=== PATIENT | male | born 1935 | race Caucasian/White ===

== ENCOUNTER 2016-08-06 11:42 | Emergency (ER) | payer MEDICARE ==
[2016-08-06] MEDS ORDERED: IPRATROPIUM-ALBUTEROL 3 ML NEB INHALATION STA (12:04)
[2016-08-06] MEDS ORDERED: diphenhydrAMINE 50 MG/ML 1 ML VIAL IVP STA (12:04)
[2016-08-06] MEDS ORDERED: methylPREDNISolone SOD SUCCI 125 MG/2 ML VIAL IV STA (12:04)
[2016-08-06] MEDS ORDERED: FAMOTIDINE 20 MG/2 ML VIAL IV STA (12:04)
--- NOTE | 2016-08-06 12:19 | ED ---
Allergic Reaction HPI - General Chief complaint: Allergic Reaction Stated complaint: LARISSA,dizzy, med reaction Time Seen by Provider: 08/06/16 12:00 Source: patient, family, RN notes reviewed Mode of arrival: wheelchair Limitations: no limitations - History of Present Illness Initial Comments: This is a 81-year-old male who states he had a stress test this morning at about 7 AM about one hour ago started developing itching and a rash to his extremities and torso. He has a difficulty with swallowing he does have slight shortness of breath no chest pain or other symptoms. The patient does states it feels better when he scratches the MD Complaint: allergic reaction - Related Data Home Medications Medication Instructions Recorded Confirmed Diclofenac Potassium [Cataflam] 50 mg PO HS 11/09/15 08/06/16 Levothyroxine Sodium [Synthroid] 50 mcg PO HS 11/09/15 08/06/16 Metoprolol Succinate [Toprol XL] 50 mg PO HS 11/09/15 08/06/16 Simvastatin [Simvastatin] 80 mg PO HS 11/09/15 08/06/16 Aspirin 81 mg PO HS 08/06/16 08/06/16 Clopidogrel [Plavix] 75 mg PO DAILY 08/06/16 08/06/16 Previous Rx's Medication Instructions Recorded predniSONE 20 mg PO BID #10 tab 08/06/16 Allergies Allergy/AdvReac Type Severity Reaction Status Date / Time Iodinated Contrast Media - Allergy Rash/Hives Verified 08/06/16 12:13 Oral and Penicillins Allergy Rash/Hives Verified 08/06/16 12:13 Review of Systems ROS Statement: Those systems with pertinent positive or pertinent negative responses have been documented in the HPI. ROS Other: All systems not noted in ROS Statement are negative. Past Medical History Past Medical History: Cancer, Hyperlipidemia, Hypertension, Myocardial Infarction ([place]), Osteoarthritis ([place]), Sleep Apnea/CPAP/BIPAP, Thyroid Disorder Additional Past Medical History / Comment(s): HX OF SLEEP APNEA, UNABLE TO USE MACHINE, HX OF SKIN CA Last Myocardial Infarction Date:: 2008 History of Any Multi-Drug Resistant Organisms: None Reported Past Surgical History: Heart Catheterization With Stent, Joint Replacement Additional Past Surgical History / Comment(s): KAREN KNEES, KAREN HIPS, RT SHOULDER , ONE STENT Past Anesthesia/Blood Transfusion Reactions: No Reported Reaction Date of Last Stent Placement:: 2008 Past Psychological History: No Psychological Hx Reported Smoking Status: Heavy tobacco smoker Past Alcohol Use History: None Reported, Occasional Past Drug Use History: None Reported General Exam - General Exam Comments Initial Comments: This is a 81-year-old male well-nourished awake alert oriented times. Limitations: no limitations General appearance: alert, anxious Head exam: Present: atraumatic, normocephalic, normal inspection Eye exam: Present: normal appearance, PERRL, EOMI. Absent: scleral icterus, conjunctival injection, periorbital swelling ENT exam: Present: normal exam, mucous membranes moist Neck exam: Present: normal inspection. Absent: tenderness, meningismus, lymphadenopathy Respiratory exam: Present: decreased breath sounds. Absent: respiratory distress, wheezes, rales, rhonchi, stridor Cardiovascular Exam: Present: regular rate, normal rhythm, normal heart sounds. Absent: systolic murmur, diastolic murmur, rubs, gallop, clicks GI/Abdominal exam: Present: soft, normal bowel sounds. Absent: distended, tenderness, guarding, rebound, rigid Extremities exam: Present: normal inspection, full ROM, normal capillary refill. Absent: tenderness, pedal edema, joint swelling, calf tenderness Back exam: Present: normal inspection Neurological exam: Present: alert, oriented X3, CN II-XII intact Psychiatric exam: Present: normal affect, normal mood Skin exam: Present: warm, dry, intact, erythema, urticaria. Absent: rash Course Vital Signs 08/06/16 08/06/16 08/06/16 11:52 12:18 12:28 Temperature 98.0 F Pulse Rate 63 50 L 54 L Respiratory 20 Rate Blood Pressure 103/56 O2 Sat by Pulse 96 Oximetry 08/06/16 08/06/16 12:48 13:18 Temperature 97.0 F L Pulse Rate 63 56 L Respiratory 18 16 Rate Blood Pressure 150/67 162/70 O2 Sat by Pulse 98 98 Oximetry Medical Decision Making - Medical Decision Making I did reevaluate the patient she'll occasionally showing much improved. Patient will be discharged to did discuss the findings with the patient's family members. Disposition Clinical Impression: Allergic reaction, Adverse reaction to drug Disposition: HOME SELF-CARE Condition: Good Instructions: Allergies (ED), Urticaria (ED) Additional Instructions: Ilef-yxg-ntvrvqa Benadryl 25 mg every 6 hours when necessary also over-the- counter histamine 2 enzo such as Zantac or Pepcid 20 mg of Pepcid every 12 hours for up to 5 days. Prescriptions: predniSONE 20 mg PO BID #10 tab Referrals: Mike Garsia MD [Primary Care Provider] - 1-2 days
[2016-08-06 13:18] VITALS: PULSE 56; RESP 16
[2016-08-06 13:48] VITALS: BP 145/61; TEMP 97.4
== END 2016-08-06 13:57 | disposition home or self-care (01) ==
LOC: EC 11:42
DX: R06.02 Shortness of breath (principal); R42 Dizziness and giddiness; L50.9 Urticaria, unspecified; T50.905A Adverse effect of unspecified drugs, medicaments and biological substances, initial encounter; I25.2 Old myocardial infarction; I10 Essential (primary) hypertension; E78.5 Hyperlipidemia, unspecified; M19.90 Unspecified osteoarthritis, unspecified site; E07.9 Disorder of thyroid, unspecified; Z79.02 Long term (current) use of antithrombotics/antiplatelets; Z79.82 Long term (current) use of aspirin; Z79.899 Other long term (current) drug therapy; Z88.0 Allergy status to penicillin; Z91.041 Radiographic dye allergy status; Z85.828 Personal history of other malignant neoplasm of skin; Z95.5 Presence of coronary angioplasty implant and graft
CPT/HCPCS: 99283; 96374; 96375 ×2; 94640; J1200; J2930

== ENCOUNTER → 2016-08-21 | Outpatient (CLI) | payer MEDICARE ==
[2016-08-21 11:06] LABS: Anion Gap 9 mmol/L; Blood Urea Nitrogen 23 mg/dL (9-20); Carbon Dioxide 23 mmol/L (22-30); Chloride 110 mmol/L (98-107); Non-African American GFR(MDRD) 54 (>60 ml/min/1.73 sqM); Potassium 4.5 mmol/L (3.5-5.1); Sodium 142 mmol/L (137-145)
[2016-08-21 11:16] LABS: CH 31.6; CHCM 33.8; HCT 38.6 % (39.0-53.0); HDW 2.39; HGB 13.2 gm/dL (13.0-17.5); MCHC 34.2 g/dL (31.0-37.0); MCV 93.8 fL (80.0-100.0); RBC 4.12 m/uL (4.30-5.90); RDW 13.9 % (11.5-15.5); WBC 6.1 k/uL (3.8-10.6)
== END | disposition home or self-care (01) ==
LOC: LABPAT 09:59
PROVIDERS: ATTEND Internal Medicine Interventional Cardiology
DX: Z01.812 Encounter for preprocedural laboratory examination (principal); R07.9 Chest pain, unspecified
CPT/HCPCS: 80051; 82565; 84520; 85027

== ENCOUNTER 2016-08-27 06:15 | Day surgery (SDC) | payer MEDICARE ==
[2016-08-22 08:44] VITALS: BMI 34.4
[2016-08-27] MEDS ORDERED: ALPRAZolam 0.5 MG TAB PO PRN (06:30)
[2016-08-27] MEDS ORDERED: ATORVASTATIN 80 MG TAB PO STA (06:30)
[2016-08-27] MEDS ORDERED: ASPIRIN 325 MG TAB PO STA (06:30)
[2016-08-27] MEDS ORDERED: NITROGLYCERIN SL TABS 0.4 MG TAB SUBLINGUAL PRN (06:30)
[2016-08-27] MEDS ORDERED: ALPRAZolam 0.25 MG TAB PO PRN (06:30)
[2016-08-27] MEDS ORDERED: SODIUM CHLORIDE 0.9% 1,000 ML in EMPTY BAG 1 BAG IV ONE (06:30)
[2016-08-27 06:58] VITALS: RESP 16
[2016-08-27 07:03] VITALS: TEMP 97.6
[2016-08-27] MEDS ORDERED: VERAPAMIL 2.5 MG/ML 2 ML AMP ONE (07:16)
[2016-08-27] MEDS ORDERED: LIDOCAINE 2% INJ 20 MG/ML (20 ML MDV) ONE (07:16)
[2016-08-27] MEDS ORDERED: HEPARIN SODIUM 1,000 UN/ML (10ML VL) ONE (07:41)
[2016-08-27] MEDS ORDERED: MIDAZOLAM 2 MG/2 ML VIAL ONE (07:41)
[2016-08-27] MEDS ORDERED: MIDAZOLAM 2 MG/2 ML VIAL IV ONE (07:50)
[2016-08-27] MEDS ORDERED: LIDOCAINE 2% INJ 20 MG/ML SQ ONE (07:55)
[2016-08-27] MEDS: VERAPAMIL SYRINGE (5 MG/10 ML) INTRAARTER ONE ×2 (07:57→08:11)
[2016-08-27] MEDS ORDERED: IODIXANOL 320 MG/ML 100 ML INTRAARTER ONE (08:13)
[2016-08-27] MEDS ORDERED: RX INFO: IV CONTRAST WAS GIVEN 1 EACH MISC MISCELLANE PRN (08:17)
[2016-08-27] MEDS ORDERED: SODIUM CHLORIDE 0.9% 1,000 ML IV SCH (08:30)
[2016-08-27 10:25] VITALS: PULSE 52
[2016-08-27 12:11] VITALS: BP 138/72
--- NOTE | 2016-08-27 18:31 | CC ---
DATE OF PROCEDURE: 08/27/2016 PERFORMING PHYSICIAN: Neto Barboza M.D., ice maker. PROCEDURE PERFORMED: Selective right and left coronary angiogram. INDICATION: This is a pleasant 81-year-old gentleman who is known to have coronary artery disease who underwent stenting of the LAD in [place]. He was experiencing exertional dyspnea and he underwent myocardial perfusion imaging stress test that was abnormal, showing anterior and inferior ischemia. He was brought today to undergo a heart catheterization. APPROACH: Right radial artery. COMPLICATIONS: None. LEVEL OF SEDATION: Moderate, with a sedation length of 20 minutes. PROCEDURE DESCRIPTION: After obtaining informed consent, the patient was brought to the cardiac curb and gutter laborer. The right radial artery was cannulated using micropuncture technique. The micropuncture wire passed easily. Then I placed a 6 Wolof sheath in the right radial artery. Subsequently I did selective right and left coronary angiogram using JR4 and JL3.5 catheters. The procedure was completed without any complications. SELECTIVE CORONARY ANGIOGRAM: 1. The right coronary artery is a large-caliber vessel. It is a dominant vessel. It is heavily calcified. The right coronary artery is totally occluded in the distal portion and fills by collateral from the left coronary system. 2. The left main is angiographically normal. It bifurcates into the left circumflex and left anterior descending artery. 3. The left circumflex is a large-caliber vessel. It is a non-dominant vessel. The proximal left circumflex appears to have mild disease only and give rise to a large first obtuse marginal branch which has diffuse disease up to about 50%. The left circumflex continues after that as a medium-caliber vessel in the AV groove. 4. The left anterior descending artery. The proximal LAD appears to have a plaque that seems to be in the range of 50%. The LAD in the proximal portion gives rise to the first and second diagonal branches. Both appear to have mild disease only. The mid LAD appears to have mild disease only. The LAD distally appears to have mild disease only as well. The LAD has a stent in the mid portion that seems to be patent. CONCLUSION: 1. Heavily calcified right and left coronary systems. 2. 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 3. Mild disease involving the left circumflex coronary artery. 4. Patent stent in the mid left anterior descending artery. POST-PROCEDURE MANAGEMENT: I recommended maximizing medical treatment at this point of time. If the patient continues to be symptomatic in spite of maximized medical treatment, we will consider proceeding with PCI of the RCA. FLAVIO
--- NOTE | 2016-08-27 18:49 | MISC ---
LETTER August 27, 2016 TO: Dr. Mike Garsia RE: Rodolfo Mccarty Dear Mike, Mr. Rodolfo Mccarty underwent a heart catheterization that showed patent stent in the mid LAD with chronic total occlusion of the right coronary artery which fills by collateral from the left coronary system. I recommended maximizing medical treatment at this point of time. I want to thank you for allowing me to participate in this patient's care. Please do not hesitate to call with any questions or concerns. Sincerely, Neto Barboza M.D. FLAVIO
== END 2016-08-27 13:04 | disposition home or self-care (01) ==
LOC: CATHCVL 06:15
PROVIDERS: ATTEND Internal Medicine Interventional Cardiology
DX: I25.110 Atherosclerotic heart disease of native coronary artery with unstable angina pectoris (principal); I25.84 Coronary atherosclerosis due to calcified coronary lesion; I25.82 Chronic total occlusion of coronary artery; I10 Essential (primary) hypertension; Z87.891 Personal history of nicotine dependence; R00.1 Bradycardia, unspecified; E78.5 Hyperlipidemia, unspecified; Z82.49 Family history of ischemic heart disease and other diseases of the circulatory system; Z79.02 Long term (current) use of antithrombotics/antiplatelets; Z79.82 Long term (current) use of aspirin; Z79.899 Other long term (current) drug therapy; Z88.0 Allergy status to penicillin
CPT/HCPCS: 99152; 93458; C1894; J2001; J2250; Q9967; J1644

== ENCOUNTER → 2016-11-12 | Outpatient (CLI) | payer MEDICARE ==
[2016-11-12 10:45] LABS: ALT 48 U/L (21-72); AST 30 U/L (17-59); Alkaline Phosphatase 57 U/L (38-126); Anion Gap 11 mmol/L; Blood Urea Nitrogen 29 mg/dL (9-20); Calcium 9.4 mg/dL (8.4-10.2); Carbon Dioxide 24 mmol/L (22-30); Chloride 110 mmol/L (98-107); Glucose 96 mg/dL (74-99); Non-African American GFR(MDRD) 58 (>60 ml/min/1.73 sqM); Sodium 145 mmol/L (137-145); Total Bilirubin 0.4 mg/dL (0.2-1.3); Total Protein 7.2 g/dL (6.3-8.2)
[2016-11-12 11:12] LABS: Aty Lym Flag Slight; CH 30.3; CHCM 31.8; HCT 40.8 % (39.0-53.0); HDW 2.57; HGB 13.1 gm/dL (13.0-17.5); MCH 30.8 pg (25.0-35.0); MCHC 32.1 g/dL (31.0-37.0); MCV 95.9 fL (80.0-100.0); Mean Platelet Volume 7.3; RBC 4.26 m/uL (4.30-5.90); RDW 13.7 % (11.5-15.5); WBC 5.1 k/uL (3.8-10.6); WBC (Perox) 5.17
[2016-11-12 11:32] LABS: Vitamin B12 360 pg/mL
[2016-11-12 14:36] LABS: Add Differential Manual Differential
[2016-11-12 14:38] LABS: Nucleated Red Blood Cells 0 /100 WBC (0-0); Total Cells Counted 100
== END | disposition home or self-care (01) ==
LOC: LABWHC1 09:55
PROVIDERS: ATTEND Nurse Practitioner Acute Care
DX: E55.9 Vitamin D deficiency, unspecified (principal); R41.3 Other amnesia
CPT/HCPCS: 36415; 80053; 82306; 82607; 84207; 84439; 84443; 84481; 85025

== ENCOUNTER → 2017-07-10 | Outpatient (CLI) | payer MEDICARE ==
[2017-07-10 08:40] LABS: Basophils % (A) 1 %; Eosinophils # (A) 0.1 k/uL (0-0.7); Eosinophils % (A) 2 %; HCT 42.3 % (39.0-53.0); HGB 13.9 gm/dL (13.0-17.5); Lymphocytes # (A) 1.8 k/uL (1.0-4.8); Lymphocytes % (A) 29 %; MCH 30.2 pg (25.0-35.0); MCHC 32.9 g/dL (31.0-37.0); MCV 91.6 fL (80.0-100.0); Monocytes # (A) 0.4 k/uL (0-1.0); Monocytes % (A) 7 %; Neutrophils # (A) 3.5 k/uL (1.3-7.7); Neutrophils % (A) 58 %; Platelet Count 218 k/uL (150-450); RBC 4.62 m/uL (4.30-5.90); RDW 13.8 % (11.5-15.5); WBC 6.1 k/uL (3.8-10.6)
[2017-07-10 10:39] LABS: Albumin 3.9 g/dL (3.5-5.0); Calcium 9.6 mg/dL (8.4-10.2); Potassium 5.1 mmol/L (3.5-5.1); Total Bilirubin 0.6 mg/dL (0.2-1.3); Total Protein 6.8 g/dL (6.3-8.2)
[2017-07-10 10:54] LABS: T4, Free (Free Thyroxine) 1.41 ng/dL (0.78-2.19)
[2017-07-10 11:08] LABS: PSA Annual Screen 0.44 ng/mL (0.00-4.00)
[2017-07-10 19:04] LABS: Hemoglobin A1C 5.8 % (4.0-6.0)
== END | disposition home or self-care (01) ==
LOC: LABWHC1 07:41
PROVIDERS: ATTEND Internal Medicine
DX: Z00.00 Encounter for general adult medical examination without abnormal findings (principal); N40.0 Benign prostatic hyperplasia without lower urinary tract symptoms; E03.9 Hypothyroidism, unspecified; I25.10 Atherosclerotic heart disease of native coronary artery without angina pectoris; J44.9 Chronic obstructive pulmonary disease, unspecified; R06.09 Other forms of dyspnea
CPT/HCPCS: 84439; 80061; 80053; 84443; 85025; 82306; 83036; 36415; G0103

== ENCOUNTER → 2017-09-05 | Outpatient (CLI) | payer MEDICARE ==
--- NOTE | 2017-09-05 12:47 | NM ---
EXAMINATION TYPE: NM bone 3 phase DATE OF EXAM: 09/05/2017 COMPARISON: NONE HISTORY: Pain right knee Triple phase bone scintigraphy was performed following the injection of 24.7 mCi Tc 99m MDP. Immedia te images and 3.5 hours post injection images acquired. FINDINGS: There is increased perfusion to the right knee. There is increased soft tissue uptake on blood pool images Bilateral photopenic defects are seen compatible with bilateral knee replacement surgery. Delayed imaging demonstrates increased uptake along the lateral margin of the distal femur and proxim al tibia. IMPRESSION: Increased flow and soft tissue uptake with delayed imaging demonstrates increased bone uptake. Recomm end a tagged WBC study to exclude infection versus loosening.
== END | disposition home or self-care (01) ==
LOC: RADNMMAIN 07:11
PROVIDERS: ATTEND Orthopaedic Surgery
DX: R94.8 Abnormal results of function studies of other organs and systems (principal); T84.84XD Pain due to internal orthopedic prosthetic devices, implants and grafts, subsequent encounter; Z96.651 Presence of right artificial knee joint; Z88.0 Allergy status to penicillin
CPT/HCPCS: 78315; A9503

== ENCOUNTER → 2017-09-23 | Outpatient (CLI) | payer MEDICARE | END | disposition home or self-care (01) | LOC: LABPAT 07:50 | PROVIDERS: ATTEND Orthopaedic Surgery | DX: Z01.812 Encounter for preprocedural laboratory examination (principal); T84.84XD Pain due to internal orthopedic prosthetic devices, implants and grafts, subsequent encounter; Z96.651 Presence of right artificial knee joint | CPT/HCPCS: 87070 ==

== ENCOUNTER → 2017-09-23 | Outpatient (CLI) | payer MEDICARE ==
[2017-09-23 08:48] LABS: Basophils % (A) 1 %; Eosinophils # (A) 0.1 k/uL (0-0.7); Eosinophils % (A) 2 %; HCT 43.7 % (39.0-53.0); HGB 14.5 gm/dL (13.0-17.5); Lymphocytes # (A) 1.9 k/uL (1.0-4.8); Lymphocytes % (A) 34 %; MCHC 33.1 g/dL (31.0-37.0); MCV 90.8 fL (80.0-100.0); Mean Platelet Volume 7.3; Monocytes # (A) 0.4 k/uL (0-1.0); Monocytes % (A) 7 %; Neutrophils # (A) 3.1 k/uL (1.3-7.7); Neutrophils % (A) 55 %; Platelet Count 209 k/uL (150-450); RBC 4.82 m/uL (4.30-5.90); RDW 14.6 % (11.5-15.5); WBC 5.6 k/uL (3.8-10.6)
[2017-09-23 10:36] LABS: Erythrocyte Sedimentation Rate 11 mm/hr (0-15)
== END | disposition home or self-care (01) ==
LOC: LABWHC1 08:18
PROVIDERS: ATTEND Orthopaedic Surgery
DX: T84.84XD Pain due to internal orthopedic prosthetic devices, implants and grafts, subsequent encounter (principal); Z96.651 Presence of right artificial knee joint
CPT/HCPCS: 36415; 85025; 85652; 86140

== ENCOUNTER 2017-10-01 05:38 | Day surgery (SDC) | payer MEDICARE ==
[2017-09-25 11:11] VITALS: BMI 34.4
[~2017-10-01 05:38] MED LIST: LACTATED RINGERS 1,000 ML IV SCH; LIDOCAINE 1% 20 ML VIAL (10MG/ML) FOR IV START INTRADERMA PRN; fentaNYL (PF) 50 MCG/ML 2 ML AMP IV PRN
[2017-10-01] MEDS ORDERED: SODIUM CHLORIDE 0.9% 1,000 ML IV SCH (06:00)
[2017-10-01 06:32] VITALS: TEMP 97.6
[2017-10-01] MEDS: BENZOCAINE SPRAY 1 CAN MUCOUS MEM ONE ×2 (07:00→07:02)
[2017-10-01] MEDS ORDERED: LIDOCAINE 1% INJ 10MG/ML (20 ML MDV) ONE (07:01)
[2017-10-01] MEDS ORDERED: PROPOFOL 10 MG/ML 20 ML VIAL IV ONE (07:01)
[2017-10-01 07:23] LABS: Potassium 4.1 mmol/L (3.5-5.1)
[2017-10-01 07:38] VITALS: RESP 16
--- NOTE | 2017-10-01 08:00 | CE ---
CARDIAC ELECTROPHYSIOLOGY REPORT CARDIOVERSION: DATE OF SERVICE: October 01, 2017. PERFORMING PHYSICIAN: Neto Barboza MD. PROCEDURE PERFORMED: Cardioversion. INDICATION: Atrial flutter, which was symptomatic with shortness of breath. SEDATION: The procedure was performed under general anesthesia with SHOP TAILOR in the room. PROCEDURE DESCRIPTION: After transesophageal echocardiogram was performed, and left atrial appendage as well as intracardiac thrombus was ruled out, we did cardioversion. The patient converted from atrial flutter to normal sinus mechanism using 50 joules on first attempt. CONCLUSION: Successful cardioversion of atrial flutter to normal sinus mechanism using 50 joules on first attempt. POSTPROCEDURE MANAGEMENT: 1. Continue anticoagulation. 2. Continue Toprol-XL as well. 3. Follow up with the patient. MMODL / IJN: [id number] /
--- NOTE | 2017-10-01 08:06 | ECHOT ---
TRANSESOPHAGEAL ECHOCARDIOGRAM DATE OF SERVICE: October 01, 2017 PERFORMING PHYSICIAN: Neto Barboza MD, music therapy teacher. PROCEDURE PERFORMED: Transesophageal echocardiogram. INDICATION: This is a pleasant 82-year-old gentleman who was diagnosed recently with atrial flutter. He was short of breath with it. He started on anticoagulation. He was brought today to undergo a cardioversion. COMPLICATION: None. LEVEL OF SEDATION: Deep sedation was performed using propofol with FABRIC WORKER FOREMAN in the room. PROCEDURE DESCRIPTION: After obtaining an informed consent, the patient was brought to the transesophageal echocardiogram suite. A pulse oximetry and heart rate monitors were attached to the patient. Subsequently the patient was sedated using propofol. I did advance the transesophageal echocardiogram probe to the mid esophagus where a 2D echocardiogram images as well as color Doppler images of various cardiac structures were obtained. Particular attention was made to the left atrial appendage. After that, we did a cardioversion after we ruled out left atrial appendage and intracardiac thrombus. The procedure was completed without any complication. FINDINGS: The left ventricular dimension appeared to be within normal limits. The left ventricular systolic function seems to be mildly impaired with EF around 45%. The right ventricle appeared to be within normal limits for dimension. The aortic valve appeared to be trileaflet valve and appeared to be thickened and calcified with restriction to opening and evidence of moderate aortic stenosis by area only. The aortic valve area was 1.3 centimeters square. The mitral valve seems to be also thickened and calcified with moderate MR. There was normal tricuspid valve and pulmonic valve. The left atrial appendage appeared to be free from any thrombus. The interatrial septum appeared to be intact. We did a bubble study as well. CONCLUSION: 1. Normal left atrial appendage without any evidence of thrombus. 2. Intact interatrial septum without any evidence of shunt. 3. Mildly impaired left ventricular function with an ejection fraction of 45%. 4. Normal right ventricular dimension and systolic function. 5. Aortic sclerosis with evidence of moderate stenosis by area only. 6. Thickened mitral valve leaflets with moderate mitral regurgitation. 7. Normal tricuspid valve and pulmonic valve. 8. No evidence of pericardial effusion. POSTPROCEDURE MANAGEMENT: 1. Cardioversion. 2. Transthoracic echocardiogram as an outpatient to assess the severity of aortic stenosis. MMODL / IJN: [id number] /
[2017-10-01 08:46] VITALS: BP 122/72; PULSE 68
== END 2017-10-01 08:55 | disposition home or self-care (01) ==
LOC: CATHCVL 05:38
PROVIDERS: ATTEND Internal Medicine Interventional Cardiology
DX: I48.3 Typical atrial flutter (principal); I08.0 Rheumatic disorders of both mitral and aortic valves; I44.0 Atrioventricular block, first degree; I45.10 Unspecified right bundle-branch block; I48.91 Unspecified atrial fibrillation; I25.10 Atherosclerotic heart disease of native coronary artery without angina pectoris; I10 Essential (primary) hypertension; E78.5 Hyperlipidemia, unspecified; G47.33 Obstructive sleep apnea (adult) (pediatric); E07.9 Disorder of thyroid, unspecified; M19.90 Unspecified osteoarthritis, unspecified site; F17.290 Nicotine dependence, other tobacco product, uncomplicated; Z95.5 Presence of coronary angioplasty implant and graft; Z82.49 Family history of ischemic heart disease and other diseases of the circulatory system; Z79.01 Long term (current) use of anticoagulants; Z79.82 Long term (current) use of aspirin; Z79.890 Hormone replacement therapy; Z79.899 Other long term (current) drug therapy; Z88.0 Allergy status to penicillin; Z91.09 Other allergy status, other than to drugs and biological substances
CPT/HCPCS: 93312; 93320; 93325; 92960; 80048; J2001; J2704

== ENCOUNTER → 2017-10-24 | Outpatient (CLI) | payer MEDICARE ==
[2017-10-24 08:53] LABS: Basophils % (A) 1 %; Eosinophils # (A) 0.1 k/uL (0-0.7); Eosinophils % (A) 2 %; HGB 13.9 gm/dL (13.0-17.5); Lymphocytes # (A) 1.9 k/uL (1.0-4.8); Lymphocytes % (A) 33 %; MCH 29.8 pg (25.0-35.0); MCHC 32.3 g/dL (31.0-37.0); MCV 92.2 fL (80.0-100.0); Mean Platelet Volume 6.8; Monocytes # (A) 0.4 k/uL (0-1.0); Monocytes % (A) 7 %; Neutrophils # (A) 3.1 k/uL (1.3-7.7); Neutrophils % (A) 54 %; Platelet Count 194 k/uL (150-450); RBC 4.66 m/uL (4.30-5.90); RDW 14.5 % (11.5-15.5); WBC 5.7 k/uL (3.8-10.6)
[2017-10-24 09:13] LABS: Calcium 8.8 mg/dL (8.4-10.2); Potassium 4.2 mmol/L (3.5-5.1)
== END | disposition home or self-care (01) ==
LOC: LABPAT 08:05
PROVIDERS: ATTEND Internal Medicine
DX: Z01.812 Encounter for preprocedural laboratory examination (principal); E03.9 Hypothyroidism, unspecified; I10 Essential (primary) hypertension; M81.0 Age-related osteoporosis without current pathological fracture
CPT/HCPCS: 36415; 80048; 85025

== ENCOUNTER → 2017-11-03 | Outpatient (CLI) | payer MEDICARE ==
[2017-11-03 13:16] LABS: Partial Thromboplastin Time 23.8 sec (22.0-30.0); Prothrombin Time 10.2 sec (9.0-12.0)
== END | disposition home or self-care (01) ==
LOC: LABPAT 11:27
PROVIDERS: ATTEND Orthopaedic Surgery
DX: Z01.812 Encounter for preprocedural laboratory examination (principal); Z51.81 Encounter for therapeutic drug level monitoring; Z79.01 Long term (current) use of anticoagulants
CPT/HCPCS: 36415; 85610; 85730

== ENCOUNTER 2017-11-04 08:00 | Inpatient (IN) | payer MEDICARE ==
[2017-10-31 18:24] VITALS: BMI 34.4
--- NOTE | 2017-11-03 08:55 | HP ---
HISTORY AND PHYSICAL CHIEF COMPLAINT: Right knee pain. HISTORY OF PRESENT ILLNESS: The patient is an 82-year-old retired gentleman who presents with progressive right knee pain for the past several months. He notes lateral pain and instability. He has been wearing a brace. He does use a cane. He notes the pain limits his normal function and activities. He had a previous right total knee arthroplasty in 1995. PAST MEDICAL HISTORY: Significant for heart disease, hypothyroidism, hypertension, hypercholesterolemia. PAST SURGICAL HISTORY: Significant for abdominoplasty, bilateral total knee arthroplasty, previous shoulder surgery, previous bilateral hip surgery in addition to coronary artery bypass grafting. CURRENT MEDICATIONS: Aspirin, metoprolol, simvastatin, levothyroxine along with Plavix. ALLERGIES: He notes allergies to PENICILLIN. FAMILY HISTORY: Family history is noncontributory. SOCIAL HISTORY: Significant for pipe smoking in addition to social alcohol use. REVIEW OF SYSTEMS: Sixteen-point review of systems otherwise reviewed and is noncontributory. PHYSICAL EXAMINATION: On examination, the patient is approximately 5 feet, 10 inches; 241 pounds of endomorphic habitus. HEENT exam is nonfocal. Neck is supple. He has painless passive motion of his right hip. Straight leg raise is negative. Active motion right knee -12 to 105 degrees of flexion. He has a moderate effusion. There is no warmth or erythema. He is tender about the medial and lateral joint line. Collaterals are stable. Homans is negative. His distal neurovascular exam appears intact in the right lower extremity. Previous x-rays of the right knee obtained in the office show asymmetry of the polyethylene component. Bone scan report 09/05/2017 of the right knee shows increased uptake involving the femoral and tibial components. IMPRESSION: 1. 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 2. History of heart disease on anticoagulation. RECOMMENDATIONS: I talked to the patient at length regarding his condition and treatment options. At this point, he is quite symptomatic and opts to proceed with surgery. We will plan to proceed with revision right total knee arthroplasty. Risks and benefits were discussed at length in layman's terms. We will reinstitute anticoagulation postoperatively. The patient underwent preoperative medical evaluation by Dr. Garsia and cardiac evaluation by Dr. Barboza. MMARTUROL / AKILAHN: [id number] /
[~2017-11-04 08:00] MED LIST changes: +ACETAMINOPHEN TAB 500 MG TAB PO ONE; +DEXAMETHASONE SOD PHOSPHATE 10 MG/ML 1 ML VIAL IV ONE; -LACTATED RINGERS 1,000 ML IV SCH; -LIDOCAINE 1% 20 ML VIAL (10MG/ML) FOR IV START INTRADERMA PRN; +MELOXICAM 7.5 MG TAB PO ONE; +MIDAZOLAM 2 MG/2 ML VIAL IV PRN; +ONDANSETRON 4 MG/2 ML VIAL IVP ONE; +TRANEXAMIC ACID 1,000 MG in SODIUM CHLORIDE 0.9% 50 ML IVPB ONE; +ceFAZolin IN SWFI 2 GM/20 ML SYRINGE IVP ONE
[2017-11-04] MEDS ORDERED: ROPIVACAINE 246.25 MG, EPINEPHrine 0.5 MG, KETOROLAC 30 MG, cloNIDine HCL/PF 80 MCG, WA... MISCELLANE ONE ×5 (09:38)
[2017-11-04] MEDS ORDERED: LIDOCAINE 1% 20 ML VIAL (10MG/ML) FOR IV START INTRADERMA ONE (09:38)
[2017-11-04] MEDS: LACTATED RINGERS 1,000 ML IV SCH (09:39)
[2017-11-04] MEDS ORDERED: CLINDAMYCIN 600 MG in DEXTROSE 5% IN WATER 50 ML IVPB STA ×2 (10:30)
[2017-11-04] MEDS ORDERED: METOPROLOL SUCCINATE (ER) 50 MG TAB.ER.24H PO STA (10:39)
[2017-11-04] MEDS ORDERED: METOPROLOL SUCCINATE (ER) 50 MG TAB.ER.24H PO ONE (10:45)
[2017-11-04] MEDS ORDERED: TRANEXAMIC ACID 1,000 MG/10 ML VIAL ONE (10:55)
[2017-11-04] MEDS ORDERED: MIDAZOLAM 2 MG/2 ML VIAL ONE (10:55)
[2017-11-04] MEDS ORDERED: SODIUM CHLORIDE 0.9% 100 ML BAG ONE (10:55)
[2017-11-04] MEDS ORDERED: CLINDAMYCIN 1,800 MG in SODIUM CHLORIDE 0.9% IRRIGATIO 3,000 ML IRRIGATION ONE (11:44)
[2017-11-04] MEDS ORDERED: LACTATED RINGERS 1,000 ML IV ONE (12:21)
[2017-11-04] MEDS ORDERED: HYDROmorphone 1 MG/ML 1 ML SYRINGE IVP PRN ×2 (13:15)
[2017-11-04] MEDS ORDERED: ONDANSETRON 4 MG/2 ML VIAL IVP PRN (13:15)
[2017-11-04] MEDS ORDERED: HYDROcodone/APAP 5-325MG 1 EACH TAB PO PRN ×2 (13:15)
[2017-11-04] MEDS ORDERED: NALOXONE 0.4 MG/ML 1 ML VIAL IV PRN (13:15)
[2017-11-04] MEDS ORDERED: MAGNESIUM HYDROXIDE 2,400 MG/10 ML CUP PO PRN (13:15)
--- NOTE | 2017-11-04 13:54 | P.OP ---
Date of Procedure: 11/04/17 Preoperative Diagnosis: Painful right total hemiarthroplastyaseptic loosening Postoperative Diagnosis: Same Procedure(s) Performed: Revision right total knee arthroplastycemented Implants: Depuy TC3 size 5 cemented femoral component, size 4 cemented tibial component, 45 mm tibial metaphyseal sleeve, 18 x 75 mm tibial stem, 34 mm femoral metaphyseal sleeve, 20 x 75 mm femoral stem, 4 mm posterior medial and lateral augments for the distal femur, 10 mm articular surface Anesthesia: regional, local, spinal Surgeon: Rick Madden Pricer Bagger #1: Nicholas Hartmann Estimated Blood Loss (ml): 300 Pathology: other (Synovium) Condition: stable Disposition: PACU Indications for Procedure: The patient's an 82-year-old male who presents with progressive right knee pain clinically he had evidence of aseptic loosening of a right total knee arthroplasty. A discussion of the risks and benefits of operative intervention versus continued conservative measures was made with patient. He opted to proceed with surgery. Operative risks to include infection, neurovascular injury, development of blood clots, possible component loosening, possible component failure and need for subsequent procedures was discussed. Informed consent was obtained. Operative Findings: As below Description of Procedure: The patient was brought to the operating room, and after induction of spinal anesthesia the right lower extremity was prepped and draped in normal fashion. The tourniquet was inflated to 270 mmHg. The previous longitudinal incision was then made extending 3 finger breaths above the superior pole of patella to the medial aspect the tibial tubercle. The skin and subcutaneous tissues were divided sharply. Electrocautery was used for hemostasis. A medial parapatellar arthrotomy is performed. The patella was everted. The medial soft tissues to include the superficial and deep portions of the medial collateral ligament and the medial hamstring tendons were elevated subperiosteally. The knee was flexed. The polyethylene was then removed. There was significant posterior medial wear. Attention was then paid towards removing the femoral component. A sagittal saw was used to break the bone- cement interface. The femoral component was then extracted. There was significant anterior bone loss. Distal and posterior appeared to be relatively intact. Attention was then paid towards removing the tibial component. The 4 screws were first removed. A sagittal saw was utilized to break the bone- cement interface. The tibial component was then extracted. There was some posterior medial bone loss. A canal drill was used to find the tibial canal. The tibial canal was then reamed up to 18 mm to a depth of 75 mm. I had good distal chatter. The metaphysis was then reamed with the conical reamer. Sequential broaching was performed up to a size 45 metaphyseal broach. There was good rotational stability. A cleanup cut was made over the top of this. The tibia sized most appropriately at size 4. Attention was then paid towards preparing the femur. The canal was reamed up to 20 mm. There was good chatter. Conical reamer was used to the appropriate depth. The metaphysis was then broached up to a 34 mm broach. There was good rotational stability. The distal cutting block was placed. There is no real distal bone loss. The size 5 cutting block was placed. Anterior, posterior, and chamfer cuts were made. Posterior medial and lateral and needed 4 mm augments. The box guide was used with intercondylar cut utilizing a reciprocating saw. This was removed and the trial tibial and femoral components were placed along with a 10 mm articular surface. I was able to obtain full flexion and extension with good stability with varus and valgus stress. The patella was inspected and felt to be adequate and well fixed. The trial components were then removed. The bony surfaces were prepared with pulsatile lavage and dried. The posterior soft tissues were injected with ropivacaine. The tibial component was assembled and the appropriate rotation on the back table. It was then cemented in place and was fully seated. Excess cement was removed. The femoral component was cemented place the appropriate rotation on the back table and then cemented in place and was fully seated. Again excess cement was removed. The final 10 mm articular surface was placed and the knee was put in full extension. After the cement had sufficiently hardened, the knee was again taken through a range of motion. Again I was able to obtain full flexion and extension with good stability with varus and valgus stress. The wound was irrigated with pulsatile lavage. The tourniquet was deflated with approximately 95 minutes total tourniquet time. The medial parapatellar arthrotomy was closed with #2 Ethibond suture. A deep drain was placed exiting laterally. The second dose of IV TXA was given. The subcutaneous tissues were reapproximated with interrupted 2-0 Vicryl sutures. The skin was reapproximated 3-0 subarticular strata fix suture. Skin tape and adhesive was applied. A sterile dressing was applied. The patient was awoken from sedation and transferred to recovery room in good condition. Blood loss was estimated at 300 mL. No complications were incurred. Sponge and needle counts were correct at the end of the case.
--- NOTE | 2017-11-04 14:20 | XR ---
EXAMINATION TYPE: XR knee limited RT DATE OF EXAM: 11/04/2017 CLINICAL HISTORY: Right knee pain and arthritis status post total knee replacement revision. TECHNIQUE: Portable AP and crosstable lateral views of the right knee are obtained immediately posto peratively. COMPARISON: Outside right knee x-ray August 29, 2017 FINDINGS: Metallic hardware from longstem total right knee arthroplasty revision is seen and appears satisfactory in alignment and position. There is evidence of recent surgery with diffuse subcutaneo us gas and percutaneous surgical drain noted. Posterior vascular calcification is redemonstrated. IMPRESSION: METALLIC HARDWARE FROM TOTAL RIGHT KNEE ARTHROPLASTY IS SATISFACTORY IN ALIGNMENT.
[2017-11-04] MEDS ORDERED: ROPIVACAINE 1,100 MG, SODIUM CHLORIDE 0.9% 330 ML MISCELLANE PRN ×6 (15:49→15:56)
[2017-11-04] MEDS ORDERED: ceFAZolin IN SWFI 2 GM/20 ML SYRINGE IVP SCH (16:00)
[2017-11-04] MEDS: traMADol 50 MG TAB PO SCH ×2 (17:47→21:26)
[2017-11-04] MEDS: CLINDAMYCIN 600 MG in DEXTROSE 5% IN WATER 50 ML IVPB SCH ×4 (18:01→23:13)
[2017-11-04] MEDS: SENNOSIDES-DOCUSATE SODIUM 1 EACH TAB PO SCH (21:25)
[2017-11-05 08:49] LABS: Basophils % (A) 0 %; Eosinophils % (A) 0 %; HCT 34.4 % (39.0-53.0); HGB 11.3 gm/dL (13.0-17.5); Lymphocytes # (A) 1.8 k/uL (1.0-4.8); Lymphocytes % (A) 17 %; MCHC 32.7 g/dL (31.0-37.0); MCV 91.7 fL (80.0-100.0); Mean Platelet Volume 7.8; Monocytes # (A) 0.8 k/uL (0-1.0); Monocytes % (A) 7 %; Neutrophils # (A) 7.9 k/uL (1.3-7.7); Neutrophils % (A) 74 %; Platelet Count 172 k/uL (150-450); RBC 3.75 m/uL (4.30-5.90); RDW 14.5 % (11.5-15.5); WBC 10.6 k/uL (3.8-10.6)
[2017-11-05] MEDS: traMADol 50 MG TAB PO SCH ×4 (09:54→22:26)
[2017-11-05] MEDS: CLOPIDOGREL 75 MG TAB PO SCH (09:55)
[2017-11-05] MEDS: ASPIRIN 81 MG PO SCH (09:55)
--- NOTE | 2017-11-05 10:49 | P.PN ---
Progress Note - Text Progress Note Date: 11/05/17 Anesthesia Adductor Catheter Progress Note: 11/05/2017 @ 0642 Pt. Seen and evaluated at the Bedside this AM Denies any complaints of Headaches or pain Reports VAS 2/10, mainly in the back of the leg Vitals stable, Ambulating, mak in place PLan: POD 1 s/p Right total Knee Arthroplasty 1. Pain well controlled with Q-pump, continue current plan 2. Will discuss with primary team any further changes
--- NOTE | 2017-11-05 10:49 | P.PN ---
Subjective Progress Note Date: 11/05/17 Principal diagnosis: Status post revision right total knee arthroplasty Patient seen today resting in his hospital bed, his is present at bedside. He states doing well at this time. No chest pain or shortness of breath. Did discuss with physical therapy about patient, they stated another night would be of benefit. They also noted some bloody drainage at the distal end of the incision up ambulating. Objective - Vital Signs Vital signs: Vital Signs Temp 98.3 F 11/05/17 07:00 Pulse 65 11/05/17 07:00 Resp 16 11/05/17 07:00 BP 103/66 11/05/17 07:00 Pulse Ox 96 11/05/17 07:00 Intake & Output 11/04/17 11/05/17 11/05/17 18:59 06:59 18:59 Intake Total 1155 400 Output Total 1105 680 Balance 50 -280 Weight 108.862 kg Intake: IV 955 Intake, IV Titration 400 Amount Lactated Ringers 1,000 ml 400 @ 0 mls/hr IV .[facility] Rx#:[id number] Oral 200 Output: Drainage 160 280 Right Knee 160 280 Urine 575 400 Estimated Blood Loss 370 - Exam Right lower extremity: Incision is clean, dry, and intact. The prineo tape is in good condition. There is minimal soft tissue swelling and ecchymosis surrounding the medial and lateral aspects of the incision. Calf is soft, no tenderness with palpation. Plantar flexion, dorsiflexion, EHL, FHL are intact. Sensory exam to light touch throughout the extremity is intact, dorsal pedis pulses 2+. - Labs CBC & Chem 7: 11/05/17 07:01 Labs: Abnormal Lab Results - Last 24 Hours (Table) 11/05/17 Range/Units 07:01 RBC 3.75 L (4.30-5.90) m/uL Hgb 11.3 L (13.0-17.5) gm/dL Hct 34.4 L (39.0-53.0) % Neutrophils # 7.9 H (1.3-7.7) k/uL Assessment and Plan Plan: Assessment: Postop day #1 status post revision right total knee arthroplasty Plan: Pain control, continue current medication GI and DVT prophylaxis, I did resume Plavix and aspirin Daily dressing changes, reinforced dressing and placed a compressive Imtiaz Ice and elevate often, use of CPM Medical recommendations Encourage incentive spirometer Discharge planning: Plan for discharge to home in the next few days Time with Patient: Less than 30
--- NOTE | 2017-11-05 11:20 | P.CNPUL ---
History of Present Illness Consult date: 11/05/17 Reason for consult: other Chief complaint: Status post right total knee arthroplasty History of present illness: Pulmonary consultation 11/05/2017 This is a 82-year-old male who has a history of a painful right total hemiarthroplasty with aseptic loosening. He had a revision right total knee arthroplasty. The procedure was performed by Dr. Angeles yesterday. He's postop day #1. He sees my partner as a primary and we are consulted for medical management. From the medical side, is doing well. He has no history of any lung disease. He does smoke cigarettes cigars and a pipe but apparently was told by his primary days lungs are stable. Currently doing well. His only complaint is pain at the surgical site. He apparently has a history of previous hypothyroidism hypertension and hyperlipidemia. His medications include Plavix level thyroxine simvastatin metoprolol and aspirin. His only ALLERGY is penicillin. He appears not to have any current active non- orthopedic issues at this time. Review of Systems A 14 point review of system is positive for pain at the surgical site. That includes the right knee. Other than that, he is doing well. Past Medical History Past Medical History: Cancer, Hyperlipidemia, Hypertension, Myocardial Infarction ([place]), Osteoarthritis (OA), Sleep Apnea/CPAP/BIPAP, Thyroid Disorder Additional Past Medical History / Comment(s): HX OF SLEEP APNEA, UNABLE TO USE MACHINE, HX OF SKIN CA Last Myocardial Infarction Date:: 2008 History of Any Multi-Drug Resistant Organisms: None Reported Past Surgical History: Heart Catheterization With Stent, Joint Replacement Additional Past Surgical History / Comment(s): KAREN KNEES, KAREN HIPS, RT SHOULDER , ONE STENT Past Anesthesia/Blood Transfusion Reactions: No Reported Reaction Date of Last Stent Placement:: 2008 Past Psychological History: No Psychological Hx Reported Smoking Status: Heavy tobacco smoker Past Alcohol Use History: None Reported, Occasional Additional Past Alcohol Use History / Comment(s): SMOKES SMALL CIGARS, 1PPD SINCE AGE 15 (1952) Past Drug Use History: None Reported - Past Family History Mother Family Medical History: No Reported History Brother(s) Family Medical History: Myocardial Infarction ([place]) Father Family Medical History: Myocardial Infarction ([place]) Medications and Allergies Home Medications Medication Instructions Recorded Confirmed Type Levothyroxine Sodium [Synthroid] 50 mcg PO HS 11/09/15 11/04/17 History Metoprolol Succinate [Toprol XL] 50 mg PO DAILY 11/09/15 11/04/17 History Simvastatin 80 mg PO HS 11/09/15 11/04/17 History Aspirin 81 mg PO HS 08/06/16 11/04/17 History Cholecalciferol (Vitamin D3) 2,000 unit PO DAILY 09/25/17 11/04/17 History [Vitamin D3] Clopidogrel [Plavix] 75 mg PO DAILY 10/31/17 11/04/17 History Allergies Allergy/AdvReac Type Severity Reaction Status Date / Time Penicillins Allergy Rash/Hives Verified 11/04/17 18:15 cardiolite Allergy Anaphylaxis Uncoded 10/31/17 17:28 Physical Exam Osteopathic Statement: *. No significant issues noted on an osteopathic structural exam other than those noted in the History and Physical/Consult. Vitals: Vital Signs Temp Pulse Pulse Resp BP Pulse Ox 11/05/17 07:00 98.3 F 65 16 103/66 96 11/05/17 01:07 98.3 F 58 L 16 126/54 96 11/04/17 20:01 98.5 F 65 18 118/54 95 11/04/17 17:33 64 16 141/79 94 L 11/04/17 16:30 54 L 16 146/73 94 L 11/04/17 16:00 58 L 16 141/70 95 11/04/17 15:30 49 L 16 129/63 96 11/04/17 15:00 54 L 18 116/58 97 11/04/17 14:45 59 L 18 117/57 95 11/04/17 14:30 58 L 18 117/56 97 11/04/17 14:15 60 18 118/56 95 11/04/17 14:00 57 L 18 114/55 94 L 11/04/17 13:44 97.8 F 63 18 119/59 96 Intake and Output 11/04/17 11/05/17 11/05/17 22:59 06:59 14:59 Intake Total 900 Output Total 430 680 Balance 470 -680 Intake: IV 300 Intake, IV Titration 400 Amount Lactated Ringers 1,000 ml 400 @ 0 mls/hr IV .[facility] Rx#:[id number] Oral 200 Output: Drainage 160 280 Right Knee 160 280 Urine 200 400 Estimated Blood Loss 70 Other: Weight 108.862 kg No acute distress, oriented 3. Not requiring any supplemental oxygen. HEENT examination is grossly unremarkable. Mucous membranes are moist. No oral lesions. Neck supple. Full range of motion. No adenopathy thyromegaly or neck vein distention. Cardiovascular examination reveals regular rhythm rate. S1-S2 normal. No S3 or S4. No discernible murmur noted. Lungs reveal clear breath sounds. Her sounds are equal bilaterally. No adventitious lung sounds including wheezes rhonchi or crackles. Abdomen soft bowel sounds are heard. No masses or tenderness. Extremities are intact. No cyanosis clubbing or edema. Skin is without rash or lesion. Neurologic examination is brief but nonfocal. Results - Laboratory Findings CBC and BMP: 11/05/17 07:01 Abnormal lab findings: Abnormal Labs 11/05/17 07:01 RBC 3.75 L Hgb 11.3 L Hct 34.4 L Neutrophils # 7.9 H - Diagnostic Findings Chest x-ray: report reviewed (Labs x-rays and medications are all reviewed.), image reviewed Assessment and Plan Assessment: Assessment Postop day #1, status post revision of a right knee arthroplasty. History of coronary artery disease History of hypertension History of hyperlipidemia History of hypothyroidism History of GERD History of chronic tobacco abuse in the form of cigarettes pipes and cigars. Plan: Plan dated 11/05/2017 The patient's doing well. We will continue to follow. His usual medications are reported. The patient's only having pain at the surgical site which is the right knee. He denies other complaints including chest pain chest discomfort shortness breath cough wheezing phlegm production or hemoptysis. No abdominal pain or urinary complaints. White count 10.6 hemoglobin is 11.3 hematocrit 34.4 and platelet count is normal. We will continue to follow. Time with Patient: Greater than 30
[2017-11-05] MEDS: LACTATED RINGERS 1,000 ML IV SCH (20:17)
[2017-11-05] MEDS: SENNOSIDES-DOCUSATE SODIUM 1 EACH TAB PO SCH (20:19)
[2017-11-06] MEDS: LACTATED RINGERS 1,000 ML IV SCH ×2 (05:38→22:55)
[2017-11-06] MEDS: traMADol 50 MG TAB PO SCH ×4 (08:14→21:36)
[2017-11-06] MEDS: ASPIRIN 81 MG PO SCH (08:14)
[2017-11-06] MEDS: CLOPIDOGREL 75 MG TAB PO SCH (08:15)
--- NOTE | 2017-11-06 10:35 | P.PN ---
Subjective Progress Note Date: 11/06/17 Principal diagnosis: Status post revision of a right knee arthroplasty, postop day 2 Pulmonary consultation 11/05/2017 This is a 82-year-old male who has a history of a painful right total hemiarthroplasty with aseptic loosening. He had a revision right total knee arthroplasty. The procedure was performed by Dr. Angeles yesterday. He's postop day #1. He sees my partner as a primary and we are consulted for medical management. From the medical side, is doing well. He has no history of any lung disease. He does smoke cigarettes cigars and a pipe but apparently was told by his primary days lungs are stable. Currently doing well. His only complaint is pain at the surgical site. He apparently has a history of previous hypothyroidism hypertension and hyperlipidemia. His medications include Plavix level thyroxine simvastatin metoprolol and aspirin. His only ALLERGY is penicillin. He appears not to have any current active non- orthopedic issues at this time. On 11/06/2017 patient is doing well. He is up ambulating with physical therapy , and a walker, his gait is very unsteady, patient is hunched over over a walker quite significantly. Doing well from pulmonary perspective, no shortness of breath, no chest pain. His labs from yesterday were reviewed, the VBC was 10.6, hemoglobin was 11.3. Lung sounds are clear to auscultation, his postoperative pain is reasonably controlled. Objective - Vital Signs Vital signs: Vital Signs Temp 98.2 F 11/06/17 07:12 Pulse 70 11/06/17 07:12 Resp 16 11/06/17 07:12 BP 122/64 11/06/17 07:12 Pulse Ox 94 L 11/06/17 07:12 Intake & Output 11/05/17 11/06/17 11/06/17 18:59 06:59 18:59 Intake Total 480 180 Output Total 600 1825 Balance -120 -1825 180 Intake: Oral 480 180 Output: Urine 600 1825 Uretheral (Gusman) 600 Other: Voiding Method Urinal # Voids 3 - Exam No acute distress, oriented 3. Not requiring any supplemental oxygen. HEENT examination is grossly unremarkable. Mucous membranes are moist. No oral lesions. Neck supple. Full range of motion. No adenopathy thyromegaly or neck vein distention. Cardiovascular examination reveals regular rhythm rate. S1-S2 normal. No S3 or S4. No discernible murmur noted. Lungs reveal clear breath sounds. Her sounds are equal bilaterally. No adventitious lung sounds including wheezes rhonchi or crackles. Abdomen soft bowel sounds are heard. No masses or tenderness. Extremities are intact. No cyanosis clubbing or edema. Skin is without rash or lesion. Neurologic examination is brief but nonfocal. - Labs CBC & Chem 7: 11/05/17 07:01 Assessment and Plan Plan: Assessment: Postop day #2, status post revision of a right knee arthroplasty. History of coronary artery disease History of hypertension History of hyperlipidemia History of hypothyroidism History of GERD History of chronic tobacco abuse in the form of cigarettes pipes and cigars. Plan: Pain is reasonably controlled, patient is ambulating. Vital signs are stable, no chest pain, no shortness of breath, no wheezing or coughing. On a perspective patient is stable, anticipate discharge home or subacute rehab soon I performed a history & physical examination of the patient and discussed their management with my nurse practitioner, Estee Olivo. I reviewed the nurse practitioner's note and agree with the documented findings and plan of care. Lung sounds are clear. The findings and the impression was discussed with the patient. I attest to the documentation by the nurse practitioner. Time with Patient: Less than 30
[2017-11-06] MEDS: SENNOSIDES-DOCUSATE SODIUM 1 EACH TAB PO SCH (21:07)
[2017-11-07 00:59] VITALS: RESP 18
[2017-11-07 07:39] VITALS: BP 117/69; PULSE 73; TEMP 98.4
[2017-11-07 08:06] LABS: Basophils % (A) 1 %; Eosinophils # (A) 0.1 k/uL (0-0.7); Eosinophils % (A) 1 %; HCT 34.5 % (39.0-53.0); HGB 11.5 gm/dL (13.0-17.5); Lymphocytes # (A) 1.9 k/uL (1.0-4.8); Lymphocytes % (A) 28 %; MCH 30.1 pg (25.0-35.0); MCHC 33.2 g/dL (31.0-37.0); MCV 90.6 fL (80.0-100.0); Mean Platelet Volume 7.6; Monocytes # (A) 0.7 k/uL (0-1.0); Monocytes % (A) 10 %; Neutrophils % (A) 59 %; Platelet Count 159 k/uL (150-450); RBC 3.81 m/uL (4.30-5.90); RDW 14.5 % (11.5-15.5); WBC 6.9 k/uL (3.8-10.6)
[2017-11-07] MEDS: ASPIRIN 81 MG PO SCH (10:27)
[2017-11-07] MEDS: traMADol 50 MG TAB PO SCH ×2 (10:28→13:00)
[2017-11-07] MEDS: CLOPIDOGREL 75 MG TAB PO SCH (10:28)
--- NOTE | 2017-11-07 11:44 | P.PN ---
Subjective Progress Note Date: 11/07/17 Principal diagnosis: Status post revision of a right knee arthroplasty, postop day 2 Pulmonary consultation 11/05/2017 This is a 82-year-old male who has a history of a painful right total hemiarthroplasty with aseptic loosening. He had a revision right total knee arthroplasty. The procedure was performed by Dr. Angeles yesterday. He's postop day #1. He sees my partner as a primary and we are consulted for medical management. From the medical side, is doing well. He has no history of any lung disease. He does smoke cigarettes cigars and a pipe but apparently was told by his primary days lungs are stable. Currently doing well. His only complaint is pain at the surgical site. He apparently has a history of previous hypothyroidism hypertension and hyperlipidemia. His medications include Plavix level thyroxine simvastatin metoprolol and aspirin. His only ALLERGY is penicillin. He appears not to have any current active non- orthopedic issues at this time. On 11/06/2017 patient is doing well. He is up ambulating with physical therapy , and a walker, his gait is very unsteady, patient is hunched over over a walker quite significantly. Doing well from pulmonary perspective, no shortness of breath, no chest pain. His labs from yesterday were reviewed, the VBC was 10.6, hemoglobin was 11.3. Lung sounds are clear to auscultation, his postoperative pain is reasonably controlled. On 10/30/2017 patient seen in follow-up on 3 surgical floor. He still remains very unstable, otherwise no other acute complaints. Her main pulse ox is 94%, vital signs are stable, lung sounds are clear, pain is controlled. Today's lab work has been reviewed, WBC 6.9, hemoglobin is 11.5. No acute issues overnight , from pulmonary perspective patient can go home today. Objective - Vital Signs Vital signs: Vital Signs Temp 98.4 F 11/07/17 07:37 Pulse 73 11/07/17 07:37 Resp 18 11/07/17 07:37 BP 117/69 11/07/17 07:37 Pulse Ox 94 L 11/07/17 07:37 Intake & Output 11/06/17 11/07/17 11/07/17 18:59 06:59 18:59 Intake Total 630 500 400 Output Total 800 Balance -170 500 400 Intake: Oral 630 500 400 Output: Urine 800 Other: Voiding Method Urinal # Voids 1 - Exam No acute distress, oriented 3. Not requiring any supplemental oxygen. HEENT examination is grossly unremarkable. Mucous membranes are moist. No oral lesions. Neck supple. Full range of motion. No adenopathy thyromegaly or neck vein distention. Cardiovascular examination reveals regular rhythm rate. S1-S2 normal. No S3 or S4. No discernible murmur noted. Lungs reveal clear breath sounds. Her sounds are equal bilaterally. No adventitious lung sounds including wheezes rhonchi or crackles. Abdomen soft bowel sounds are heard. No masses or tenderness. Extremities are intact. No cyanosis clubbing or edema. Skin is without rash or lesion. Neurologic examination is brief but nonfocal. - Labs CBC & Chem 7: 11/07/17 07:20 Labs: Abnormal Lab Results - Last 24 Hours (Table) 11/07/17 Range/Units 07:20 RBC 3.81 L (4.30-5.90) m/uL Hgb 11.5 L (13.0-17.5) gm/dL Hct 34.5 L (39.0-53.0) % Assessment and Plan Plan: Assessment: Postop day #3, status post revision of a right knee arthroplasty. History of coronary artery disease History of hypertension History of hyperlipidemia History of hypothyroidism History of GERD History of chronic tobacco abuse in the form of cigarettes pipes and cigars. Plan: Patient is doing well, no acute issues overnight, vital signs are stable, room air pulse ox 94%, gait remains unstable, patient is walking with a walker, insisting on going home instead of the rehab facility. From pulmonary perspective patient is stable for discharge home with home care or subacute rehab. Follow-up with Dr. Garsia any office in one week. I performed a history & physical examination of the patient and discussed their management with my nurse practitioner, Estee Olivo. I reviewed the nurse practitioner's note and agree with the documented findings and plan of care. Lung sounds are clear. The findings and the impression was discussed with the patient. I attest to the documentation by the nurse practitioner. Time with Patient: Less than 30
--- NOTE | 2017-11-07 12:48 | P.PN ---
Progress Note - Text Progress Note Date: 11/07/17 S: The patient has no complaints. They deny shortness of breath or chest pain. O: Afebrile, vital signs stable Homans negative right lower extremity Distal neurovascular status intact in the operative extremity Incision clean, dry , and intact A/P: Postoperative day 3 status post revision right total knee arthroplasty I discussed possible inpatient rehab, however the patient and his family refused. DVT prophylaxis with Plavix Discharge home today Home therapy/nursing Follow-up 2 weeks
== END 2017-11-07 13:29 | disposition home health service (06) | DRG 468 ==
LOC: 2ORMAIN 08:24 → 3SUR 17:08
PROVIDERS: ADMIT Orthopaedic Surgery; ATTEND Orthopaedic Surgery
PROC: 0SPC0JZ Removal of Synthetic Substitute from Right Knee Joint, Open Approach (ICD-10-PCS; principal; 2017-11-04 10:40)
PROC: 0SRC0J9 Replacement of Right Knee Joint with Synthetic Substitute, Cemented, Open Approach (ICD-10-PCS; principal; 2017-11-04 10:40)
DX: T84.032A Mechanical loosening of internal right knee prosthetic joint, initial encounter (principal); E03.9 Hypothyroidism, unspecified; E78.00 Pure hypercholesterolemia, unspecified; E78.5 Hyperlipidemia, unspecified; F17.210 Nicotine dependence, cigarettes, uncomplicated; G47.30 Sleep apnea, unspecified; I10 Essential (primary) hypertension; I25.10 Atherosclerotic heart disease of native coronary artery without angina pectoris; I25.2 Old myocardial infarction; K21.9 Gastro-esophageal reflux disease without esophagitis; T84.84XA Pain due to internal orthopedic prosthetic devices, implants and grafts, initial encounter; Y83.1 Surgical operation with implant of artificial internal device as the cause of abnormal reaction of the patient, or of later complication, without mention of misadventure at the time of the procedure; Z79.02 Long term (current) use of antithrombotics/antiplatelets; Z82.49 Family history of ischemic heart disease and other diseases of the circulatory system; Z88.0 Allergy status to penicillin; Z95.1 Presence of aortocoronary bypass graft; Z79.82 Long term (current) use of aspirin; Z79.890 Hormone replacement therapy; Z79.899 Other long term (current) drug therapy; F17.290 Nicotine dependence, other tobacco product, uncomplicated; Z95.5 Presence of coronary angioplasty implant and graft; Z96.653 Presence of artificial knee joint, bilateral; Z96.643 Presence of artificial hip joint, bilateral
CPT/HCPCS: 36415; 85025; 85610; 85730; 88305; 88331

== ENCOUNTER 2018-09-26 20:13 | Observation (INO) | payer MEDICARE ==
[2018-09-26] MEDS ORDERED: ASPIRIN 81 MG PO STA (20:34)
[2018-09-26] MEDS ORDERED: HEPARIN SODIUM,PORCINE 10,000 UNIT/ML 1 ML VIAL IV ONE (20:35)
[2018-09-26] MEDS ORDERED: HEPARIN SODIUM,PORCINE 5,000 UNIT/ML 1 ML VIAL IV PRN (20:35)
--- NOTE | 2018-09-26 20:37 | ED ---
General Adult HPI - General Chief complaint: Chest Pain Stated complaint: Chest pain Time Seen by Provider: 09/26/18 20:27 Source: patient, family Mode of arrival: wheelchair Limitations: no limitations - History of Present Illness Initial comments: Dictation was produced using Datezr dictation software. please excuse any grammatical, word or spelling errors. Chief Complaint: 83-year-old male with past medical history cancer, dyslipidemia hypertension myocardial infarctions presents with left-sided chest pain 1 day. History of Present Illness: Is a 83-year-old male who has past medical history of heart attack. Patient states that he was walking around his house when he suddenly developed sharp left-sided chest pain. Denies any worsening with deep inspiration. He states it sharp and dull. No associated diaphoresis. No radiation to the shoulders or the jaw. Patient denies any numbness and paresthesias to his arms or legs. Denies any history of blood clots. Denies any lower extremity symptoms. He continues to endorse pain at this time. She denies any blood thinners. The ROS documented in this emergency department record has been reviewed and confirmed by me. Those systems with pertinent positive or negative responses have been documented in the HPI. All other systems are other negative and/or noncontributory. PHYSICAL EXAM: General Impression: Alert and oriented x3, not in acute distress HEENT: Normocephalic atraumatic, extra-ocular movements intact, pupils equal and reactive to light bilaterally, mucous membranes moist. Cardiovascular: End-systolic murmur grade 2/6, irregular rhythm Chest: Lungs clear to auscultation bilaterally, no rhonchi, no wheeze, no rales Abdomen: Bowel sounds present, abdomen soft, non-tender, non-distended, no organomegaly Musculoskeletal: Pulses present and equal in all extremities, no peripheral edema Motor: no focal deficits noted Neurological: CN II-XII grossly intact, no focal motor or sensory deficits noted Skin: Intact with no visualized rashes Psych: Normal affect and mood ED course: 83-year-old male presents with atypical chest pain with typical features. Patient is considered high risk given he has history of myocardial infarction. Didn't really report taking some nitroglycerin with some alleviation of symptoms. Vital signs upon arrival shows findings within acceptable limits. EKG shows atrial flutter. No findings to suggest ischemia. Patient has any history of atrial fibrillation or atrial flutter.Laboratory evaluation obtained. CBC unremarkable. INR is 1.6. D-dimer 0.55. Patient does have mild non-gap acidosis. Rest metabolic panel is unremarkable. Patient's cardiac enzymes are 0.013. Chest x-ray was obtained showing findings of those concerning for pneumonia versus heart failure. Patient had elevated d-dimer. CT angios the chest obtained showing no acute processes. Coca presentation is concerning for atypical chest pain with typical features. Patient has multiple risk factors he is given aspirin. Patient be admitted to observation for surgery upon to cardiology consultation. EKG interpretation: Ventricular rate 77, atrial flutter with variable AV block, QS 136, QTC 436. No ME prolongation, no QTC prolongation, no ST or T-wave changes noted. Overall, this EKG is unremarkable - Related Data Home Medications Medication Instructions Recorded Confirmed Levothyroxine Sodium [Synthroid] 50 mcg PO HS 11/09/15 09/26/18 Metoprolol Succinate [Toprol XL] 50 mg PO HS 11/09/15 09/26/18 Atorvastatin [Lipitor] 40 mg PO HS 09/26/18 09/26/18 Folic Acid 1 mg PO HS 09/26/18 09/26/18 Nitroglycerin Sl Tabs [Nitrostat] 0.4 mg SUBLINGUAL Q5M PRN 09/26/18 09/26/18 Warfarin [Coumadin] 5 mg PO HS 09/26/18 09/26/18 Allergies Allergy/AdvReac Type Severity Reaction Status Date / Time Penicillins Allergy Anaphylaxis Verified 09/26/18 20:36 cardiolite Allergy Anaphylaxis Uncoded 09/26/18 20:36 Review of Systems ROS Statement: Those systems with pertinent positive or pertinent negative responses have been documented in the HPI. ROS Other: All systems not noted in ROS Statement are negative. Past Medical History Past Medical History: Cancer, Hyperlipidemia, Hypertension, Myocardial Infarction ([place]), Osteoarthritis ([place]), Sleep Apnea/CPAP/BIPAP, Thyroid Disorder Additional Past Medical History / Comment(s): HX OF SLEEP APNEA, UNABLE TO USE MACHINE, HX OF SKIN CA Last Myocardial Infarction Date:: 2008 History of Any Multi-Drug Resistant Organisms: None Reported Past Surgical History: Heart Catheterization With Stent, Joint Replacement Additional Past Surgical History / Comment(s): KAREN KNEES, KAREN HIPS, RT SHOULDER, ONE STENT Past Anesthesia/Blood Transfusion Reactions: No Reported Reaction Date of Last Stent Placement:: 2008 Past Psychological History: No Psychological Hx Reported Smoking Status: Heavy tobacco smoker Past Alcohol Use History: None Reported, Occasional Past Drug Use History: None Reported - Past Family History Mother Family Medical History: No Reported History Brother(s) Family Medical History: Myocardial Infarction ([place]) Father Family Medical History: Myocardial Infarction ([place]) General Exam Limitations: no limitations Course Vital Signs 09/26/18 09/26/18 09/26/18 20:14 20:30 21:00 Temperature 97.9 F Pulse Rate 80 72 73 Respiratory 20 Rate Blood Pressure 125/68 129/76 127/69 O2 Sat by Pulse 97 97 98 Oximetry 09/26/18 09/26/18 09/26/18 21:30 21:40 22:00 Temperature Pulse Rate 70 75 68 Respiratory 18 Rate Blood Pressure 118/68 118/68 116/79 O2 Sat by Pulse 96 97 96 Oximetry Medical Decision Making - Lab Data Result diagrams: 09/26/18 20:29 09/26/18 20:29 Lab Results 09/26/18 09/26/18 09/26/18 Range/Units 20:29 20:29 20:29 WBC 7.9 (3.8-10.6) k/uL RBC 4.70 (4.30-5.90) m/uL Hgb 13.5 (13.0-17.5) gm/dL Hct 41.4 (39.0-53.0) % MCV 88.0 (80.0-100.0) fL MCH 28.7 (25.0-35.0) pg MCHC 32.6 (31.0-37.0) g/dL RDW 16.4 H (11.5-15.5) % Plt Count 224 (150-450) k/uL Neutrophils % 68 % Lymphocytes % 23 % Monocytes % 6 % Eosinophils % 1 % Basophils % 1 % Neutrophils # 5.4 (1.3-7.7) k/uL Lymphocytes # 1.8 (1.0-4.8) k/uL Monocytes # 0.5 (0-1.0) k/uL Eosinophils # 0.1 (0-0.7) k/uL Basophils # 0.0 (0-0.2) k/uL Anisocytosis Slight PT 15.8 H (9.0-12.0) sec INR 1.6 H (<1.2) APTT 28.6 (22.0-30.0) sec D-Dimer (<0.60) mg/L FEU Sodium 139 (137-145) mmol/L Potassium 4.2 (3.5-5.1) mmol/L Chloride 108 H (98-107) mmol/L Carbon Dioxide 21 L (22-30) mmol/L Anion Gap 10 mmol/L BUN 23 H (9-20) mg/dL Creatinine 1.01 (0.66-1.25) mg/dL Est GFR (CKD-EPI)AfAm 79 (>60 ml/min/1.73 sqM) Est GFR (CKD-EPI)NonAf 68 (>60 ml/min/1.73 sqM) Glucose 158 H (74-99) mg/dL Calcium 9.0 (8.4-10.2) mg/dL Magnesium 2.1 (1.6-2.3) mg/dL Total Bilirubin 0.5 (0.2-1.3) mg/dL AST 21 (17-59) U/L ALT 20 L (21-72) U/L Alkaline Phosphatase 68 (38-126) U/L Troponin I (0.000-0.034) ng/mL Total Protein 7.1 (6.3-8.2) g/dL Albumin 3.8 (3.5-5.0) g/dL 09/26/18 09/26/18 Range/Units 20:29 20:29 WBC (3.8-10.6) k/uL RBC (4.30-5.90) m/uL Hgb (13.0-17.5) gm/dL Hct (39.0-53.0) % MCV (80.0-100.0) fL MCH (25.0-35.0) pg MCHC (31.0-37.0) g/dL RDW (11.5-15.5) % Plt Count (150-450) k/uL Neutrophils % % Lymphocytes % % Monocytes % % Eosinophils % % Basophils % % Neutrophils # (1.3-7.7) k/uL Lymphocytes # (1.0-4.8) k/uL Monocytes # (0-1.0) k/uL Eosinophils # (0-0.7) k/uL Basophils # (0-0.2) k/uL Anisocytosis PT (9.0-12.0) sec INR (<1.2) APTT (22.0-30.0) sec D-Dimer 0.55 (<0.60) mg/L FEU Sodium (137-145) mmol/L Potassium (3.5-5.1) mmol/L Chloride (98-107) mmol/L Carbon Dioxide (22-30) mmol/L Anion Gap mmol/L BUN (9-20) mg/dL Creatinine (0.66-1.25) mg/dL Est GFR (CKD-EPI)AfAm (>60 ml/min/1.73 sqM) Est GFR (CKD-EPI)NonAf (>60 ml/min/1.73 sqM) Glucose (74-99) mg/dL Calcium (8.4-10.2) mg/dL Magnesium (1.6-2.3) mg/dL Total Bilirubin (0.2-1.3) mg/dL AST (17-59) U/L ALT (21-72) U/L Alkaline Phosphatase (38-126) U/L Troponin I 0.013 (0.000-0.034) ng/mL Total Protein (6.3-8.2) g/dL Albumin (3.5-5.0) g/dL Disposition Clinical Impression: Chest pain Disposition: ADMITTED IP TO THIS [facility] Condition: Fair Referrals: Mike Garsia MD [Primary Care Provider] - 1-2 days Decision Time: 23:44
[2018-09-26 20:38] LABS: Anisocytosis Slight; Basophils % (A) 1 %; Eosinophils # (A) 0.1 k/uL (0-0.7); Eosinophils % (A) 1 %; HCT 41.4 % (39.0-53.0); HGB 13.5 gm/dL (13.0-17.5); Lymphocytes # (A) 1.8 k/uL (1.0-4.8); Lymphocytes % (A) 23 %; MCH 28.7 pg (25.0-35.0); MCHC 32.6 g/dL (31.0-37.0); Mean Platelet Volume 6.9; Monocytes # (A) 0.5 k/uL (0-1.0); Monocytes % (A) 6 %; Neutrophils # (A) 5.4 k/uL (1.3-7.7); Neutrophils % (A) 68 %; Platelet Count 224 k/uL (150-450); RDW 16.4 % (11.5-15.5); WBC 7.9 k/uL (3.8-10.6)
[2018-09-26 20:47] LABS: INR 1.6 (<1.2); Partial Thromboplastin Time 28.6 sec (22.0-30.0); Prothrombin Time 15.8 sec (9.0-12.0)
[2018-09-26 20:53] LABS: Albumin 3.8 g/dL (3.5-5.0); Magnesium 2.1 mg/dL (1.6-2.3); Potassium 4.2 mmol/L (3.5-5.1); Total Bilirubin 0.5 mg/dL (0.2-1.3); Total Protein 7.1 g/dL (6.3-8.2)
--- NOTE | 2018-09-26 21:03 | XR ---
EXAMINATION TYPE: XR chest 2V DATE OF EXAM: 09/26/2018 COMPARISON: 10/20/2017 HISTORY: Chest pain TECHNIQUE: Frontal and lateral views of the chest are obtained. FINDINGS: There is coarsening of interstitial markings. Heart size is normal. There are chest leads. There is no pleural effusion. IMPRESSION: Mild pulmonary interstitial infiltrates could relate to acute interstitial pneumonia or minimal heart failure. This is a change compared to last exam.
[2018-09-26] MEDS: HEPARIN SOD,PORK IN 0.45% NACL 25,000 UNIT in 0.45% NACL 1 250ML.BAG IV SCH (21:17)
--- NOTE | 2018-09-26 23:19 | CT ---
EXAM: CT Angiography Chest With Intravenous Contrast CLINICAL HISTORY: ITS.REASON CT Reason: Pain TECHNIQUE: Axial computed tomographic angiography images of the chest with intravenous contrast using pulmonary embolism protocol. CTDI is 33.68 mGy and DLP is 779.9 mGy-cm. This CT exam was performed using one or more of the following dose reduction techniques: automated exposure control, adjustment of the mA and/or kV according to patient size, and/or use of iterative reconstruction technique. MIP reconstructed images were created and reviewed. COMPARISON: Chest radiograph on 09/26/2018 FINDINGS: Lung parenchyma: Mild dependent and bibasilar atelectasis. No focal consolidation. No nodule. Pleural space: Normal. No pleural effusion or pneumothorax. Mediastinum/jamil: Nonspecific prominent mediastinal and hilar lymph nodes. Heart: Mild cardiomegaly. Coronary artery, aortic valve, and mitral annular calcifications. No significant pericardial effusion. Vasculature: No definite pulmonary embolus identified, but evaluation of the pulmonary arterial branches is limited by prominent motion artifact. Aorta: Atherosclerotic changes. No aneurysm or dissection. Airways: Patent. Bones: Right shoulder arthroplasty. Old left-sided rib fracture deformities. Osteopenia. Degenerative changes of the spine. Mild retrolisthesis of T12 on L1. No bony lesion or acute fracture. Muscles: No mass. Subcutaneous tissues: Mild right greater than left gynecomastia. Upper abdomen: Reflux of contrast into the hepatic veins suggests elevated right heart pressures. Left renal cyst. Nonspecific mild bilateral perinephric fat stranding. Other: Moderate hiatal hernia. IMPRESSION: 1. No definite pulmonary embolus identified, but evaluation of the pulmonary arterial branches is limited by prominent motion artifact. 2. No aortic aneurysm or dissection. 3. No acute pulmonary parenchymal abnormality identified. 4. Nonspecific prominent mediastinal and hilar lymph nodes.
[2018-09-26] MEDS ORDERED: NITROGLYCERIN SL TABS 0.4 MG TAB SUBLINGUAL PRN ×2 (23:41→23:44)
[2018-09-27 00:29] VITALS: BMI 34.4
[2018-09-27 02:53] LABS: Cholesterol 96 mg/dL (<200); HDL Cholesterol 40 mg/dL (40-60); LDL Cholesterol,Calculated 48 mg/dL (0-99); Triglycerides 39 mg/dL (<150)
--- NOTE | 2018-09-27 09:06 | P.CRDCN ---
History of Present Illness History of present illness: Patient interviewed and examined along with Deepti MASTERSON. Please see full dictation Normal blood pressure History here chest discomfort that is relieved with nitroglycerin but lasted for about 45 minutes Completely pain-free at this time 2 cardiac enzymes are normal LDL 48 No aortic dissection Underlying organized atrial fibrillation with a controlled ventricular response, no definite ST segment abnormalities Today's ECG shows clear atrial flutter with a controlled ventricular response Suggest Stop heparin if 3 chronic enzymes are normal If he has no further rest discomfort and proceed with a Lexiscan cardiac stress test tomorrow Continue statins Past Medical History Past Medical History: Cancer, Hyperlipidemia, Hypertension, Myocardial Infarction ([place]), Osteoarthritis (OA), Sleep Apnea/CPAP/BIPAP, Thyroid Disorder Additional Past Medical History / Comment(s): HX OF SLEEP APNEA, UNABLE TO USE MACHINE, HX OF SKIN CA Last Myocardial Infarction Date:: 2008 History of Any Multi-Drug Resistant Organisms: None Reported Past Surgical History: Heart Catheterization With Stent, Joint Replacement Additional Past Surgical History / Comment(s): KAREN KNEES, KAREN HIPS, RT SHOULDER, ONE STENT Past Anesthesia/Blood Transfusion Reactions: No Reported Reaction Date of Last Stent Placement:: 2008 Past Psychological History: No Psychological Hx Reported Smoking Status: Heavy tobacco smoker Past Alcohol Use History: Occasional Additional Past Alcohol Use History / Comment(s): SMOKES SMALL CIGARS, 1PPD SINCE AGE 15 (1951) Past Drug Use History: None Reported - Past Family History Mother Family Medical History: No Reported History Brother(s) Family Medical History: Myocardial Infarction ([place]) Father Family Medical History: Myocardial Infarction ([place]) Medications and Allergies Home Medications Medication Instructions Recorded Confirmed Type Levothyroxine Sodium [Synthroid] 50 mcg PO HS 11/09/15 09/26/18 History Metoprolol Succinate [Toprol XL] 50 mg PO HS 11/09/15 09/26/18 History Atorvastatin [Lipitor] 40 mg PO HS 09/26/18 09/26/18 History Folic Acid 1 mg PO HS 09/26/18 09/26/18 History Nitroglycerin Sl Tabs [Nitrostat] 0.4 mg SUBLINGUAL Q5M PRN 09/26/18 09/26/18 History Warfarin [Coumadin] 5 mg PO HS 09/26/18 09/26/18 History Allergies Allergy/AdvReac Type Severity Reaction Status Date / Time Penicillins Allergy Anaphylaxis Verified 09/26/18 20:36 cardiolite Allergy Anaphylaxis Uncoded 09/26/18 20:36 Physical Exam Vitals: Vital Signs Temp Pulse Pulse Resp BP BP Pulse Ox 09/27/18 04:00 98.0 F 78 15 122/74 97 09/27/18 00:00 97.4 F L 69 15 115/66 97 09/26/18 23:30 98.0 F 65 17 129/69 96 09/26/18 22:00 68 116/79 96 09/26/18 21:40 75 18 118/68 97 09/26/18 21:30 70 118/68 96 09/26/18 21:00 73 127/69 98 09/26/18 20:30 72 129/76 97 09/26/18 20:14 97.9 F 80 20 125/68 97 Intake and Output 09/26/18 09/27/18 09/27/18 22:59 06:59 14:59 Intake Total 115.937 Output Total 600 Balance -484.063 Intake: Intake, IV Titration 115.937 Amount Heparin Sod,Pork in 0.45% 115.937 NaCl 25,000 unit In 0.45 % NaCl 1 250ml.bag @ 18 UNITS/KG/HR 19.595 mls/hr IV .[id number] [facility] Rx#: [id number] Output: Urine 600 Other: Weight 108.862 kg Results 09/26/18 20:29 09/26/18 20:29 Cardiac Enzymes 09/26/18 09/26/18 09/27/18 Range/Units 20:29 20:29 02:35 AST 21 (17-59) U/L Troponin I 0.013 0.031 (0.000-0.034) ng/mL Coagulation 09/26/18 09/27/18 Range/Units 20:29 02:35 PT 15.8 H (9.0-12.0) sec APTT 28.6 >200.0 H* (22.0-30.0) sec Lipids 09/27/18 Range/Units 02:35 Triglycerides 39 (<150) mg/dL Cholesterol 96 (<200) mg/dL HDL Cholesterol 40 (40-60) mg/dL CBC 09/26/18 Range/Units 20:29 WBC 7.9 (3.8-10.6) k/uL RBC 4.70 (4.30-5.90) m/uL Hgb 13.5 (13.0-17.5) gm/dL Hct 41.4 (39.0-53.0) % Plt Count 224 (150-450) k/uL Comprehensive Metabolic Panel 09/26/18 Range/Units 20:29 Sodium 139 (137-145) mmol/L Potassium 4.2 (3.5-5.1) mmol/L Chloride 108 H (98-107) mmol/L Carbon Dioxide 21 L (22-30) mmol/L BUN 23 H (9-20) mg/dL Creatinine 1.01 (0.66-1.25) mg/dL Glucose 158 H (74-99) mg/dL Calcium 9.0 (8.4-10.2) mg/dL AST 21 (17-59) U/L ALT 20 L (21-72) U/L Alkaline Phosphatase 68 (38-126) U/L Total Protein 7.1 (6.3-8.2) g/dL Albumin 3.8 (3.5-5.0) g/dL Current Medications Generic Name Dose Route Start Last Admin Trade Name Freq PRN Reason Stop Dose Admin Aspirin 325 mg 09/27/18 09:00 Aspirin PO DAILY [facility] Atorvastatin Calcium 40 mg 09/27/18 21:00 Lipitor PO HS [facility] Heparin Sodium (Porcine) 0 unit 09/26/18 20:35 Heparin IV PER PROTOCOL PRN Low PTT Protocol Heparin Sodium/Sodium Chloride 250 mls @ 19.595 mls/hr 09/26/18 20:45 09/27/18 05:43 25,000 unit/ Sodium Chloride IV 15 units/kg/hr .[id number] [facility] 16.329 mls/hr Titration Protocol 18 UNITS/KG/HR Levothyroxine Sodium 50 mcg 09/27/18 21:00 Synthroid PO HS [facility] Metoprolol Succinate 50 mg 09/27/18 21:00 Toprol Xl PO HS [facility] Nitroglycerin 0.4 mg 09/26/18 23:41 Nitrostat SUBLINGUAL Q5M PRN Chest Pain Nitroglycerin 0.4 mg 09/26/18 23:44 Nitrostat SUBLINGUAL Q5M PRN Chest Pain Warfarin Sodium 5 mg 09/27/18 21:00 Coumadin PO HS [facility] Intake and Output 09/26/18 09/27/18 09/27/18 22:59 06:59 14:59 Intake Total 115.937 Output Total 600 Balance -484.063 Intake: Intake, IV Titration 115.937 Amount Heparin Sod,Pork in 0.45% 115.937 NaCl 25,000 unit In 0.45 % NaCl 1 250ml.bag @ 18 UNITS/KG/HR 19.595 mls/hr IV .[id number] [facility] Rx#: [id number] Output: Urine 600 Other: Weight 108.862 kg 09/26/18 20:29 09/26/18 20:29
[2018-09-27] MEDS ORDERED: HEPARIN SODIUM,PORCINE 5,000 UNIT/ML 1 ML VIAL IV PRN ×2 (09:52→13:46)
[2018-09-27] MEDS ORDERED: HEPARIN SOD,PORK IN 0.45% NACL 25,000 UNIT in 0.45% NACL 1 250ML.BAG IV SCH ×2 (10:15→14:00)
[2018-09-27] MEDS ORDERED: REGADENOSON 0.4 MG/5 ML SYRINGE IV ONE (10:37)
--- NOTE | 2018-09-27 11:20 | P.HPIM ---
History of Present Illness H&P Date: 09/27/18 Chief Complaint: Chest pain Mr. Mccarty is an 83-year-old male with a past medical history of atrial fibrillation, skin cancer, hypertension, hyperlipidemia, osteoarthritis, o bstructive sleep apnea, hypothyroidism coming into the hospital with a chief complaint of chest pain. Patient was walking around his house when he suddenly noticed a sharp substernal chest pain that was radiating to the left side of the chest for almost 45 mins to an hour yesterday morning. He also had mild diaphoresis with the chest pain. The chest pain was radiating to the left side of the chest but no radiation to the jaw or left shoulder. Patient denied having any nausea or vomiting with the chest pain. He felt mild difficulty in breathing at that point of time. Patient denies having any swelling of his lower extremities. Patient is on Coumadin for his atrial fibrillation. Patient denies having any recent travel. No orthopnea or PND. Patient denied having any fevers chills or rigors. No cough or sputum production. No hematuria or dysuria. No abdominal pain nausea vomiting or diarrhea. No headaches blurring of vision. No syncopal episodes. No loss of consciousness. Patient denied having any slurring of speech or weakness of his extremities. No blood in his stool. Patient states that he has history of skin cancer and had cauterization of his skin lesions in the past. On review of systems- patient has noticed a bump on the back , in the thoracic area ,towards the left side for the past 1 week to 10 days. He complained of pain and some discomfort in the back area. Review of Systems REVIEW OF SYSTEMS: PSYCH: No anxiety or depression NEURO:No c/o weakness of the extremties, No facial droop, No speech abnormalities. VASCULAR: No lower extremity swelling HEMATOLOGIC: No history of easy bleeding and bruising . No recent infections . RESPIRATORY: No cough, No SOB, No chest discomfort. IMMUNE: No infections INTEGUMENT: History of skin cancer OPHTHALMOLOGIC: No blurry vision and no eye discharge : No dysuria or hematuria CARDIAC: As per HPI MUSCULOSKELETAL : No Aches or pains in the joints or muscles. GI: No abdominal pain, Nausea or vomiting. No constipation or diarrhea. All 13 review of systems are negative except for ones mentioned above Past Medical History Past Medical History: Cancer, Hyperlipidemia, Hypertension, Myocardial Infarction ([place]), Osteoarthritis ([place]), Sleep Apnea/CPAP/BIPAP, Thyroid Disorder Additional Past Medical History / Comment(s): HX OF SLEEP APNEA, UNABLE TO USE MACHINE, HX OF SKIN CA Last Myocardial Infarction Date:: 2008 History of Any Multi-Drug Resistant Organisms: None Reported Past Surgical History: Heart Catheterization With Stent, Joint Replacement Additional Past Surgical History / Comment(s): KAREN KNEES, KAREN HIPS, RT SHOULDER, ONE STENT Past Anesthesia/Blood Transfusion Reactions: No Reported Reaction Date of Last Stent Placement:: 2008 Past Psychological History: No Psychological Hx Reported Smoking Status: Heavy tobacco smoker Past Alcohol Use History: Occasional Additional Past Alcohol Use History / Comment(s): SMOKES SMALL CIGARS, 1PPD SINCE AGE 15 (1951) Past Drug Use History: None Reported - Past Family History Mother Family Medical History: No Reported History Brother(s) Family Medical History: Myocardial Infarction ([place]) Father Family Medical History: Myocardial Infarction ([place]) Medications and Allergies Home Medications Medication Instructions Recorded Confirmed Type Levothyroxine Sodium [Synthroid] 50 mcg PO HS 11/09/15 09/26/18 History Metoprolol Succinate [Toprol XL] 50 mg PO HS 11/09/15 09/26/18 History Atorvastatin [Lipitor] 40 mg PO HS 09/26/18 09/26/18 History Folic Acid 1 mg PO HS 09/26/18 09/26/18 History Nitroglycerin Sl Tabs [Nitrostat] 0.4 mg SUBLINGUAL Q5M PRN 09/26/18 09/26/18 History Warfarin [Coumadin] 5 mg PO HS 09/26/18 09/26/18 History Allergies Allergy/AdvReac Type Severity Reaction Status Date / Time Penicillins Allergy Anaphylaxis Verified 09/26/18 20:36 cardiolite Allergy Anaphylaxis Uncoded 09/26/18 20:36 Physical Exam Vitals: Vital Signs Temp Pulse Pulse Resp BP BP Pulse Ox 09/27/18 08:15 97.9 F 69 16 97/48 97 09/27/18 04:00 98.0 F 78 15 122/74 97 09/27/18 00:00 97.4 F L 69 15 115/66 97 09/26/18 23:30 98.0 F 65 17 129/69 96 09/26/18 22:00 68 116/79 96 09/26/18 21:40 75 18 118/68 97 08/17/19 21:30 70 118/68 96 09/26/18 21:00 73 127/69 98 09/26/18 20:30 72 129/76 97 09/26/18 20:14 97.9 F 80 20 125/68 97 Intake and Output 09/26/18 09/27/18 09/27/18 22:59 06:59 14:59 Intake Total 115.937 Output Total 600 Balance -484.063 Intake: Intake, IV Titration 115.937 Amount Heparin Sod,Pork in 0.45% 115.937 NaCl 25,000 unit In 0.45 % NaCl 1 250ml.bag @ 18 UNITS/KG/HR 19.595 mls/hr IV .[id number] [facility] Rx#: [id number] Output: Urine 600 Other: Voiding Method Toilet Weight 108.862 kg GEN. APPEARANCE: alert, in no apparent distress HEAD EXAM: atraumatic, normocephalic, normal inspection EYE EXAM: Nipples round and reactive to light. No pallor. No icterus. Skin tags seen on the right upper eye lid ENT EXAM: normal exam, mucous membranes moist NECK EXAM: normal inspection. Absent: tenderness, meningismus, full ROM, lymphadenopathy RESPIRATORY EXAM: Bilateral breath sounds positive. No wheeze or crackles. CARDIOVASCULAR EXAM: Irregularly irregular rhythm. S1 and S2 heard. GI/ABDOMINAL EXAM: soft, normal bowel sounds. Absent: distended, tenderness, guarding, rebound, rigid EXTREMITIES EXAM: No pedal edema. BACK EXAM: Small oval indurated area 5/7 cm on the left side of the thoracic region noticed. Positive for erythema and tenderness. NEUROLOGICAL EXAM: alert, oriented X3, no focal deficits. PSYCHIATRIC EXAM: normal affect, normal mood SKIN EXAM: Skin is dry. Results CBC & Chem 7: 09/26/18 20:29 09/26/18 20:29 Labs: Abnormal Lab Results - Last 24 Hours (Table) 09/26/18 09/26/18 09/26/18 Range/Units 20:29 20:29 20:29 RDW 16.4 H (11.5-15.5) % PT 15.8 H (9.0-12.0) sec INR 1.6 H (<1.2) APTT (22.0-30.0) sec Chloride 108 H (98-107) mmol/L Carbon Dioxide 21 L (22-30) mmol/L BUN 23 H (9-20) mg/dL Glucose 158 H (74-99) mg/dL ALT 20 L (21-72) U/L 09/27/18 09/27/18 Range/Units 02:35 09:19 RDW (11.5-15.5) % PT (9.0-12.0) sec INR (<1.2) APTT >200.0 H* 116.9 H* (22.0-30.0) sec Chloride (98-107) mmol/L Carbon Dioxide (22-30) mmol/L BUN (9-20) mg/dL Glucose (74-99) mg/dL ALT (21-72) U/L Thrombosis Risk Factor Assmnt - Choose All That Apply Any of the Below Risk Factors Present?: Yes Each Factor Represents 1 point: Acute DC, Obesity (BMI >25), Swollen legs (current) Other Risk Factors: Yes Each Risk Factor Represents 3 Points: Age 75 years or older Other congenital or acquired thrombophilia - If yes, enter type in comment: No Thrombosis Risk Factor Assessment Total Risk Factor Score: 6 Thrombosis Risk Factor Assessment Level: High Risk Assessment and Plan Assessment: ASSESSMENT Chest pain History of coronary artery disease with stent placement Atrial flutter on Coumadin Cellulitis left upper back History of skin cancer Hypertension Hyperlipidemia Hypothyroidism Obstructive sleep apnea Nicotine dependence PLAN: Patient is admitted for acute coronary syndrome rule out. Patient had CTA of the chest that is within normal limits - no evidence of aortic dissection or PE. Patient has cellulitis of his left upper back, as the patient is ALLERGIC to penicillin will start him on Bactrim. Patient is currently on a heparin drip as per cardiology recommendations. Patient has been restarted on his home medications. Further recommendations to follow depending on the progress of the patient.
[2018-09-27] MEDS: ASPIRIN 325 MG TAB PO SCH (11:48)
[2018-09-27] MEDS: CLINDAMYCIN 150 MG CAP PO SCH ×3 (12:09→20:58)
--- NOTE | 2018-09-27 12:17 | P.CRDCN ---
History of Present Illness History of present illness: This is Deepti Monk PA-C dictating a consult on this patient The patient was interviewed and examined by me as well as by Dr. Mcginnis Case discussed with Dr. Mcginnis and he agrees with the plan of care IMPRESSION / ASSESSMENT: Chest discomfort, lasted 45 minutes and relieved with nitroglycerin, currently pain-free, troponins negative 2, no definite ST abnormalities on EKG Atrial flutter with controlled ventricular response History of atrial fibrillation anticoagulated with warfarin CAD status post stenting History of prior HI Hypertension Dyslipidemia PLAN: Check 3rd troponin If troponin is negative, may stop heparin and proceed with Lexiscan stress test tomorrow to evaluate for ischemia Continue medical management with aspirin, statins, beta blockers 2-D echo and Doppler study to evaluate cardiac structure and function HPI Patient is an 83-year-old male with a past medical history of CAD status post stenting, prior MIs, paroxysmal atrial fibrillation, hypertension, dyslipidemia who presented with complaints of chest discomfort. He was sitting outside drink ing coffee when he experienced a sudden onset of chest discomfort. He describes the chest discomfort as a sharp constant pain in his left side. She is pain was accompanied by shortness of breath, diaphoresis, nausea, and dizziness. He took 3 nitroglycerin which helped with his discomfort. States this discomfort is similar to the discomfort he experienced prior to his HI and stent placement. U freddy presentation to the emergency department his vital signs are stable. Initial EKG showed atrial fibrillation, no definite ST abnormalities. Chest x- ray showed possible mild pulmonary interstitial infiltrate. Chest CT showed no definite pulmonary embolism but was limited due to motion artifact. No aortic aneurysm or dissection. Troponins negative 2. Patient seen and evaluated resting comfortably in bed. States his chest pain has completely resolved. Denies any shortness of breath, dizziness, lightheadedness, palpitations. ROS: No fevers, chills or rigors, no cough, phlegm or expectoration, no nausea, vomiting or diarrhea, no hematuria, dysuria, no musculoskeletal complaints, no strokes or seizures, no skin lesions. EXAMINATION: Temperature 97.9F, pulse 69, respirations 16, blood pressure 97/48, oxygen saturation 97% on room air Patient seen and examined resting comfortably in bed, in no acute distress Lungs with diffuse mild wheezing bilaterally Heart is irregular, systolic murmur appreciated No lower extremity edema REVIEW OF LABS, ECG & MEDICAL DATA WBC 7.9, hemoglobin 13.5, platelets 224, potassium 4.7, BUN 23, creatinine 1.01, magnesium 21 PTT elevated D-dimer negative Troponin negative 2 Cholesterol 96, triglycerides 39, LDL 48, HDL 40 Initial EKG showed organized atrial fibrillation with controlled ventricular response, no definite ST changes, repeat EKG showed atrial flutter with controlled ventricular response Chest x-ray showed mild pulmonary interstitial infiltrates, possible pneumonia or minimal heart failure Chest CTA showed no definite pulmonary embolism, evaluation of the pulmonary arterial branches limited due to prominent motion artifact, no aortic aneurysm or dissection, no pulmonary parenchymal abnormality identified Past Medical History Past Medical History: Cancer, Hyperlipidemia, Hypertension, Myocardial Infarction ([place]), Osteoarthritis ([place]), Sleep Apnea/CPAP/BIPAP, Thyroid Disorder Additional Past Medical History / Comment(s): HX OF SLEEP APNEA, UNABLE TO USE MACHINE, HX OF SKIN CA Last Myocardial Infarction Date:: 2008 History of Any Multi-Drug Resistant Organisms: None Reported Past Surgical History: Heart Catheterization With Stent, Joint Replacement Additional Past Surgical History / Comment(s): KAREN KNEES, KAREN HIPS, RT SHOULDER, ONE STENT Past Anesthesia/Blood Transfusion Reactions: No Reported Reaction Date of Last Stent Placement:: 2008 Past Psychological History: No Psychological Hx Reported Smoking Status: Heavy tobacco smoker Past Alcohol Use History: Occasional Additional Past Alcohol Use History / Comment(s): SMOKES SMALL CIGARS, 1PPD SINCE AGE 15 (1952) Past Drug Use History: None Reported - Past Family History Mother Family Medical History: No Reported History Brother(s) Family Medical History: Myocardial Infarction ([place]) Father Family Medical History: Myocardial Infarction ([place]) Medications and Allergies Home Medications Medication Instructions Recorded Confirmed Type Levothyroxine Sodium [Synthroid] 50 mcg PO HS 11/09/15 09/26/18 History Metoprolol Succinate [Toprol XL] 50 mg PO HS 11/09/15 09/26/18 History Atorvastatin [Lipitor] 40 mg PO HS 09/26/18 09/26/18 History Folic Acid 1 mg PO HS 09/26/18 09/26/18 History Nitroglycerin Sl Tabs [Nitrostat] 0.4 mg SUBLINGUAL Q5M PRN 09/26/18 09/26/18 History Warfarin [Coumadin] 5 mg PO HS 08/17/19 08/17/19 History Allergies Allergy/AdvReac Type Severity Reaction Status Date / Time Penicillins Allergy Anaphylaxis Verified 09/26/18 20:36 cardiolite Allergy Anaphylaxis Uncoded 09/26/18 20:36 Physical Exam Vitals: Vital Signs Temp Pulse Pulse Resp BP BP Pulse Ox 09/27/18 08:15 97.9 F 69 16 97/48 97 09/27/18 04:00 98.0 F 78 15 122/74 97 09/27/18 00:00 97.4 F L 69 15 115/66 97 09/26/18 23:30 98.0 F 65 17 129/69 96 09/26/18 22:00 68 116/79 96 09/26/18 21:40 75 18 118/68 97 09/26/18 21:30 70 118/68 96 09/26/18 21:00 73 127/69 98 09/26/18 20:30 72 129/76 97 09/26/18 20:14 97.9 F 80 20 125/68 97 Intake and Output 09/26/18 09/27/18 09/27/18 22:59 06:59 14:59 Intake Total 115.937 Output Total 600 Balance -484.063 Intake: Intake, IV Titration 115.937 Amount Heparin Sod,Pork in 0.45% 115.937 NaCl 25,000 unit In 0.45 % NaCl 1 250ml.bag @ 18 UNITS/KG/HR 19.595 mls/hr IV .[id number] [facility] Rx#: [id number] Output: Urine 600 Other: Voiding Method Toilet Weight 108.862 kg Results 09/26/18 20:29 09/26/18 20:29 Cardiac Enzymes 09/26/18 09/26/18 09/27/18 Range/Units 20:29 20:29 02:35 AST 21 (17-59) U/L Troponin I 0.013 0.031 (0.000-0.034) ng/mL 09/27/18 Range/Units 09:19 AST (17-59) U/L Troponin I 0.030 (0.000-0.034) ng/mL Coagulation 09/26/18 09/27/18 09/27/18 Range/Units 20:29 02:35 09:19 PT 15.8 H (9.0-12.0) sec APTT 28.6 >200.0 H* 116.9 H* (22.0-30.0) sec Lipids 09/27/18 Range/Units 02:35 Triglycerides 39 (<150) mg/dL Cholesterol 96 (<200) mg/dL HDL Cholesterol 40 (40-60) mg/dL CBC 09/26/18 Range/Units 20:29 WBC 7.9 (3.8-10.6) k/uL RBC 4.70 (4.30-5.90) m/uL Hgb 13.5 (13.0-17.5) gm/dL Hct 41.4 (39.0-53.0) % Plt Count 224 (150-450) k/uL Comprehensive Metabolic Panel 09/26/18 Range/Units 20:29 Sodium 139 (137-145) mmol/L Potassium 4.2 (3.5-5.1) mmol/L Chloride 108 H (98-107) mmol/L Carbon Dioxide 21 L (22-30) mmol/L BUN 23 H (9-20) mg/dL Creatinine 1.01 (0.66-1.25) mg/dL Glucose 158 H (74-99) mg/dL Calcium 9.0 (8.4-10.2) mg/dL AST 21 (17-59) U/L ALT 20 L (21-72) U/L Alkaline Phosphatase 68 (38-126) U/L Total Protein 7.1 (6.3-8.2) g/dL Albumin 3.8 (3.5-5.0) g/dL Current Medications Generic Name Dose Route Start Last Admin Trade Name Freq PRN Reason Stop Dose Admin Aminophylline 100 mg 09/28/18 06:00 Aminophylline IV 09/29/18 06:01 ONCE PRN Patient Response Aspirin 325 mg 09/27/18 09:00 09/27/18 11:48 Aspirin PO Not Given DAILY [facility] Atorvastatin Calcium 40 mg 09/27/18 21:00 Lipitor PO HS [facility] Caffeine Citrate 60 mg 09/28/18 06:00 Cafcit Inj IV 09/29/18 06:01 ONCE PRN Patient Response Clindamycin HCl 300 mg 09/27/18 11:45 Cleocin PO TID [facility] Heparin Sodium (Porcine) 0 unit 09/26/18 20:35 Heparin IV PER PROTOCOL PRN Low PTT Protocol Heparin Sodium (Porcine) 0 unit 09/27/18 09:52 Heparin IV PER PROTOCOL PRN Low PTT Protocol Dipyridamole 62 mg/ Sodium 50 mls @ 750 mls/hr 09/28/18 06:00 Chloride IV 09/28/18 06:03 ONCE ONE Levothyroxine Sodium 50 mcg 09/27/18 21:00 Synthroid PO HS [facility] Metoprolol Succinate 50 mg 09/27/18 21:00 Toprol Xl PO HS [facility] Nitroglycerin 0.4 mg 09/26/18 23:41 Nitrostat SUBLINGUAL Q5M PRN Chest Pain Nitroglycerin 0.4 mg 09/26/18 23:44 Nitrostat SUBLINGUAL Q5M PRN Chest Pain Warfarin Sodium 5 mg 09/27/18 21:00 Coumadin PO HS [facility] Intake and Output 09/26/18 09/27/18 09/27/18 22:59 06:59 14:59 Intake Total 115.937 Output Total 600 Balance -484.063 Intake: Intake, IV Titration 115.937 Amount Heparin Sod,Pork in 0.45% 115.937 NaCl 25,000 unit In 0.45 % NaCl 1 250ml.bag @ 18 UNITS/KG/HR 19.595 mls/hr IV .[id number] [facility] Rx#: [id number] Output: Urine 600 Other: Voiding Method Toilet Weight 108.862 kg 09/26/18 20:29 09/26/18 20:29
[2018-09-27 14:41] LABS: Anisocytosis Slight; Basophils % (A) 1 %; Eosinophils # (A) 0.1 k/uL (0-0.7); Eosinophils % (A) 1 %; HCT 39.6 % (39.0-53.0); HGB 12.8 gm/dL (13.0-17.5); Lymphocytes # (A) 1.6 k/uL (1.0-4.8); Lymphocytes % (A) 24 %; MCHC 32.3 g/dL (31.0-37.0); MCV 89.9 fL (80.0-100.0); Mean Platelet Volume 7.8; Monocytes # (A) 0.5 k/uL (0-1.0); Monocytes % (A) 8 %; Neutrophils % (A) 63 %; Platelet Count 198 k/uL (150-450); RDW 17.8 % (11.5-15.5); WBC 6.4 k/uL (3.8-10.6)
[2018-09-27 14:48] LABS: INR 1.5 (<1.2); Prothrombin Time 15.5 sec (9.0-12.0)
[2018-09-27] MEDS ORDERED: WARFARIN 5 MG TAB PO SCH (21:00)
[2018-09-27] MEDS ORDERED: LEVOTHYROXINE 50 MCG TAB PO SCH (21:00)
[2018-09-27] MEDS ORDERED: METOPROLOL SUCCINATE (ER) 50 MG TAB.ER.24H PO SCH (21:00)
[2018-09-27] MEDS ORDERED: ATORVASTATIN 40 MG TAB PO SCH (21:00)
[2018-09-28 05:39] LABS: Anisocytosis Slight; Basophils # (A) 0.1 k/uL (0-0.2); Basophils % (A) 1 %; Eosinophils # (A) 0.1 k/uL (0-0.7); Eosinophils % (A) 2 %; HGB 12.6 gm/dL (13.0-17.5); Lymphocytes # (A) 1.8 k/uL (1.0-4.8); Lymphocytes % (A) 28 %; MCH 28.1 pg (25.0-35.0); MCHC 32.4 g/dL (31.0-37.0); Mean Platelet Volume 6.9; Monocytes # (A) 0.5 k/uL (0-1.0); Monocytes % (A) 8 %; Neutrophils # (A) 3.9 k/uL (1.3-7.7); Neutrophils % (A) 59 %; Platelet Count 191 k/uL (150-450); RBC 4.48 m/uL (4.30-5.90); RDW 16.3 % (11.5-15.5); WBC 6.6 k/uL (3.8-10.6)
[2018-09-28] MEDS ORDERED: AMINOPHYLLINE 500 MG/20 ML VIAL IV PRN (06:00)
[2018-09-28] MEDS ORDERED: DIPYRIDAMOLE 62 MG in SODIUM CHLORIDE 0.9% 37.6 ML IV ONE (06:00)
[2018-09-28] MEDS ORDERED: CAFFEINE CITRATE 60 MG/3 ML VIAL IV PRN (06:00)
[2018-09-28 07:15] VITALS: RESP 18
--- NOTE | 2018-09-28 10:34 | P.PN ---
Subjective This is a pleasant 83-year-old male past medical history significant for coronary artery disease status post successful stent placement and balloon angioplasty with unsuccessful revascularization of the RCA in the setting cardiac infarction, history of paroxysmal atrial fibrillation, history of atrial flutter, hypertension, dyslipidemia and hard of hearing. He is seen and examined laying flat in bed in no acute distress. He denies any further symptoms of chest pain, shortness of breath, dizziness, diaphoresis or palpitations. Blood pressure 121/67 heart rate 63 afebrile and maintaining oxygen saturation on room air. Cardiac enzymes negative x3, WBC 6.6, hgb 12.6, plt 191. Currently maintained on aspirin 325 mg daily, atorvastatin 40 mg daily and Toprol 50 mg at bedtime. He had an allergic reaction to Lexiscan in 2017 in the office. This will be added to his allergy list. GENERAL: Well-appearing, well-nourished and in no acute distress. NECK: Supple without JVD or thyromegaly. LUNGS: Breath sounds clear to auscultation bilaterally. Respiration equal and unlabored. No wheezes, rales or rhonchi. HEART: Regular rate and rhythm with systolic ejection murmur at the left sternal border, no rubs or gallops. S1 and S2 heard. EXTREMITIES: Normal range of motion, no edema. No clubbing or cyanosis. Peripheral pulses intact. ASSESSMENT Chest pain the patient, an acute coronary event has been ruled out Atrial flutter with controlled ventricular response Paroxysmal atrial fibrillation on long-term anticoagulation Hypertension Dyslipidemia Coronary artery disease with known occluded RCA distally History of myocardial infarction PLAN An acute event has been ruled out. Discontinue heparin infusion. Proceed with Persantine stress test as ordered to assess for reversible ischemia. Resume warfarin. If stress test is normal he can be discharged from a cardiac perspective to follow up with Dr. Barboza in the office. Nurse Practitioner note has been reviewed, I agree with a documented findings and plan of care. Patient was seen and examined. Objective - Vital Signs Vital signs: Vital Signs Temp 97.4 F L 09/28/18 07:00 Pulse 63 09/28/18 07:00 Resp 18 09/28/18 07:00 BP 121/67 09/28/18 07:00 Pulse Ox 99 09/28/18 07:00 Intake & Output 09/27/18 09/28/18 09/28/18 18:59 06:59 18:59 Intake Total 82.333 105.331 Output Total 22 650 500 Balance -22 -567.662 -[id number] Intake: Intake, IV Titration 82.333 105.331 Amount Heparin Sod,Pork in 0.45% 82.333 105.331 NaCl 25,000 unit In 0.45 % NaCl 1 250ml.bag @ 9. 186 UNITS/KG/HR 10 mls/hr IV .Q24H [facility] Rx#: [id number] Output: Urine 22 650 500 Other: Voiding Method Toilet Toilet Toilet # Voids 2 - Labs CBC & Chem 7: 09/28/18 05:23 09/26/18 20:29 Labs: Abnormal Lab Results - Last 24 Hours (Table) 09/27/18 09/27/18 09/27/18 Range/Units 09:19 14:19 14:19 Hgb 12.8 L (13.0-17.5) gm/dL RDW 17.8 H (11.5-15.5) % PT 15.5 H (9.0-12.0) sec INR 1.5 H (<1.2) APTT 116.9 H* (22.0-30.0) sec 09/27/18 09/28/18 09/28/18 Range/Units 21:04 05:23 05:23 Hgb 12.6 L (13.0-17.5) gm/dL RDW 16.3 H (11.5-15.5) % PT (9.0-12.0) sec INR (<1.2) APTT 41.5 H 50.1 H (22.0-30.0) sec
--- NOTE | 2018-09-28 12:00 | EST ---
EXERCISE STRESS DATE OF SERVICE: 09/28/2018 AGE: 83 SEX: Male HT: 70" WT: 240 pounds PROTOCOL: Persantine Cardiolite STAGE: DURATION OF EXERCISE: HEART RATE REST: 62 BLOOD PRESSURE REST: 101/79 MAXIMUM HEART RATE ACHIEVED: 72 MAXIMUM BLOOD PRESSURE: 126/46 85% MPHR: 116 100% MPHR: 136 METS: INDICATIONS: Chest pain. CLINICAL INFORMATION: Baseline EKG shows atrial flutter with nonspecific ST-T wave changes and right bundle branch block. The patient was given intravenous Persantine as per protocol. Did not have chest pain or diagnostic ST-segment depression. CONCLUSIONS: 1. Inconclusive EKG part of the stress test due to baseline EKG abnormalities. 2. Cardiolite portion of the stress test will be reported separately. MMODL / IJN: [id number] /
[2018-09-28 12:15] VITALS: BP 119/76; PULSE 57; TEMP 97.5
[2018-09-28] MEDS: CLINDAMYCIN 150 MG CAP PO SCH (12:15)
[2018-09-28] MEDS: ASPIRIN 325 MG TAB PO SCH (12:18)
[2018-09-28] MEDS: HEPARIN SOD,PORK IN 0.45% NACL 25,000 UNIT in 0.45% NACL 1 250ML.BAG IV SCH (12:19)
--- NOTE | 2018-09-28 12:25 | NM ---
EXAMINATION TYPE: NM stress persantine cardiolit DATE OF EXAM: 09/28/2018 COMPARISON: Previous exam 11/28/2008 HISTORY: Chest pain TECHNIQUE: After the intravenous administration of 10.69 mCi Tc 99m Sestamibi - Cardiolite resting S PECT images acquired 45 minutes post injection. The patient received 62 mg Persantine, 26.4 mCi Tc 99m Sestamibi - Stress images obtained 40 minutes post injection FINDINGS: Review of stress and rest SPECT images demonstrates some mild decreased radio pharmaceutical uptake a long the inferior wall of the left ventricle on stress as compared to rest images towards the base of the heart. Gated analysis shows normal wall motion with an estimated left ventricular ejection frac tion of %. IMPRESSION: Pharmacologically induced left ventricular myocardial ischemia.
[2018-09-28] MEDS ORDERED: ISOSORBIDE MONONITRATE ER 30 MG TAB.ER.24H PO SCH (14:00)
--- NOTE | 2018-09-28 14:56 | P.PN ---
Progress Note - Text Abnormal perfusion scan discussed with the patient and Dr. Barboza. Area of reversibility is in the region of his known chronic occlusion that was unable to be revascularized in 2017. Will add him on long acting oral nitrate and increase activity. If he remains chest pain free on imdur he may be discharged home to follow up in the office the end of this week.
--- NOTE | 2018-09-28 17:33 | ECHOF ---
Referral Reason:CP MEASUREMENTS -------- HEIGHT: 177.8 cm WEIGHT: 108.9 kg BP: 121/67 RVIDd: 4.2 cm (< 3.3) IVSd: 2.2 cm (0.6 - 1.1) LVIDd: 3.9 cm (3.9 - 5.3) LVPWd: 2.0 cm (0.6 - 1.1) IVSs: 2.9 cm LVIDs: 2.2 cm LVPWs: 2.7 cm LAESV Index (A-L): 42.03 ml/m Ao Diam: 3.6 cm (2.0 - 3.7) AV Cusp: 1.3 cm (1.5 - 2.6) LA Diam: 5.8 cm (2.7 - 3.8) MV EXCURSION: 13.883 mm (> 18.000) MV EF SLOPE: 61 mm/s (70 - 150) EPSS: 0.5 cm MV E Hector: 1.26 m/s MV DecT: 137 ms MV A Hector: 0.50 m/s MV E/A Ratio: 2.50 AV maxP.44 mmHg AV meanP.72 mmHg RAP: 20.00 mmHg RVSP: 52.38 mmHg FINDINGS -------- Sinus rhythm with extra systolic beats. This was a technically adequate study. The left ventricular size is normal. There is severe concentric left ventricular hypertrophy. Ove rall left ventricular systolic function is normal with, an EF between 55 - 60 %. Mitral Doppler inf low pattern suggests diastolic filling abnormality 15.28. The right ventricle is severely enlarged. LA is severely dilated >40 ml/m2 The right atrium is mildly enlarged. Interatrial and interventricular septum intact. There is no evidence of aortic regurgitation. There is moderate aortic stenosis present. Peak/oswaldo n gradient across the Aortic Valve is 32.44mmHg / 18.72mmHg. Mild mitral annular calcification present. Mpiw-iw-mpxupwec mitral regurgitation is present. Qxcm-zv-shjudisb tricuspid regurgitation present. There is moderate pulmonary hypertension. The r ight ventricular systolic pressure, as measured by Doppler, is 52.38mmHg. Trace/mild (physiologic) pulmonic regurgitation. The aortic root size is normal. The inferior vena cava is dilated with poor inspiratory collapse which is consistent with estimated r ight atrial pressure of 20 mmHg. There is no pericardial effusion. CONCLUSIONS -------- 1. Sinus rhythm with extra systolic beats. 2. This was a technically adequate study. 3. The left ventricular size is normal. 4. There is severe concentric left ventricular hypertrophy. 5. Overall left ventricular systolic function is normal with, an EF between 55 - 60 %. 6. Mitral Doppler inflow pattern suggest diastolic filling abnormality 15.28. 7. The right ventricle is severely enlarged. 8. LA is severely dilated >40 ml/m2 9. The right atrium is mildly enlarged. 10. Interatrial and interventricular septum intact. 11. There is no evidence of aortic regurgitation. 12. There is moderate aortic stenosis present. 13. Peak/mean gradient across the Aortic Valve is 32.44mmHg / 18.72mmHg. 14. Mild mitral annular calcification present. 15. Oglv-kq-atmmlshj mitral regurgitation is present. 16. Hndn-zu-fdrxzbwi tricuspid regurgitation present. 17. There is moderate pulmonary hypertension. 18. The right ventricular systolic pressure, as measured by Doppler, is 52.38mmHg. 19. Trace/mild (physiologic) pulmonic regurgitation. 20. The aortic root size is normal. 21. The inferior vena cava is dilated with poor inspiratory collapse which is consistent with estimat ed right atrial pressure of 20 mmHg. 22. There is no pericardial effusion. CONDUIT WORKER: Lula Bhakta RDCS
[2018-09-28] MEDS ORDERED: WARFARIN 5 MG TAB PO SCH (18:00)
--- NOTE | 2018-09-28 21:12 | P.DS ---
Providers Date of admission: 09/26/18 23:42 Expected date of discharge: 09/28/18 Attending physician: Marycarmen Gusman Consults: 09/26/18 23:41 Consult Physician Urgent Consulting Provider: Neto Barboza Consult Reason/Comments: chest pain Do you want consulting provider notified?: Yes Primary care physician: [facility] Course: Mr. Mccarty is an 83-year-old male with a past medical history of atrial fibrillation, skin cancer, hypertension, hyperlipidemia, osteoarthritis, obstructive sleep apnea, hypothyroidism coming into the hospital with a chief complaint of chest pain. Patient was walking around his house when he suddenly noticed a sharp substernal chest pain that was radiating to the left side of the chest for almost 45 mins to an hour yesterday morning. He also had mild diaphoresis with the chest pain. The chest pain was radiating to the left side of the chest but no radiation to the jaw or left shoulder. Patient denied having any nausea or vomiting with the chest pain. He felt mild difficulty in breathing at that point of time. Patient denies having any swelling of his lower extremities. Patient is on Coumadin for his atrial fibrillation. Patient denies having any recent travel. No orthopnea or PND. Patient denied having any fevers chills or rigors. No cough or sputum production. No hematuria or dysuria. No abdominal pain nausea vomiting or diarrhea. No headaches blurring of vision. No syncopal episodes. No loss of consciousness. Patient denied having any slurring of speech or weakness of his extremities. No blood in his stool. Patient states that he has history of skin cancer and had cauterization of his skin lesions in the past. Hospital course - WBC 7.9, hemoglobin 13.5, platelets 224, potassium 4.7, BUN 23, creatinine 1.01, magnesium 21 PTT elevated D-dimer negative Troponin negative 2 Cholesterol 96, triglycerides 39, LDL 48, HDL 40 Initial EKG showed organized atrial fibrillation with controlled ventricular response, no definite ST changes, repeat EKG showed atrial flutter with controlled ventricular response Chest x-ray showed mild pulmonary interstitial infiltrates, possible pneumonia or minimal heart failure Chest CTA showed no definite pulmonary embolism, evaluation of the pulmonary arterial branches limited due to prominent motion artifact, no aortic aneurysm or dissection, no pulmonary parenchymal abnormality identified. He had a Dobutamine stress echo - Abnormal perfusion scan- Area of reversibility is in the region of his known chronic occlusion that was unable to be revascularized in 2017. [address] Barboza recommended that he will add a long acting oral nitrate and increase activity. If he remains chest pain free on imdur he may be discharged home to follow up in the office the end of this week. Vital Signs Temp 97.5 F L 09/28/18 12:14 Pulse 57 L 09/28/18 12:14 Resp 18 09/28/18 12:14 BP 119/76 09/28/18 12:14 Pulse Ox 94 L 09/28/18 12:14 DISCHARGE DIAGNOSIS Chest pain History of coronary artery disease with stent placement Atrial flutter on Coumadin Cellulitis left upper back History of skin cancer Hypertension Hyperlipidemia Hypothyroidism Obstructive sleep apnea Nicotine dependence Pt was up and walking without any discomfort and so deemed to be stable for discharge. Patient Condition at Discharge: Fair Plan - Discharge Summary Discharge Rx Participant: No New Discharge Prescriptions: New Isosorbide Mononitrate ER [Imdur] 30 mg PO DAILY #90 tab.er.24h Clindamycin HCl [Cleocin] 300 mg PO Q8H 5 Days #15 cap Continue Metoprolol Succinate [Toprol XL] 50 mg PO HS Levothyroxine Sodium [Synthroid] 50 mcg PO HS Warfarin [Coumadin] 5 mg PO HS Nitroglycerin Sl Tabs [Nitrostat] 0.4 mg SUBLINGUAL Q5M PRN PRN Reason: Chest Pain Folic Acid 1 mg PO HS Atorvastatin [Lipitor] 40 mg PO HS Discharge Medication List Levothyroxine Sodium [Synthroid] 50 mcg PO HS 11/09/15 [History] Metoprolol Succinate [Toprol XL] 50 mg PO HS 11/09/15 [History] Atorvastatin [Lipitor] 40 mg PO HS 09/26/18 [History] Folic Acid 1 mg PO HS 09/26/18 [History] Nitroglycerin Sl Tabs [Nitrostat] 0.4 mg SUBLINGUAL Q5M PRN 09/26/18 [History] Warfarin [Coumadin] 5 mg PO HS 09/26/18 [History] Clindamycin HCl [Cleocin] 300 mg PO Q8H 5 Days #15 cap 09/28/18 [Rx] Isosorbide Mononitrate ER [Imdur] 30 mg PO DAILY #90 tab.er.24h 09/28/18 [Rx] Follow up Appointment(s)/Referral(s): Mike Garsia MD [Primary Care Provider] - 10/06/18 2:00 pm Neto Barboza MD [STAFF PHYSICIAN] - 10/02/18 1:45 pm Patient Instructions/Handouts: Chest Pain (DC) Discharge Disposition: HOME SELF-CARE
[2018-09-29] MEDS ORDERED: ASPIRIN 81 MG PO SCH (09:00)
== END 2018-09-28 15:56 | disposition home or self-care (01) ==
LOC: EC 20:13 → 1SOBS 23:42
PROVIDERS: ADMIT Hospitalist; ATTEND Hospitalist
DX: R07.89 Other chest pain (principal); R61 Generalized hyperhidrosis; R06.00 Dyspnea, unspecified; R94.39 Abnormal result of other cardiovascular function study; R06.02 Shortness of breath; R42 Dizziness and giddiness; R11.0 Nausea; R79.89 Other specified abnormal findings of blood chemistry; R79.1 Abnormal coagulation profile; E87.2 Acidosis; I10 Essential (primary) hypertension; E78.5 Hyperlipidemia, unspecified; M19.90 Unspecified osteoarthritis, unspecified site; G47.33 Obstructive sleep apnea (adult) (pediatric); E03.9 Hypothyroidism, unspecified; I48.0 Paroxysmal atrial fibrillation; I48.92 Unspecified atrial flutter; I44.30 Unspecified atrioventricular block; L03.312 Cellulitis of back [any part except buttock and flank]; I25.10 Atherosclerotic heart disease of native coronary artery without angina pectoris; I25.82 Chronic total occlusion of coronary artery; E66.9 Obesity, unspecified; Z68.34 Body mass index [BMI] 34.0-34.9, adult; M79.89 Other specified soft tissue disorders; R01.1 Cardiac murmur, unspecified; H91.90 Unspecified hearing loss, unspecified ear; I25.2 Old myocardial infarction; F17.290 Nicotine dependence, other tobacco product, uncomplicated; Z79.899 Other long term (current) drug therapy; Z85.828 Personal history of other malignant neoplasm of skin; Z95.5 Presence of coronary angioplasty implant and graft; Z79.890 Hormone replacement therapy; Z79.01 Long term (current) use of anticoagulants; Z79.82 Long term (current) use of aspirin; Z88.0 Allergy status to penicillin; Z88.8 Allergy status to other drugs, medicaments and biological substances; Z82.49 Family history of ischemic heart disease and other diseases of the circulatory system
CPT/HCPCS: 96366 ×3; 96376; 96365; 99285; 36415; 93005; 93017; 93306; 85379; 80061; 80053; 83735; 84484 ×2; 85025 ×3; 85610 ×2; 85730 ×3; 71046; 71275; 78452; G0378 ×3; A9500; J1644 ×3; J1245; Q9967

== ENCOUNTER 2018-11-22 20:37 | Inpatient (IN) | payer MEDICARE ==
[2018-11-22] MEDS ORDERED: SODIUM CHLORIDE 0.9% 1,000 ML IV STA ×2 (20:41→20:58)
--- NOTE | 2018-11-22 20:50 | ED ---
Weakness HPI - General Stated complaint: Weakness Time Seen by Provider: 11/22/18 20:40 Source: RN notes reviewed, old records reviewed Limitations: altered mental status, physical limitation - History of Present Illness Initial comments: This is a 3-year-old male the ER for evaluation. Patient resents today with significant weakness EMS called the patient's secondary to patient's inability to get of bed today. Patient did urinate and stooling himself. Patient feels very weak unable to give history history obtained from EMS and patient's prior charting MD Complaint: generalized weakness -: days(s) Location: generalized Severity: mild Severity scale (1-10): 2 Quality: aching Consistency: constant Improves with: none Worsens with: none Context: recent illness, history of similar Associated Symptoms: denies other symptoms, loss of appetite, nausea/vomiting - Related Data Home Medications Medication Instructions Recorded Confirmed Levothyroxine Sodium [Synthroid] 50 mcg PO HS 11/09/15 11/22/18 Metoprolol Succinate [Toprol XL] 50 mg PO HS 11/09/15 11/22/18 Atorvastatin [Lipitor] 40 mg PO HS 09/26/18 11/22/18 Folic Acid 1 mg PO HS 09/26/18 11/22/18 Nitroglycerin Sl Tabs [Nitrostat] 0.4 mg SUBLINGUAL Q5M PRN 09/26/18 11/22/18 Warfarin [Coumadin] 5 mg PO DAILY 09/26/18 11/22/18 Aspirin EC [Ecotrin Low Dose] 81 mg PO DAILY 11/22/18 11/22/18 Triamterene-Hctz 37.5-25Mg 1 cap PO DAILY 11/22/18 11/22/18 [Dyazide 37.5-25 Capsule] Warfarin [Coumadin] 2 mg PO SA 11/22/18 11/22/18 Previous Rx's Medication Instructions Recorded Isosorbide Mononitrate ER [Imdur] 30 mg PO DAILY #90 tab.er.24h 09/28/18 Allergies Allergy/AdvReac Type Severity Reaction Status Date / Time Penicillins Allergy Anaphylaxis Verified 11/22/18 21:42 regadenoson Allergy Anaphylaxis Verified 11/22/18 21:42 cardiolite Allergy Anaphylaxis Uncoded 09/26/18 20:36 Review of Systems ROS Statement: Those systems with pertinent positive or pertinent negative responses have been documented in the HPI. ROS Other: All systems not noted in ROS Statement are negative. Past Medical History Past Medical History: Cancer, Hyperlipidemia, Hypertension, Myocardial Infarction (CO), Osteoarthritis (OA), Sleep Apnea/CPAP/BIPAP, Thyroid Disorder Additional Past Medical History / Comment(s): HX OF SLEEP APNEA, UNABLE TO USE MACHINE, HX OF SKIN CA Last Myocardial Infarction Date:: 2008 History of Any Multi-Drug Resistant Organisms: None Reported Past Surgical History: Heart Catheterization With Stent, Joint Replacement Additional Past Surgical History / Comment(s): KAREN KNEES, KAREN HIPS, RT SHOULDER, ONE STENT Past Anesthesia/Blood Transfusion Reactions: No Reported Reaction Date of Last Stent Placement:: 2008 Past Psychological History: No Psychological Hx Reported Smoking Status: Heavy tobacco smoker Past Alcohol Use History: Occasional Additional Past Alcohol Use History / Comment(s): SMOKES SMALL CIGARS, 1PPD SINCE AGE 15 (1) Past Drug Use History: None Reported - Past Family History Mother Family Medical History: No Reported History Brother(s) Family Medical History: Myocardial Infarction (CO) Father Family Medical History: Myocardial Infarction (CO) General Exam General appearance: alert, in no apparent distress Head exam: Present: atraumatic, normocephalic, normal inspection Eye exam: Present: normal appearance, PERRL, EOMI. Absent: scleral icterus, conjunctival injection, periorbital swelling ENT exam: Present: normal exam, mucous membranes moist Neck exam: Present: normal inspection. Absent: tenderness, meningismus, l ymphadenopathy Respiratory exam: Present: normal lung sounds bilaterally. Absent: respiratory distress, wheezes, rales, rhonchi, stridor Cardiovascular Exam: Present: regular rate, normal rhythm, normal heart sounds. Absent: systolic murmur, diastolic murmur, rubs, gallop, clicks GI/Abdominal exam: Present: soft, normal bowel sounds. Absent: distended, tenderness, guarding, rebound, rigid Extremities exam: Present: normal inspection, full ROM, normal capillary refill. Absent: tenderness, pedal edema, joint swelling, calf tenderness Back exam: Present: normal inspection Neurological exam: Present: alert, oriented X3, CN II-XII intact Psychiatric exam: Present: normal affect, normal mood Skin exam: Present: warm, dry, intact, normal color. Absent: rash Course Vital Signs 10/13/19 10/13/19 20:56 21:11 Temperature 98.2 F Pulse Rate 92 92 Respiratory 16 18 Rate Blood Pressure 136/75 139/63 O2 Sat by Pulse 95 94 L Oximetry - Reevaluation(s) Reevaluation #1: 11/22/18 22:59 Medical records reviewed Reevaluation #2: 11/22/18 22:59 Patient without significant clinical improvement - Consultations Consultation #1: Will admit Dr. Miller for Dr. Ady Duke EKG Findings - EKG Comments: EKG Findings:: EKG shows sinus rhythm rate of 92, ND 206, QRS 1:30, QTc 499 Medical Decision Making - Medical Decision Making 83 male to be admitted for weakness pneumonia severe dehydration - Lab Data Result diagrams: 11/22/18 20:50 11/22/18 20:50 Lab Results 11/22/18 11/22/18 11/22/18 Range/Units 20:50 20:50 20:50 WBC 9.6 (3.8-10.6) k/uL RBC 4.61 (4.30-5.90) m/uL Hgb 13.7 (13.0-17.5) gm/dL Hct 41.3 (39.0-53.0) % MCV 89.6 (80.0-100.0) fL MCH 29.7 (25.0-35.0) pg MCHC 33.1 (31.0-37.0) g/dL RDW 15.9 H (11.5-15.5) % Plt Count 165 (150-450) k/uL Neutrophils % 80 % Lymphocytes % 9 % Monocytes % 7 % Eosinophils % 1 % Basophils % 1 % Neutrophils # 7.7 (1.3-7.7) k/uL Lymphocytes # 0.8 L (1.0-4.8) k/uL Monocytes # 0.6 (0-1.0) k/uL Eosinophils # 0.0 (0-0.7) k/uL Basophils # 0.1 (0-0.2) k/uL PT (9.0-12.0) sec INR (<1.2) APTT (22.0-30.0) sec Sodium 136 L (137-145) mmol/L Potassium 3.9 (3.5-5.1) mmol/L Chloride 104 (98-107) mmol/L Carbon Dioxide 21 L (22-30) mmol/L Anion Gap 11 mmol/L BUN 24 H (9-20) mg/dL Creatinine 1.25 (0.66-1.25) mg/dL Est GFR (CKD-EPI)AfAm 61 (>60 ml/min/1.73 sqM) Est GFR (CKD-EPI)NonAf 53 (>60 ml/min/1.73 sqM) Glucose 135 H (74-99) mg/dL Plasma Lactic Acid Robby 2.3 H* (0.7-2.0) mmol/L Calcium 7.9 L (8.4-10.2) mg/dL Phosphorus 2.6 (2.5-4.5) mg/dL Magnesium 1.8 (1.6-2.3) mg/dL Total Bilirubin 1.3 (0.2-1.3) mg/dL AST 30 (17-59) U/L ALT 24 (21-72) U/L Alkaline Phosphatase 54 (38-126) U/L Troponin I (0.000-0.034) ng/mL NT-Pro-B Natriuret Pep pg/mL Total Protein 6.6 (6.3-8.2) g/dL Albumin 3.4 L (3.5-5.0) g/dL TSH 2.370 (0.465-4.680) mIU/L 11/22/18 11/22/18 11/22/18 Range/Units 20:50 20:50 20:50 WBC (3.8-10.6) k/uL RBC (4.30-5.90) m/uL Hgb (13.0-17.5) gm/dL Hct (39.0-53.0) % MCV (80.0-100.0) fL MCH (25.0-35.0) pg MCHC (31.0-37.0) g/dL RDW (11.5-15.5) % Plt Count (150-450) k/uL Neutrophils % % Lymphocytes % % Monocytes % % Eosinophils % % Basophils % % Neutrophils # (1.3-7.7) k/uL Lymphocytes # (1.0-4.8) k/uL Monocytes # (0-1.0) k/uL Eosinophils # (0-0.7) k/uL Basophils # (0-0.2) k/uL PT 18.9 H (9.0-12.0) sec INR 1.9 H (<1.2) APTT 38.1 H (22.0-30.0) sec Sodium (137-145) mmol/L Potassium (3.5-5.1) mmol/L Chloride (98-107) mmol/L Carbon Dioxide (22-30) mmol/L Anion Gap mmol/L BUN (9-20) mg/dL Creatinine (0.66-1.25) mg/dL Est GFR (CKD-EPI)AfAm (>60 ml/min/1.73 sqM) Est GFR (CKD-EPI)NonAf (>60 ml/min/1.73 sqM) Glucose (74-99) mg/dL Plasma Lactic Acid Robby (0.7-2.0) mmol/L Calcium (8.4-10.2) mg/dL Phosphorus (2.5-4.5) mg/dL Magnesium (1.6-2.3) mg/dL Total Bilirubin (0.2-1.3) mg/dL AST (17-59) U/L ALT (21-72) U/L Alkaline Phosphatase (38-126) U/L Troponin I 0.077 H* (0.000-0.034) ng/mL NT-Pro-B Natriuret Pep 1610 pg/mL Total Protein (6.3-8.2) g/dL Albumin (3.5-5.0) g/dL TSH (0.465-4.680) mIU/L - Radiology Data Radiology results: report reviewed (CXR positive for pneumonia), image reviewed Disposition Clinical Impression: Nosocomial pneumonia, Weakness, Dehydration Disposition: ADMITTED IP TO THIS HOSP Condition: Fair Is patient prescribed a controlled substance at d/c from ED?: No Referrals: None,Stated [REFERRING] - 1-2 days
[2018-11-22 21:21] LABS: Basophils # (A) 0.1 k/uL (0-0.2); Basophils % (A) 1 %; Eosinophils % (A) 1 %; HCT 41.3 % (39.0-53.0); HGB 13.7 gm/dL (13.0-17.5); Lymphocytes # (A) 0.8 k/uL (1.0-4.8); Lymphocytes % (A) 9 %; MCH 29.7 pg (25.0-35.0); MCHC 33.1 g/dL (31.0-37.0); MCV 89.6 fL (80.0-100.0); Mean Platelet Volume 7.3; Monocytes # (A) 0.6 k/uL (0-1.0); Monocytes % (A) 7 %; Neutrophils # (A) 7.7 k/uL (1.3-7.7); Neutrophils % (A) 80 %; Platelet Count 165 k/uL (150-450); RBC 4.61 m/uL (4.30-5.90); RDW 15.9 % (11.5-15.5); WBC 9.6 k/uL (3.8-10.6)
[2018-11-22 21:30] LABS: Albumin 3.4 g/dL (3.5-5.0); Calcium 7.9 mg/dL (8.4-10.2); Magnesium 1.8 mg/dL (1.6-2.3); Phosphorus 2.6 mg/dL (2.5-4.5); Total Bilirubin 1.3 mg/dL (0.2-1.3); Total Protein 6.6 g/dL (6.3-8.2)
[2018-11-22 21:32] LABS: INR 1.9 (<1.2); Partial Thromboplastin Time 38.1 sec (22.0-30.0); Prothrombin Time 18.9 sec (9.0-12.0)
[2018-11-22 21:33] LABS: Potassium 3.9 mmol/L (3.5-5.1)
--- NOTE | 2018-11-22 21:36 | XR ---
EXAMINATION TYPE: XR chest 2V DATE OF EXAM: 11/22/2018 COMPARISON: Chest x-ray 09/26/2018 HISTORY: Weakness, fall TECHNIQUE: Frontal and lateral views of the chest are obtained. FINDINGS: Decreased respiratory effort. Cardiomediastinal silhouette grossly stable given technique differences . Apparent patchy right lower lung airspace opacity is new. Left lung is clear. Suspect small left pl eural effusion. Degenerative changes of the thoracic spine. Right shoulder hemiarthroplasty. IMPRESSION: Decreased respiratory effort. Right basilar opacity may represent atelectasis however infection is no t excluded.
[2018-11-22] MEDS ORDERED: PNEUMONIA PROTOCOL UTILIZED 1 EACH MISC PO PRN (22:58)
[2018-11-22] MEDS ORDERED: AZITHROMYCIN 500 MG in SODIUM CHLORIDE 0.9% 250 ML IVPB STA (22:58)
[2018-11-22] MEDS ORDERED: LEVOFLOXACIN 750MG-D5W PMX 750 MG in DEXTROSE/WATER 1 150ML.BAG IVPB STA (23:02)
[2018-11-23] MEDS ORDERED: NITROGLYCERIN SL TABS 0.4 MG TAB SUBLINGUAL PRN (00:02)
[2018-11-23] MEDS ORDERED: WARFARIN 5 MG TAB PO ONE (00:15)
[2018-11-23] MEDS: ATORVASTATIN 40 MG TAB PO SCH ×2 (02:22→20:18)
[2018-11-23] MEDS: ASPIRIN 81 MG PO SCH ×2 (02:22→09:09)
[2018-11-23 06:44] LABS: Appearance,Urine Clear (Clear); Bacteria,Urine Many /hpf; Bilirubin,Urine Negative (Negative); Blood,Urine Moderate (Negative); Color,Urine Yellow; Glucose,Urine (UA) Negative (Negative); Ketones,Urine Negative (Negative); Leukocyte Esterase,Urine Large (Negative); Mucus,Urine Few /hpf; Nitrite,Urine Negative (Negative); PH, Urine 5.5 (5.0-8.0); Protein,Urine 1+ (Negative); RBC,Urine 5 /hpf (0-5); Specific Gravity,Urine 1.021 (1.001-1.035); WBC,Urine 40 /hpf (0-5)
--- NOTE | 2018-11-23 08:30 | P.HPIM ---
History of Present Illness This is a pleasant 89 years old male with past medical history of coronary artery disease, hyperlipidemia, hypertension, atrial fibrillation, osteoarthritis, sleep apnea on CPAP/BiPAP, hypothyroidism, skin cancer. He was recently discharged from the hospital for chest pain. He had a stress test showing pharmacologically induced left ventricular myocardial ischemia. Presents because of dyspnea and weakness. However the patient is poor historian and could not provide full information. He denies chest pain or abdominal pain or headache. He feels generally weak. Patient is tachypneic and is coughing with phlegm, cannot tell what the color of phlegm. He cannot tell holidays his been having these symptoms. On the presentation Vitas looks stable however patient has low-grade temperature of 100.5. His breathing fast at 22 breaths per minute. Left showing no leukocytosis with WBC of 9.6K, INR 1.9, elevated lactic acid at 2.3 came down to normal at 1.2. Sodium 136, creatinine is 1.25, elevated troponin 0.07 and 0.11. It was has not detected. TSH within normal limits. EKG known normal sinus rhythm at [address]-T changes, however it has sawtooth appearance suspicious for atrial flutter with block. Patient has had multiple large point. Chest x-ray showing right basilar opacity suspicious for atelectasis versus pneumonia. On admission patient was started on aspirin as well as Zithromax and Levaquin. His INR is 1.9. Review of Systems CONSTITUTIONAL: No fever, no malaise, no fatigue. HEENT: No recent visual problems or hearing problems. Denied any sore throat. CARDIOVASCULAR: No orthopnea, PND, no palpitations, no syncope. PULMONARY: no hemoptysis. GASTROINTESTINAL: No diarrhea, no nausea, no vomiting, no abdominal pain. Normoactive bowel sounds. NEUROLOGICAL: No headaches, no weakness, no numbness. HEMATOLOGICAL: Denies any bleeding or petechiae. GENITOURINARY: Denies any burning micturition, frequency, or urgency. MUSCULOSKELETAL/RHEUMATOLOGICAL: Denies any joint pain, swelling, or any muscle pain. ENDOCRINE: Denies any polyuria or polydipsia. Past Medical History Past Medical History: Cancer, Hyperlipidemia, Hypertension, Myocardial Infarction (MD), Osteoarthritis (OA), Sleep Apnea/CPAP/BIPAP, Thyroid Disorder Additional Past Medical History / Comment(s): HX OF SLEEP APNEA, UNABLE TO USE MACHINE, HX OF SKIN CA Last Myocardial Infarction Date:: 2008 History of Any Multi-Drug Resistant Organisms: None Reported Past Surgical History: Heart Catheterization With Stent, Joint Replacement Additional Past Surgical History / Comment(s): KAREN KNEES, KAREN HIPS, RT SHOULDER, ONE STENT Past Anesthesia/Blood Transfusion Reactions: No Reported Reaction Date of Last Stent Placement:: 2008 Past Psychological History: No Psychological Hx Reported Smoking Status: Current every day smoker Past Alcohol Use History: Occasional Additional Past Alcohol Use History / Comment(s): SMOKES SMALL CIGARS, 1PPD SINCE AGE 15 (1951) Past Drug Use History: None Reported - Past Family History Mother Family Medical History: No Reported History Brother(s) Family Medical History: Myocardial Infarction (MD) Father Family Medical History: Myocardial Infarction (MD) Medications and Allergies Home Medications Medication Instructions Recorded Confirmed Type Levothyroxine Sodium [Synthroid] 50 mcg PO HS 11/09/15 11/22/18 History Metoprolol Succinate [Toprol XL] 50 mg PO HS 11/09/15 11/22/18 History Atorvastatin [Lipitor] 40 mg PO HS 09/26/18 11/22/18 History Folic Acid 1 mg PO HS 09/26/18 11/22/18 History Nitroglycerin Sl Tabs [Nitrostat] 0.4 mg SUBLINGUAL Q5M PRN 09/26/18 11/22/18 History Warfarin [Coumadin] 5 mg PO DAILY 09/26/18 11/22/18 History Isosorbide Mononitrate ER [Imdur] 30 mg PO DAILY #90 tab.er.24h 09/28/18 11/22/18 Rx Aspirin EC [Ecotrin Low Dose] 81 mg PO DAILY 11/22/18 11/22/18 History Triamterene-Hctz 37.5-25Mg 1 cap PO DAILY 11/22/18 11/22/18 History [Dyazide 37.5-25 Capsule] Warfarin [Coumadin] 2 mg PO SA 11/22/18 11/22/18 History Allergies Allergy/AdvReac Type Severity Reaction Status Date / Time Penicillins Allergy Anaphylaxis Verified 11/22/18 21:42 regadenoson Allergy Anaphylaxis Verified 11/22/18 21:42 cardiolite Allergy Anaphylaxis Uncoded 09/26/18 20:36 Physical Exam Vitals: Vital Signs Temp Pulse Pulse Resp BP BP Pulse Ox 11/23/18 04:00 100.5 F H 91 18 131/72 96 11/23/18 00:40 98.9 F 90 18 119/64 97 11/23/18 00:00 90 18 11/22/18 21:11 92 18 139/63 94 L 11/22/18 20:56 98.2 F 92 16 136/75 95 Intake and Output 11/22/18 11/23/18 11/23/18 22:59 06:59 14:59 Other: Voiding Method Urinal # Voids 0 Weight 73.482 kg 104.5 kg -GENERAL: The patient is alert and oriented x2-3, in moderate acute resp distress. -HEENT: Pupils are round and equally reacting to light. EOMI. No scleral icterus. No conjunctival pallor. Normocephalic, atraumatic. No pharyngeal erythema. No thyromegaly. Dry mucous membranes CARDIOVASCULAR: S1 and S2 present. No murmurs, rubs, or gallops. coarse breath sounds due to secretions -PULMONARY: Tachypnea, Chest is clear to auscultation, no wheezing or crackles. ABDOMEN: Soft, nontender, nondistended, normoactive bowel sounds. No palpable organomegaly. MUSCULOSKELETAL: No joint swelling or deformity. -EXTREMITIES: No cyanosis, clubbing, or pedal edema. Small superficial ulcer in his right leg with no purulent discharge or surrounding cellulitis NEUROLOGICAL: Gross neurological examination did not reveal any focal deficits. SKIN: No rashes. No petechiae Results CBC & Chem 7: 11/22/18 20:50 11/22/18 20:50 Labs: Abnormal Lab Results - Last 24 Hours (Table) 11/22/18 11/22/18 11/22/18 Range/Units 06:20 20:50 20:50 RDW 15.9 H (11.5-15.5) % Lymphocytes # 0.8 L (1.0-4.8) k/uL PT (9.0-12.0) sec INR (<1.2) APTT (22.0-30.0) sec Sodium 136 L (137-145) mmol/L Carbon Dioxide 21 L (22-30) mmol/L BUN 24 H (9-20) mg/dL Glucose 135 H (74-99) mg/dL Plasma Lactic Acid Robby (0.7-2.0) mmol/L Calcium 7.9 L (8.4-10.2) mg/dL Troponin I (0.000-0.034) ng/mL Albumin 3.4 L (3.5-5.0) g/dL Urine Protein 1+ H (Negative) Urine Blood Moderate H (Negative) Ur Leukocyte Esterase Large H (Negative) Urine WBC 40 H (0-5) /hpf Urine Bacteria Many H (None) /hpf Urine Mucus Few H (None) /hpf 11/22/18 11/22/18 11/22/18 Range/Units 20:50 20:50 20:50 RDW (11.5-15.5) % Lymphocytes # (1.0-4.8) k/uL PT 18.9 H (9.0-12.0) sec INR 1.9 H (<1.2) APTT 38.1 H (22.0-30.0) sec Sodium (137-145) mmol/L Carbon Dioxide (22-30) mmol/L BUN (9-20) mg/dL Glucose (74-99) mg/dL Plasma Lactic Acid Robby 2.3 H* (0.7-2.0) mmol/L Calcium (8.4-10.2) mg/dL Troponin I 0.077 H* (0.000-0.034) ng/mL Albumin (3.5-5.0) g/dL Urine Protein (Negative) Urine Blood (Negative) Ur Leukocyte Esterase (Negative) Urine WBC (0-5) /hpf Urine Bacteria (None) /hpf Urine Mucus (None) /hpf 11/23/18 Range/Units 02:38 RDW (11.5-15.5) % Lymphocytes # (1.0-4.8) k/uL PT (9.0-12.0) sec INR (<1.2) APTT (22.0-30.0) sec Sodium (137-145) mmol/L Carbon Dioxide (22-30) mmol/L BUN (9-20) mg/dL Glucose (74-99) mg/dL Plasma Lactic Acid Robby (0.7-2.0) mmol/L Calcium (8.4-10.2) mg/dL Troponin I 0.110 H* (0.000-0.034) ng/mL Albumin (3.5-5.0) g/dL Urine Protein (Negative) Urine Blood (Negative) Ur Leukocyte Esterase (Negative) Urine WBC (0-5) /hpf Urine Bacteria (None) /hpf Urine Mucus (None) /hpf Thrombosis Risk Factor Assmnt - Choose All That Apply Each Risk Factor Represents 3 Points: Age 75 years or older Thrombosis Risk Factor Assessment Total Risk Factor Score: 3 Thrombosis Risk Factor Assessment Level: Moderate Risk Assessment and Plan Assessment: Chest pain, with elevated troponin suspicious for non-STEMI Elevated lactic acid came back to normal Right bundle-branch block, and so appearance of the EKG suspicious for atrial flutter with block Systemic inflammatory response with fever and tachypnea Dehydration Right lower lobe infiltrate suspicious for healthcare associated pneumonia History of coronary artery disease Hypertension Hyperlipidemia Primary osteoarthritis History of sleep apnea on CPAP/BiPAP Hypothyroidism History of skin cancer Plan: This is a pleasant 83 years old male who presents with non-STEMI and pneumonia. Continue with antibiotics. We'll change his antibiotics to aztreonam since his been hospital recently to cover gram-negative microorganisms. Also I checked with the pharmacy in this hospital patient did not get to cephalosporins before. Besides Levaquin is risky choice as it might affect his coumadine function and INR level. We will call infectious disease consult Follow-up blood culture and sputum culture. Continue with antibiotics. All cartilage consult for elevated troponin. Continue with aspirin. Labs and medication were reviewed.. Continue same treatment. Continue with symptomatic treatment. Resume home medication. Monitor lytes and vitals. DVT and GI prophylaxis. Further recommendations of the clinical course of the patient DVT prophylOn warfarin GI prophylaxis: Pepcid Prognosis is guarded
[2018-11-23] MEDS: IPRATROPIUM-ALBUTEROL 3 ML NEB INHALATION PRN ×3 (08:46→20:29)
[2018-11-23] MEDS ORDERED: FAMOTIDINE 20 MG/2 ML VIAL IV SCH (09:00)
[2018-11-23] MEDS: DEXTROSE 5%-0.45% NACL 1,000 ML IV SCH ×2 (09:07→20:19)
[2018-11-23] MEDS: TRIAMTERENE-HCTZ 37.5-25MG 1 EACH CAP PO SCH (09:09)
[2018-11-23] MEDS: ISOSORBIDE MONONITRATE ER 30 MG TAB.ER.24H PO SCH (09:09)
[2018-11-23] MEDS: FAMOTIDINE 20 MG/2 ML VIAL IV SCH (09:09)
[2018-11-23 09:19] LABS: Anisocytosis Slight; Basophils # (A) 0.1 k/uL (0-0.2); Basophils % (A) 1 %; Eosinophils % (A) 0 %; HCT 41.2 % (39.0-53.0); HGB 13.3 gm/dL (13.0-17.5); Lymphocytes # (A) 0.8 k/uL (1.0-4.8); Lymphocytes % (A) 10 %; MCH 29.3 pg (25.0-35.0); MCHC 32.3 g/dL (31.0-37.0); MCV 90.7 fL (80.0-100.0); Mean Platelet Volume 7.4; Monocytes # (A) 0.5 k/uL (0-1.0); Monocytes % (A) 7 %; Neutrophils # (A) 6.2 k/uL (1.3-7.7); Neutrophils % (A) 80 %; Platelet Count 160 k/uL (150-450); RBC 4.55 m/uL (4.30-5.90); WBC 7.8 k/uL (3.8-10.6)
[2018-11-23 09:24] LABS: INR 1.6 (<1.2); Prothrombin Time 16.3 sec (9.0-12.0)
[2018-11-23 09:36] LABS: Calcium 8.3 mg/dL (8.4-10.2); Potassium 3.8 mmol/L (3.5-5.1)
[2018-11-23] MEDS: AZTREONAM 1 GM in SODIUM CHLORIDE 0.9% 50 ML IVPB SCH ×2 (09:46→20:18)
--- NOTE | 2018-11-23 11:03 | XR ---
EXAMINATION TYPE: XR knee complete bilateral DATE OF EXAM: 11/23/2018 COMPARISON: NONE HISTORY: Pain TECHNIQUE: Three views are submitted laterally. FINDINGS: Postsurgical changes are seen. Vascular calcifications noted. Small amount of fluid in the seen in th e suprapatellar bursa bilaterally. Osseous structures are intact. No acute fracture seen. IMPRESSION: 1. No acute fracture or dislocation.
--- NOTE | 2018-11-23 11:19 | P.CRDCN ---
History of Present Illness History of present illness: This is Deepti Monk PA-C dictating a consult on this patient The patient was interviewed and examined by me as well as by Dr. Mcginnis Case discussed with Dr. Mcginnis and he agrees with the plan of care IMPRESSION / ASSESSMENT: Elevated troponins, likely small non-Q-wave TN perisistent atrial flutter with controlled ventricular response, on warfarin CAD status post stenting Hypertension Dyslipidemia PLAN: Orthostatic vital signs continue medical management with beta blockers, aspirin, and statins Management of possible infection per medicine team HPI Patient is an 83-year-old male with past medical history significant for hypertension, dyslipidemia, CAD status post stenting, paroxysmal atrial fibrillation and flutter who presented with complaints of weakness. He is a patient of Dr. Madrigal. Patient's states he has had increasing weakness over the last few weeks, seems to have started after he was started on Ranexa. However, she stopped it and he continued to have symptoms. He has been dizzy, shaky and weak and has had several falls. Yesterday he had a fall and his was unable to get him up and back into the bed so she called EMS. Upon arrival to the hospital his EKG showed atrial flutter with 3-1 conduction, right bundle tess block morphology, ventricular rate 92 bpm. Blood pressure was 136/75. Chest x-ray showed right basilar opacity which may represent atelectasis, unable to exclude infection. He was started on antibiotics for possible pneumonia. Patient seen and examined resting in bed. States he is still too dizzy and weak to get up. Still feels shaky. Denies any chest pain, palpitations or shortness of breath. ROS: No fevers, positive for shakiness no cough, phlegm or expectoration, no nausea, vomiting or diarrhea, no hematuria, dysuria, Positive for knee pain no strokes or seizures, no skin lesions. EXAMINATION: Temperature 100.5F, pulse 94, blood pressure 131/72, oxygen saturation 96% on room air Patient seen and examined resting in bed, appears slightly tachypnic but does not appear in acute distress Heart heart sounds are regular, systolic murmur noted No elevated JVD or lower extremity edema Abdomen soft REVIEW OF LABS, ECG & MEDICAL DATA Previous echocardiogram in September 2018 showed severe concentric LVH, EF 55-60%, moderate , mild to moderate MR, [id number] TR WBC 7.8, hemoglobin 13.3, platelets 560, potassium 3.8, BUN 22, creatinine 1.23, magnesium 1.8 Troponins 0.28 from 0.077 TSH within normal limits at 1.89 Past Medical History Past Medical History: Cancer, Hyperlipidemia, Hypertension, Myocardial Infarction ([place]), Osteoarthritis (OA), Sleep Apnea/CPAP/BIPAP, Thyroid Disorder Additional Past Medical History / Comment(s): HX OF SLEEP APNEA, UNABLE TO USE MACHINE, HX OF SKIN CA Last Myocardial Infarction Date:: 2008 History of Any Multi-Drug Resistant Organisms: None Reported Past Surgical History: Heart Catheterization With Stent, Joint Replacement Additional Past Surgical History / Comment(s): KAREN KNEES, KAREN HIPS, RT SHOULDER, ONE STENT Past Anesthesia/Blood Transfusion Reactions: No Reported Reaction Date of Last Stent Placement:: 2008 Past Psychological History: No Psychological Hx Reported Smoking Status: Current every day smoker Past Alcohol Use History: Occasional Additional Past Alcohol Use History / Comment(s): SMOKES SMALL CIGARS, 1PPD SIN CE AGE 15 (1951) Past Drug Use History: None Reported - Past Family History Mother Family Medical History: No Reported History Brother(s) Family Medical History: Myocardial Infarction ([place]) Father Family Medical History: Myocardial Infarction ([place]) Medications and Allergies Home Medications Medication Instructions Recorded Confirmed Type Levothyroxine Sodium [Synthroid] 50 mcg PO HS 11/09/15 11/22/18 History Metoprolol Succinate [Toprol XL] 50 mg PO HS 11/09/15 11/22/18 History Atorvastatin [Lipitor] 40 mg PO HS 09/26/18 11/22/18 History Folic Acid 1 mg PO HS 09/26/18 11/22/18 History Nitroglycerin Sl Tabs [Nitrostat] 0.4 mg SUBLINGUAL Q5M PRN 09/26/18 11/22/18 History Warfarin [Coumadin] 5 mg PO DAILY 09/26/18 11/22/18 History Isosorbide Mononitrate ER [Imdur] 30 mg PO DAILY #90 tab.er.24h 09/28/18 11/22/18 Rx Aspirin EC [Ecotrin Low Dose] 81 mg PO DAILY 11/22/18 11/22/18 History Triamterene-Hctz 37.5-25Mg 1 cap PO DAILY 11/22/18 11/22/18 History [Dyazide 37.5-25 Capsule] Warfarin [Coumadin] 2 mg PO SA 11/22/18 11/22/18 History Allergies Allergy/AdvReac Type Severity Reaction Status Date / Time Penicillins Allergy Anaphylaxis Verified 11/22/18 21:42 regadenoson Allergy Anaphylaxis Verified 11/22/18 21:42 cardiolite Allergy Anaphylaxis Uncoded 09/26/18 20:36 Physical Exam Vitals: Vital Signs Temp Pulse Pulse Resp BP BP Pulse Ox 11/23/18 08:58 94 11/23/18 08:49 94 11/23/18 04:00 100.5 F H 91 18 131/72 96 11/23/18 00:40 98.9 F 90 18 119/64 97 11/23/18 00:00 90 18 11/22/18 21:11 92 18 139/63 94 L 11/22/18 20:56 98.2 F 92 16 136/75 95 Intake and Output 11/22/18 11/23/18 11/23/18 22:59 06:59 14:59 Intake Total 240 Output Total 400 Balance -160 Intake: Oral 240 Output: Urine 400 Other: Voiding Method Urinal # Voids 0 Weight 73.482 kg 104.5 kg Results 11/23/18 08:51 11/23/18 08:51 Cardiac Enzymes 11/22/18 11/22/18 11/23/18 Range/Units 20:50 20:50 02:38 AST 30 (17-59) U/L Troponin I 0.077 H* 0.110 H* (0.000-0.034) ng/mL 11/23/18 Range/Units 08:51 AST (17-59) U/L Troponin I 0.128 H* (0.000-0.034) ng/mL Coagulation 11/22/18 11/23/18 Range/Units 20:50 08:51 PT 18.9 H 16.3 H (9.0-12.0) sec APTT 38.1 H (22.0-30.0) sec CBC 11/22/18 11/23/18 Range/Units 20:50 08:51 WBC 9.6 7.8 (3.8-10.6) k/uL RBC 4.61 4.55 (4.30-5.90) m/uL Hgb 13.7 13.3 (13.0-17.5) gm/dL Hct 41.3 41.2 (39.0-53.0) % Plt Count 165 160 (150-450) k/uL Comprehensive Metabolic Panel 11/22/18 11/23/18 Range/Units 20:50 08:51 Sodium 136 L 136 L (137-145) mmol/L Potassium 3.9 3.8 (3.5-5.1) mmol/L Chloride 104 104 (98-107) mmol/L Carbon Dioxide 21 L 24 (22-30) mmol/L BUN 24 H 22 H (9-20) mg/dL Creatinine 1.25 1.23 (0.66-1.25) mg/dL Glucose 135 H 147 H (74-99) mg/dL Calcium 7.9 L 8.3 L (8.4-10.2) mg/dL AST 30 (17-59) U/L ALT 24 (21-72) U/L Alkaline Phosphatase 54 (38-126) U/L Total Protein 6.6 (6.3-8.2) g/dL Albumin 3.4 L (3.5-5.0) g/dL Current Medications Generic Name Dose Route Start Last Admin Trade Name Freq PRN Reason Stop Dose Admin Albuterol/Ipratropium 3 ml 11/22/18 22:58 11/23/18 08:46 Duoneb 0.5 Mg-3 Mg/3 Ml Soln INHALATION 3 ml RT-Q4H PRN Administration shortness of breath Aspirin 81 mg 11/23/18 00:05 11/23/18 09:09 Aspirin PO 81 mg DAILY FELIPE Administration Atorvastatin Calcium 40 mg 11/23/18 00:15 11/23/18 02:22 Lipitor PO 40 mg HS FELIPE Administration Azithromycin 500 mg 11/23/18 22:58 Zithromax PO Q24H FELIPE Famotidine 20 mg 11/23/18 09:00 11/23/18 09:09 Pepcid IV 20 mg Q24HR FELIPE Administration Folic Acid 1 mg 11/23/18 21:00 Folic Acid PO HS FELIPE Aztreonam 1 gm/ Sodium 50 mls @ 100 mls/hr 11/23/18 09:00 11/23/18 09:46 Chloride IVPB 100 mls/hr Q12HR FELIPE Administration Protocol Dextrose/Sodium Chloride 1,000 mls @ 50 mls/hr 11/23/18 08:45 11/23/18 09:07 Dextrose 5%-1/2ns Iv Soln IV 50 mls/hr .Q20H FELIPE Administration Isosorbide Mononitrate 30 mg 11/23/18 09:00 11/23/18 09:09 Imdur PO 30 mg DAILY FELIPE Administration Levothyroxine Sodium 50 mcg 11/23/18 21:00 Synthroid PO HS FELIPE Metoprolol Succinate 50 mg 11/23/18 21:00 Toprol Xl PO HS FELIPE Miscellaneous Information 1 each 11/22/18 22:58 Pneumonia Protocol Utilized PO ONCE PRN Per Protocol Miscellaneous Information 1 each 11/23/18 00:04 Coumadin Per Pharmacy MISCELLANE DIRECTED PRN Per Protocol Triamterene/HCTZ 1 each 11/23/18 09:00 11/23/18 09:09 Dyazide PO 1 each DAILY FELIPE Administration Intake and Output 11/22/18 11/23/18 11/23/18 22:59 06:59 14:59 Intake Total 240 Output Total 400 Balance -160 Intake: Oral 240 Output: Urine 400 Other: Voiding Method Urinal # Voids 0 Weight 73.482 kg 104.5 kg 11/23/18 08:51 11/23/18 08:51
--- NOTE | 2018-11-23 11:21 | XR ---
EXAMINATION TYPE: XR chest 2V DATE OF EXAM: 11/23/2018 COMPARISON: 11/22/2018 TECHNIQUE: PA and lateral views submitted. HISTORY: Weakness FINDINGS: Limited inspiration. Diffuse osteopenia, arthropathy left shoulder and right shoulder with postsurgic al change involving the right shoulder subsegmental areas of consolidation bilaterally. No pneumothor ax or sizable pleural effusion. IMPRESSION: 1. Subsegmental atelectasis at or infiltrate. Chronic underlying interstitial lung disease or venous congestion in the differential diagnosis
--- NOTE | 2018-11-23 13:47 | P.CONS ---
History of Present Illness - Reason for Consult Consult date: 11/23/18 Possible pneumonia with fever - History of Present Illness This is an 83-year-old male and history is obtained from the patient and his . She has history that he started a new medication, Ranolazine, last week ordered by Dr. stephenson. She states that the patient has had extreme weakness, dizziness headache, tremor since starting to take this. She spoke with the pharmacist and will thought this was related to the medication. Over the weekend he was very weak he ended up falling landing on his knees bilate rally. He does complain of knee pain but denies any loss of consciousness or head injury. Patient states that she called EMS to get him back into bed. She states he was shaking so bad by the next day that she had him brought into the [facility] for evaluation. Patient has not had any nausea vomiting or diarrhea. He states his appetite has been good. He thinks he may have decreased urine output. states that he has been drinking plenty of water and coffee. He denies any cough. Patient has chronic shortness of breath he states it is at his baseline. He denies any chest pain. He denies having any fever or chills. The patient presented to [facility] emergency center. WBC 9.6, INR 1.9, BUN 24 and creatinine 1.25, initial lactic acid 2.3 and repeat 1.2, blood sugar 132. Troponin 0.077, 0.110. Influenza testing negative. Urinalysis clear, blood moderate, leukoesterase large, WBC 40, bacteria many. Chest x-ray showed decreased respiratory effort. Right basilar opacities may represent atelectasis, however infection is not excluded. Temperature max is been 100.5. Patient has been started on azithromycin and Azactam. Consult in place for pulmonary medicine and cardiology. Review of Systems Constitutional: Reports fatigue, Reports weakness, Denies anorexia, Denies chills, Denies fever, Denies poor appetite Eyes: denies blurred vision, denies pain Ears, nose, mouth and throat: Reports vertigo, Denies dental pain, Denies dysphagia, Denies headache, Denies mouth pain, Denies sore throat Cardiovascular: Reports decreased exercise tolerance, Reports dyspnea on exertion, Reports lightheadedness, Denies chest pain, Denies edema, Denies leg edema, Denies shortness of breath, Denies syncope Respiratory: Reports dyspnea, Denies cough, Denies cough with sputum, Denies excessive sputum, Denies hemoptysis, Denies home oxygen, Denies respiratory infections, Denies wheezing Gastrointestinal: Denies abdominal pain, Denies diarrhea, Denies loss of appetite, Denies nausea, Denies vomiting Genitourinary: Denies dysuria, Denies urinary hesitancy, Denies urinary rete ntion Musculoskeletal: Reports frequent falls, Reports gait dysfunction, Reports muscle weakness, Denies myalgias Integumentary: Denies pruritus, Denies rash Neurological: Denies change in mentation, Denies change in speech, Denies confusion, Denies numbness, Denies seizures, Denies weakness Psychiatric: Denies anxiety, Denies depression Endocrine: Denies fatigue, Denies weight change Past Medical History Past Medical History: Coronary Artery Disease (CAD), Cancer, Hyperlipidemia, Hypertension, Myocardial Infarction ([place]), Osteoarthritis (OA), Sleep Apnea/CPAP/BIPAP, Thyroid Disorder Additional Past Medical History / Comment(s): HX OF SLEEP APNEA,HX OF SKIN CA Last Myocardial Infarction Date:: 2008 History of Any Multi-Drug Resistant Organisms: None Reported Past Surgical History: Heart Catheterization With Stent, Joint Replacement Additional Past Surgical History / Comment(s): KAREN KNEES, KAREN HIPS, RT SHOULDER, ONE STENT Past Anesthesia/Blood Transfusion Reactions: No Reported Reaction Date of Last Stent Placement:: 2008 Past Psychological History: No Psychological Hx Reported Smoking Status: Current every day smoker Past Alcohol Use History: Occasional Additional Past Alcohol Use History / Comment(s): SMOKES SMALL CIGARS, 1PPD SINCE AGE 15 (1952). He denies any illicit drug use. He drinks occasional beer. He lives at home with his and dog. 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 Past Drug Use History: None Reported - Past Family History Mother Family Medical History: No Reported History Brother(s) Family Medical History: Myocardial Infarction ([place]) Father Family Medical History: Myocardial Infarction ([place]) Medications and Allergies Home Medications Medication Instructions Recorded Confirmed Type Levothyroxine Sodium [Synthroid] 50 mcg PO HS 11/09/15 11/22/18 History Metoprolol Succinate [Toprol XL] 50 mg PO HS 11/09/15 11/22/18 History Atorvastatin [Lipitor] 40 mg PO HS 09/26/18 11/22/18 History Folic Acid 1 mg PO HS 09/26/18 11/22/18 History Nitroglycerin Sl Tabs [Nitrostat] 0.4 mg SUBLINGUAL Q5M PRN 09/26/18 11/22/18 History Warfarin [Coumadin] 5 mg PO DAILY 09/26/18 11/22/18 History Isosorbide Mononitrate ER [Imdur] 30 mg PO DAILY #90 tab.er.24h 09/28/18 11/22/18 Rx Aspirin EC [Ecotrin Low Dose] 81 mg PO DAILY 11/22/18 11/22/18 History Triamterene-Hctz 37.5-25Mg 1 cap PO DAILY 11/22/18 11/22/18 History [Dyazide 37.5-25 Capsule] Warfarin [Coumadin] 2 mg PO SA 11/22/18 11/22/18 History Allergies Allergy/AdvReac Type Severity Reaction Status Date / Time Penicillins Allergy Anaphylaxis Verified 11/22/18 21:42 [email or web address] Allergy Anaphylaxis Verified 11/22/18 21:42 cardiolite Allergy Anaphylaxis Uncoded 09/26/18 20:36 Physical Exam Vitals: Vital Signs Temp Pulse Pulse Resp BP BP Pulse Ox 11/23/18 08:58 94 11/23/18 08:49 94 11/23/18 04:00 100.5 F H 91 18 131/72 96 11/23/18 00:40 98.9 F 90 18 119/64 97 11/23/18 00:00 90 18 11/22/18 21:11 92 18 139/63 94 L 11/22/18 20:56 98.2 F 92 16 136/75 95 Intake and Output 11/22/18 11/23/18 11/23/18 22:59 06:59 14:59 Other: Voiding Method Urinal # Voids 0 Weight 73.482 kg 104.5 kg Gen: This is an 83-year-old male. Patient is resting in bed. It is noted to be tachypneic which he and his state that this has his baseline. HEENT: Head is atraumatic, normocephalic. Pupils equal, round. Sclerae is an icteric. Oral mucous membranes are dry. Dentures in place. No thrush noted. NECK: Supple. No JVD. No lymphadenopathy. No thyromegaly. LUNGS: Diminished. No intercostal retractions. Tachypneic. HEART: Irregular rate and rhythm. Systolic murmur. ABDOMEN: Soft. Bowel sounds are present. No masses. No tenderness. EXTREMITIES: No pedal edema. No calf tenderness. Bilateral knee pain. Right k nee is warm to touch. NEUROLOGICAL: Patient is awake, alert and oriented x3. Cranial nerves 2 through 12 are grossly intact. Tremor noted bilateral hands. Results Results: Laboratory Results WBC 7.8 k/uL (3.8-10.6) 11/23/18 08:51 RBC 4.55 m/uL (4.30-5.90) 11/23/18 08:51 Hgb 13.3 gm/dL (13.0-17.5) 11/23/18 08:51 Hct 41.2 % (39.0-53.0) 11/23/18 08:51 MCV 90.7 fL (80.0-100.0) 11/23/18 08:51 MCH 29.3 pg (25.0-35.0) 11/23/18 08:51 MCHC 32.3 g/dL (31.0-37.0) 11/23/18 08:51 RDW 16.0 % (11.5-15.5) H 11/23/18 08:51 Plt Count 160 k/uL (150-450) 11/23/18 08:51 Neutrophils % 80 % 11/23/18 08:51 Lymphocytes % 10 % 11/23/18 08:51 Monocytes % 7 % 11/23/18 08:51 Eosinophils % 0 % 11/23/18 08:51 Basophils % 1 % 11/23/18 08:51 Neutrophils # 6.2 k/uL (1.3-7.7) 11/23/18 08:51 Lymphocytes # 0.8 k/uL (1.0-4.8) L 11/23/18 08:51 Monocytes # 0.5 k/uL (0-1.0) 11/23/18 08:51 Eosinophils # 0.0 k/uL (0-0.7) 11/23/18 08:51 Basophils # 0.1 k/uL (0-0.2) 11/23/18 08:51 Anisocytosis Slight 11/23/18 08:51 PT 16.3 sec (9.0-12.0) H 11/23/18 08:51 INR 1.6 (<1.2) H 11/23/18 08:51 APTT 38.1 sec (22.0-30.0) H 11/22/18 20:50 Sodium 136 mmol/L (137-145) L 11/23/18 08:51 Potassium 3.8 mmol/L (3.5-5.1) 11/23/18 08:51 Chloride 104 mmol/L (98-107) 11/23/18 08:51 Carbon Dioxide 24 mmol/L (22-30) 11/23/18 08:51 Anion Gap 8 mmol/L 11/23/18 08:51 BUN 22 mg/dL (9-20) H 11/23/18 08:51 Creatinine 1.23 mg/dL (0.66-1.25) 11/23/18 08:51 Est GFR (CKD-EPI)AfAm 62 (>60 ml/min/1.73 sqM) 11/23/18 08:51 Est GFR (CKD-EPI)NonAf 54 (>60 ml/min/1.73 sqM) 11/23/18 08:51 Glucose 147 mg/dL (74-99) H 11/23/18 08:51 Lactic Ac Sepsis Rflx Y 11/22/18 21:35 Plasma Lactic Acid Robby 1.2 mmol/L (0.7-2.0) 11/23/18 01:06 Calcium 8.3 mg/dL (8.4-10.2) L 11/23/18 08:51 Phosphorus 2.6 mg/dL (2.5-4.5) 11/22/18 20:50 Magnesium 1.8 mg/dL (1.6-2.3) 11/22/18 20:50 Total Bilirubin 1.3 mg/dL (0.2-1.3) 11/22/18 20:50 AST 30 U/L (17-59) 11/22/18 20:50 ALT 24 U/L (21-72) 11/22/18 20:50 Alkaline Phosphatase 54 U/L (38-126) 11/22/18 20:50 Troponin I 0.128 ng/mL (0.000-0.034) H* 11/23/18 08:51 NT-Pro-B Natriuret Pep 1610 pg/mL 11/22/18 20:50 Total Protein 6.6 g/dL (6.3-8.2) 11/22/18 20:50 Albumin 3.4 g/dL (3.5-5.0) L 11/22/18 20:50 TSH 1.890 mIU/L (0.465-4.680) 11/23/18 08:51 Urine Color Yellow 11/22/18 06:20 Urine Appearance Clear (Clear) 11/22/18 06:20 Urine pH 5.5 (5.0-8.0) 11/22/18 06:20 Ur Specific [place] 1.021 (1.001-1.035) 11/22/18 06:20 Urine Protein 1+ (Negative) H 11/22/18 06:20 Urine Glucose (UA) Negative (Negative) 11/22/18 06:20 Urine Ketones Negative (Negative) 11/22/18 06:20 Urine Blood Moderate (Negative) H 11/22/18 06:20 Urine Nitrite Negative (Negative) 11/22/18 06:20 Urine Bilirubin Negative (Negative) 11/22/18 06:20 Urine Urobilinogen 2.0 mg/dL (<2.0) 11/22/18 06:20 Ur Leukocyte Esterase Large (Negative) H 11/22/18 06:20 Urine RBC 5 /hpf (0-5) 11/22/18 06:20 Urine WBC 40 /hpf (0-5) H 11/22/18 06:20 Urine Bacteria Many /hpf (None) H 11/22/18 06:20 Urine Mucus Few /hpf (None) H 11/22/18 06:20 Influenza Type A RNA Not Detected (Not Detectd) 11/22/18 21:00 Influenza Type B (PCR) Not Detected (Not Detectd) 11/22/18 21:00 CBC & Chem 7: 11/23/18 08:51 11/23/18 08:51 Labs: Abnormal Lab Results - Last 24 Hours (Table) 11/22/18 11/22/18 11/22/18 Range/Units 06:20 20:50 20:50 RDW 15.9 H (11.5-15.5) % Lymphocytes # 0.8 L (1.0-4.8) k/uL PT (9.0-12.0) sec INR (<1.2) APTT (22.0-30.0) sec Sodium 136 L (137-145) mmol/L Carbon Dioxide 21 L (22-30) mmol/L BUN 24 H (9-20) mg/dL Glucose 135 H (74-99) mg/dL Plasma Lactic Acid Robby (0.7-2.0) mmol/L Calcium 7.9 L (8.4-10.2) mg/dL Troponin I (0.000-0.034) ng/mL Albumin 3.4 L (3.5-5.0) g/dL Urine Protein 1+ H (Negative) Urine Blood Moderate H (Negative) Ur Leukocyte Esterase Large H (Negative) Urine WBC 40 H (0-5) /hpf Urine Bacteria Many H (None) /hpf Urine Mucus Few H (None) /hpf 11/22/18 11/22/18 11/22/18 Range/Units 20:50 20:50 20:50 RDW (11.5-15.5) % Lymphocytes # (1.0-4.8) k/uL PT 18.9 H (9.0-12.0) sec INR 1.9 H (<1.2) APTT 38.1 H (22.0-30.0) sec Sodium (137-145) mmol/L Carbon Dioxide (22-30) mmol/L BUN (9-20) mg/dL Glucose (74-99) mg/dL Plasma Lactic Acid Robby 2.3 H* (0.7-2.0) mmol/L Calcium (8.4-10.2) mg/dL Troponin I 0.077 H* (0.000-0.034) ng/mL Albumin (3.5-5.0) g/dL Urine Protein (Negative) Urine Blood (Negative) Ur Leukocyte Esterase (Negative) Urine WBC (0-5) /hpf Urine Bacteria (None) /hpf Urine Mucus (None) /hpf 11/23/18 11/23/18 11/23/18 Range/Units 02:38 08:51 08:51 RDW 16.0 H (11.5-15.5) % Lymphocytes # 0.8 L (1.0-4.8) k/uL PT 16.3 H (9.0-12.0) sec INR 1.6 H (<1.2) APTT (22.0-30.0) sec Sodium (137-145) mmol/L Carbon Dioxide (22-30) mmol/L BUN (9-20) mg/dL Glucose (74-99) mg/dL Plasma Lactic Acid Robby (0.7-2.0) mmol/L Calcium (8.4-10.2) mg/dL Troponin I 0.110 H* (0.000-0.034) ng/mL Albumin (3.5-5.0) g/dL Urine Protein (Negative) Urine Blood (Negative) Ur Leukocyte Esterase (Negative) Urine WBC (0-5) /hpf Urine Bacteria (None) /hpf Urine Mucus (None) /hpf 11/23/18 Range/Units 08:51 RDW (11.5-15.5) % Lymphocytes # (1.0-4.8) k/uL PT (9.0-12.0) sec INR (<1.2) APTT (22.0-30.0) sec Sodium 136 L (137-145) mmol/L Carbon Dioxide (22-30) mmol/L BUN 22 H (9-20) mg/dL Glucose 147 H (74-99) mg/dL Plasma Lactic Acid Robby (0.7-2.0) mmol/L Calcium 8.3 L (8.4-10.2) mg/dL Troponin I (0.000-0.034) ng/mL Albumin (3.5-5.0) g/dL Urine Protein (Negative) Urine Blood (Negative) Ur Leukocyte Esterase (Negative) Urine WBC (0-5) /hpf Urine Bacteria (None) /hpf Urine Mucus (None) /hpf Assessment and Plan Plan: This is an 83-year-old male who presented to the hospital with symptoms of dizziness, weakness, headache, tremors. Possible pneumonia found on x-ray and patient has been started on azithromycin and Azactam. voices concern that symptoms are related to Ranolazine which she stopped giving the patient over the weekend. Repeat chest x-ray is ordered for today as well as pulmonary consult. X-rays of bilateral knees will be added and incentive spirometry. Continue supportive care. Further recommendations as patient progresses. The above dictated assessment and findings were discussed with Dr. Cedillo. The impression and plan of care have been directed as dictated. Cary Vaca nurse practitioner acting as scribe for Dr. Cedillo.
--- NOTE | 2018-11-23 17:43 | P.CNPUL ---
History of Present Illness Consult date: 11/23/18 Chief complaint: Generalized weakness, altered mentation History of present illness: 83-year-old male patient came into the hospital because of generalized weakness of few days' duration. The patient became progressively more weak and somewhat confused. I saw him this afternoon and the patient was still weak and shaky and having some nausea and emesis. Denies having any significant shortness of breath or chest pain. He was hemodynamically stable and his pulse ox was above 90% at 2 L about 2 by nasal cannula. The patient's past medical history is positive for coronary artery disease and hypertension and hyperlipidemia and atrial flutter and he has been maintained on long-term articulation with warfarin. He also has history otherwise stay not utilizing a machine along with hypothyroidism. I was asked to evaluate this patient is a concern of a pneumonia. I noted that his urine was quite dirty suggestive of UTI. The patient's chest x-ray was also reviewed and there is no clear indication for pneumonia. There is subsegmental atelectasis and some mild four-vessel congestion. Cardiology was also involved in the case as the patient had abnormal troponins at levels of 0.12 with an EKG showing normal sinus rhythm with a RBB pattern. His INR was 1.9 at time of admission is guarded at 1.6. White cell count is at 7.8. He is currently covered with a combination of aztreonam and Zithromax. The influenza screen was negative. Review of Systems Constitutional: Reports fatigue, Reports weakness, Denies anorexia, Denies chills, Denies fever, Denies poor appetite Eyes: denies blurred vision, denies pain Ears, nose, mouth and throat: Reports vertigo, Denies dental pain, Denies dysphagia, Denies headache, Denies mouth pain, Denies sore throat Cardiovascular: Reports decreased exercise tolerance, Reports dyspnea on exertion, Reports lightheadedness, Denies chest pain, Denies edema, Denies leg edema, Denies shortness of breath, Denies syncope Respiratory: Reports dyspnea, Denies cough, Denies cough with sputum, Denies excessive sputum, Denies hemoptysis, Denies home oxygen, Denies respiratory infections, Denies wheezing Gastrointestinal: Denies abdominal pain, Denies diarrhea, Denies loss of appetite, Denies nausea, Denies vomiting Genitourinary: Denies dysuria, Denies urinary hesitancy, Denies urinary retention Musculoskeletal: Reports frequent falls, Reports gait dysfunction, Reports muscle weakness, Denies myalgias Integumentary: Denies pruritus, Denies rash Neurological: There is increased shakiness and tremors and , De abnormal mentation as reported by the nursing staff, change in speech, Denies confusion, Denies numbness, Denies seizures, there is increased weakness Psychiatric: Denies anxiety, Denies depression Endocrine: Increased fatigue, Denies weight change Past Medical History Past Medical History: Coronary Artery Disease (CAD), Cancer, Hyperlipidemia, Hypertension, Myocardial Infarction ([place]), Osteoarthritis (OA), Sleep Apnea/CPAP/BIPAP, Thyroid Disorder Additional Past Medical History / Comment(s): Coronary artery disease, hypertension, hypothyroidism, obstructive sleep apnea him on history of atrial flutter, hyperlipidemia, skin cancer Last Myocardial Infarction Date:: 2008 History of Any Multi-Drug Resistant Organisms: None Reported Past Surgical History: Heart Catheterization With Stent, Joint Replacement Additional Past Surgical History / Comment(s): KAREN KNEES, KAREN HIPS, RT SHOULDER, previous cardiac catheterizations and insertion of a coronary stent Past Anesthesia/Blood Transfusion Reactions: No Reported Reaction Date of Last Stent Placement:: 2008 Past Psychological History: No Psychological Hx Reported Smoking Status: Current every day smoker Past Alcohol Use History: Occasional Additional Past Alcohol Use History / Comment(s): SMOKES SMALL CIGARS, 1PPD SINCE AGE 15 (1952). He denies any illicit drug use. He drinks occasional beer. He lives at home with his and dog. 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 Past Drug Use History: None Reported - Past Family History Mother Family Medical History: No Reported History Brother(s) Family Medical History: Myocardial Infarction ([place]) Father Family Medical History: Myocardial Infarction ([place]) Medications and Allergies Home Medications Medication Instructions Recorded Confirmed Type Levothyroxine Sodium [Synthroid] 50 mcg PO HS 11/09/15 11/22/18 History Metoprolol Succinate [Toprol XL] 50 mg PO HS 11/09/15 11/22/18 History Atorvastatin [Lipitor] 40 mg PO HS 09/26/18 11/22/18 History Folic Acid 1 mg PO HS 09/26/18 11/22/18 History Nitroglycerin Sl Tabs [Nitrostat] 0.4 mg SUBLINGUAL Q5M PRN 09/26/18 11/22/18 History Warfarin [Coumadin] 5 mg PO DAILY 09/26/18 11/22/18 History Isosorbide Mononitrate ER [Imdur] 30 mg PO DAILY #90 tab.er.24h 09/28/18 11/22/18 Rx Aspirin EC [Ecotrin Low Dose] 81 mg PO DAILY 11/22/18 11/22/18 History Triamterene-Hctz 37.5-25Mg 1 cap PO DAILY 11/22/18 11/22/18 History [Dyazide 37.5-25 Capsule] Warfarin [Coumadin] 2 mg PO SA 11/22/18 11/22/18 History Allergies Allergy/AdvReac Type Severity Reaction Status Date / Time Penicillins Allergy Anaphylaxis Verified 11/22/18 21:42 [email or web address] Allergy Anaphylaxis Verified 11/22/18 21:42 cardiolite Allergy Anaphylaxis Uncoded 09/26/18 20:36 Physical Exam Vitals: Vital Signs Temp Pulse Pulse Pulse Pulse Resp BP 11/23/18 16:57 90 11/23/18 16:44 90 11/23/18 16:00 99.5 F 94 18 11/23/18 12:35 98.9 F 30 L 89 18 11/23/18 08:58 94 11/23/18 08:49 94 11/23/18 08:00 99.1 F 93 18 11/23/18 04:00 100.5 F H 91 18 11/23/18 00:40 98.9 F 90 18 11/23/18 00:00 90 18 11/22/18 21:11 92 18 139/63 11/22/18 20:56 98.2 F 92 16 136/75 BP BP BP Pulse Ox 11/23/18 16:57 11/23/18 16:44 11/23/18 16:00 127/68 94 L 11/23/18 12:35 141/64 137/59 90 L 11/23/18 08:58 11/23/18 08:49 11/23/18 08:00 134/64 92 L 11/23/18 04:00 131/72 96 11/23/18 00:40 119/64 97 11/23/18 00:00 11/22/18 21:11 94 L 11/22/18 20:56 95 Intake and Output 10/14/19 10/14/19 10/14/19 06:59 14:59 22:59 Intake Total 240 350 Output Total 400 Balance -160 350 Intake: Intake, IV Titration 350 Amount Aztreonam 1 gm In Sodium 50 Chloride 0.9% 50 ml @ 100 mls/hr IVPB Q12HR FELIPE Rx #:[id number] Dextrose 5%-0.45% NaCl 1, 300 000 ml @ 50 mls/hr IV . Q20H FELIPE Rx#:[id number] Oral 240 Output: Urine 400 Other: Voiding Method Urinal # Voids 0 Weight 104.5 kg Gen. appearance is calm and comfortable, on of his shaking in history embolus yet he responds any answers questions appropriately. There is some limited confusion. Denies having any shortness of breath. Head exam was generally normal. There was no scleral icterus or corneal arcus. M ucous membranes were moist. Neck was supple and without jugular venous distension, thyromegaly, or carotid bruits. Carotids were easily palpable bilaterally. There was no adenopathy. Lungs were clear to auscultation and percussion, and with normal diaphragmatic excursion. No wheezes or rales were noted. Cardiac exam revealed the PMI to be normally situated and sized. The rhythm was regular and no extrasystoles were noted during several minutes of auscultation. The first and second heart sounds were normal and physiologic splitting of the second heart sound was noted. There were no murmurs, rubs, clicks, or gallops. Abdominal exam revealed normal bowel sounds. The abdomen was soft, non-tender, and without masses, organomegaly, or appreciable enlargement of the abdominal aorta. Examination of the extremities revealed easily palpable radial, femoral and pedal pulses. There was no cyanosis, clubbing or edema. Examination of the skin revealed no evidence of significant rashes, suspicious a ppearing nevi or other concerning lesions. Neurologically the patient is weak shaky and has some limited confusion. Neurologic exam in general is nonfocal. Consider encephalopathy metabolic source. Results - Laboratory Findings CBC and BMP: 11/23/18 08:51 11/23/18 08:51 PT/INR, D-dimer PT 16.3 sec (9.0-12.0) H 11/23/18 08:51 INR 1.6 (<1.2) H 11/23/18 08:51 Abnormal lab findings: Abnormal Labs 11/22/18 11/22/18 11/22/18 06:20 20:50 20:50 RDW 15.9 H Lymphocytes # 0.8 L PT INR APTT Sodium 136 L Carbon Dioxide 21 L BUN 24 H Glucose 135 H Plasma Lactic Acid Robby Calcium 7.9 L Troponin I Albumin 3.4 L Urine Protein 1+ H Urine Blood Moderate H Ur Leukocyte Esterase Large H Urine WBC 40 H Urine Bacteria Many H Urine Mucus Few H 11/22/18 11/22/18 11/22/18 20:50 20:50 20:50 RDW Lymphocytes # PT 18.9 H INR 1.9 H APTT 38.1 H Sodium Carbon Dioxide BUN Glucose Plasma Lactic Acid Robby 2.3 H* Calcium Troponin I 0.077 H* Albumin Urine Protein Urine Blood Ur Leukocyte Esterase Urine WBC Urine Bacteria Urine Mucus 11/23/18 11/23/18 11/23/18 02:38 08:51 08:51 RDW 16.0 H Lymphocytes # 0.8 L PT INR APTT Sodium Carbon Dioxide BUN Glucose Plasma Lactic Acid Robby Calcium Troponin I 0.110 H* 0.128 H* Albumin Urine Protein Urine Blood Ur Leukocyte Esterase Urine WBC Urine Bacteria Urine Mucus 11/23/18 11/23/18 08:51 08:51 RDW Lymphocytes # PT 16.3 H INR 1.6 H APTT Sodium 136 L Carbon Dioxide BUN 22 H Glucose 147 H Plasma Lactic Acid Robby Calcium 8.3 L Troponin I Albumin Urine Protein Urine Blood Ur Leukocyte Esterase Urine WBC Urine Bacteria Urine Mucus - Diagnostic Findings Chest x-ray: image reviewed Assessment and Plan Plan: \ 1 generalized weakness/altered mentation, rule out metabolic encephalopathy, rule out underlying infection being in a UTI versus pneumonia. Pneumonia is felt to be less likely at this point in time 2 troponin leak versus acute non-STEMI 3 coronary artery disease, history of, with previous history of insertion of a coronary stent 4 obstructive sleep apnea 5 hypertension 6 hyperlipidemia 7 history of atrial flutter current rhythm is sinus with an LBBB pattern and the patient is subtherapeutic on Coumadin Plan Obtain urine culture. Obtain blood culture. ID is on consult. Currently on a, addition of Zithromax and aztreonam. Resume home medication. Monitor PT/INR. Monitor mental status. We'll continue to follow.
[2018-11-23] MEDS ORDERED: WARFARIN 2 MG TAB PO ONE (18:00)
[2018-11-23] MEDS: LEVOTHYROXINE 50 MCG TAB PO SCH (20:18)
[2018-11-23] MEDS: FOLIC ACID 1 MG TAB PO SCH (20:18)
[2018-11-23] MEDS: METOPROLOL SUCCINATE (ER) 50 MG TAB.ER.24H PO SCH (20:18)
--- NOTE | 2018-11-23 22:42 | P.CON ---
Consult Note - . Consult date: 11/23/18 Assessment/Plan:: This is an 83-year-old male and history is obtained from the patient and his . She has history that he started a new medication, Ranolazine, last week ordered by Dr. stephenson. She states that the patient has had extreme weak ness, dizziness headache, tremor since starting to take this. She spoke with the pharmacist and will thought this was related to the medication. Over the weekend he was very weak he ended up falling landing on his knees bilaterally. He does complain of knee pain but denies any loss of consciousness or head injury. Patient states that she called EMS to get him back into bed. She states he was shaking so bad by the next day that she had him brought into the [facility] for evaluation. Patient has not had any nausea vomiting or diarrhea. He states his appetite has been good. He thinks he may have decreased urine output. states that he has been drinking plenty of water and coffee. He denies any cough. Patient has chronic shortness of breath he states it is at his baseline. He denies any chest pain. He denies having any fever or chills. The patient presented to [facility] emergency center. WBC 9.6, INR 1.9, BUN 24 and creatinine 1.25, initial lactic acid 2.3 and repeat 1.2, blood sugar 132. Troponin 0.077, 0.110. Influenza testing negative. Urinalysis clear, blood moderate, leukoesterase large, WBC 40, bacteria many. Chest x-ray showed decreased respiratory effort. Right basilar opacities may represent atelectasis, however infection is not excluded. Temperature max is been 100.5. Patient has been started on azithromycin and Azactam. Consult in place for pulmonary medicine and cardiology. Please see the consult is dictated by nurse practitioner Mrs. Cary Vaca.. This elderly gentleman is not feeling well. As noted he is a poor historian. Sitter is present. Exam showed no evidence of crackles in the basis. There is evidence of the abnormal urinalysis cultures are pending. influenza testing is negativeCurrent antibiotic therapy is being monitored and will be descalated as cultures become available. I agree with evaluation, assessment and plan as dictated by nurse practitioner Mrs. Cary Vaca.
[2018-11-23] MEDS ORDERED: AZITHROMYCIN 500 MG TAB PO SCH (22:58)
--- NOTE | 2018-11-23 23:34 | CT ---
EXAMINATION TYPE: CT brain wo con DATE OF EXAM: 11/23/2018 COMPARISON: None HISTORY: Tremors CT DLP: 1170.40 mGycm Automated exposure control for dose reduction was used. FINDINGS: There is cerebral cortical atrophy. There is no mass effect nor midline shift. There is no sign of in tracranial hemorrhage. There is white matter patchy hypodensity. Calvarium is intact. IMPRESSION: CEREBRAL ATROPHY AND CHRONIC SMALL VESSEL ISCHEMIA. NO ACUTE INTRACRANIAL ABNORMALITY.
[2018-11-24 06:14] LABS: Anisocytosis Slight; Basophils # (A) 0.1 k/uL (0-0.2); Basophils % (A) 1 %; Eosinophils % (A) 1 %; HCT 38.2 % (39.0-53.0); HGB 12.5 gm/dL (13.0-17.5); Lymphocytes % (A) 18 %; MCH 29.1 pg (25.0-35.0); MCHC 32.8 g/dL (31.0-37.0); MCV 88.9 fL (80.0-100.0); Mean Platelet Volume 7.2; Monocytes # (A) 0.5 k/uL (0-1.0); Monocytes % (A) 9 %; Neutrophils # (A) 3.8 k/uL (1.3-7.7); Neutrophils % (A) 67 %; Platelet Count 149 k/uL (150-450); RDW 16.1 % (11.5-15.5); WBC 5.6 k/uL (3.8-10.6)
[2018-11-24 06:32] LABS: Calcium 7.9 mg/dL (8.4-10.2); INR 1.8 (<1.2); Potassium 3.6 mmol/L (3.5-5.1)
[2018-11-24] MEDS: IPRATROPIUM-ALBUTEROL 3 ML NEB INHALATION PRN ×2 (07:00→19:41)
[2018-11-24] MEDS: FAMOTIDINE 20 MG/2 ML VIAL IV SCH (09:45)
[2018-11-24] MEDS: TRIAMTERENE-HCTZ 37.5-25MG 1 EACH CAP PO SCH (09:45)
[2018-11-24] MEDS: ASPIRIN 81 MG PO SCH (09:45)
[2018-11-24] MEDS: ISOSORBIDE MONONITRATE ER 30 MG TAB.ER.24H PO SCH (09:45)
[2018-11-24] MEDS: AZTREONAM 1 GM in SODIUM CHLORIDE 0.9% 50 ML IVPB SCH ×2 (09:49→20:29)
--- NOTE | 2018-11-24 11:30 | P.PN ---
Subjective Progress Note Date: 11/24/18 Principal diagnosis: 83-year-old male patient came into the hospital because of generalized weakness of few days' duration. The patient became progressively more weak and somewhat confused. I saw him this afternoon and the patient was still weak and shaky and having some nausea and emesis. Denies having any significant shortness of breath or chest pain. He was hemodynamically stable and his pulse ox was above 90% at 2 L about 2 by nasal cannula. The patient's past medical history is positive for coronary artery disease and hypertension and hyperlipidemia and atrial flutter and he has been maintained on long-term articulation with warfarin. He also has history otherwise stay not utilizing a machine along with hypothyroidism. I was asked to evaluate this patient is a concern of a pneumonia. I noted that his urine was quite dirty suggestive of UTI. The patient's chest x-ray was also reviewed and there is no clear indication for pneumonia. There is subsegmental atelectasis and some mild four-vessel congestion. Cardiology was also involved in the case as the patient had abnormal troponins at levels of 0.12 with an EKG showing normal sinus rhythm with a RBB pattern. His INR was 1.9 at time of admission is guarded at 1.6. White cell count is at 7.8. He is currently covered with a combination of aztreonam and Zithromax. The influenza screen was negative. On today's evaluation of 11/24/2018, and the patient is looking much better. Is awake and alert and following instructions appropriately and he is following commands and he has no specific complaints. No tremors. No dizziness. His weakness improved. No tremors. CAT scan of the brain was done yesterday showed chronic cerebral atrophy without any acute abnormalities. He has not spiked any fever. He is hemodynamically stable. His cultures of been negative. The white cell count is at 5.6. The blood cultures negative. Urine cultures still pending for now. Patient was seen by infectious disease. The patient was kept on the same antibiotic coverage includes a combination of as active and aztreonam. No nausea. No emesis. Objective - Vital Signs Vital signs: Vital Signs Temp 98.6 F 11/24/18 04:00 Pulse 90 11/24/18 07:08 Resp 18 11/24/18 04:00 BP 115/63 11/24/18 04:00 Pulse Ox 94 L 10/15/19 04:00 Intake & Output 11/23/18 11/24/18 11/24/18 18:59 06:59 18:59 Intake Total 830 Output Total 400 Balance 430 Weight 106 kg Intake: Intake, IV Titration 350 Amount Aztreonam 1 gm In Sodium 50 Chloride 0.9% 50 ml @ 100 mls/hr IVPB Q12HR [facility] Rx #:[id number] Dextrose 5%-0.45% NaCl 1, 300 000 ml @ 50 mls/hr IV . Q20H [facility] Rx#:[id number] Oral 480 Output: Urine 400 Other: Voiding Method Urinal # Voids 2 - Exam Gen. appearance is calm and comfortable, no confusion. No altered mentation. Very much appropriate. Head exam was generally normal. There was no scleral icterus or corneal arcus. Mucous membranes were moist. Neck was supple and without jugular venous distension, thyromegaly, or carotid bruits. Carotids were easily palpable bilaterally. There was no adenopathy. Lungs were clear to auscultation and percussion, and with normal diaphragmatic excursion. No wheezes or rales were noted. Cardiac exam revealed the PMI to be normally situated and sized. The rhythm was regular and no extrasystoles were noted during several minutes of auscultation. The first and second heart sounds were normal and physiologic splitting of the second heart sound was noted. There were no murmurs, rubs, clicks, or gallops. Abdominal exam revealed normal bowel sounds. The abdomen was soft, non-tender, and without masses, organomegaly, or appreciable enlargement of the abdominal aorta. Examination of the extremities revealed easily palpable radial, femoral and pedal pulses. There was no cyanosis, clubbing or edema. Examination of the skin revealed no evidence of significant rashes, suspicious appearing nevi or other concerning lesions. Neurologically the patient is nonfocal and the patient is moving all 4 extremities. - Labs CBC & Chem 7: 11/24/18 05:58 11/24/18 05:58 Labs: Abnormal Lab Results - Last 24 Hours (Table) 11/24/18 11/24/18 11/24/18 Range/Units 05:58 05:58 05:58 Hgb 12.5 L (13.0-17.5) gm/dL Hct 38.2 L (39.0-53.0) % RDW 16.1 H (11.5-15.5) % Plt Count 149 L (150-450) k/uL PT 18.0 H (9.0-12.0) sec INR 1.8 H (<1.2) Sodium 131 L (137-145) mmol/L BUN 24 H (9-20) mg/dL Glucose 116 H (74-99) mg/dL Calcium 7.9 L (8.4-10.2) mg/dL Microbiology - Last 24 Hours (Table) 11/22/18 23:20 Blood Culture - Preliminary Blood No Growth after 24 hours Assessment and Plan Plan: \ 1 generalized weakness/altered mentation, rule out metabolic encephalopathy, rule out underlying infection being in a UTI versus pneumonia. Pneumonia is felt to be less likely at this point in time he had since yesterday, the patient is improved significantly. Mental status is improved. He has much better stam connie. No significant shakiness or tremors and is afebrile and white cell count is not elevated and the rest of the blood work is all within normal limits. Cultures of been also negative. The patient is on empiric antibiotic coverage with Zithromax and aztreonam. ID agreed on antibiotic coverage for now. 2 troponin leak versus acute non-STEMI 3 coronary artery disease, history of, with previous history of insertion of a coronary stent 4 obstructive sleep apnea 5 hypertension 6 hyperlipidemia 7 history of atrial flutter current rhythm is sinus with an LBBB pattern and the patient is subtherapeutic on Coumadin Plan Obtain urine culture. Obtain blood culture. Continue the combination of Zithromax and aztreonam. physical therapy. Cardiology regarding the troponin leak. Patient's PT/INR is subtherapeutic and this is to be adjusted. Advance diet. Advance activity. We'll follow.
--- NOTE | 2018-11-24 12:57 | P.PN ---
Subjective Progress Note Date: 11/24/18 Patient is an 83-year-old male with past medical history significant for hypertension, dyslipidemia, CAD status post stenting, paroxysmal atrial fibrillation and flutter who presented with complaints of weakness. He is a patient of Dr. Madrigal. Patient's states he has had increasing weakness over the last few weeks, seems to have started after he was started on Ranexa. However, she stopped it and he continued to have symptoms. He has been dizzy, shaky and weak and has had several falls. Yesterday he had a fall and his was unable to get him up and back into the bed so she called EMS. Upon arrival to the hospital his EKG showed atrial flutter with 3-1 conduction, right bundle tess block morphology, ventricular rate 92 bpm. Blood pressure was 136/75. Chest x-ray showed right basilar opacity which may represent atelectasis, unable to exclude infection. He was started on antibiotics for possible pneumonia. Patient seen and examined resting in bed. States he is still too dizzy and weak to get up. Still feels shaky. Denies any chest pain, palpitations or shortness of breath.it was verified by office records that the patient has known atrial flutter in the past. Blood pressure this morning 115/60 with a heart rate in the 70s, 94% on room air.White blood cell count 5.6, hemoglobin 12.5, platelet count 149. INR today is 1.8, sodium 131, potassium 3.6, BUN 24 and creatinine 1.1.TSH level was normal. Orthostatics were obtained which did not come back to be significant. Objective - Vital Signs Vital signs: Vital Signs Temp 98.6 F 11/24/18 04:00 Pulse 90 11/24/18 07:08 Resp 18 11/24/18 04:00 BP 115/63 11/24/18 04:00 Pulse Ox 94 L 11/24/18 04:00 Intake & Output 11/23/18 11/24/18 11/24/18 18:59 06:59 18:59 Intake Total 830 Output Total 400 Balance 430 Weight 106 kg Intake: Intake, IV Titration 350 Amount Aztreonam 1 gm In Sodium 50 Chloride 0.9% 50 ml @ 100 mls/hr IVPB Q12HR [facility] Rx #:[id number] Dextrose 5%-0.45% NaCl 1, 300 000 ml @ 50 mls/hr IV . Q20H [facility] Rx#:[id number] Oral 480 Output: Urine 400 Other: Voiding Method Urinal # Voids 2 - Exam PHYSICAL EXAMINATION: GENERAL:83-year-old gentleman in no acute distress at the time of my examination HEENT: Head is atraumatic, normocephalic. Pupils equal, round. Sclera anicteric. Conjunctiva are clear. Mucous membranes of the mouth are moist. N nirav is supple. There is no elevated jugular venous pressure.No carotid bruit is heard. HEART EXAMINATION: [Heart S1, S2 systolic murmur heard.] CHEST EXAMINATION:[ Lungs are clear to auscultation and precussion. No chest wall tenderness is noted on palpation or with deep breathing.] ABDOMEN: [ Soft, nontender. Bowel sounds are heard. No organomegaly noted]. EXTREMITIES:[ 2+ peripheral pulses with no evidence of peripheral edema and no calf tenderness noted]. NEUROLOGIC [patient is awake, alert and oriented X3.] . - Labs CBC & Chem 7: 11/24/18 05:58 11/24/18 05:58 Labs: Abnormal Lab Results - Last 24 Hours (Table) 11/24/18 11/24/18 11/24/18 Range/Units 05:58 05:58 05:58 Hgb 12.5 L (13.0-17.5) gm/dL Hct 38.2 L (39.0-53.0) % RDW 16.1 H (11.5-15.5) % Plt Count 149 L (150-450) k/uL PT 18.0 H (9.0-12.0) sec INR 1.8 H (<1.2) Sodium 131 L (137-145) mmol/L BUN 24 H (9-20) mg/dL Glucose 116 H (74-99) mg/dL Calcium 7.9 L (8.4-10.2) mg/dL Microbiology - Last 24 Hours (Table) 11/22/18 23:20 Blood Culture - Preliminary Blood No Growth after 24 hours Assessment and Plan Plan: assessment and plan #1 generalized weakness/altered mentation, rule out underlying infection #2 perisistent atrial flutter with controlled ventricular response, on warfarin #3 CAD status post stenting #4 Hypertension #5 Dyslipidemia #6 abnormal troponin with no significant rise and fall pattern, likely secondary to infection Plan From cardiology's perspective, we would recommend at this time to continue the patient on his current medication. We will follow along with you now on an as- needed basis only, please don't hesitate to call with any questions. DNP note has been reviewed, I agree with a documented findings and plan of care. Patient was seen and examined.
--- NOTE | 2018-11-24 13:18 | P.CNNES ---
History of Present Illness Consult date: 11/24/18 Requesting physician: Evangelina Miranda Reason for Consult: Tremors History of Present Illness: Patient is a 83-year-old male who states that he has been taking 7 prescription medications. 2 new perception medications were added, and he started feeling shaky, vomiting, after 3 days could not get up, couldn't get out of bed. He was constantly shaking. He did have cough and shortness of breath but denies any chest pain. He has some foul-smelling urine. He denies any fever or chills otherwise. Patient also has been having problems with ambulation, slowly getting worse. He has chronic low back pain. Patient had computed tomography scan of the head, which revealed cerebral atrophy and chronic small vessel ischemia. No acute process. EKG showed normal sinus rhythm with right bundle branch block. Chest x-ray showed subsegmental atelectasis or infiltrate. Chronic underlying interstitial lung disease or isabell ous congestion in the differential diagnosis. Patient's UA showed 1+ protein, moderate blood. Large amount of leukocyte Estrace. 40 WBCs and many bacteria. Patient does complain of chronic low back pain. Patient had an MRI of lumbar spine on 12/03/2016, which revealed degenerative disc disease, spinal stenosis most notably at L4 5, which is graded as moderate to severe degree. Facet arthropathy and scoliosis. There is moderate central canal stenosis at L3 4, mild to moderate at L2-3 and mild central stenosis at L1-2. MRI of the brain from 12/03/2016 showed chronic small vessel ischemia. No acute process Patient has history of smoking 2-3 pipes per day. He has not smoked cigarettes otherwise for 60 years. He drinks 1-3 beers per week. Not every day. Review of Systems Positive for shaking, cough, shortness of breath. Back pain. Difficulty with ambulation. Denies any numbness tingling, diplopia. Denies any headache. Denies any chest pain. Past Medical History Past Medical History: Coronary Artery Disease (CAD), Cancer, Hyperlipidemia, Hypertension, Myocardial Infarction (UT), Osteoarthritis (OA), Sleep Apnea/CPAP/BIPAP, Thyroid Disorder Additional Past Medical History / Comment(s): Coronary artery disease, hypertension, hypothyroidism, obstructive sleep apnea him on history of atrial flutter, hyperlipidemia, skin cancer Last Myocardial Infarction Date:: 2008 History of Any Multi-Drug Resistant Organisms: None Reported Past Surgical History: Heart Catheterization With Stent, Joint Replacement Additional Past Surgical History / Comment(s): KAREN KNEES, KAREN HIPS, RT SHOULDER, previous cardiac catheterizations and insertion of a coronary stent Past Anesthesia/Blood Transfusion Reactions: No Reported Reaction Date of Last Stent Placement:: 2008 Past Psychological History: No Psychological Hx Reported Smoking Status: Current every day smoker Past Alcohol Use History: Occasional Additional Past Alcohol Use History / Comment(s): SMOKES SMALL CIGARS, 1PPD SINCE AGE 15 (1). He denies any illicit drug use. He drinks occasional beer. He lives at home with his and dog. 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 Past Drug Use History: None Reported - Past Family History Mother Family Medical History: No Reported History Brother(s) Family Medical History: Myocardial Infarction ([place]) Father Family Medical History: Myocardial Infarction ([place]) Medications and Allergies Home Medications Medication Instructions Recorded Confirmed Type Levothyroxine Sodium [Synthroid] 50 mcg PO HS 11/09/15 11/22/18 History Metoprolol Succinate [Toprol XL] 50 mg PO HS 11/09/15 11/22/18 History Atorvastatin [Lipitor] 40 mg PO HS 09/26/18 11/22/18 History Folic Acid 1 mg PO HS 09/26/18 11/22/18 History Nitroglycerin Sl Tabs [Nitrostat] 0.4 mg SUBLINGUAL Q5M PRN 09/26/18 11/22/18 History Warfarin [Coumadin] 5 mg PO DAILY 09/26/18 11/22/18 History Isosorbide Mononitrate ER [Imdur] 30 mg PO DAILY #90 tab.er.24h 09/28/18 11/22/18 Rx Aspirin EC [Ecotrin Low Dose] 81 mg PO DAILY 11/22/18 11/22/18 History Triamterene-Hctz 37.5-25Mg 1 cap PO DAILY 11/22/18 11/22/18 History [Dyazide 37.5-25 Capsule] Warfarin [Coumadin] 2 mg PO SA 11/22/18 11/22/18 History Allergies Allergy/AdvReac Type Severity Reaction Status Date / Time Penicillins Allergy Anaphylaxis Verified 11/22/18 21:42 regadenoson Allergy Anaphylaxis Verified 11/22/18 21:42 cardiolite Allergy Anaphylaxis Uncoded 09/26/18 20:36 Physical Examination - Vital Signs Vital Signs: Vital Signs Temp Pulse Pulse Resp BP BP Pulse Ox 11/24/18 07:08 90 11/24/18 07:00 94 11/24/18 04:00 98.6 F 78 18 115/63 94 L 11/24/18 00:00 99.1 F 87 18 119/62 96 11/23/18 20:38 92 11/23/18 20:30 92 11/23/18 20:00 98.4 F 89 18 122/75 94 L 11/23/18 16:57 90 11/23/18 16:44 90 11/23/18 16:00 99.5 F 94 18 127/68 94 L Intake and Output 11/23/18 11/24/18 11/24/18 22:59 06:59 14:59 Intake Total 590 Balance 590 Intake: Intake, IV Titration 350 Amount Aztreonam 1 gm In Sodium 50 Chloride 0.9% 50 ml @ 100 mls/hr IVPB Q12HR [facility] Rx #:[id number] Dextrose 5%-0.45% NaCl 1, 300 000 ml @ 50 mls/hr IV . Q20H [facility] Rx#:[id number] Oral 240 Other: Voiding Method Urinal Urinal # Voids 2 Weight 106 kg On examination patient is an elderly male, in no distress. No definite carotid bruit heard. Patient is alert and awake fairly well oriented. Speech and language functions are normal. Attention and concentration fund of knowledge is adequate. On cranial nerve examination, pupils are round and reacting, visual tadeo are full. Face is symmetric and tongue protrudes to the midline. Palatal elevation and sensation normal. On muscle strength testing there is no drift and the strength is normal in arms and legs except hip flexion which is about 4 bilaterally. It hurts when he tries to flex his hips. Patient has mild to moderate tremors for [id number] testing bilaterally. Mild tremor for posture, but none at rest. Tone and bulk of muscles is normal. Reflexes are diminished. Plantars downgoing. No ataxia for [id number] testing. Gait deferred. Results Patient's troponins are elevated 0.110, and 0.128. Cardiology has seen the patient and diagnosed with small non-STEMI. TSH is normal. Patient is on Coumadin, with INR 1.8. B12 level was 360 on 12/09/2016. B6 is normal 11. Thyroid functions normal. Hemoglobin A1c 5.8 on 07/10/2017. - Laboratory Findings CBC and BMP: 11/24/18 05:58 11/24/18 05:58 Abnormal Lab Findings: Abnormal Labs 11/22/18 11/22/18 11/22/18 06:20 20:50 20:50 Hgb Hct RDW 15.9 H Plt Count Lymphocytes # 0.8 L PT INR APTT Sodium 136 L Carbon Dioxide 21 L BUN 24 H Glucose 135 H Plasma Lactic Acid Isabell Calcium 7.9 L Troponin I Albumin 3.4 L Urine Protein 1+ H Urine Blood Moderate H Ur Leukocyte Esterase Large H Urine WBC 40 H Urine Bacteria Many H Urine Mucus Few H 11/22/18 11/22/18 11/22/18 20:50 20:50 20:50 Hgb Hct RDW Plt Count Lymphocytes # PT 18.9 H INR 1.9 H APTT 38.1 H Sodium Carbon Dioxide BUN Glucose Plasma Lactic Acid Isabell 2.3 H* Calcium Troponin I 0.077 H* Albumin Urine Protein Urine Blood Ur Leukocyte Esterase Urine WBC Urine Bacteria Urine Mucus 11/23/18 11/23/18 11/23/18 02:38 08:51 08:51 Hgb Hct RDW 16.0 H Plt Count Lymphocytes # 0.8 L PT INR APTT Sodium Carbon Dioxide BUN Glucose Plasma Lactic Acid Isabell Calcium Troponin I 0.110 H* 0.128 H* Albumin Urine Protein Urine Blood Ur Leukocyte Esterase Urine WBC Urine Bacteria Urine Mucus 11/23/18 11/23/18 11/24/18 08:51 08:51 05:58 Hgb 12.5 L Hct 38.2 L RDW 16.1 H Plt Count 149 L Lymphocytes # PT 16.3 H INR 1.6 H APTT Sodium 136 L Carbon Dioxide BUN 22 H Glucose 147 H Plasma Lactic Acid Isabell Calcium 8.3 L Troponin I Albumin Urine Protein Urine Blood Ur Leukocyte Esterase Urine WBC Urine Bacteria Urine Mucus 11/24/18 11/24/18 05:58 05:58 Hgb Hct RDW Plt Count Lymphocytes # PT 18.0 H INR 1.8 H APTT Sodium 131 L Carbon Dioxide BUN 24 H Glucose 116 H Plasma Lactic Acid Isabell Calcium 7.9 L Troponin I Albumin Urine Protein Urine Blood Ur Leukocyte Esterase Urine WBC Urine Bacteria Urine Mucus - Diagnostic Findings EKG: report reviewed Chest x-ray: report reviewed Assessment and Plan Assessment: * Tremors, likely metabolic due to acute pneumonia/UTI. Patient is on antibiotics. No evidence of Parkinson's disease. * Acute non-STEMI. * History of atrial flutter, on anticoagulation. * Gait dysfunction, likely multifactorial. Patient's previous MRI of the lumbar spine from 12/03/2016 showed moderate to severe central canal stenosis at L4 5. Patient's acute febrile illness and possible non-STEMI may be contributing to acute worsening of gait and generalized weakness. Exam is relatively nonfocal. Plan: * Patient is on antibiotics for pneumonia/UTI. * Patient is on aspirin 81 mg daily and Lipitor 40 mg for CAD. * Patient is on Coumadin for atrial flutter. INR is subtherapeutic. Cardiology following. * Neurologically patient's tremors will improve once his above medical conditions comes under control. * Agree with PT OT evaluate gait. Patient does have moderate to severe lumbar spinal stenosis at L4-5 and varying degrees of stenosis at other levels as mentioned above, which is likely the cause of gait dysfunction. * We will follow with you.
--- NOTE | 2018-11-24 13:34 | P.PN ---
Subjective 83-year-old male was admitted as secondary to toxic encephalopathy from either pneumonia or urinary tract infection urine cultures since 1 cultures are still pending blood cultures are so far negative patient is on his aztreonam and azithromycin levofloxacin will be discontinued. Patient doesn't have any fever chills his mental status improved patient is alert oriented 2-3 at this time and his functional status improved as well. Patient had a lactic acid of 2.2 which has come down. A shunt is hyponatremic because of diuretic therapy which will be discontinued and patient will be started on IV fluids gentle hydration. Unfortunately he received his diuretic therapy today. Patient doesn't have any fevers today. Blood pressure is low normal. Patient has minimally elevated troponin which was believed secondary to sepsis. Cardiology evaluated the patient. Constitutional: Denied any fatigue denied any fever. Cardio vascular: denied any chest pain, palpitations Gastrointestinal denied any nausea vomiting Pulmonary: Denied any shortness of breath cough Neurologic denied any new focal deficits All inpatient medications were reviewed and appropriate changes in these medications as dictated in the interval history and assessment and plan. Objective - Vital Signs Vital signs: Vital Signs Temp 98.6 F 11/24/18 04:00 Pulse 90 11/24/18 07:08 Resp 18 11/24/18 04:00 BP 115/63 11/24/18 04:00 Pulse Ox 94 L 11/24/18 04:00 Intake & Output 11/23/18 11/24/18 11/24/18 18:59 06:59 18:59 Intake Total 830 240 Output Total 400 Balance 430 240 Weight 106 kg Intake: Intake, IV Titration 350 Amount Aztreonam 1 gm In Sodium 50 Chloride 0.9% 50 ml @ 100 mls/hr IVPB Q12HR [facility] Rx #:[id number] Dextrose 5%-0.45% NaCl 1, 300 000 ml @ 50 mls/hr IV . Q20H [facility] Rx#:[id number] Oral 480 240 Output: Urine 400 Other: Voiding Method Urinal # Voids 2 - Exam -GENERAL: The patient is alert and oriented x2-3, not in respiratory distress -HEENT: Pupils are round and equally reacting to light. EOMI. No scleral icterus. No conjunctival pallor. Normocephalic, atraumatic. No pharyngeal erythema. No thyromegaly. Dry mucous membranes CARDIOVASCULAR: S1 and S2 present. No murmurs, rubs, or gallops. coarse breath sounds due to secretions -PULMONARY: Tachypnea, Chest is clear to auscultation, no wheezing or crackles. ABDOMEN: Soft, nontender, nondistended, normoactive bowel sounds. No palpable organomegaly. MUSCULOSKELETAL: No joint swelling or deformity. -EXTREMITIES: No cyanosis, clubbing, or pedal edema. Small superficial ulcer in his right leg with no purulent discharge or surrounding cellulitis NEUROLOGICAL: Gross neurological examination did not reveal any focal deficits. SKIN: No rashes. No petechiae - Labs CBC & Chem 7: 11/24/18 05:58 11/24/18 05:58 Labs: Abnormal Lab Results - Last 24 Hours (Table) 11/24/18 11/24/18 11/24/18 Range/Units 05:58 05:58 05:58 Hgb 12.5 L (13.0-17.5) gm/dL Hct 38.2 L (39.0-53.0) % RDW 16.1 H (11.5-15.5) % Plt Count 149 L (150-450) k/uL PT 18.0 H (9.0-12.0) sec INR 1.8 H (<1.2) Sodium 131 L (137-145) mmol/L BUN 24 H (9-20) mg/dL Glucose 116 H (74-99) mg/dL Calcium 7.9 L (8.4-10.2) mg/dL Microbiology - Last 24 Hours (Table) 11/22/18 23:20 Blood Culture - Preliminary Blood No Growth after 24 hours Assessment and Plan Plan: -Sepsis possibility of pneumonia cannot be ruled out and possibility of UTI being the possible source of sepsis. Continue with his HTN M and azithromycin infectious disease following the patient. -Toxic encephalopathy from sepsis -Lactic acidosis secondary to infection which improved now -Chest pain with minimally elevated troponin probably elevation is secondary to pneumonia. Cardiology evaluated the patient -Dehydration intravascularly depletion with the acute renal failure and prerenal azotemia: Continue with IV fluids as mentioned about his continue diuretic therapy at this time -Coronary artery disease -Hyperlipidemia -Hypertension -6 obstructive sleep apnea -Hypothyroidism -Generalized deconditioning and weakness secondary to age. -Hypothyroidism. For rest of the other medical problems patient will be continued on appropriate home medications. Patient mental status and toxic encephalopathy improved
[2018-11-24] MEDS: SODIUM CHLORIDE 0.9% 1,000 ML IV SCH (17:49)
[2018-11-24] MEDS ORDERED: WARFARIN 2 MG TAB PO ONE (18:00)
[2018-11-24] MEDS: ATORVASTATIN 40 MG TAB PO SCH (20:27)
[2018-11-24] MEDS: METOPROLOL SUCCINATE (ER) 50 MG TAB.ER.24H PO SCH (20:28)
[2018-11-24] MEDS: LEVOTHYROXINE 50 MCG TAB PO SCH (20:28)
[2018-11-24] MEDS: FOLIC ACID 1 MG TAB PO SCH (20:28)
[2018-11-24] MEDS ORDERED: AZITHROMYCIN 500 MG TAB PO SCH (21:00)
--- NOTE | 2018-11-24 21:09 | P.PN ---
Subjective Progress Note Date: 11/24/18 This is an 83-year-old male and history is obtained from the patient and his . She has history that he started a new medication, Ranolazine, last week ordered by Dr. Watkins. She states that the patient has had extreme weakness, dizziness headache, tremor since starting to take this. She spoke with the pharmacist and will thought this was related to the medication. Over the weekend he was very weak he ended up falling landing on his knees bilaterally. He does complain of knee pain but denies any loss of consciousness or head injury. Patient states that she called EMS to get him back into bed. She states he was shaking so bad by the next day that she had him brought into the [facility] for evaluation. Patient has not had any nausea vomiting or diarrhea. He states his appetite has been good. He thinks he may have decreased urine output. states that he has been drinking plenty of water and coffee. He denies any cough. Patient has chronic shortness of breath he states it is at his baseline. He denies any chest pain. He denies having any fever or chills. The patient presented to [facility] emergency center. WBC 9.6, INR 1.9, BUN 24 and creatinine 1.25, initial lactic acid 2.3 and repeat 1.2, blood sugar 132. Troponin 0.077, 0.110. Influenza testing negative. Urinalysis clear, blood moderate, leukoesterase large, WBC 40, bacteria many. Chest x-ray showed decreased respiratory effort. Right basilar opacities may represent atelectasis, however infection is not excluded. Temperature max is been 100.5. Patient has been started on azithromycin and Azactam. Consult in place for pulmonary medicine and cardiology. 11/24/2018 patient improved today more awake and interactive. Denies many symptoms Objective - Vital Signs Vital signs: Vital Signs Temp 98.7 F 11/24/18 20:00 Pulse 87 11/24/18 20:00 Resp 18 11/24/18 20:00 BP 134/71 11/24/18 20:00 Pulse Ox 95 11/24/18 20:00 Intake & Output 11/24/18 11/24/18 11/25/18 06:59 18:59 06:59 Intake Total 555 Balance 555 Weight 106 kg Intake: Intake, IV Titration 75 Amount Sodium Chloride 0.9% 1, 75 000 ml @ 75 mls/hr IV . [id number] [facility] Rx#:[id number] Oral 480 Other: Voiding Method Urinal Urinal Incontinent # Voids 2 - Exam Gen: This is an 83-year-old male. Patient is resting in bed. It is noted to be tachypneic which he and his state that this has his baseline. HEENT: Head is atraumatic, normocephalic. Pupils equal, round. Sclerae is anicteric. Oral mucous membranes are dry. Dentures in place. No thrush noted. NECK: Supple. No JVD. No lymphadenopathy. No thyromegaly. LUNGS: Diminished. No intercostal retraction. Less tachypneic. HEART: Irregular rate and rhythm. Systolic murmur. ABDOMEN: Soft. Bowel sounds are present. No masses. No tenderness. EXTREMITIES: No pedal edema. No calf tenderness. Bilateral knee pain. Right knee is warm to touch. NEUROLOGICAL: Patient is awake, alert and oriented x3 - Labs CBC & Chem 7: 11/24/18 05:58 11/24/18 05:58 Labs: Abnormal Lab Results - Last 24 Hours (Table) 11/24/18 11/24/18 11/24/18 Range/Units 05:58 05:58 05:58 Hgb 12.5 L (13.0-17.5) gm/dL Hct 38.2 L (39.0-53.0) % RDW 16.1 H (11.5-15.5) % Plt Count 149 L (150-450) k/uL PT 18.0 H (9.0-12.0) sec INR 1.8 H (<1.2) Sodium 131 L (137-145) mmol/L BUN 24 H (9-20) mg/dL Glucose 116 H (74-99) mg/dL Calcium 7.9 L (8.4-10.2) mg/dL Microbiology - Last 24 Hours (Table) 11/22/18 23:20 Blood Culture - Preliminary Blood No Growth after 24 hours Laboratory Results WBC 5.6 k/uL (3.8-10.6) 11/24/18 05:58 RBC 4.30 m/uL (4.30-5.90) 11/24/18 05:58 Hgb 12.5 gm/dL (13.0-17.5) L 11/24/18 05:58 Hct 38.2 % (39.0-53.0) L 11/24/18 05:58 MCV 88.9 fL (80.0-100.0) 11/24/18 05:58 MCH 29.1 pg (25.0-35.0) 11/24/18 05:58 MCHC 32.8 g/dL (31.0-37.0) 11/24/18 05:58 RDW 16.1 % (11.5-15.5) H 11/24/18 05:58 Plt Count 149 k/uL (150-450) L 11/24/18 05:58 Neutrophils % 67 % 11/24/18 05:58 Lymphocytes % 18 % 11/24/18 05:58 Monocytes % 9 % 11/24/18 05:58 Eosinophils % 1 % 11/24/18 05:58 Basophils % 1 % 11/24/18 05:58 Neutrophils # 3.8 k/uL (1.3-7.7) 11/24/18 05:58 Lymphocytes # 1.0 k/uL (1.0-4.8) 11/24/18 05:58 Monocytes # 0.5 k/uL (0-1.0) 11/24/18 05:58 Eosinophils # 0.0 k/uL (0-0.7) 11/24/18 05:58 Basophils # 0.1 k/uL (0-0.2) 11/24/18 05:58 Anisocytosis Slight 11/24/18 05:58 PT 18.0 sec (9.0-12.0) H 11/24/18 05:58 INR 1.8 (<1.2) H 11/24/18 05:58 APTT 38.1 sec (22.0-30.0) H 11/22/18 20:50 Sodium 131 mmol/L (137-145) L 11/24/18 05:58 Potassium 3.6 mmol/L (3.5-5.1) 11/24/18 05:58 Chloride 101 mmol/L (98-107) 11/24/18 05:58 Carbon Dioxide 22 mmol/L (22-30) 11/24/18 05:58 Anion Gap 8 mmol/L 11/24/18 05:58 BUN 24 mg/dL (9-20) H 11/24/18 05:58 Creatinine 1.14 mg/dL (0.66-1.25) 11/24/18 05:58 Est GFR (CKD-EPI)AfAm 68 (>60 ml/min/1.73 sqM) 11/24/18 05:58 Est GFR (CKD-EPI)NonAf 59 (>60 ml/min/1.73 sqM) 11/24/18 05:58 Glucose 116 mg/dL (74-99) H 11/24/18 05:58 Lactic Ac Sepsis Rflx Y 11/22/18 21:35 Plasma Lactic Acid Robby 1.2 mmol/L (0.7-2.0) 11/23/18 01:06 Calcium 7.9 mg/dL (8.4-10.2) L 11/24/18 05:58 Phosphorus 2.6 mg/dL (2.5-4.5) 11/22/18 20:50 Magnesium 1.8 mg/dL (1.6-2.3) 11/22/18 20:50 Total Bilirubin 1.3 mg/dL (0.2-1.3) 11/22/18 20:50 AST 30 U/L (17-59) 11/22/18 20:50 ALT 24 U/L (21-72) 11/22/18 20:50 Alkaline Phosphatase 54 U/L (38-126) 11/22/18 20:50 Troponin I 0.128 ng/mL (0.000-0.034) H* 11/23/18 08:51 NT-Pro-B Natriuret Pep 1610 pg/mL 11/22/18 20:50 Total Protein 6.6 g/dL (6.3-8.2) 11/22/18 20:50 Albumin 3.4 g/dL (3.5-5.0) L 11/22/18 20:50 TSH 1.890 mIU/L (0.465-4.680) 11/23/18 08:51 Urine Color Yellow 11/22/18 06:20 Urine Appearance Clear (Clear) 11/22/18 06:20 Urine pH 5.5 (5.0-8.0) 11/22/18 06:20 Ur Specific [place] 1.021 (1.001-1.035) 11/22/18 06:20 Urine Protein 1+ (Negative) H 11/22/18 06:20 Urine Glucose (UA) Negative (Negative) 11/22/18 06:20 Urine Ketones Negative (Negative) 11/22/18 06:20 Urine Blood Moderate (Negative) H 11/22/18 06:20 Urine Nitrite Negative (Negative) 11/22/18 06:20 Urine Bilirubin Negative (Negative) 11/22/18 06:20 Urine Urobilinogen 2.0 mg/dL (<2.0) 11/22/18 06:20 Ur Leukocyte Esterase Large (Negative) H 11/22/18 06:20 Urine RBC 5 /hpf (0-5) 11/22/18 06:20 Urine WBC 40 /hpf (0-5) H 11/22/18 06:20 Urine Bacteria Many /hpf (None) H 11/22/18 06:20 Urine Mucus Few /hpf (None) H 11/22/18 06:20 Influenza Type A RNA Not Detected (Not Detectd) 11/22/18 21:00 Influenza Type B (PCR) Not Detected (Not Detectd) 11/22/18 21:00 Microbiology 11/22/18 23:20 Blood Blood Culture - Preliminary No Growth after 24 hours Assessment and Plan (1) Pain due to internal orthopedic prosthetic devices, implants and grafts, subsequent encounter Current Visit: No Status: Acute Code(s): T84.84XD - PAIN DUE TO INTERNAL ORTHOPEDIC PROSTH DEV/GRFT, SUBS SNOMED Code(s): 905374496 (2) Weakness Current Visit: Yes Status: Acute Code(s): R53.1 - WEAKNESS SNOMED Code(s): 45920525 (3) UTI (urinary tract infection) Narrative/Plan: ry medicine and cardiology. Please see the consult is dictated by nurse practitioner Mrs. Cary Vaca.. This elderly gentleman is not feeling well. As noted he is a poor historian. Sitter is present. Exam showed no evidence of crackles in the basis. There is evidence of the abnormal urinalysis cultures are pending. influenza testing is negativeCurrent antibiotic therapy is being monitored and will be descalated as cultures become available. Patient has been seen by pulmonary critical care and they doubt pneumonia. The patient does have a markedly abnormal urinalysis at admission however he flexure culture does not seem to have been performed. Blood cultures are n egative.Patient does not have a history of multidrug resistant pathogens. The patient is underlying cardiac history and is on Coumadin, consequently would avoid trimethoprim sulfamethoxazole however, can utilize second-generation cephalosporin and cefuroxime as ordered. The Azactam and azithromycin are discontinued and he shall be monitored. Current Visit: Yes Status: Acute Code(s): N39.0 - URINARY TRACT INFECTION, SITE NOT SPECIFIED SNOMED Code(s): 97973106
[2018-11-24] MEDS: CEFUROXIME 1,500 MG in SODIUM CHLORIDE 0.9% 100 ML IVPB SCH (21:38)
[2018-11-24] MEDS ORDERED: LEVOFLOXACIN 750MG-D5W PMX 750 MG in DEXTROSE/WATER 1 150ML.BAG IVPB SCH (23:15)
[2018-11-25] MEDS: SODIUM CHLORIDE 0.9% 1,000 ML IV SCH ×2 (07:45→08:34)
[2018-11-25 07:52] LABS: Basophils # (A) 0.1 k/uL (0-0.2); Basophils % (A) 1 %; Eosinophils % (A) 1 %; HCT 39.3 % (39.0-53.0); HGB 12.8 gm/dL (13.0-17.5); Lymphocytes % (A) 22 %; MCH 29.1 pg (25.0-35.0); MCHC 32.5 g/dL (31.0-37.0); MCV 89.7 fL (80.0-100.0); Mean Platelet Volume 7.6; Monocytes # (A) 0.5 k/uL (0-1.0); Monocytes % (A) 11 %; Neutrophils # (A) 2.9 k/uL (1.3-7.7); Neutrophils % (A) 63 %; Platelet Count 142 k/uL (150-450); RBC 4.38 m/uL (4.30-5.90); RDW 15.9 % (11.5-15.5); WBC 4.7 k/uL (3.8-10.6)
[2018-11-25 08:05] LABS: Potassium 3.8 mmol/L (3.5-5.1)
[2018-11-25] MEDS: ASPIRIN 81 MG PO SCH (08:29)
[2018-11-25] MEDS: ISOSORBIDE MONONITRATE ER 30 MG TAB.ER.24H PO SCH (08:29)
[2018-11-25] MEDS: CEFUROXIME 1,500 MG in SODIUM CHLORIDE 0.9% 100 ML IVPB SCH ×2 (08:33→19:51)
[2018-11-25] MEDS: FAMOTIDINE 20 MG TAB PO SCH (08:33)
[2018-11-25] MEDS: IPRATROPIUM-ALBUTEROL 3 ML NEB INHALATION PRN (09:18)
--- NOTE | 2018-11-25 10:48 | P.PN ---
Subjective Progress Note Date: 11/25/18 Patient was seen for a follow-up. Patient's and daughter were present. Patient is doing much better. The tremors have mostly resolved. 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 She has stopped giving him the medication. Patient's infection is also getting better. No new neurological symptoms. Patient's mentation is much improved. Objective - Vital Signs Vital signs: Vital Signs Temp 98.7 F 11/24/18 20:00 Pulse 78 11/25/18 09:29 Resp 18 11/25/18 04:00 BP 134/71 11/24/18 20:00 Pulse Ox 95 11/24/18 20:00 Intake & Output 11/24/18 11/25/18 11/25/18 18:59 06:59 18:59 Intake Total 555 210 240 Balance 555 210 240 Weight 107 kg Intake: Intake, IV Titration 75 200 Amount Aztreonam 1 gm In Sodium 100 Chloride 0.9% 50 ml @ 100 mls/hr IVPB Q12HR [facility] Rx #:[id number] Cefuroxime 1,500 mg In 100 Sodium Chloride 0.9% 100 ml @ 200 mls/hr IVPB Q12HR [facility] Rx#:[id number] Sodium Chloride 0.9% 1, 75 000 ml @ 75 mls/hr IV . [id number] [facility] Rx#:[id number] Oral 480 10 240 Other: Voiding Method Urinal Incontinent # Voids 1 # Bowel Movements 1 - Exam On examination patient's mental status, speech and linguistic functions are normal. Cranial nerves are normal. Muscle strength normal. No ataxia. Tone and bulk of muscles normal. No significant tremors of outstretched hands. No tremors at rest. - Labs CBC & Chem 7: 11/25/18 05:53 11/24/18 05:58 Labs: Abnormal Lab Results - Last 24 Hours (Table) 11/25/18 Range/Units 05:53 Hgb 12.8 L (13.0-17.5) gm/dL RDW 15.9 H (11.5-15.5) % Plt Count 142 L (150-450) k/uL Microbiology - Last 24 Hours (Table) 11/22/18 23:20 Blood Culture - Preliminary Blood No Growth after 48 hours Assessment and Plan Assessment: * Tremors, likely metabolic due to acute pneumonia/UTI. Patient is on antibiotics. No evidence of Parkinson's disease. * Acute non-STEMI. * History of atrial flutter, on anticoagulation. * Gait dysfunction, likely multifactorial. Patient's history of lumbar spinal stenosis, and superimposed current medical conditions including pneumonia/UTI, and non-STEMI are the likely causes. Exam is relatively nonfocal. Plan: * Patient is on antibiotics for pneumonia/UTI. * Patient is on aspirin 81 mg daily and Lipitor 40 mg for CAD. * Patient is on Coumadin for atrial flutter. INR is subtherapeutic. Cardiology following. * Neurologically patient's tremors have much improved as compared to yesterday. Patient has stopped Ranolazine, which family believes was the cause of tremors. * Agree with PT OT evaluate gait. Patient does have moderate to severe lumbar spinal stenosis at L4-5 and varying degrees of stenosis at other levels as mentioned above, which is likely the cause of gait dysfunction. * Patient is neurologically clear.
[2018-11-25 11:37] LABS: INR 2.9 (<1.2); Prothrombin Time 28.4 sec (9.0-12.0)
--- NOTE | 2018-11-25 12:02 | P.CON ---
Consult Note - . Consult date: 11/25/18 Assessment/Plan:: This is an 83-year-old pleasant male being seen by wound care for nonhealing ulceration to the right pretibial and right lower extremity medial aspect. Patient states that the ulcerations have been there for approximately 4 weeks. Patient states that the pretibial ulceration was a large growth that was removed by a doctor from his insurance company. The area was removed and sent for biopsy. He however does not know the results of the biopsy he was instructed to place a Band-Aid over the site. The ulceration to the right lower extremity medial aspect was caused by him scratching the area that was also a raised lesion. Both ulcerations have adherent Slough and minimal granulation. The size is approximately 1 cm x 1 cm x 0.2 cm in depth for both ulcerations. Review of systems: Integumentary: Reports nonhealing ulcerations, denies rashes, reports multiple lesions Physical exam: Integumentary: See HPI Assessment/plan: 1. Nonhealing ulceration of fatty layer exposure to right lower extremity pretibial and medial aspects. Biopsy was performed an outpatient setting, obtain biopsy results if possible to rule out malignancy. Apply honey alginate, saline moistened gauze, dry gauze, rolled gauze and 2 layer Tubigrip to secure change Friday and Friday. Instructed patient to have results of biopsy reviewed if benign to make appointment with wound care for further wound care interventions. Patient verbalized understanding. Questions were answered. Thank you for the consultation any questions please contact the wound care center. DNP note has been reviewed and discussed with Dr. Roche and the impression and plan of care has been directed as dictated.
--- NOTE | 2018-11-25 14:39 | P.PN ---
Subjective Progress Note Date: 11/25/18 Principal diagnosis: 83-year-old male was admitted as secondary to toxic encephalopathy from either pneumonia or urinary tract infection urine cultures since 1 cultures are still pending blood cultures are so far negative patient is on his aztreonam and azithromycin levofloxacin will be discontinued. Patient doesn't have any fever chills his mental status improved patient is alert oriented 2-3 at this time and his functional status improved as well. Patient had a lactic acid of 2.2 which has come down. A shunt is hyponatremic because of diuretic therapy which will be discontinued and patient will be started on IV fluids gentle hydration. Unfortunately he received his diuretic therapy today. Patient doesn't have any fevers today. Blood pressure is low normal. Patient has minimally elevated troponin which was believed secondary to sepsis. Cardiology evaluated the patient. Constitutional: Denied any fatigue denied any fever. Cardio vascular: denied any chest pain, palpitations Gastrointestinal denied any nausea vomiting Pulmonary: Denied any shortness of breath cough Neurologic denied any new focal deficits All inpatient medications were reviewed and appropriate changes in these medications as dictated in the interval history and assessment and plan. 11/25/2018 Patient is sitting up in the chair in no acute distress with family at the bedside enjoying some donuts and coffee at this time. No acute overnight issues. Patient's mentation has much improved and is responding to questions and commands appropriately. Currently patient denies any chest pain, shortness of breath, or palpitations at this time. Patient denies any nausea or vomiting and is tolerating diet. Per nursing staff patient did have slight nausea this morning with no vomiting and has since resolved. Multiple medical consultations are following. PT/OT following and working with the patient. Spoke to the daughter and at the bedside today and was told that he will be going to [facility] on [facility] for rehab. Case management and social work are following and have submitted a prior authorization today. Awaiting authorization. Will continue to monitor closely. Guarded prognosis. Objective - Vital Signs Vital signs: Vital Signs Temp 98.7 F 11/24/18 20:00 Pulse 90 11/25/18 12:00 Resp 18 11/25/18 12:00 BP 118/70 11/25/18 12:00 Pulse Ox 95 11/25/18 12:00 Intake & Output 10/15/19 10/16/19 10/16/19 18:59 06:59 18:59 Intake Total 555 210 480 Balance 555 210 480 Weight 107 kg Intake: Intake, IV Titration 75 200 Amount Aztreonam 1 gm In Sodium 100 Chloride 0.9% 50 ml @ 100 mls/hr IVPB Q12HR [facility] Rx #:[id number] Cefuroxime 1,500 mg In 100 Sodium Chloride 0.9% 100 ml @ 200 mls/hr IVPB Q12HR [facility] Rx#:[id number] Sodium Chloride 0.9% 1, 75 000 ml @ 75 mls/hr IV . [id number] [facility] Rx#:[id number] Oral 480 10 480 Other: Voiding Method Urinal Urinal Incontinent Incontinent # Voids 1 # Bowel Movements 1 - Exam -GENERAL: The patient is alert and oriented x2-3, not in respiratory distress. Vital signs are stable. -HEENT: Pupils are round and equally reacting to light. EOMI. No scleral icterus. No conjunctival pallor. Normocephalic, atraumatic. No pharyngeal erythema. No thyromegaly. Mucous membranes are moist. CARDIOVASCULAR: S1 and S2 present. No murmurs, rubs, or gallops. -PULMONARY: Normal respirations, nonlabored, diminished breath sounds at the bases otherwise chest is clear to auscultation, no wheezing or crackles. ABDOMEN: Soft, nontender, nondistended, normoactive bowel sounds. No palpable organomegaly. MUSCULOSKELETAL: No joint swelling or deformity. -EXTREMITIES: No cyanosis, clubbing, or pedal edema. Small superficial ulcer in his right leg with no purulent discharge or surrounding cellulitis NEUROLOGICAL: Gross neurological examination did not reveal any focal deficits. SKIN: No rashes. No petechiae - Labs CBC & Chem 7: 11/25/18 05:53 11/25/18 06:00 Labs: Abnormal Lab Results - Last 24 Hours (Table) 11/25/18 11/25/18 11/25/18 Range/Units 05:53 05:53 06:00 Hgb 12.8 L (13.0-17.5) gm/dL RDW 15.9 H (11.5-15.5) % Plt Count 142 L (150-450) k/uL PT 28.4 H (9.0-12.0) sec INR 2.9 H (<1.2) Sodium 134 L (137-145) mmol/L BUN 23 H (9-20) mg/dL Glucose 104 H (74-99) mg/dL Calcium 8.0 L (8.4-10.2) mg/dL Microbiology - Last 24 Hours (Table) 11/22/18 23:20 Blood Culture - Preliminary Blood No Growth after 48 hours Assessment and Plan Assessment: -Sepsis possibility of pneumonia cannot be ruled out and possibility of UTI being the possible source of sepsis. Continue with cefuroxime. Infectious disease is following. -Toxic encephalopathy from sepsis -Lactic acidosis secondary to infection which improved now -Chest pain with minimally elevated troponin probably elevation is secondary to pneumonia. Cardiology evaluated the patient -Dehydration intravascularly depletion with the acute renal failure and prerenal azotemia: Continue with IV fluids as mentioned about his continue diuretic therapy at this time. Current creatinine is 1.06 and sodium is 134. -Coronary artery disease -Hyperlipidemia -Hypertension - obstructive sleep apnea -Hypothyroidism -Generalized deconditioning and weakness secondary to age. -Hypothyroidism. For rest of the other medical problems patient will be continued on appropriate home medications. Patient mental status and toxic encephalopathy improved Recommendations and discussion: Recommend to continue current medications, management, and symptomatic treatment. Infectious disease is following and patient is currently on cefuroxime IV and will continue at this time. Blood cultures thus far are neg ative. Will continue to monitor closely. Will repeat a.m. labs. Guarded prognosis. Further recommendations to follow. Case management and social work are following as the patient will be going to [facility] on the [facility] facility. Possible discharge in 24-48 hours once authorization for [facility] is obtained.
--- NOTE | 2018-11-25 15:15 | P.PN ---
Subjective Progress Note Date: 11/25/18 On today's evaluation of 11/25/2018 the patient is looking better. No shaking. No weakness. Is able to communicate. No altered mentation. He was able to have his breakfast without any major difficulties. Overnight she had no significant issues. He remains on room air oxygen. No cough sputum production chest tightness or wheezing. The nausea and emesis is also subsided. The white cell count is not elevated. The patient remains on a combination of aztreonam and Zithromax. He has his CPAP machine at his bedside. The plan is to discharge this patient to [facility] at a later stage. The renal function is stable. Electrodes are all within normal limits. The patient is afebrile. All of the cultures came back negative. Objective - Vital Signs Vital signs: Vital Signs Temp 98.7 F 11/24/18 20:00 Pulse 90 11/25/18 12:00 Resp 18 11/25/18 12:00 BP 118/70 11/25/18 12:00 Pulse Ox 95 11/25/18 12:00 Intake & Output 11/24/18 11/25/18 11/25/18 18:59 06:59 18:59 Intake Total 555 210 480 Balance 555 210 480 Weight 107 kg Intake: Intake, IV Titration 75 200 Amount Aztreonam 1 gm In Sodium 100 Chloride 0.9% 50 ml @ 100 mls/hr IVPB Q12HR FELIPE Rx #:[id number] Cefuroxime 1,500 mg In 100 Sodium Chloride 0.9% 100 ml @ 200 mls/hr IVPB Q12HR FELIPE Rx#:[id number] Sodium Chloride 0.9% 1, 75 000 ml @ 75 mls/hr IV . [id number] FELIPE Rx#:[id number] Oral 480 10 480 Other: Voiding Method Urinal Urinal Incontinent Incontinent # Voids 1 # Bowel Movements 1 - Exam Gen. appearance is calm and comfortable, no confusion. No altered mentation. Very much appropriate. Head exam was generally normal. There was no scleral icterus or corneal arcus. Mucous membranes were moist. Neck was supple and without jugular venous distension, thyromegaly, or carotid bruits. Carotids were easily palpable bilaterally. There was no adenopathy. Lungs were clear to auscultation and percussion, and with normal diaphragmatic excursion. No wheezes or rales were noted. Cardiac exam revealed the PMI to be normally situated and sized. The rhythm was regular and no extrasystoles were noted during several minutes of auscultation. The first and second heart sounds were normal and physiologic splitting of the second heart sound was noted. There were no murmurs, rubs, clicks, or gallops. Abdominal exam revealed normal bowel sounds. The abdomen was soft, non-tender, and without masses, organomegaly, or appreciable enlargement of the abdominal aorta. Examination of the extremities revealed easily palpable radial, femoral and pedal pulses. There was no cyanosis, clubbing or edema. Examination of the skin revealed no evidence of significant rashes, suspicious appearing nevi or other concerning lesions. Neurologically the patient is nonfocal and the patient is moving all 4 extremities. - Labs CBC & Chem 7: 11/25/18 05:53 11/25/18 06:00 Labs: Abnormal Lab Results - Last 24 Hours (Table) 11/25/18 11/25/18 11/25/18 Range/Units 05:53 05:53 06:00 Hgb 12.8 L (13.0-17.5) gm/dL RDW 15.9 H (11.5-15.5) % Plt Count 142 L (150-450) k/uL PT 28.4 H (9.0-12.0) sec INR 2.9 H (<1.2) Sodium 134 L (137-145) mmol/L BUN 23 H (9-20) mg/dL Glucose 104 H (74-99) mg/dL Calcium 8.0 L (8.4-10.2) mg/dL Microbiology - Last 24 Hours (Table) 11/22/18 23:20 Blood Culture - Preliminary Blood No Growth after 48 hours Assessment and Plan Plan: \ 1 generalized weakness/altered mentation, rule out metabolic encephalopathy, rule out underlying infection being in a UTI versus pneumonia. Computed tomography scan back negative. The patient clinically improved. He is awake and alert. No respiratory difficulties. He is currently on room air oxygen. Hemodynamically stable. 2 troponin leak versus acute non-STEMI 3 coronary artery disease, history of, with previous history of insertion of a coronary stent 4 obstructive sleep apnea 5 hypertension 6 hyperlipidemia 7 history of atrial flutter current rhythm is sinus with an LBBB pattern and the patient is subtherapeutic on Coumadin Plan The patient's INR is therapeutic. The patient is currently on cefuroxime. No active pulmonary issues. The patient will be transferred to [facility] [place] once authorization is obtained. Pulmonary critical care services we'll sign off.
[2018-11-25] MEDS ORDERED: WARFARIN 3 MG TAB PO ONE (18:00)
[2018-11-25] MEDS: ATORVASTATIN 40 MG TAB PO SCH (19:46)
[2018-11-25] MEDS: LEVOTHYROXINE 50 MCG TAB PO SCH (19:47)
[2018-11-25] MEDS: METOPROLOL SUCCINATE (ER) 50 MG TAB.ER.24H PO SCH (19:47)
[2018-11-25] MEDS: FOLIC ACID 1 MG TAB PO SCH (19:47)
--- NOTE | 2018-11-25 21:25 | P.PN ---
Subjective Progress Note Date: 11/25/18 This is an 83-year-old male and history is obtained from the patient and his . She has history that he started a new medication, Ranolazine, last week ordered by Dr. Watkins. She states that the patient has had extreme weakness, dizziness headache, tremor since starting to take this. She spoke with the pharmacist and will thought this was related to the medication. Over the weekend he was very weak he ended up falling landing on his knees bilaterally. He does complain of knee pain but denies any loss of consciousness or head injury. Patient states that she called EMS to get him back into bed. She states he was shaking so bad by the next day that she had him brought into the [facility] for evaluation. Patient has not had any nausea vomiting or diarrhea. He states his appetite has been good. He thinks he may have decreased urine output. states that he has been drinking plenty of water and coffee. He denies any cough. Patient has chronic shortness of breath he states it is at his baseline. He denies any chest pain. He denies having any fever or chills. The patient presented to [facility] emergency [facility]. WBC 9.6, INR 1.9, BUN 24 and creatinine 1.25, initial lactic acid 2.3 and repeat 1.2, blood sugar 132. Troponin 0.077, 0.110. Influenza testing negative. Urinalysis clear, blood moderate, leukoesterase large, WBC 40, bacteria many. Chest x-ray showed decreased respiratory effort. Right basilar opacities may represent atelectasis, however infection is not excluded. Temperature max is been 100.5. Patient has been started on azithromycin and Azactam. Consult in place for pulmonary medicine and cardiology. 11/24/2018 patient improved today more awake and interactive. Denies many symptoms 11/25/2018 the patient's status is discussed with his . He certainly has improved. He is sitting upright communicating considerably better. He over still very weak and requires assistance to ambulate. He relates it is going home however is clear that his cannot care for him in the home setting and plans are being made for his rehab placement. Objective - Vital Signs Vital signs: Vital Signs Temp 98.2 F 11/25/18 19:45 Pulse 73 11/25/18 20:00 Resp 18 11/25/18 20:00 BP 102/49 11/25/18 19:45 Pulse Ox 96 11/25/18 19:45 Intake & Output 11/25/18 11/25/18 11/26/18 06:59 18:59 06:59 Intake Total 210 720 10 Balance 210 720 10 Weight 107 kg Intake: IV 10 Invasive Line 3 10 Intake, IV Titration 200 Amount Aztreonam 1 gm In Sodium 100 Chloride 0.9% 50 ml @ 100 mls/hr IVPB Q12HR FELIPE Rx #:[id number] Cefuroxime 1,500 mg In 100 Sodium Chloride 0.9% 100 ml @ 200 mls/hr IVPB Q12HR FELIPE Rx#:[id number] Oral 10 720 Other: Voiding Method Urinal Urinal Urinal Incontinent Incontinent Incontinent # Voids 2 # Bowel Movements 1 - Exam Gen: This is an 83-year-old male. Patient is resting in bed. It is noted to be less short of breath. HEENT: Head is atraumatic, normocephalic. Pupils equal, round. Sclerae is anicteric. Oral mucous membranes are dry. Dentures in place. No thrush noted. NECK: Supple. No JVD. No lymphadenopathy. No thyromegaly. LUNGS: Diminished. No intercostal retraction. Less tachypneic. HEART: Irregular rate and rhythm. Systolic murmur. ABDOMEN: Soft. Bowel sounds are present. No masses. No tenderness. EXTREMITIES: No pedal edema. No calf tenderness. Bilateral knee pain. Right knee is warm to touch. NEUROLOGICAL: Patient is awake, alert and oriented and is much more interactive today - Labs CBC & Chem 7: 11/25/18 05:53 11/25/18 06:00 Labs: Abnormal Lab Results - Last 24 Hours (Table) 11/25/18 11/25/18 11/25/18 Range/Units 05:53 05:53 06:00 Hgb 12.8 L (13.0-17.5) gm/dL RDW 15.9 H (11.5-15.5) % Plt Count 142 L (150-450) k/uL PT 28.4 H (9.0-12.0) sec INR 2.9 H (<1.2) Sodium 134 L (137-145) mmol/L BUN 23 H (9-20) mg/dL Glucose 104 H (74-99) mg/dL Calcium 8.0 L (8.4-10.2) mg/dL Microbiology - Last 24 Hours (Table) 11/22/18 23:20 Blood Culture - Preliminary Blood No Growth after 48 hours Laboratory Results WBC 4.7 k/uL (3.8-10.6) 11/25/18 05:53 RBC 4.38 m/uL (4.30-5.90) 11/25/18 05:53 Hgb 12.8 gm/dL (13.0-17.5) L 11/25/18 05:53 Hct 39.3 % (39.0-53.0) 11/25/18 05:53 MCV 89.7 fL (80.0-100.0) 11/25/18 05:53 MCH 29.1 pg (25.0-35.0) 11/25/18 05:53 MCHC 32.5 g/dL (31.0-37.0) 11/25/18 05:53 RDW 15.9 % (11.5-15.5) H 11/25/18 05:53 Plt Count 142 k/uL (150-450) L 11/25/18 05:53 Neutrophils % 63 % 11/25/18 05:53 Lymphocytes % 22 % 11/25/18 05:53 Monocytes % 11 % 11/25/18 05:53 Eosinophils % 1 % 11/25/18 05:53 Basophils % 1 % 11/25/18 05:53 Neutrophils # 2.9 k/uL (1.3-7.7) 11/25/18 05:53 Lymphocytes # 1.0 k/uL (1.0-4.8) 11/25/18 05:53 Monocytes # 0.5 k/uL (0-1.0) 11/25/18 05:53 Eosinophils # 0.0 k/uL (0-0.7) 11/25/18 05:53 Basophils # 0.1 k/uL (0-0.2) 11/25/18 05:53 Anisocytosis Slight 11/24/18 05:58 PT 28.4 sec (9.0-12.0) H 11/25/18 05:53 INR 2.9 (<1.2) H 11/25/18 05:53 APTT 38.1 sec (22.0-30.0) H 11/22/18 20:50 Sodium 134 mmol/L (137-145) L 11/25/18 06:00 Potassium 3.8 mmol/L (3.5-5.1) 11/25/18 06:00 Chloride 102 mmol/L (98-107) 11/25/18 06:00 Carbon Dioxide 25 mmol/L (22-30) 11/25/18 06:00 Anion Gap 7 mmol/L 11/25/18 06:00 BUN 23 mg/dL (9-20) H 11/25/18 06:00 Creatinine 1.06 mg/dL (0.66-1.25) 11/25/18 06:00 Est GFR (CKD-EPI)AfAm 75 (>60 ml/min/1.73 sqM) 11/25/18 06:00 Est GFR (CKD-EPI)NonAf 65 (>60 ml/min/1.73 sqM) 11/25/18 06:00 Glucose 104 mg/dL (74-99) H 11/25/18 06:00 Lactic Ac Sepsis Rflx Y 11/22/18 21:35 Plasma Lactic Acid Robby 1.2 mmol/L (0.7-2.0) 11/23/18 01:06 Calcium 8.0 mg/dL (8.4-10.2) L 11/25/18 06:00 Phosphorus 2.6 mg/dL (2.5-4.5) 11/22/18 20:50 Magnesium 1.8 mg/dL (1.6-2.3) 11/22/18 20:50 Total Bilirubin 1.3 mg/dL (0.2-1.3) 11/22/18 20:50 AST 30 U/L (17-59) 11/22/18 20:50 ALT 24 U/L (21-72) 11/22/18 20:50 Alkaline Phosphatase 54 U/L (38-126) 11/22/18 20:50 Troponin I 0.128 ng/mL (0.000-0.034) H* 11/23/18 08:51 NT-Pro-B Natriuret Pep 1610 pg/mL 11/22/18 20:50 Total Protein 6.6 g/dL (6.3-8.2) 11/22/18 20:50 Albumin 3.4 g/dL (3.5-5.0) L 11/22/18 20:50 TSH 1.890 mIU/L (0.465-4.680) 11/23/18 08:51 Urine Color Yellow 11/22/18 06:20 Urine Appearance Clear (Clear) 11/22/18 06:20 Urine pH 5.5 (5.0-8.0) 11/22/18 06:20 Ur Specific [place] 1.021 (1.001-1.035) 11/22/18 06:20 Urine Protein 1+ (Negative) H 11/22/18 06:20 Urine Glucose (UA) Negative (Negative) 11/22/18 06:20 Urine Ketones Negative (Negative) 11/22/18 06:20 Urine Blood Moderate (Negative) H 11/22/18 06:20 Urine Nitrite Negative (Negative) 11/22/18 06:20 Urine Bilirubin Negative (Negative) 11/22/18 06:20 Urine Urobilinogen 2.0 mg/dL (<2.0) 11/22/18 06:20 Ur Leukocyte Esterase Large (Negative) H 11/22/18 06:20 Urine RBC 5 /hpf (0-5) 11/22/18 06:20 Urine WBC 40 /hpf (0-5) H 11/22/18 06:20 Urine Bacteria Many /hpf (None) H 11/22/18 06:20 Urine Mucus Few /hpf (None) H 11/22/18 06:20 Influenza Type A RNA Not Detected (Not Detectd) 11/22/18 21:00 Influenza Type B (PCR) Not Detected (Not Detectd) 11/22/18 21:00 Microbiology 11/22/18 23:20 Blood Blood Culture - Preliminary No Growth after 48 hours Assessment and Plan (1) 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 As noted he is a poor historian. Sitter is present. Exam showed no evidence of crackles in the basis. There is evidence of the abnormal urinalysis cultures are pending. influenza testing is negativeCurrent antibiotic therapy is being monitored and will be descalated as cultures become available. Patient has been seen by pulmonary critical care and they doubt pneumonia. The patient does have a markedly abnormal urinalysis at admission however he flexure culture does not seem to have been performed. Blood cultures are negative.Patient does not have a history of multidrug resistant pathogens. The patient is underlying cardiac history and is on Coumadin, consequently would avoid trimethoprim sulfamethoxazole however, can utilize second-generation cephalosporin and cefuroxime as ordered. The Azactam and azithromycin are discontinued and he shall be monitored. 11/25/2018 patient is improved today. Sitting upright affect is improved but is still with severe weakness requires 2 person assist. Plans are being made for him to go to rehab to increase his strength. The patient believes is going home. As discussed with the that home is not a safe discharge plan and she is adamant that she cannot take care of him in the home setting. He will need to go to rehab. Withdrawal of his new cardiac medication seems to have a lot of improvement of the shakiness and disorientation. Is also concerned he had urinary sepsis at admission and is being treated now with cefuroxime with ongoing improvement. We'll complete a 7 day course of therapy for his Complicated urinary tract infection. Current Visit: Yes Status: Acute Code(s): N39.0 - URINARY TRACT INFECTION, SITE NOT SPECIFIED SNOMED Code(s): 15419295
[2018-11-26] MEDS: SODIUM CHLORIDE 0.9% 1,000 ML IV SCH (06:18)
[2018-11-26 06:39] LABS: INR 2.7 (<1.2); Prothrombin Time 25.9 sec (9.0-12.0)
[2018-11-26 07:52] LABS: Calcium 8.4 mg/dL (8.4-10.2); Potassium 3.9 mmol/L (3.5-5.1)
[2018-11-26] MEDS: ISOSORBIDE MONONITRATE ER 30 MG TAB.ER.24H PO SCH (08:26)
[2018-11-26] MEDS: FAMOTIDINE 20 MG TAB PO SCH (08:28)
[2018-11-26] MEDS: ASPIRIN 81 MG PO SCH (08:28)
[2018-11-26] MEDS: CEFUROXIME 1,500 MG in SODIUM CHLORIDE 0.9% 100 ML IVPB SCH (09:47)
--- NOTE | 2018-11-26 10:37 | P.DS ---
Providers Date of admission: 11/22/18 22:58 Expected date of discharge: 11/26/18 Attending physician: Marycarmen Gusman Consults: 11/22/18 22:58 Consult Physician Routine Consulting Provider: Mike Garsia Consult Reason/Comments: known Do you want consulting provider notified?: Yes 11/22/18 23:52 Consult Physician Routine Consulting Provider: Neto Barboza Consult Reason/Comments: elevated trop Do you want consulting provider notified?: Yes, Notify in am 11/23/18 08:22 Consult Physician Urgent Consulting Provider: Abundio Cedillo Consult Reason/Comments: possible pna with fever Do you want consulting provider notified?: Yes 11/23/18 22:50 Consult Physician Stat Consulting Provider: Tosha Gonzalez Consult Reason/Comments: tremors Do you want consulting provider notified?: Yes Primary care physician: Mike Garsia Hospital Course: Final diagnosis Sepsis possibility of pneumonia cannot be ruled out and possibility of UTI Toxic encephalopathy from sepsis Lactic acidosis secondary to infection Chest pain with minimally elevated troponin Dehydration, intravascularly to be depleted with acute renal failure and prerenal azotemia Coronary artery disease Hyperlipidemia Hypertension Obstructive sleep apnea Hypothyroidism Generalized deconditioning and weakness secondary to age Discharge disposition Patient is being discharged in a stable condition with guarded prognosis to [facility] for continued PT/OT therapy. Per infectious disease recommendations patient will also continue on a short course of oral antibiotics. Total time taken is 35 minutes. History of present illness This is an 83-year-old male who was recently admitted for altered mental status from possible toxic encephalopathy from either pneumonia or UTI and was being closely monitored. Infectious disease was following. Multiple medical consultations were following. Patient will complete a short course of oral antibiotics upon discharge. Patient's mentation is much improved and per family patient is back to his baseline. Currently patient denies any chest pain, shortness of breath, or palpitations at this time. It is afebrile. Patient denies any nausea or vomiting and is tolerating diet. Patient was working with PT/OT during hospitalization for continued strength and mobility. Patient will continue [facility] with this treatment plan. During hospitalization patient was seen by Dr. 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 Patient will follow-up in the outpatient setting for those results upon discharge. Patient is to continue with wound care applying honey alginate, saline moistened gauze, dry gauze, and then rolled gauze with changes to those dressings on Friday, Friday, and Friday until follow-up. Patient is on Coumadin and his recent INR is 2.7 so his Coumadin should be held tonight on 11/26/2018 and recheck INR level and then resume his current dose of 5 mg. Currently patient's condition is stable and much improved and is ready for discharge to the [facility] today. Guarded prognosis. On exam vital signs are stable. Temp is 96.2F, pulse is 88, respirations are 16, blood pressure is 144/66, oxygen saturation is 95% on room air. Cardio S1 and S2 are muffled. Respiratory system shows diminished breath sounds at the bases otherwise no wheezing or crackles noted. Abdomen is soft and nontender. Nervous system shows no focal deficits with mild diffuse weakness. Please refer to medication reconciliation sheet for a list of medications. Patient Condition at Discharge: Fair Plan - Discharge Summary New Discharge Prescriptions: New Cefuroxime Axetil [Ceftin] 500 mg PO BID #14 tab Famotidine [Pepcid] 20 mg PO Q24HR tab Continue Metoprolol Succinate [Toprol XL] 50 mg PO HS Levothyroxine Sodium [Synthroid] 50 mcg PO HS Warfarin [Coumadin] 5 mg PO DAILY Nitroglycerin Sl Tabs [Nitrostat] 0.4 mg SUBLINGUAL Q5M PRN PRN Reason: Chest Pain Folic Acid 1 mg PO HS Atorvastatin [Lipitor] 40 mg PO HS Isosorbide Mononitrate ER [Imdur] 30 mg PO DAILY #90 tab.er.24h Warfarin [Coumadin] 2 mg PO SA Aspirin EC [Ecotrin Low Dose] 81 mg PO DAILY Discontinued Triamterene-Hctz 37.5-25Mg [Dyazide 37.5-25 Capsule] 1 cap PO DAILY Discharge Medication List Levothyroxine Sodium [Synthroid] 50 mcg PO HS 11/09/15 [History] Metoprolol Succinate [Toprol XL] 50 mg PO HS 11/09/15 [History] Atorvastatin [Lipitor] 40 mg PO HS 09/26/18 [History] Folic Acid 1 mg PO HS 09/26/18 [History] Nitroglycerin Sl Tabs [Nitrostat] 0.4 mg SUBLINGUAL Q5M PRN 09/26/18 [History] Warfarin [Coumadin] 5 mg PO DAILY 09/26/18 [History] Isosorbide Mononitrate ER [Imdur] 30 mg PO DAILY #90 tab.er.24h 09/28/18 [Rx] Aspirin EC [Ecotrin Low Dose] 81 mg PO DAILY 11/22/18 [History] Warfarin [Coumadin] 2 mg PO SA 11/22/18 [History] Cefuroxime Axetil [Ceftin] 500 mg PO BID #14 tab 11/24/18 [Rx] Famotidine [Pepcid] 20 mg PO Q24HR tab 11/26/18 [Rx] Follow up Appointment(s)/Referral(s): Wound Healing,Center [NON-STAFF] - As Needed (if needed) Ambulatory/Diagnostic Orders: Basic Metabolic Panel [LAB.AMB] Time Frame: 2 Days, Location: None Selected Prothrombin Time INR [LAB.AMB] Time Frame: 2 Days, Location: None Selected Activity/Diet/Wound Care/Special Instructions: Patient will be going to [facility] on the [place]. Activity as tolerated Follow-up with primary care provider upon discharge Continue with antibiotics until complete Hold Coumadin for 11/26/2018 and recheck labs tomorrow and then may resume normal dosing of Coumadin as written Repeat labs in 1-2 days Discharge Disposition: TRANSFER TO SNF/ECF
[2018-11-26 12:11] VITALS: PULSE 86; RESP 18; TEMP 96.4
--- NOTE | 2018-11-26 13:02 | P.PN ---
Subjective Progress Note Date: 11/26/18 Patient was seen for a follow-up. Patient is doing much better. Patient is sitting in the chair. The tremors have mostly resolved. Offers no complaints. 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 She has stopped giving him the medication. Patient's infection is also getting better. Patient's mentation is much improved. Objective - Vital Signs Vital signs: Vital Signs Temp 96.4 F L 11/26/18 12:08 Pulse 86 11/26/18 12:22 Resp 18 11/26/18 12:22 BP 110/68 11/26/18 12:08 Pulse Ox 97 11/26/18 12:08 Intake & Output 11/25/18 11/26/18 11/26/18 18:59 06:59 18:59 Intake Total 720 10 Output Total 200 Balance 720 -190 Weight 107 kg 103.3 kg Intake: IV 10 Invasive Line 3 10 Oral 720 Output: Urine 200 Other: Voiding Method Urinal Urinal Incontinent Incontinent # Voids 2 1 0 # Bowel Movements 1 - Exam On examination patient's mental status, speech and language functions are normal. Cranial nerves are normal. Muscle strength normal. No ataxia. Tone and bulk of muscles normal. No tremors of outstretched hands, or for gvyixb-yx-[id number] testing. No tremors at rest. - Labs CBC & Chem 7: 11/25/18 05:53 11/26/18 06:27 Labs: Abnormal Lab Results - Last 24 Hours (Table) 11/26/18 11/26/18 Range/Units 06:27 06:27 PT 25.9 H (9.0-12.0) sec INR 2.7 H (<1.2) BUN 21 H (9-20) mg/dL Glucose 125 H (74-99) mg/dL Microbiology - Last 24 Hours (Table) 11/22/18 23:20 Blood Culture - Preliminary Blood No Growth after 72 hours Assessment and Plan Assessment: * Tremors, likely metabolic due to acute pneumonia/UTI. Patient is on antibiotics. No evidence of Parkinson's disease. * Acute non-STEMI. * History of atrial flutter, on anticoagulation. * Gait dysfunction, likely multifactorial. Patient's history of lumbar spinal stenosis, and superimposed current medical conditions including pneumonia/UTI, and non-STEMI are the likely causes. Exam is relatively nonfocal. Plan: * Patient is on antibiotics for pneumonia/UTI. * Patient is on aspirin 81 mg daily and Lipitor 40 mg for CAD. * Patient is on Coumadin for atrial flutter. INR is therapeutic today 2.7. * Neurologically patient's tremors have much improved as compared to yesterday. Patient has stopped Ranolazine, which family believes was the cause of tremors. * Agree with PT OT evaluate gait. Patient does have moderate to severe lumbar spinal stenosis at L4-5 and varying degrees of stenosis at other levels as mentioned above, which is likely the cause of gait dysfunction. * Patient is neurologically clear.
[2018-11-26 15:19] VITALS: BP 103/64
[2018-11-26] MEDS ORDERED: WARFARIN 5 MG TAB PO ONE (18:00)
[2018-11-26] MEDS ORDERED: FAMOTIDINE 20 MG TAB PO SCH (21:00)
== END 2018-11-26 15:24 | DRG 871 ==
LOC: EC 20:37 → 3SCARD 22:58
PROVIDERS: ADMIT Hospitalist; ATTEND Hospitalist
DX: A41.9 Sepsis, unspecified organism (principal); J18.9 Pneumonia, unspecified organism; G92 Toxic encephalopathy; I21.4 Non-ST elevation (NSTEMI) myocardial infarction; N39.0 Urinary tract infection, site not specified; I48.92 Unspecified atrial flutter; E87.2 Acidosis; N17.9 Acute kidney failure, unspecified; L97.212 Non-pressure chronic ulcer of right calf with fat layer exposed; Y95 Nosocomial condition; E86.0 Dehydration; I25.10 Atherosclerotic heart disease of native coronary artery without angina pectoris; Z95.5 Presence of coronary angioplasty implant and graft; I10 Essential (primary) hypertension; E78.5 Hyperlipidemia, unspecified; E03.9 Hypothyroidism, unspecified; G47.33 Obstructive sleep apnea (adult) (pediatric); M48.061 Spinal stenosis, lumbar region without neurogenic claudication; M51.36 Other intervertebral disc degeneration, lumbar region; I25.2 Old myocardial infarction; Z79.01 Long term (current) use of anticoagulants; Z79.82 Long term (current) use of aspirin; Z79.890 Hormone replacement therapy; Z79.899 Other long term (current) drug therapy; Z82.49 Family history of ischemic heart disease and other diseases of the circulatory system; Z85.828 Personal history of other malignant neoplasm of skin; R65.20 Severe sepsis without septic shock; R29.6 Repeated falls; M46.96 Unspecified inflammatory spondylopathy, lumbar region; G89.29 Other chronic pain; I48.0 Paroxysmal atrial fibrillation; M19.91 Primary osteoarthritis, unspecified site; M41.9 Scoliosis, unspecified; Z96.643 Presence of artificial hip joint, bilateral; Z96.653 Presence of artificial knee joint, bilateral; Z96.611 Presence of right artificial shoulder joint; F17.290 Nicotine dependence, other tobacco product, uncomplicated; Z88.0 Allergy status to penicillin; Z88.8 Allergy status to other drugs, medicaments and biological substances
CPT/HCPCS: 36415; 70450; 71046; 80048; 80053; 81001; 83605; 83735; 83880; 84100; 84443; 84484; 85025; 85610; 85730; 87040; 87502; 93005; 94640; 96360; 96361; 99285

== ENCOUNTER 2019-01-04 10:43 | Day surgery (SDC) | payer MEDICARE ==
[2018-12-31 13:47] VITALS: BMI 31.3
[~2019-01-04 10:43] MED LIST changes: -ACETAMINOPHEN TAB 500 MG TAB PO ONE; +ALPRAZolam 0.25 MG TAB PO PRN; +ALPRAZolam 0.5 MG TAB PO PRN; +ASPIRIN 325 MG TAB PO STA; +ATORVASTATIN 80 MG TAB PO STA; -DEXAMETHASONE SOD PHOSPHATE 10 MG/ML 1 ML VIAL IV ONE; -MELOXICAM 7.5 MG TAB PO ONE; -MIDAZOLAM 2 MG/2 ML VIAL IV PRN; +NITROGLYCERIN SL TABS 0.4 MG TAB SUBLINGUAL PRN; -ONDANSETRON 4 MG/2 ML VIAL IVP ONE; +SODIUM CHLORIDE 0.9% 1,000 ML in EMPTY BAG 1 BAG IV ONE; -TRANEXAMIC ACID 1,000 MG in SODIUM CHLORIDE 0.9% 50 ML IVPB ONE; -ceFAZolin IN SWFI 2 GM/20 ML SYRINGE IVP ONE; -fentaNYL (PF) 50 MCG/ML 2 ML AMP IV PRN
[2019-01-04] MEDS ORDERED: HYDROmorphone 1 MG/ML 1 ML SYRINGE IVP STA (11:00)
[2019-01-04] MEDS ORDERED: ONDANSETRON 4 MG/2 ML VIAL IVP STA (11:00)
[2019-01-04] MEDS ORDERED: ONDANSETRON 4 MG/2 ML VIAL IVP ONE (11:08)
[2019-01-04] MEDS ORDERED: NITROGLYCERIN SL TABS 0.4 MG TAB SUBLINGUAL ONE ×2 (11:12→11:19)
[2019-01-04] MEDS ORDERED: SODIUM CHLORIDE 0.9% 1,000 ML IV ONE (11:21)
[2019-01-04 11:22] LABS: Basophils # (A) 0.1 k/uL (0-0.2); Basophils % (A) 1 %; Eosinophils # (A) 0.1 k/uL (0-0.7); Eosinophils % (A) 2 %; HCT 45.5 % (39.0-53.0); Lymphocytes % (A) 29 %; Mean Platelet Volume 7.4; Monocytes # (A) 0.4 k/uL (0-1.0); Monocytes % (A) 6 %; Neutrophils # (A) 4.3 k/uL (1.3-7.7); Neutrophils % (A) 60 %; Platelet Count 258 k/uL (150-450); RDW 15.1 % (11.5-15.5); WBC 7.2 k/uL (3.8-10.6)
[2019-01-04 11:32] LABS: Calcium 9.5 mg/dL (8.4-10.2); Potassium 4.4 mmol/L (3.5-5.1)
[2019-01-04] MEDS ORDERED: HYDROmorphone 1 MG/ML 1 ML SYRINGE ONE (11:40)
[2019-01-04] MEDS ORDERED: HYDROmorphone 1 MG/ML 1 ML SYRINGE IVP ONE (11:40)
[2019-01-04] MEDS ORDERED: LIDOCAINE 1% INJ 10MG/ML (20 ML MDV) SQ ONE (12:30)
[2019-01-04] MEDS ORDERED: BIVALIRUDIN BOLUS 250 MG/50 ML IV ONE (12:49)
[2019-01-04] MEDS ORDERED: BIVALIRUDIN 250 MG in SODIUM CHLORIDE 0.9% 50 ML IV ONE (12:50)
[2019-01-04] MEDS ORDERED: IOPAMIDOL-370 125ML BTL INJ ONE (13:29)
[2019-01-04] MEDS ORDERED: CLOPIDOGREL 75 MG TAB PO ONE (13:30)
[2019-01-04] MEDS ORDERED: IOPAMIDOL-370 100ML BTL INJ ONE (13:30)
[2019-01-04] MEDS ORDERED: NITROGLYCERIN SL TABS 0.4 MG TAB SUBLINGUAL PRN ×2 (13:35→13:36)
[2019-01-04] MEDS ORDERED: RX INFO: IV CONTRAST WAS GIVEN 1 EACH MISC MISCELLANE PRN (13:36)
[2019-01-04] MEDS ORDERED: ATROPINE SULFATE 0.1 MG/ML 10ML SYRINGE IV PRN (13:36)
[2019-01-04] MEDS ORDERED: MAG HYDROX/AL HYDROX/SIMETH 30 ML CUP PO PRN (13:36)
[2019-01-04] MEDS ORDERED: ZOLPIDEM 5 MG TAB PO PRN (13:36)
[2019-01-04] MEDS ORDERED: SODIUM CHLORIDE 0.9% 1,000 ML IV SCH (13:45)
[2019-01-04] MEDS: RANOLAZINE 500 MG TAB.ER.12H PO SCH (20:57)
[2019-01-04] MEDS ORDERED: LEVOTHYROXINE 50 MCG TAB PO SCH (21:00)
[2019-01-04] MEDS ORDERED: ATORVASTATIN 40 MG TAB PO SCH (21:00)
[2019-01-04] MEDS ORDERED: FOLIC ACID 1 MG TAB PO SCH (21:00)
[2019-01-04] MEDS ORDERED: METOPROLOL SUCCINATE (ER) 50 MG TAB.ER.24H PO SCH (21:00)
[2019-01-04 22:32] VITALS: RESP 18
[2019-01-05 07:12] LABS: Basophils % (A) 1 %; Eosinophils # (A) 0.1 k/uL (0-0.7); Eosinophils % (A) 2 %; HCT 39.5 % (39.0-53.0); HGB 12.7 gm/dL (13.0-17.5); Lymphocytes # (A) 1.7 k/uL (1.0-4.8); Lymphocytes % (A) 29 %; MCH 29.5 pg (25.0-35.0); MCHC 32.2 g/dL (31.0-37.0); MCV 91.8 fL (80.0-100.0); Mean Platelet Volume 7.1; Monocytes # (A) 0.4 k/uL (0-1.0); Monocytes % (A) 8 %; Neutrophils # (A) 3.5 k/uL (1.3-7.7); Neutrophils % (A) 59 %; Platelet Count 200 k/uL (150-450); RBC 4.31 m/uL (4.30-5.90); RDW 15.2 % (11.5-15.5); WBC 5.9 k/uL (3.8-10.6)
[2019-01-05 07:17] LABS: Potassium 4.3 mmol/L (3.5-5.1)
[2019-01-05 07:18] LABS: Calcium 8.7 mg/dL (8.4-10.2)
[2019-01-05] MEDS: FAMOTIDINE 20 MG TAB PO SCH ×2 (08:35→09:50)
[2019-01-05] MEDS: ISOSORBIDE MONONITRATE ER 30 MG TAB.ER.24H PO SCH ×2 (08:35→09:50)
[2019-01-05] MEDS ORDERED: TRIAMTERENE-HCTZ 37.5-25MG 1 EACH CAP PO SCH (09:00)
[2019-01-05] MEDS ORDERED: ASPIRIN 81 MG PO SCH (09:00)
[2019-01-05 09:33] VITALS: BP 112/66; PULSE 72; TEMP 97.1
[2019-01-05] MEDS: RANOLAZINE 500 MG TAB.ER.12H PO SCH (09:50)
[2019-01-05] MEDS ORDERED: CLOPIDOGREL 75 MG TAB PO SCH (12:00)
--- NOTE | 2019-01-06 05:40 | CC ---
CARDIAC CATHETERIZATION REPORT CARDIAC CATHETERIZATION AND PERCUTANEOUS CORONARY INTERVENTION: DATE OF SERVICE: January 04, 2019 PERFORMING PHYSICIAN: Neto Barboza MD. PROCEDURE PERFORMED: 1. Selective right and left coronary angiogram. 2. Successful stenting of the mid left anterior descending artery using 3.25 x mm Xience PREMA with an excellent angiographic result and reduction of stenosis from 99% to 0%. INDICATION: This is a pleasant 83-year-old gentleman who has known history of coronary artery disease as well as hypertension and dyslipidemia who was experiencing recently symptoms of chest discomfort with exertion concerning for severe underlying coronary artery disease. Because of that, a heart catheterization was advised. APPROACH: Right common femoral artery. COMPLICATION: None. LEVEL OF SEDATION: Moderate with sedation length of about an hour. PROCEDURE DESCRIPTION: After obtaining an informed consent, the patient was brought to the cardiac director labor standards. The right common femoral artery was cannulated using micropuncture technique and a micropuncture wire passed easily then I placed a 6-Bangladeshi sheath in the right common femoral artery. Subsequently, I did selective right and left coronary angiogram using JR4 and JL4 catheters. After that I did intervene on the LAD, please see a separate paragraph for that. SELECTIVE CORONARY ANGIOGRAM: 1. The right coronary artery is a large caliber vessel, a dominant vessel, and extremely calcified. The RCA is chronically occluded in the mid to distal portion. 2. The left main is a large caliber vessel. It is angiographically normal. It bifurcates into LCX as well as LAD. 3. The LCX is a large caliber vessel. It is a nondominant vessel. The proximal left circumflex appeared to have mild disease only and gives rise into a large OM, which appeared to have mild disease only. The mid and distal LCX appeared to have mild disease only. 4. The LAD: The proximal LAD appeared to have mild disease only and seems to be extremely calcified. The mid LAD by the bifurcation of a large diagonal branch appeared to have a lesion and appears to be in the range of 99.9%. The LAD distally appeared to have mild disease only. PCI OF THE LAD: Anticoagulation was initiated using Angiomax. Subsequently I did engage the left main using JL4 guide. I attempted wiring the LAD using a Whisper wire, but the wire will not cross the lesion in the LAD but does go to the diagonal. At that point, I decided to change the wire into a ChoICE PT wire with the backup support of SuperCross catheter. With that I was able to cross the lesion in the LAD and the wire was advanced to the distal LAD. After that I did balloon angioplasty using 2.5 x 12 mm balloon before I deployed 3.25 x 18 mm Xience PREMA where the stent was positioned under fluoroscopy guidance and deployed under 18 atmospheres for 20 seconds. The following angiogram showed great angiographic results and the procedure was completed without any complication. CONCLUSION: 1. Chronic total occlusion of the RCA which fills by collaterals from the left coronary system. 2. Critical disease involving the mid LAD with extremely calcified/eccentric lesion. 3. Successful stenting of the mid LAD using drug-eluting stent with an excellent angiographic results. POSTPROCEDURE MANAGEMENT: 1. Dual antiplatelet therapy. 2. Risk factor modifications. 3. Follow up with the patient. MMSTEPHEN / AKILAHN: [id number] /
--- NOTE | 2019-01-06 06:13 | DS ---
DISCHARGE SUMMARY ADMISSION DATE: January 04, 2019 DISCHARGE DATE: January 05, 2019 BRIEF HISTORY: This is a very pleasant 83-year-old gentleman with history of coronary artery disease who underwent yesterday heart catheterization and was found to have critical disease involving the left anterior descending artery. He underwent successful stenting of the LAD with an excellent angiographic results and without any complication. The procedure was performed from the right groin. The patient was seen and evaluated this morning. He is asymptomatic from a cardiovascular standpoint of view. The patient is going to be discharged home on dual antiplatelet therapy and I will follow up with the patient next week in the office. MMODL / IJN: [id number] /
== END 2019-01-05 10:06 | disposition home or self-care (01) ==
LOC: CATHCVL 10:43 → 3SCARD 14:36 → CATHCVL 01-05 10:06
PROVIDERS: ATTEND Internal Medicine Interventional Cardiology
DX: I25.110 Atherosclerotic heart disease of native coronary artery with unstable angina pectoris (principal); I25.84 Coronary atherosclerosis due to calcified coronary lesion; I25.82 Chronic total occlusion of coronary artery; I10 Essential (primary) hypertension; F17.290 Nicotine dependence, other tobacco product, uncomplicated; R07.9 Chest pain, unspecified; I38 Endocarditis, valve unspecified; I48.4 Atypical atrial flutter; E78.00 Pure hypercholesterolemia, unspecified; E78.5 Hyperlipidemia, unspecified; I48.0 Paroxysmal atrial fibrillation; Z95.5 Presence of coronary angioplasty implant and graft; Z82.1 Family history of blindness and visual loss; Z82.49 Family history of ischemic heart disease and other diseases of the circulatory system; Z79.01 Long term (current) use of anticoagulants; Z79.82 Long term (current) use of aspirin; Z79.890 Hormone replacement therapy; Z79.899 Other long term (current) drug therapy; Z88.0 Allergy status to penicillin; Z91.041 Radiographic dye allergy status
CPT/HCPCS: 93005; 93458; 80048 ×2; 85025 ×2; 85610; C9600; C1769 ×8; C1887 ×2; C1725 ×2; C1894 ×3; C1874; J2405; J2001; J1170; J0583; Q9967 ×2

== ENCOUNTER → 2019-04-27 | Outpatient (CLI) | payer MEDICARE ==
[2019-04-27 09:50] LABS: Basophils % (A) 1 %; Eosinophils # (A) 0.1 k/uL (0-0.7); Eosinophils % (A) 1 %; HCT 43.2 % (39.0-53.0); HGB 14.4 gm/dL (13.0-17.5); Lymphocytes # (A) 1.3 k/uL (1.0-4.8); Lymphocytes % (A) 16 %; MCH 30.4 pg (25.0-35.0); MCHC 33.2 g/dL (31.0-37.0); MCV 91.3 fL (80.0-100.0); Monocytes # (A) 0.6 k/uL (0-1.0); Monocytes % (A) 8 %; Neutrophils # (A) 5.9 k/uL (1.3-7.7); Neutrophils % (A) 71 %; Platelet Count 218 k/uL (150-450); RBC 4.73 m/uL (4.30-5.90); RDW 14.5 % (11.5-15.5); WBC 8.2 k/uL (3.8-10.6)
[2019-04-27 16:24] LABS: African American GFR (CKD) 53.1 (60.0-200.0); Albumin 4.3 g/dL (3.80-4.90); Albumin/Globulin Ratio 1.65 (1.60-3.17); Anion Gap 9.9 mmol/L (4.00-12.00); BUN/Creat Ratio 17.86 Ratio (12.00-20.00); Carbon Dioxide 29.1 mmol/L (21.6-31.8); Chol/HDL Ratio 2.31; Globulin 2.6 g/dL (1.6-3.3); LDL Cholesterol,Calculated 49.2 mg/dL (0.0-131.0); Non-African American GFR(CKD) 45.8 (60.0-200.0); Total Bilirubin 1.1 mg/dL (0.3-1.2); Total Protein 6.9 g/dL (6.2-8.2); VLDL Calculation 17.8 mg/dL (5.00-40.00)
[2019-04-27 16:33] LABS: T4, Free (Free Thyroxine) 1.4 ng/dL (0.80-1.80)
== END | disposition home or self-care (01) ==
LOC: LABWHC1 08:32
PROVIDERS: ATTEND Internal Medicine
DX: E78.5 Hyperlipidemia, unspecified (principal); I10 Essential (primary) hypertension
CPT/HCPCS: 36415; 80053; 80061; 84439; 84443; 85025

== ENCOUNTER 2019-04-30 08:09 | Inpatient (IN) | payer MEDICARE ==
[2019-04-30] MEDS ORDERED: ACETAMINOPHEN TAB 325 MG TAB PO STA (08:35)
--- NOTE | 2019-04-30 08:38 | ED ---
General Adult HPI - General Chief complaint: Weakness Stated complaint: UTI Time Seen by Provider: 04/30/19 08:11 Source: patient, RN notes reviewed Mode of arrival: EMS Limitations: no limitations - History of Present Illness Initial comments: 83-year-old male with a past medical history atrial flutter, CAD, hyperlipidemia, hypertension, shortness of breath and fatigue presents to the emergency department for a chief complaint of weakness. Patient states he has felt weak for the past few days. States he feels shaky as well. Patient denies any fevers or abdominal pain. Patient does have foul-smelling urine per RN. According to EMS patient has developed a dry cough over the past few days however patient is denying this at this time. Patient is a poor historian.Patient has no other complaints at this time including shortness of breath, chest pain, abdominal pain, nausea or vomiting, headache, or visual changes. - Related Data Home Medications Medication Instructions Recorded Confirmed Levothyroxine Sodium [Synthroid] 50 mcg PO HS 11/09/15 01/04/19 Metoprolol Succinate [Toprol XL] 50 mg PO HS 11/09/15 01/04/19 Atorvastatin [Lipitor] 40 mg PO HS 09/26/18 01/04/19 Folic Acid 1 mg PO HS 09/26/18 01/04/19 Nitroglycerin Sl Tabs [Nitrostat] 0.4 mg SUBLINGUAL Q5M PRN 09/26/18 01/04/19 Warfarin [Coumadin] 5 mg PO DAILY 09/26/18 01/04/19 Aspirin EC [Ecotrin Low Dose] 81 mg PO DAILY 11/22/18 01/04/19 Warfarin [Coumadin] 2 mg PO SA 11/22/18 01/04/19 Ranolazine [Ranexa] 500 mg PO BID 01/04/19 01/04/19 Triamterene/Hydrochlorothiazid 1 cap PO DAILY 01/04/19 01/04/19 [Dyazide 37.5-25 Capsule] Previous Rx's Medication Instructions Recorded Isosorbide Mononitrate ER [Imdur] 30 mg PO DAILY #90 tab.er.24h 09/28/18 Famotidine [Pepcid] 20 mg PO Q24HR tab 11/26/18 Clopidogrel Bisulfate [Plavix] 75 mg PO DAILY #90 tab 01/05/19 Clopidogrel [Plavix] 75 mg PO DAILY #90 tab 01/05/19 Allergies Allergy/AdvReac Type Severity Reaction Status Date / Time Penicillins Allergy Anaphylaxis Verified 04/30/19 08:21 [email or web address] Allergy Anaphylaxis Verified 04/30/19 08:21 cardiolite Allergy Anaphylaxis Uncoded 04/30/19 08:21 Review of Systems ROS Statement: Those systems with pertinent positive or pertinent negative responses have been documented in the HPI. ROS Other: All systems not noted in ROS Statement are negative. Past Medical History Past Medical History: Atrial Flutter, Coronary Artery Disease (CAD), Cancer, Hyperlipidemia, Hypertension, Myocardial Infarction ([place]), Osteoarthritis (OA), Sleep Apnea/CPAP/BIPAP, Thyroid Disorder Additional Past Medical History / Comment(s): SOB, fatigue, healing wound on rt lower leg, hx skin cancer Last Myocardial Infarction Date:: 2008 History of Any Multi-Drug Resistant Organisms: None Reported Past Surgical History: Heart Catheterization With Stent, Joint Replacement Additional Past Surgical History / Comment(s): Replacements of KAREN KNEES, KAREN HIPS and RT SHOULDER, has 2 or 3 coranary stents, recent karen eyelid sx, and removal of skin tag on rt eye lid Past Anesthesia/Blood Transfusion Reactions: No Reported Reaction Date of Last Stent Placement:: 2018 Past Psychological History: No Psychological Hx Reported Smoking Status: Current every day smoker Past Alcohol Use History: Rare Past Drug Use History: None Reported - Past Family History Mother Family Medical History: No Reported History Brother(s) Family Medical History: Myocardial Infarction ([place]) Father Family Medical History: Myocardial Infarction ([place]) General Exam Limitations: no limitations General appearance: alert, in no apparent distress Head exam: Present: atraumatic, normocephalic, normal inspection Eye exam: Present: normal appearance, PERRL, EOMI. Absent: scleral icterus, conjunctival injection, periorbital swelling ENT exam: Present: normal exam, mucous membranes moist Neck exam: Present: normal inspection, full ROM. Absent: tenderness, meningismus, lymphadenopathy Respiratory exam: Present: normal lung sounds bilaterally. Absent: respiratory distress, wheezes, rales, rhonchi, stridor Cardiovascular Exam: Present: regular rate, normal rhythm, normal heart sounds. Absent: systolic murmur, diastolic murmur, rubs, gallop, clicks GI/Abdominal exam: Present: soft, normal bowel sounds. Absent: distended, tenderness, guarding, rebound, rigid Neurological exam: Present: alert Psychiatric exam: Present: normal affect, normal mood Course Vital Signs 04/30/19 04/30/19 04/30/19 08:10 09:00 09:42 Temperature 100.4 F H 99.9 F H Pulse Rate 93 88 Respiratory 24 26 H Rate Blood Pressure 143/73 103/93 O2 Sat by Pulse 94 L 99 Oximetry EKG Findings - EKG Comments: EKG Findings:: a flutter, vent rate 93, VA int 218, QTc 537, compared to pr evious EKG and appears similar, also reviewed by Dr Dash Medical Decision Making - Medical Decision Making Patient presents febrile and hypoxic. Mildly tender. Patient is a poor historian. EMS reports he has had a dry cough for the past few days. Patient feels very weak. CBC is unremarkable. CMP does show evidence of dehydration, patient gently rehydrated. Patient does take Coumadin however appears to be subtherapeutic with an INR of 1.6. Urinalysis is unremarkable. Influenza is negative. Blood culture pending. Chest x-ray shows chronic changes and mild cardiomegaly without acute pulmonary process. Clinically, patient's symptoms and presentation are consistent with pneumonia. He was started on Levaquin given his penicillin ALLERGY. He will be admitted for further management. - Lab Data Result diagrams: 04/30/19 08:25 04/30/19 08:25 Lab Results 04/30/19 04/30/19 04/30/19 Range/Units 08:25 08:25 08:25 WBC 6.9 (3.8-10.6) k/uL RBC 4.67 (4.30-5.90) m/uL Hgb 14.2 (13.0-17.5) gm/dL Hct 42.2 (39.0-53.0) % MCV 90.4 (80.0-100.0) fL MCH 30.5 (25.0-35.0) pg MCHC 33.7 (31.0-37.0) g/dL RDW 14.3 (11.5-15.5) % Plt Count 178 (150-450) k/uL Neutrophils % 64 % Lymphocytes % 18 % Monocytes % 13 % Eosinophils % 0 % Basophils % 0 % Neutrophils # 4.4 (1.3-7.7) k/uL Lymphocytes # 1.3 (1.0-4.8) k/uL Monocytes # 0.9 (0-1.0) k/uL Eosinophils # 0.0 (0-0.7) k/uL Basophils # 0.0 (0-0.2) k/uL PT 15.4 H (9.0-12.0) sec INR 1.6 H (<1.2) APTT 30.6 H (22.0-30.0) sec Sodium 137 (137-145) mmol/L Potassium 3.6 (3.5-5.1) mmol/L Chloride 104 (98-107) mmol/L Carbon Dioxide 24 (22-30) mmol/L Anion Gap 9 mmol/L BUN 26 H (9-20) mg/dL Creatinine 1.23 (0.66-1.25) mg/dL Est GFR (CKD-EPI)AfAm 62 (>60 ml/min/1.73 sqM) Est GFR (CKD-EPI)NonAf 54 (>60 ml/min/1.73 sqM) Glucose 120 H (74-99) mg/dL Plasma Lactic Acid Robby (0.7-2.0) mmol/L Calcium 8.2 L (8.4-10.2) mg/dL Total Bilirubin 1.6 H (0.2-1.3) mg/dL AST 37 (17-59) U/L ALT 24 (4-49) U/L Alkaline Phosphatase 56 (38-126) U/L Total Protein 6.7 (6.3-8.2) g/dL Albumin 3.5 (3.5-5.0) g/dL Urine Color Urine Appearance (Clear) Urine pH (5.0-8.0) Ur Specific [place] (1.001-1.035) Urine Protein (Negative) Urine Glucose (UA) (Negative) Urine Ketones (Negative) Urine Blood (Negative) Urine Nitrite (Negative) Urine Bilirubin (Negative) Urine Urobilinogen (<2.0) mg/dL Ur Leukocyte Esterase (Negative) Urine RBC (0-5) /hpf Urine WBC (0-5) /hpf Ur Squamous Epith Cells (0-4) /hpf Urine Bacteria (None) /hpf Urine Mucus (None) /hpf Influenza Type A RNA (Not Detectd) Influenza Type B (PCR) (Not Detectd) 04/30/19 04/30/19 04/30/19 Range/Units 08:25 08:39 08:57 WBC (3.8-10.6) k/uL RBC (4.30-5.90) m/uL Hgb (13.0-17.5) gm/dL Hct (39.0-53.0) % MCV (80.0-100.0) fL MCH (25.0-35.0) pg MCHC (31.0-37.0) g/dL RDW (11.5-15.5) % Plt Count (150-450) k/uL Neutrophils % % Lymphocytes % % Monocytes % % Eosinophils % % Basophils % % Neutrophils # (1.3-7.7) k/uL Lymphocytes # (1.0-4.8) k/uL Monocytes # (0-1.0) k/uL Eosinophils # (0-0.7) k/uL Basophils # (0-0.2) k/uL PT (9.0-12.0) sec INR (<1.2) APTT (22.0-30.0) sec Sodium (137-145) mmol/L Potassium (3.5-5.1) mmol/L Chloride (98-107) mmol/L Carbon Dioxide (22-30) mmol/L Anion Gap mmol/L BUN (9-20) mg/dL Creatinine (0.66-1.25) mg/dL Est GFR (CKD-EPI)AfAm (>60 ml/min/1.73 sqM) Est GFR (CKD-EPI)NonAf (>60 ml/min/1.73 sqM) Glucose (74-99) mg/dL Plasma Lactic Acid Robby 1.8 (0.7-2.0) mmol/L Calcium (8.4-10.2) mg/dL Total Bilirubin (0.2-1.3) mg/dL AST (17-59) U/L ALT (4-49) U/L Alkaline Phosphatase (38-126) U/L Total Protein (6.3-8.2) g/dL Albumin (3.5-5.0) g/dL Urine Color Yellow Urine Appearance Cloudy (Clear) Urine pH 5.5 (5.0-8.0) Ur Specific [place] 1.024 (1.001-1.035) Urine Protein 1+ H (Negative) Urine Glucose (UA) Negative (Negative) Urine Ketones Negative (Negative) Urine Blood Small H (Negative) Urine Nitrite Negative (Negative) Urine Bilirubin Negative (Negative) Urine Urobilinogen 3.0 (<2.0) mg/dL Ur Leukocyte Esterase Negative (Negative) Urine RBC 2 (0-5) /hpf Urine WBC 1 (0-5) /hpf Ur Squamous Epith Cells 4 (0-4) /hpf Urine Bacteria Occasional H (None) /hpf Urine Mucus Rare H (None) /hpf Influenza Type A RNA Not Detected (Not Detectd) Influenza Type B (PCR) Not Detected (Not Detectd) Disposition Clinical Impression: Dehydration, Weakness, Pneumonia, Fever Disposition: ADMITTED IP TO THIS [facility] Condition: Good Is patient prescribed a controlled substance at d/c from ED?: No Referrals: Mike Garsia MD [Primary Care Provider] - 1-2 days Time of Disposition: 10:00
[2019-04-30] MEDS ORDERED: SODIUM CHLORIDE 0.9% 500 ML 500 ML IV SCH (08:45)
[2019-04-30 08:49] LABS: Basophils % (A) 0 %; Eosinophils % (A) 0 %; HCT 42.2 % (39.0-53.0); HGB 14.2 gm/dL (13.0-17.5); Lymphocytes # (A) 1.3 k/uL (1.0-4.8); Lymphocytes % (A) 18 %; MCH 30.5 pg (25.0-35.0); MCHC 33.7 g/dL (31.0-37.0); MCV 90.4 fL (80.0-100.0); Mean Platelet Volume 8.1; Monocytes # (A) 0.9 k/uL (0-1.0); Monocytes % (A) 13 %; Neutrophils # (A) 4.4 k/uL (1.3-7.7); Neutrophils % (A) 64 %; Platelet Count 178 k/uL (150-450); RBC 4.67 m/uL (4.30-5.90); RDW 14.3 % (11.5-15.5); WBC 6.9 k/uL (3.8-10.6)
[2019-04-30 08:58] LABS: Albumin 3.5 g/dL (3.5-5.0); Calcium 8.2 mg/dL (8.4-10.2); Potassium 3.6 mmol/L (3.5-5.1); Total Bilirubin 1.6 mg/dL (0.2-1.3); Total Protein 6.7 g/dL (6.3-8.2)
[2019-04-30 09:00] LABS: INR 1.6 (<1.2); Partial Thromboplastin Time 30.6 sec (22.0-30.0); Prothrombin Time 15.4 sec (9.0-12.0)
--- NOTE | 2019-04-30 09:17 | XR ---
EXAMINATION TYPE: XR chest 2V DATE OF EXAM: 04/30/2019 COMPARISON: CTA chest September 26, 2018. 2 view chest x-ray December 10, 2018 HISTORY: Fever. TECHNIQUE: Frontal and lateral views of the chest are obtained. FINDINGS: There is chronic parenchymal change bilaterally without suspicious focal air space opacity , pleural effusion, or pneumothorax seen. The cardiac silhouette size is mildly enlarged with athero sclerotic aorta. The osseous structures are demineralized. Degenerative change right shoulder is pr esent. IMPRESSION: Chronic changes and mild cardiomegaly without acute pulmonary process.
[2019-04-30 09:35] LABS: Appearance,Urine Cloudy (Clear); Bacteria,Urine Occasional /hpf; Bilirubin,Urine Negative (Negative); Blood,Urine Small (Negative); Color,Urine Yellow; Glucose,Urine (UA) Negative (Negative); Ketones,Urine Negative (Negative); Leukocyte Esterase,Urine Negative (Negative); Mucus,Urine Rare /hpf; Nitrite,Urine Negative (Negative); PH, Urine 5.5 (5.0-8.0); Protein,Urine 1+ (Negative); RBC,Urine 2 /hpf (0-5); Specific Gravity,Urine 1.024 (1.001-1.035); Squamous Epithelial Cell,Urine 4 /hpf (0-4); WBC,Urine 1 /hpf (0-5)
[2019-04-30] MEDS ORDERED: IPRATROPIUM-ALBUTEROL 3 ML NEB INHALATION STA (09:53)
[2019-04-30] MEDS ORDERED: LEVOFLOXACIN 750MG-D5W PMX 750 MG in DEXTROSE/WATER 1 150ML.BAG IVPB STA (09:58)
[2019-04-30] MEDS ORDERED: PNEUMONIA PROTOCOL UTILIZED 1 EACH MISC PO PRN (10:04)
[2019-04-30] MEDS ORDERED: NALOXONE 0.4 MG/ML 1 ML VIAL IV PRN (14:28)
[2019-04-30] MEDS ORDERED: NICOTINE POLACRILEX 2 MG GUM BUCCAL PRN (14:28)
[2019-04-30] MEDS ORDERED: MELATONIN 3 MG TABLET PO PRN (14:28)
[2019-04-30] MEDS ORDERED: ACETAMINOPHEN TAB 325 MG TAB PO PRN (14:28)
[2019-04-30] MEDS ORDERED: ONDANSETRON 4 MG/2 ML VIAL IVP PRN (14:28)
--- NOTE | 2019-04-30 14:53 | P.HPIM ---
History of Present Illness H&P Date: 04/30/19 (delayed charting seen at bedside. ) Chief Complaint: shortness of breath Patient is a 83-year-old male with a past medical history of atrial flutter, coronary artery disease, hypertension, and dyslipidemia who presented to the hospital with complaints of weakness, fatigue, and shortness of breath. In the ER he underwent an extensive evaluation. On arrival he had a temperature of 100.4 and O2 sat was 94% on room air. Initial laboratory evaluation in the ER showed an elevated INR at 1.6 and an elevated total bilirubin at 1.6. Fluids negative, RSV negative, urinalysis negative. Chest x-ray showed no acute process. EKG demonstrated normal sinus rhythm with a first-degree AV block no significant ST-T wave changes. There is worry about clinical bronchitis. Given a dose of Levaquin and IV fluids in the ER. He was admitted for further monitoring. Patient seen and examined at bedside. History taking is extremely limited due to patient being hard of hearing. He reports that he has been weak since he had his last stent placed in December. However over the last week his weakness has worsened greatly. He is now barely able to get out of bed and walk around without significant weakness. Every time he stands up he feels lightheaded and dizzy. He reports some increasing shortness of breath, but no increasing chest pain. He states he is less able to do his activities of daily living. He also reports a chronic dry cough that he states is unchanged. He states he has not been eating or drinking well. He denies any dysuria, nausea, vomiting, or diarrhea. He denies any weight loss or weight gain. He states he's been taking his medications regularly. He also follows with Dr. Barboza and has a significant heart history. No muscle aches. He does report chills over the last week. Review of Systems Pertinent positives and negatives as discussed in HPI, a complete review of systems was performed and all other systems are negative. Past Medical History Past Medical History: Atrial Flutter, Coronary Artery Disease (CAD), Cancer, Hyperlipidemia, Hypertension, Myocardial Infarction ([place]), Osteoarthritis (OA), Sleep Apnea/CPAP/BIPAP, Thyroid Disorder Additional Past Medical History / Comment(s): Healing wound on rt lower leg, hx skin cancer Last Myocardial Infarction Date:: 2008 History of Any Multi-Drug Resistant Organisms: None Reported Past Surgical History: Heart Catheterization With Stent, Joint Replacement Additional Past Surgical History / Comment(s): Replacements of KAREN KNEES, KAREN HIPS and RT SHOULDER, has 2 or 3 coranary stents, recent karen eyelid sx, and removal of skin tag on rt eye lid Past Anesthesia/Blood Transfusion Reactions: No Reported Reaction Date of Last Stent Placement:: 2018 Past Psychological History: No Psychological Hx Reported Smoking Status: Current every day smoker Past Alcohol Use History: Occasional Additional Past Alcohol Use History / Comment(s): Smoking a pipe currently several times a day, was smoking cigars and cigarettes 1PPD SINCE AGE 15 (1). Past Drug Use History: None Reported - Past Family History Mother Family Medical History: No Reported History Brother(s) Family Medical History: Myocardial Infarction ([place]) Father Family Medical History: Myocardial Infarction ([place]) Medications and Allergies Home Medications Medication Instructions Recorded Confirmed Type Levothyroxine Sodium [Synthroid] 50 mcg PO DAILY 11/09/15 04/30/19 History Metoprolol Succinate [Toprol XL] 50 mg PO DAILY 11/09/15 04/30/19 History Atorvastatin [Lipitor] 40 mg PO HS 09/26/18 04/30/19 History Folic Acid 1 mg PO HS 09/26/18 04/30/19 History Nitroglycerin Sl Tabs [Nitrostat] 0.4 mg SUBLINGUAL Q5M PRN 09/26/18 04/30/19 History Warfarin [Coumadin] 5 mg PO MOFR 09/26/18 04/30/19 History Aspirin EC [Ecotrin Low Dose] 81 mg PO DAILY 11/22/18 04/30/19 History Ranolazine [Ranexa] 500 mg PO BID 01/04/19 04/30/19 History Clopidogrel [Plavix] 75 mg PO DAILY #90 tab 01/05/19 04/30/19 Rx Famotidine [Pepcid] 20 mg PO DAILY 04/30/19 04/30/19 History Furosemide [Lasix] 20 mg PO DAILY 04/30/19 04/30/19 History Isosorbide Mononitrate ER [Imdur] 30 mg PO DAILY 04/30/19 04/30/19 History Warfarin [Coumadin] 2.5 mg PO SUTUWETHSA 04/30/19 04/30/19 History Allergies Allergy/AdvReac Type Severity Reaction Status Date / Time Penicillins Allergy Anaphylaxis Verified 04/30/19 11:17 [email or web address] Allergy Anaphylaxis Verified 04/30/19 11:17 cardiolite Allergy Anaphylaxis Uncoded 04/30/19 08:21 Physical Exam Osteopathic Statement: *. No significant issues noted on an osteopathic structural exam other than those noted in the History and Physical/Consult. Vitals: Vital Signs Temp Pulse Pulse Resp BP BP Pulse Ox 04/30/19 12:42 96 04/30/19 12:00 98.4 F 88 20 114/68 95 04/30/19 11:10 97.3 F L 90 18 107/58 97 04/30/19 10:21 93 04/30/19 10:11 89 04/30/19 10:00 90 18 124/61 98 04/30/19 09:42 99.9 F H 04/30/19 09:00 88 26 H 103/93 99 04/30/19 08:10 100.4 F H 93 24 143/73 94 L Intake and Output 04/29/19 04/30/19 04/30/19 22:59 06:59 14:59 Other: Voiding Method Diaper Incontinent # Voids 2 Weight 104.326 kg General: ill appearing, no distress, appears at stated age, normal weight Derm: no unusual rashes/lesions no unusual ecchymoses, warm, dry, + skin tenting Head: atraumatic, normocephalic, symmetric Eyes: EOMI, no lid lag, anicteric sclera ENT: Nose and ears atraumatic, no thrush Neck: No thyromegaly, no cervical lymphadenopathy, trachea midline, supple Mouth: no lip lesion, mucus membranes dry Cardiovascular: S1S2 reg, no murmur, positive posterior tibial pulse bilateral, 1 + edema, capillary refill less than 2 seconds Lungs: Decrease bs bilateral, no rhonchi, no rales , no accessory muscle use Abdominal: soft, nontender to palpation, no guarding, no appreciable organomegaly, normal bowel sounds Ext: no gross muscle atrophy, muscle strength 4-5 out of 5 in all 4 extremities grossly, no contractures, Neuro: CN II-XI grossly intact, light touch intact all 4 extremities, finger to nose within normal limits, Psych: Alert, oriented, appropriate affect Results CBC & Chem 7: 04/30/19 08:25 04/30/19 08:25 Labs: Abnormal Lab Results - Last 24 Hours (Table) 04/30/19 04/30/19 04/30/19 Range/Units 08:25 08:25 08:57 PT 15.4 H (9.0-12.0) sec INR 1.6 H (<1.2) APTT 30.6 H (22.0-30.0) sec BUN 26 H (9-20) mg/dL Glucose 120 H (74-99) mg/dL Calcium 8.2 L (8.4-10.2) mg/dL Total Bilirubin 1.6 H (0.2-1.3) mg/dL Urine Protein 1+ H (Negative) Urine Blood Small H (Negative) Urine Bacteria Occasional H (None) /hpf Urine Mucus Rare H (None) /hpf Chest x-ray: report reviewed Thrombosis Risk Factor Assmnt - DVT/VTE Prophylaxis DVT/VTE Prophylaxis: Pharmacologic Prophylaxis ordered - Choose All That Apply Any of the Below Risk Factors Present?: Yes Each Factor Represents 1 point: Obesity (BMI >25) Other Risk Factors: Yes Each Risk Factor Represents 3 Points: Age 75 years or older Other congenital or acquired thrombophilia - If yes, enter type in comment: Yes Thrombosis Risk Factor Assessment Total Risk Factor Score: 4 Thrombosis Risk Factor Assessment Level: Moderate Risk Assessment and Plan Assessment: Generalized weakness -Possible acute viral syndrome, continue to monitor fever profile -Check BNP and troponin with history of significant heart disease -PT/OT evaluation -Check TSH, B12, vitamin D - check orthostatic blood pressures Coronary artery disease -Continue with Plavix, aspirin Hypertension, controlled -Continue with metoprolol, Lasix on hold -Follow blood pressures Dyslipidemia -Statin Hypothyroidism -Check TSH -Levothyroxine Atrial flutter, paroxysmal with subtherapeutic Coumadin coagulopathy -Pharmacy to dose Coumadin -Follow heart rate - metoprolol PRerenal azotemia - IV fluids, lasix on hold. The patient is admitted with an anticipated greater than 2 midnight stay for evaluation of weakness with concern for URI, VS atypical angina. Surrogate decision-maker: CODE STATUS:DNR DVT prophylaxis: coumadin Discussed with: Patient, nursing Anticipated discharge date: 2-[address]: home with home health A total of 35 minutes was spent on the care of this complex patient more than 50% of the time was spent in counseling and care coordination.
--- NOTE | 2019-04-30 15:18 | P.CNPUL ---
History of Present Illness Consult date: 04/30/19 Requesting physician: Faith Welch Reason for consult: dyspnea Chief complaint: Dizziness, weakness History of present illness: This is an 83-year-old gentleman who follows with Dr. Garsia as his primary care provider. He has a history of hypertension, hyperlipidemia, hypothyroidism, atrial flutter, anticoagulated with warfarin, coronary artery disease with previous stent placement. He presented here to the emergency room yesterday with complaints of dizziness and weakness. He is somewhat of a poor historian. He is hard of hearing. He states his is unable to take care of him at home. Chest x-ray reveals chronic changes and mild cardiomegaly but no acute pulmonary process. White count 6.9. Hemoglobin 14.2. INR 1.6. Creatinine 1.23. Troponin 0.147. ProBNP 2300. Influenza screen negative. RSV by PCR negative. He did have a presenting temperature of 100.4. Currently afebrile. Hemodynamically stable. Maintaining O2 saturation in the mid 90s on 2 L/m per nasal cannula. Review of Systems REVIEW OF SYSTEMS: CONSTITUTIONAL: Positive for dizziness. No syncope. Denies any recent significant weight loss or weight gain. EYES: Denies change in vision. EARS, NOSE, MOUTH, THROAT: Denies headaches, denies sore throat. CARDIOVASCULAR: Denies chest pain, palpitations or syncopal episodes. RESPIRATORY: Denies shortness of breath, cough, congestion or hemoptysis. GASTROINTESTINAL: Denies change in appetite, denies abdominal pain GENITOURINARY: Denies hematuria, denies infections. MUSKULOSKELETAL: Denies pain, denies swelling. INTEGUMENTARY: Denies rash, denies eczema. NEUROLOGICAL: Denies recent memory loss, no recent seizure activity. PSYCHIATRIC: Denies anxiety, denies depression. HEMATOLOGIC/LYMPHATIC: Denies anemia, denies enlarged lymph nodes. Past Medical History Past Medical History: Atrial Flutter, Coronary Artery Disease (CAD), Cancer, Hyperlipidemia, Hypertension, Myocardial Infarction ([place]), Osteoarthritis (OA), Sleep Apnea/CPAP/BIPAP, Thyroid Disorder Additional Past Medical History / Comment(s): Healing wound on rt lower leg, hx skin cancer Last Myocardial Infarction Date:: 2008 History of Any Multi-Drug Resistant Organisms: None Reported Past Surgical History: Heart Catheterization With Stent, Joint Replacement Additional Past Surgical History / Comment(s): Replacements of KAREN KNEES, KAREN HIPS and RT SHOULDER, has 2 or 3 coranary stents, recent karen eyelid sx, and removal of skin tag on rt eye lid Past Anesthesia/Blood Transfusion Reactions: No Reported Reaction Date of Last Stent Placement:: 2018 Past Psychological History: No Psychological Hx Reported Smoking Status: Current every day smoker Past Alcohol Use History: Occasional Additional Past Alcohol Use History / Comment(s): Smoking a pipe currently several times a day, was smoking cigars and cigarettes 1PPD SINCE AGE 15 (1952). Past Drug Use History: None Reported - Past Family History Mother Family Medical History: No Reported History Brother(s) Family Medical History: Myocardial Infarction ([place]) Father Family Medical History: Myocardial Infarction ([place]) Medications and Allergies Home Medications Medication Instructions Recorded Confirmed Type Levothyroxine Sodium [Synthroid] 50 mcg PO DAILY 11/09/15 04/30/19 History Metoprolol Succinate [Toprol XL] 50 mg PO DAILY 11/09/15 04/30/19 History Atorvastatin [Lipitor] 40 mg PO HS 09/26/18 04/30/19 History Folic Acid 1 mg PO HS 09/26/18 04/30/19 History Nitroglycerin Sl Tabs [Nitrostat] 0.4 mg SUBLINGUAL Q5M PRN 09/26/18 04/30/19 History Warfarin [Coumadin] 5 mg PO MOFR 09/26/18 04/30/19 History Aspirin EC [Ecotrin Low Dose] 81 mg PO DAILY 11/22/18 04/30/19 History Ranolazine [Ranexa] 500 mg PO BID 01/04/19 04/30/19 History Clopidogrel [Plavix] 75 mg PO DAILY #90 tab 01/05/19 04/30/19 Rx Famotidine [Pepcid] 20 mg PO DAILY 04/30/19 04/30/19 History Furosemide [Lasix] 20 mg PO DAILY 04/30/19 04/30/19 History Isosorbide Mononitrate ER [Imdur] 30 mg PO DAILY 04/30/19 04/30/19 History Warfarin [Coumadin] 2.5 mg PO SUTUWETHSA 04/30/19 04/30/19 History Allergies Allergy/AdvReac Type Severity Reaction Status Date / Time Penicillins Allergy Anaphylaxis Verified 04/30/19 11:17 regadenoson Allergy Anaphylaxis Verified 04/30/19 11:17 cardiolite Allergy Anaphylaxis Uncoded 04/30/19 08:21 Physical Exam Vitals: Vital Signs Temp Pulse Pulse Resp BP BP Pulse Ox 04/30/19 12:42 96 04/30/19 12:00 98.4 F 88 20 114/68 95 04/30/19 11:10 97.3 F L 90 18 107/58 97 04/30/19 10:21 93 04/30/19 10:11 89 04/30/19 10:00 90 18 124/61 98 04/30/19 09:42 99.9 F H 04/30/19 09:00 88 26 H 103/93 99 04/30/19 08:10 100.4 F H 93 24 143/73 94 L Intake and Output 04/30/19 04/30/19 04/30/19 06:59 14:59 22:59 Other: Voiding Method Diaper Incontinent # Voids 2 Weight 104.326 kg GENERAL EXAM: Alert, pleasant 83-year-old gentleman, on 2 L nasal cannula, comfortable in no apparent distress. HEAD: Normocephalic. EYES: Normal reaction of pupils, equal size. NOSE: Clear with pink turbinates. THROAT: No erythema or exudates. NECK: No masses, no JVD. CHEST: No chest wall deformity. LUNGS: Equal air entry with no crackles, wheeze, rhonchi or dullness. CVS: S1 and S2 normal with no audible murmur, irregular rhythm. ABDOMEN: No hepatosplenomegaly, normal bowel sounds, no guarding or rigidity. SPINE: No scoliosis or deformity SKIN: No rashes CENTRAL NERVOUS SYSTEM: No focal deficits, tone is normal in all 4 extremities. EXTREMITIES: There is no peripheral edema. No clubbing, no cyanosis. Peripheral pulses are intact. Results - Laboratory Findings CBC and BMP: 04/30/19 08:25 04/30/19 08:25 PT/INR, D-dimer PT 15.4 sec (9.0-12.0) H 04/30/19 08:25 INR 1.6 (<1.2) H 04/30/19 08:25 Abnormal lab findings: Abnormal Labs 04/30/19 04/30/19 04/30/19 08:25 08:25 08:28 PT 15.4 H INR 1.6 H APTT 30.6 H BUN 26 H Glucose 120 H Calcium 8.2 L Total Bilirubin 1.6 H Troponin I 0.147 H* Urine Protein Urine Blood Urine Bacteria Urine Mucus 04/30/19 08:57 PT INR APTT BUN Glucose Calcium Total Bilirubin Troponin I Urine Protein 1+ H Urine Blood Small H Urine Bacteria Occasional H Urine Mucus Rare H - Diagnostic Findings Chest x-ray: image reviewed Assessment and Plan Assessment: 1 Generalized weakness with dizziness of unclear etiology, rule out acute viral syndrome 2 Febrile illness, influenza screen and RSV per PCR negative 3 Troponin leak, and a patient with a known history of coronary disease and previous stent placement 4 Hypertension 5 Hyperlipidemia. 6 Hypothyroidism 7 History of atrial flutter, anticoagulated with warfarin, subtherapeutic Plan: The patient was seen and evaluated by Dr. Garsia. Currently stable from the pulmonary standpoint. We'll await further test results. We will continue to follow and make further recommendations based on his clinical status. Discharge planning in place. I, the cosigning physician, performed a history & physical examination of the patient. Lungs sounds are clear. Maintaining good O2 saturations in the 90s on 2 L/m per nasal cannula. I discussed the assessment and plan of care with my nurse practitioner, Teressa Bruce. I attest to the above note as dictated by her. Time with Patient: Greater than 30
[2019-04-30] MEDS ORDERED: ASPIRIN 81 MG PO STA (15:43)
[2019-04-30] MEDS: SODIUM CHLORIDE 0.9% 1,000 ML IV SCH (15:59)
[2019-04-30] MEDS: IPRATROPIUM-ALBUTEROL 3 ML NEB INHALATION PRN ×2 (17:03→19:55)
[2019-04-30 17:15] LABS: Creatine Kinase MB 1.8 ng/mL (0.0-2.4)
[2019-04-30 17:26] LABS: Troponin I 0.109 ng/mL (0.000-0.034)
[2019-04-30] MEDS ORDERED: WARFARIN 5 MG TAB PO ONE (18:00)
[2019-04-30] MEDS: ATORVASTATIN 40 MG TAB PO SCH (21:17)
[2019-04-30] MEDS: RANOLAZINE 500 MG TAB.ER.12H PO SCH (21:17)
[2019-04-30] MEDS: FOLIC ACID 1 MG TAB PO SCH (21:17)
[2019-05-01] MEDS: SODIUM CHLORIDE 0.9% 1,000 ML IV SCH ×2 (03:24→18:05)
[2019-05-01] MEDS: LEVOTHYROXINE 50 MCG TAB PO SCH (05:21)
--- NOTE | 2019-05-01 06:32 | XR ---
EXAMINATION TYPE: XR chest 1V portable DATE OF EXAM: 05/01/2019 HISTORY: pneumonia. REFERENCE: Previous study dated 04/30/2019. FINDINGS: There is a right shoulder arthroplasty in place. Heart is mildly enlarged. The lungs appear clear. Pleural spaces are clear. IMPRESSION: CARDIOMEGALY.
[2019-05-01 08:01] LABS: HCT 37.4 % (39.0-53.0); HGB 12.7 gm/dL (13.0-17.5); MCH 30.7 pg (25.0-35.0); MCHC 33.9 g/dL (31.0-37.0); MCV 90.5 fL (80.0-100.0); Mean Platelet Volume 8.3; Platelet Count 195 k/uL (150-450); RBC 4.14 m/uL (4.30-5.90); RDW 14.3 % (11.5-15.5); WBC 5.2 k/uL (3.8-10.6)
[2019-05-01 08:03] LABS: INR 1.9 (<1.2); Prothrombin Time 18.3 sec (9.0-12.0)
[2019-05-01 08:44] LABS: Albumin 2.9 g/dL (3.5-5.0); Calcium 7.9 mg/dL (8.4-10.2); Magnesium 2.1 mg/dL (1.6-2.3); Potassium 3.6 mmol/L (3.5-5.1); Total Bilirubin 1.5 mg/dL (0.2-1.3)
--- NOTE | 2019-05-01 08:53 | CONS ---
CONSULTATION ATTENDING PHYSICIAN: Dr. Garsia. HISTORY OF PRESENT ILLNESS: Mr. Mccarty is an 83-year-old male with a known history of atrial fibrillation, history of coronary artery disease who has been followed by Dr. Barboza. He has history of chronic tobacco use. He presented with symptoms of progressive dyspnea. The patient has a dry chronic cough, but no recent fever. He denies any dizziness or palpitation. He denies any chest discomfort. He has no significant peripheral edema. No clear PND nor orthopnea. He has underwent cardioversion in the past, but he is back in atrial fibrillation. He has underwent stenting of his LAD in December of last year and has a known history of chronically occluded RCA. MEDICATIONS: He continues to be at home on Coumadin, Lasix, isosorbide mononitrate 30 mg daily, Ranexa 5 mg twice a day, metoprolol succinate 50 mg daily, Pepcid, Plavix 75 mg daily, Lipitor 40 mg daily and aspirin once a day. REVIEW OF SYSTEMS: RESPIRATORY system: He has history of chronic tobacco use and chronic dyspnea on exertion. He has the cough. GI system: He has no recent nausea, no vomiting. No recent GI bleeding. system: No dysuria or hematuria. Nervous system: No history of stroke or seizure. PHYSICAL EXAMINATION: He is an 83-year-old male, alert, oriented, in no apparent distress. Blood pressure 122/70 with a heart rate in the 80s. Afebrile. HEAD: Normocephalic. Eyes: Sclerae anicteric. Neck: Good upstroke. No bruit. No jugular venous distention. Lungs with decreased air exchange bilaterally with end- expiratory wheezes. Heart irregularly irregular S1, S2. No S3 with a systolic murmur heard at the base. No diastolic murmur. No rub. ABDOMEN: Soft, nontender. Positive bowel sounds. No organomegaly. Extremities trace edema. LAB DATA: Lab data revealed a hemoglobin of 12.7, white blood cell of 5.2. INR 1.9. His troponin is 0.147 and 0.109. NT proBNP is 2300. BUN and creatinine 26 and 1.23. His influenza screen is negative. His RSV PCR is negative. Chest x-ray shows cardiomegaly with no acute infiltrate. His EKG revealed atrial fibrillation with right bundle branch block, occasional PVCs. IMPRESSION: 1. Symptoms of progressive dyspnea and fatigue, could be related to a viral infection or exacerbation of chronic obstructive pulmonary disease. 2. Minimal troponin elevation. No evidence to suggest acute coronary syndrome. 3. History of coronary artery disease status post percutaneous revascularization in December of 2018 of his LAD with a chronic occluded right coronary artery. 4. Chronic persistent atrial fibrillation. 5. History of prior cardioversion. RECOMMENDATION: From the cardiac standpoint, I will stop his aspirin at this time and just continue on the Plavix and Coumadin since his stent was done in December and to avoid triple anticoagulation. The elevation of the troponin, I do not believe that is related to any acute coronary syndrome, most likely related to his respiratory presentation. I will obtain echocardiogram with Doppler. Continue the rest of his medical regimen. He has been seen by Dr. Garsia who is his primary physician. Depending on his progress, further recommendations will be made. Thank you for this consult. Will follow with you. KAYLEN / AKILAHN: [id number] /
[2019-05-01] MEDS ORDERED: LEVOFLOXACIN 750MG-D5W PMX 750 MG in DEXTROSE/WATER 1 150ML.BAG IVPB SCH (09:00)
[2019-05-01] MEDS ORDERED: FUROSEMIDE 20 MG TAB PO SCH (09:00)
[2019-05-01] MEDS ORDERED: ASPIRIN 81 MG PO SCH (09:00)
[2019-05-01] MEDS: CLOPIDOGREL 75 MG TAB PO SCH (09:01)
[2019-05-01] MEDS: ISOSORBIDE MONONITRATE ER 30 MG TAB.ER.24H PO SCH (09:01)
[2019-05-01] MEDS: FAMOTIDINE 20 MG TAB PO SCH (09:01)
[2019-05-01] MEDS: METOPROLOL SUCCINATE (ER) 50 MG TAB.ER.24H PO SCH (09:01)
[2019-05-01] MEDS: RANOLAZINE 500 MG TAB.ER.12H PO SCH ×2 (09:02→21:04)
--- NOTE | 2019-05-01 13:17 | P.PN ---
Subjective Progress Note Date: 05/01/19 Principal diagnosis: Generalized weakness with dizziness This is an 83-year-old gentleman who follows with Dr. Garsia as his primary care provider. He has a history of hypertension, hyperlipidemia, hypothyroidism, atrial flutter, anticoagulated with warfarin, coronary artery disease with previous stent placement. He presented here to the emergency room yesterday with complaints of dizziness and weakness. He is somewhat of a poor historian. He is hard of hearing. He states his is unable to take care of him at home. Chest x-ray reveals chronic changes and mild cardiomegaly but no acute pulmonary process. White count 6.9. Hemoglobin 14.2. INR 1.6. Creatinine 1.23. Troponin 0.147. ProBNP 2300. Influenza screen negative. RSV by PCR negative. He did have a presenting temperature of 100.4. Currently afebrile. Hemodynamically stable. Maintaining O2 saturation in the mid 90s on 2 L/m per nasal cannula. The patient is seen today 05/01/2019 in follow-up on the regular medical floor. He is awake and alert in no acute distress. Resting comfortably in bed. Appears a little stronger today compared to yesterday. He is maintaining good O2 saturations in the 90s on 2 L/m per nasal cannula. He's currently afebrile. Hemodynamically stable. Blood culture reveals no growth. White count 5.2. Hemoglobin 12.7. INR 1.9. Creatinine 1.09. Chest x-ray reveals evidence of cardiomegaly. Lungs are clear. Objective - Vital Signs Vital signs: Vital Signs Temp 98.5 F 05/01/19 05:59 Pulse 77 05/01/19 11:54 Resp 18 05/01/19 08:00 BP 132/70 05/01/19 11:54 Pulse Ox 97 05/01/19 05:59 Intake & Output 04/30/19 05/01/19 05/01/19 18:59 06:59 18:59 Intake Total 30 Output Total 400 Balance 30 -400 Weight 104.326 kg Intake: Oral 30 Output: Urine 400 Other: Voiding Method Diaper Diaper Diaper Incontinent Incontinent Incontinent # Voids 1 0 # Bowel Movements 0 - Exam GENERAL EXAM: Alert, pleasant 83-year-old gentleman, hard of hearing, on 2 L nasal cannula, comfortable in no apparent distress. HEAD: Normocephalic. EYES: Normal reaction of pupils, equal size. NOSE: Clear with pink turbinates. THROAT: No erythema or exudates. NECK: No masses, no JVD. CHEST: No chest wall deformity. LUNGS: Equal air entry with no crackles, wheeze, rhonchi or dullness. CVS: S1 and S2 normal with no audible murmur, irregular rhythm. ABDOMEN: No hepatosplenomegaly, normal bowel sounds, no guarding or rigidity. SPINE: No scoliosis or deformity SKIN: No rashes CENTRAL NERVOUS SYSTEM: No focal deficits, tone is normal in all 4 extremities. EXTREMITIES: There is no peripheral edema. No clubbing, no cyanosis. Peripheral pulses are intact. - Labs CBC & Chem 7: 05/01/19 07:28 05/01/19 07:28 Labs: Abnormal Lab Results - Last 24 Hours (Table) 04/30/19 04/30/19 04/30/19 Range/Units 08:25 08:28 16:11 RBC (4.30-5.90) m/uL Hgb (13.0-17.5) gm/dL Hct (39.0-53.0) % PT (9.0-12.0) sec INR (<1.2) BUN (9-20) mg/dL Calcium (8.4-10.2) mg/dL Total Bilirubin (0.2-1.3) mg/dL Troponin I 0.147 H* 0.109 H* (0.000-0.034) ng/mL Total Protein (6.3-8.2) g/dL Albumin (3.5-5.0) g/dL Procalcitonin 0.10 H (0.02-0.09) ng/mL 05/01/19 05/01/19 05/01/19 Range/Units 07:28 07:28 07:28 RBC 4.14 L (4.30-5.90) m/uL Hgb 12.7 L (13.0-17.5) gm/dL Hct 37.4 L (39.0-53.0) % PT 18.3 H (9.0-12.0) sec INR 1.9 H (<1.2) BUN 23 H (9-20) mg/dL Calcium 7.9 L (8.4-10.2) mg/dL Total Bilirubin 1.5 H (0.2-1.3) mg/dL Troponin I (0.000-0.034) ng/mL Total Protein 6.0 L (6.3-8.2) g/dL Albumin 2.9 L (3.5-5.0) g/dL Procalcitonin (0.02-0.09) ng/mL Microbiology - Last 24 Hours (Table) 04/30/19 08:25 Blood Culture - Preliminary Blood No Growth after 24 hours Assessment and Plan Assessment: 1 Generalized weakness with dizziness of unclear etiology, rule out acute viral syndrome 2 Febrile illness, influenza screen and RSV per PCR negative 3 Troponin leak, and a patient with a known history of coronary disease and previous stent placement 4 Hypertension 5 Hyperlipidemia. 6 Hypothyroidism 7 History of atrial flutter, anticoagulated with warfarin, subtherapeutic Plan: The patient was seen and evaluated by Dr. Garsia. Currently stable from the pulmonary standpoint. Titrate down the FiO2 as tolerated. We will continue to follow and make further recommendations based on his clinical status. I, the cosigning physician, performed a history & physical examination of the patient. Lungs sounds are clear. Maintaining good O2 saturations in the 90s on 2 L/m per nasal cannula. I discussed the assessment and plan of care with my nurse practitioner, Teressa Bruce. I attest to the above note as dictated by her.
[2019-05-01] MEDS ORDERED: SODIUM CHLORIDE 0.9% 1,000 ML IV ONE (13:25)
--- NOTE | 2019-05-01 15:54 | P.PN ---
Subjective Progress Note Date: 05/01/19 (delayed charting seen at 1400) Principal diagnosis: weakness Patient is an 83-year-old male with a past medical history of atrial flutter, coronary artery disease, hypertension, and dyslipidemia who presented to the hospital with complaints of weakness, fatigue, and shortness of breath. In the ER he underwent an extensive evaluation. On arrival he had a temperature of 100.4 and O2 sat was 94% on room air. Initial laboratory evaluation in the ER showed an elevated INR at 1.6 and an elevated total bilirubin at 1.6. Fluids negative, RSV negative, urinalysis negative. Chest x-ray showed no acute process. COVID-19 sent. EKG demonstrated normal sinus rhythm with a first- degree AV block no significant ST-T wave changes. There is worry about clinical bronchitis. He was given a dose of Levaquin and IV fluids in the ER. He was admitted for further monitoring. He was found to have a mildly positive troponin. He was seen by cardio and elevated troponin is due to respiratory symptoms. Patient seen and examined at bedside. He reports that he is feeling better today than yesterday. Still with dizziness on standing asking what is going to be done about his inner ear. We discussed his + orthostaics and IVF with repeat testing. Objective - Vital Signs Vital signs: Vital Signs Temp 98.5 F 05/01/19 05:59 Pulse 77 05/01/19 11:54 Resp 18 05/01/19 08:00 BP 132/70 05/01/19 11:54 Pulse Ox 97 05/01/19 05:59 Intake & Output 04/30/19 05/01/19 05/01/19 18:59 06:59 18:59 Intake Total 30 Output Total 400 Balance 30 -400 Weight 104.326 kg Intake: Oral 30 Output: Urine 400 Other: Voiding Method Diaper Diaper Diaper Incontinent Incontinent Incontinent # Voids 1 0 # Bowel Movements 0 - Exam General: ill appearing, no distress, appears at stated age Derm: warm, dry Head: atraumatic, normocephalic, symmetric Eyes: EOMI, no lid lag, anicteric sclera Mouth: no lip lesion, mucus membranes dry Cardiovascular: S1S2 reg, no murmur, positive posterior tibial pulse bilateral, Lungs: decreased bs bilateral, no rhonchi, no rales , no accessory muscle use Abdominal: soft, nontender to palpation, no guarding, no appreciable organomegaly Ext: no gross muscle atrophy, no edema, no contractures Neuro: CN II-XI grossly intact, Muscle strength 4/5 in b/l UE and LE (improved from 04/29) and finger to nose within normal. Psych: Alert, oriented, appropriate affect - Labs CBC & Chem 7: 05/01/19 07:28 05/01/19 07:28 Labs: Abnormal Lab Results - Last 24 Hours (Table) 04/30/19 04/30/19 04/30/19 Range/Units 08:25 08:28 16:11 RBC (4.30-5.90) m/uL Hgb (13.0-17.5) gm/dL Hct (39.0-53.0) % PT (9.0-12.0) sec INR (<1.2) BUN (9-20) mg/dL Calcium (8.4-10.2) mg/dL Total Bilirubin (0.2-1.3) mg/dL Troponin I 0.147 H* 0.109 H* (0.000-0.034) ng/mL Total Protein (6.3-8.2) g/dL Albumin (3.5-5.0) g/dL Procalcitonin 0.10 H (0.02-0.09) ng/mL 05/01/19 05/01/19 05/01/19 Range/Units 07:28 07:28 07:28 RBC 4.14 L (4.30-5.90) m/uL Hgb 12.7 L (13.0-17.5) gm/dL Hct 37.4 L (39.0-53.0) % PT 18.3 H (9.0-12.0) sec INR 1.9 H (<1.2) BUN 23 H (9-20) mg/dL Calcium 7.9 L (8.4-10.2) mg/dL Total Bilirubin 1.5 H (0.2-1.3) mg/dL Troponin I (0.000-0.034) ng/mL Total Protein 6.0 L (6.3-8.2) g/dL Albumin 2.9 L (3.5-5.0) g/dL Procalcitonin (0.02-0.09) ng/mL Microbiology - Last 24 Hours (Table) 04/30/19 08:25 Blood Culture - Preliminary Blood No Growth after 24 hours Assessment and Plan Assessment: Generalized weakness -Possible acute viral syndrome, continue to monitor fever profile -PT/OT evaluation -Await B12, vitamin D Orthostatic hypotension -1L bolus repeat in AM - if continued orthostatic consider hold imdur/ Renexa/ metoprolol Coronary artery disease -Continue with Plavix, coumadin - BB - Imdur and Renexa Hypertension, controlled -Continue with metoprolol, Lasix on hold -Follow blood pressures Dyslipidemia -Statin Hypothyroidism -TSH normal -Levothyroxine Atrial flutter, paroxysmal with subtherapeutic Coumadin coagulopathy -Pharmacy to dose Coumadin -Follow heart rate - metoprolol Prerenal azotemia - IV fluids, lasix on hold. D/W Dr. Garsia likely needs placement DVT prophylaxis: coumadin Discussed with: Patient, nursing Anticipated discharge date: 2-[address]: home with home health A total of 35 minutes was spent on the care of this complex patient more than 50% of the time was spent in counseling and care coordination.
[2019-05-01] MEDS ORDERED: WARFARIN 2.5 MG TAB PO ONE (18:00)
[2019-05-01] MEDS: FOLIC ACID 1 MG TAB PO SCH (21:04)
[2019-05-01] MEDS: ATORVASTATIN 40 MG TAB PO SCH (21:04)
[2019-05-02] MEDS ORDERED: ALPRAZolam 0.25 MG TAB PO PRN (03:51)
[2019-05-02] MEDS: SODIUM CHLORIDE 0.9% 1,000 ML IV SCH (05:20)
[2019-05-02] MEDS: LEVOTHYROXINE 50 MCG TAB PO SCH (05:21)
[2019-05-02 05:54] LABS: Appearance,Urine Clear (Clear); Bilirubin,Urine Negative (Negative); Blood,Urine Negative (Negative); Color,Urine Yellow; Glucose,Urine (UA) Negative (Negative); Ketones,Urine Negative (Negative); Leukocyte Esterase,Urine Negative (Negative); Nitrite,Urine Negative (Negative); PH, Urine 5.5 (5.0-8.0); Protein,Urine Trace (Negative); Specific Gravity,Urine 1.025 (1.001-1.035)
[2019-05-02 06:52] LABS: HCT 38.6 % (39.0-53.0); HGB 12.8 gm/dL (13.0-17.5); MCH 30.8 pg (25.0-35.0); MCHC 33.3 g/dL (31.0-37.0); MCV 92.5 fL (80.0-100.0); Mean Platelet Volume 8.2; Platelet Count 178 k/uL (150-450); RBC 4.17 m/uL (4.30-5.90); RDW 14.3 % (11.5-15.5); WBC 5.1 k/uL (3.8-10.6)
[2019-05-02] MEDS: CLOPIDOGREL 75 MG TAB PO SCH (07:07)
[2019-05-02] MEDS: ISOSORBIDE MONONITRATE ER 30 MG TAB.ER.24H PO SCH (07:07)
[2019-05-02] MEDS: METOPROLOL SUCCINATE (ER) 50 MG TAB.ER.24H PO SCH (07:07)
[2019-05-02] MEDS: FAMOTIDINE 20 MG TAB PO SCH (07:07)
[2019-05-02] MEDS: RANOLAZINE 500 MG TAB.ER.12H PO SCH ×2 (07:07→20:23)
[2019-05-02 07:27] LABS: INR 2.4 (<1.2); Prothrombin Time 22.9 sec (9.0-12.0)
[2019-05-02 08:09] LABS: Calcium 8.2 mg/dL (8.4-10.2)
--- NOTE | 2019-05-02 08:57 | P.PN ---
Subjective Progress Note Date: 05/02/19 This pleasant 83-year-old gentleman with known history of atrial fibrillation, CAD, status post stenting of his LAD in December 2018, COPD and chronic tobacco use. He did undergo cardioversion in the past but appears to be back in atrial fibrillation/atrial flutter. Presented to the hospital with symptoms of progressive dyspnea. He has a chronic cough. Patient was febrile on admission T-max over the last 24-48 hours has been 99.2. Upon examination this morning patient is resting comfortably in bed. He feels his breathing has improved. Patient is able to verbalize where he sat as well as the year but does seem somewhat confused and answering questions which could be related to him being hard of hearing. He had been complaining of some dizziness and orthostatic blood pressures were found to be positive. He was given fluid bolus yesterday. Orthostatic blood pressures have not been checked yet today. Echocardiogram was done yesterday and results are pending. Labs today showed hemoglobin of 12.8, INR 2.4, BUN 20, creatinine 0.95. Objective - Vital Signs Vital signs: Vital Signs Temp 97.7 F 05/02/19 05:20 Pulse 83 05/02/19 05:20 Resp 20 05/02/19 05:20 BP 135/77 05/02/19 05:20 Pulse Ox 95 05/02/19 05:20 Intake & Output 05/01/19 05/02/19 05/02/19 18:59 06:59 18:59 Intake Total 370 Output Total 400 1000 Balance -400 -630 Intake: Oral 370 Output: Urine 400 1000 Other: Voiding Method Diaper Urinal Urinal Incontinent Diaper Diaper # Bowel Movements 1 - Exam PHYSICAL EXAMINATION: HEENT: Head is atraumatic, normocephalic. Pupils equal, round. Neck is supple. There is no elevated jugular venous pressure. HEART EXAMINATION: Heart sounds irregularly irregular, S1 and S2 with a systolic murmur. CHEST EXAMINATION: Lungs reveal diminished air entry bilaterally with faint wheezing throughout. No chest wall tenderness is noted on palpation or with deep breathing. ABDOMEN: Soft, nontender. Bowel sounds are heard. No organomegaly noted. EXTREMITIES: 2+ peripheral pulses with no evidence of peripheral edema and no calf tenderness noted. NEUROLOGIC patient is awake, alert and oriented x3 with some confusion noted when answering questions. . - Labs CBC & Chem 7: 05/02/19 06:10 05/02/19 06:10 Labs: Abnormal Lab Results - Last 24 Hours (Table) 05/01/19 05/02/19 05/02/19 Range/Units 07:28 05:25 06:10 RBC (4.30-5.90) m/uL Hgb (13.0-17.5) gm/dL Hct (39.0-53.0) % PT (9.0-12.0) sec INR (<1.2) Sodium 136 L (137-145) mmol/L BUN 23 H (9-20) mg/dL Glucose 105 H (74-99) mg/dL Calcium 7.9 L 8.2 L (8.4-10.2) mg/dL Total Bilirubin 1.5 H (0.2-1.3) mg/dL Total Protein 6.0 L (6.3-8.2) g/dL Albumin 2.9 L (3.5-5.0) g/dL Urine Protein Trace H (Negative) 05/02/19 05/02/19 Range/Units 06:10 06:10 RBC 4.17 L (4.30-5.90) m/uL Hgb 12.8 L (13.0-17.5) gm/dL Hct 38.6 L (39.0-53.0) % PT 22.9 H (9.0-12.0) sec INR 2.4 H (<1.2) Sodium (137-145) mmol/L BUN (9-20) mg/dL Glucose (74-99) mg/dL Calcium (8.4-10.2) mg/dL Total Bilirubin (0.2-1.3) mg/dL Total Protein (6.3-8.2) g/dL Albumin (3.5-5.0) g/dL Urine Protein (Negative) Microbiology - Last 24 Hours (Table) 04/30/19 08:25 Blood Culture - Preliminary Blood No Growth after 24 hours Assessment and Plan Assessment: #1 symptoms of progressive dyspnea and fatigue with chronic cough and fever on admission, rule out acute viral syndrome #2 minimal troponin elevation, no evidence to suggest acute coronary syndrome #3 history of CAD status post percutaneous revascularization in December 2018 of his LAD with a chronic occluded right coronary artery #4 chronic persistent atrial fibrillation #5 COPD Plan: From the cardiac standpoint, we will hold Imdur for now due to orthostatic drop in blood pressure. Continue Ranexa, metoprolol, Plavix, atorvastatin, and Coumadin. We'll review the patient's echocardiogram and if there are no significant abnormalities we will follow the patient on an as-needed basis and the patient patient may follow-up as an outpatient with Dr. Barboza for recurrent atrial fibrillation. FLASH DESIGNER note has been reviewed, I agree with a documented findings and plan of care. Patient was seen and examined.
--- NOTE | 2019-05-02 09:15 | ECHOF ---
Referral Reason:cad MEASUREMENTS -------- HEIGHT: 177.8 cm WEIGHT: 104.3 kg BP: 122/72 IVSd: 2.0 cm (0.6 - 1.1) LVIDd: 2.5 cm (3.9 - 5.3) LVPWd: 1.8 cm (0.6 - 1.1) IVSs: 1.9 cm LVIDs: 1.7 cm LVPWs: 1.6 cm LAESV Index (A-L): 37.75 ml/m Ao Diam: 2.7 cm (2.0 - 3.7) AV Cusp: 1.4 cm (1.5 - 2.6) MV EXCURSION: 14.414 mm (> 18.000) MV EF SLOPE: 46 mm/s (70 - 150) EPSS: 0.4 cm MV E Hector: 1.06 m/s MV DecT: 160 ms MV A Hector: 0.37 m/s MV E/A Ratio: 2.88 AV maxP.38 mmHg AV meanP.61 mmHg RAP: 5.00 mmHg RVSP: 27.55 mmHg FINDINGS -------- Atrial fibrillation. This was a technically difficult study with suboptimal views. The left ventricular size is normal. There is severe concentric left ventricular hypertrophy. Ove rall left ventricular systolic function is low-normal with, an EF between 50 - 55 %. Increased Lap Grade II Diastolic Dysfunction. The RV was not well visualized. LA is moderately dilated 34-39 ml/m2 The right atrium was not well visualized. 5.0mg of Lumason was utilized for enhancement of images The aortic valve was not well visualized. There is mild aortic stenosis present. Peak/mean gradie nt across the Aortic Valve is 19.38mmHg / 8.61mmHg. Mild mitral annular calcification present. Mild mitral regurgitation is present. Mild tricuspid regurgitation present. There is no evidence of pulmonary hypertension. The right v entricular systolic pressure, as measured by Doppler, is 27.55mmHg. The pulmonic valve was not well visualized. AORTIC root not well visualized IVC Not well visulized. There is no pericardial effusion. CONCLUSIONS -------- 1. Atrial fibrillation. 2. This was a technically difficult study with suboptimal views. 3. The left ventricular size is normal. 4. There is severe concentric left ventricular hypertrophy. 5. Overall left ventricular systolic function is low-normal with, an EF between 50 - 55 %. 6. Increased Lap Grade II Diastolic Dysfunction. 7. The RV was not well visualized. 8. LA is moderately dilated 34-39 ml/m2 9. The right atrium was not well visualized. 10. 5.0mg of Lumason was utilized for enhancement of images 11. The aortic valve was not well visualized. 12. There is mild aortic stenosis present. 13. Peak/mean gradient across the Aortic Valve is 19.38mmHg / 8.61mmHg. 14. Mild mitral regurgitation is present. 15. Mild tricuspid regurgitation present. 16. There is no evidence of pulmonary hypertension. 17. The pulmonic valve was not well visualized. 18. IVC Not well visulized. 19. There is no pericardial effusion. SENIOR TECHNICAL RECRUITER: Lula Bhakta RDCS
--- NOTE | 2019-05-02 14:46 | P.PN ---
Subjective Progress Note Date: 05/02/19 Principal diagnosis: Weakness Patient was seen and examined. No acute events overnight. Patient states that he feels generally well today. States that his weakness has improved. He denies any dizziness. Denies any chest pain, shortness of breath or palpitations. No nausea or vomiting. No fever or chills. Objective - Vital Signs Vital signs: Vital Signs Temp 97.7 F 05/02/19 05:20 Pulse 83 05/02/19 05:20 Resp 20 05/02/19 05:20 BP 135/77 05/02/19 05:20 Pulse Ox 95 05/02/19 05:20 Intake & Output 05/01/19 05/02/19 05/02/19 18:59 06:59 18:59 Intake Total 370 Output Total 400 1000 Balance -400 -630 Intake: Oral 370 Output: Urine 400 1000 Other: Voiding Method Diaper Urinal Urinal Incontinent Diaper Diaper # Voids 1 # Bowel Movements 1 - Exam General: [non toxic], [no distress], [appears at stated age] Derm: [warm], [dry] Head: [atraumatic], [normocephalic], [symmetric] Eyes: [EOMI], [no lid lag], [anicteric sclera] Mouth: [no lip lesion], [mucus membranes moist] Cardiovascular: [S1S2 reg], [no murmur], [positive posterior tibial pulse bilateral], Lungs: [Decreased breath sounds bilateral], [no rhonchi, no rales] , [no accessory muscle use] Abdominal: [soft], [ nontender to palpation], [no guarding], [no appreciable organomegaly] Ext: [no gross muscle atrophy], [no edema], [no contractures] Neuro: [no focal neuro deficits] Psych: [Alert], [oriented], [appropriate affect] - Labs CBC & Chem 7: 05/02/19 06:10 05/02/19 06:10 Labs: Abnormal Lab Results - Last 24 Hours (Table) 05/02/19 05/02/19 05/02/19 Range/Units 05:25 06:10 06:10 RBC (4.30-5.90) m/uL Hgb (13.0-17.5) gm/dL Hct (39.0-53.0) % PT 22.9 H (9.0-12.0) sec INR 2.4 H (<1.2) Sodium 136 L (137-145) mmol/L Glucose 105 H (74-99) mg/dL Calcium 8.2 L (8.4-10.2) mg/dL Urine Protein Trace H (Negative) 05/02/19 Range/Units 06:10 RBC 4.17 L (4.30-5.90) m/uL Hgb 12.8 L (13.0-17.5) gm/dL Hct 38.6 L (39.0-53.0) % PT (9.0-12.0) sec INR (<1.2) Sodium (137-145) mmol/L Glucose (74-99) mg/dL Calcium (8.4-10.2) mg/dL Urine Protein (Negative) Microbiology - Last 24 Hours (Table) 04/30/19 08:25 Blood Culture - Preliminary Blood No Growth after 48 hours Assessment and Plan Assessment: Generalized weakness Orthostatic hypotension CAD Hypertension Dyslipidemia Hypothyroidism Atrial flutter Improved: Prerenal azotemia Possibly related to viral syndrome. TSH is within normal limits. Vitamin B12 low-normal at 239. RSV negative. Urinalysis negative. Plans: Follow PT and OT recommendations. Follow vitamin D. Patient was orthostatic yesterday. Given 1 L bolus. Plans: Imdur discontinued. Continue metoprolol and Ranexa. Continue normal saline at 75 mL per hour. Repeat orthostatic vitals tomorrow morning. Plans: Continue Plavix and Lipitor. Continue Ranexa. Continue beta enzo. BP 135/77. Continue metoprolol. Monitor vitals, adjust medications as necessary. Plans: Continue Lipitor. TSH within normal limits. Plans: Continue Synthroid. Plans: Continue metoprolol. Coumadin per pharmacy protocol. [PT and OT consultation pending. Social work on board. Likely DC in 2-3 days. Anticipate home with home health versus subacute rehab.]
[2019-05-02] MEDS: WARFARIN 2.5 MG TAB PO SCH (15:05)
[2019-05-02] MEDS: FOLIC ACID 1 MG TAB PO SCH (20:23)
[2019-05-02] MEDS: ATORVASTATIN 40 MG TAB PO SCH (20:23)
[2019-05-03] MEDS: SODIUM CHLORIDE 0.9% 1,000 ML IV SCH ×2 (01:01→10:03)
[2019-05-03] MEDS: LEVOTHYROXINE 50 MCG TAB PO SCH (05:28)
[2019-05-03] MEDS: IPRATROPIUM-ALBUTEROL 3 ML NEB INHALATION PRN ×3 (07:50→19:54)
[2019-05-03 08:12] LABS: INR 2.8 (<1.2); Prothrombin Time 27.6 sec (9.0-12.0)
[2019-05-03 08:38] LABS: African American GFR (CKD) >90 (>60 ml/min/1.73 sqM); Anion Gap 6 mmol/L; Blood Urea Nitrogen 14 mg/dL (9-20); Calcium 8.3 mg/dL (8.4-10.2); Carbon Dioxide 27 mmol/L (22-30); Chloride 107 mmol/L (98-107); Glucose 114 mg/dL (74-99); Non-African American GFR(CKD) 80 (>60 ml/min/1.73 sqM); Potassium 3.6 mmol/L (3.5-5.1); Sodium 140 mmol/L (137-145)
[2019-05-03] MEDS ORDERED: LEVOFLOXACIN 750 MG TAB PO SCH (09:00)
[2019-05-03] MEDS: METOPROLOL SUCCINATE (ER) 50 MG TAB.ER.24H PO SCH (10:02)
[2019-05-03] MEDS: RANOLAZINE 500 MG TAB.ER.12H PO SCH ×2 (10:03→20:39)
[2019-05-03] MEDS: FAMOTIDINE 20 MG TAB PO SCH (10:03)
[2019-05-03] MEDS: CLOPIDOGREL 75 MG TAB PO SCH (10:03)
--- NOTE | 2019-05-03 12:46 | CDI ---
Documentation Clarification Form Date: 05/03/2019 12:10:28 PM From: Mary Kimball RN CCDS Admit Date: 04/30/2019 09:57:00 AM Patient Name: Rodolfo Mccarty Visit Number: [id number] Discharge Date: ATTENTION: The Clinical Documentation Specialists (CDI) and [facility] Coding Staff appreciate your assistance in clarifying documentation. Please respond to the clarification below the line at the bottom and electronically sign. The CDI & [facility] Coding staff will review the response and follow-up if needed. Please note: Queries are made part of the Legal Health Record. If you have any questions, please contact the author of this message via ITS. Dr. Mono Hook MD Conflicting documentation has been found in the medical record: Atrial flutter, paroxysmal is documented in the H&P 04/29 and Internal Medicine progress note 04/30 and 05/01 Chronic persistent atrial fibrillation is documented in Cardiology consult 04/30 and in Progress note 05/01 History/Risk Factors: 83-year-old male presents to the ED with weakness. Medical history of Atrial Flutter, CAD, HLD, HTN and shortness of breath. Clinical Indicators: 04/29 EKG Sinus rhythm with 1st degree AV block with frequent premature ventricular complexes. Right bundle branch block Treatment:04/30 Coumadin In your opinion, what is the most clinically appropriate diagnosis for this patient? Atrial flutter Chronic persistent atrial fibrillation Other explanation of clinical findings Unable to determine (no explanation for clinical findings) (Last Revision: May 2017) Chronic persistent atrial fibrillation MTDD
--- NOTE | 2019-05-03 16:40 | P.PN ---
Subjective Progress Note Date: 05/03/19 Principal diagnosis: Weakness Patient was seen and examined. No acute events overnight. Patient has no complaints today. States that his weakness has improved. He denies any d izziness. Denies any chest pain, shortness of breath or palpitations. No nausea or vomiting. No fever or chills. Objective - Vital Signs Vital signs: Vital Signs Temp 97.2 F L 05/03/19 14:26 Pulse 82 05/03/19 16:26 Resp 20 05/03/19 16:10 BP 114/72 05/03/19 14:26 Pulse Ox 97 05/03/19 16:10 Intake & Output 05/02/19 05/03/19 05/03/19 18:59 06:59 18:59 Intake Total 400 Output Total 400 Balance -400 400 Intake: Oral 400 Output: Urine 400 Stool 0 Other: Voiding Method Urinal Bedside Commode Diaper Urinal Diaper # Voids 0 3 1 # Bowel Movements 0 1 - Exam General: [non toxic], [no distress], [appears at stated age] Derm: [warm], [dry] Head: [atraumatic], [normocephalic], [symmetric] Eyes: [EOMI], [no lid lag], [anicteric sclera] Mouth: [no lip lesion], [mucus membranes moist] Cardiovascular: [S1S2 reg], [no murmur], [positive posterior tibial pulse bilateral], Lungs: [Decreased breath sounds bilateral], [no rhonchi, no rales] , [no accessory muscle use] Abdominal: [soft], [ nontender to palpation], [no guarding], [no appreciable organomegaly] Ext: [no gross muscle atrophy], [no edema], [no contractures] Neuro: [no focal neuro deficits] Psych: [Alert], [oriented], [appropriate affect] - Labs CBC & Chem 7: 05/02/19 06:10 05/03/19 07:43 Labs: Abnormal Lab Results - Last 24 Hours (Table) 05/03/19 05/03/19 Range/Units 00:45 07:43 PT 27.6 H (9.0-12.0) sec INR 2.8 H (<1.2) Glucose 114 H (74-99) mg/dL Calcium 8.3 L (8.4-10.2) mg/dL Microbiology - Last 24 Hours (Table) 04/30/19 08:25 Blood Culture - Preliminary Blood No Growth after 72 hours Assessment and Plan Assessment: Generalized weakness Orthostatic hypotension CAD Hypertension Dyslipidemia Hypothyroidism Atrial flutter Improved: Prerenal azotemia Possibly related to viral syndrome. TSH is within normal limits. Vitamin B12 low-normal at 239. RSV negative. Urinalysis negative. Plans: Follow PT and OT recommendations. Follow vitamin D. Patient was orthostatic yesterday. Given 1 L bolus. Plans: Imdur discontinued. Continue metoprolol and Ranexa. Continue normal saline at 75 mL per hour. Repeat orthostatic vitals tomorrow morning. Plans: Continue Plavix and Lipitor. Continue Ranexa. Continue beta enzo. BP 114/72. Continue metoprolol. Monitor vitals, adjust medications as necessary. Plans: Continue Lipitor. TSH within normal limits. Plans: Continue Synthroid. Plans: Continue metoprolol. Coumadin per pharmacy protocol. [PT and OT consulted. Social work on board. Plans for [facility]. Likely DC tomorrow with insurance approval.]
[2019-05-03] MEDS ORDERED: WARFARIN 5 MG TAB PO SCH (18:00)
[2019-05-03] MEDS ORDERED: WARFARIN 2.5 MG TAB PO ONE (18:00)
[2019-05-03] MEDS: ATORVASTATIN 40 MG TAB PO SCH (20:39)
[2019-05-03] MEDS: FOLIC ACID 1 MG TAB PO SCH (20:39)
[2019-05-04] MEDS: SODIUM CHLORIDE 0.9% 1,000 ML IV SCH ×2 (00:21→11:35)
[2019-05-04] MEDS: METOPROLOL SUCCINATE (ER) 50 MG TAB.ER.24H PO SCH (05:35)
[2019-05-04] MEDS: LEVOTHYROXINE 50 MCG TAB PO SCH (05:35)
[2019-05-04 07:27] LABS: INR 2.7 (<1.2); Prothrombin Time 26.1 sec (9.0-12.0)
[2019-05-04] MEDS: FAMOTIDINE 20 MG TAB PO SCH (09:19)
[2019-05-04] MEDS: RANOLAZINE 500 MG TAB.ER.12H PO SCH ×2 (09:19→20:57)
[2019-05-04] MEDS: CLOPIDOGREL 75 MG TAB PO SCH (09:19)
--- NOTE | 2019-05-04 14:48 | P.PN ---
Subjective Progress Note Date: 05/04/19 (delayed charting seen at 10am) Principal diagnosis: weakness Patient is an 83-year-old male with a past medical history of atrial flutter, coronary artery disease, hypertension, and dyslipidemia who presented to the hospital with complaints of weakness, fatigue, and shortness of breath. In the ER he underwent an extensive evaluation. On arrival he had a temperature of 100.4 and O2 sat was 94% on room air. Initial laboratory evaluation in the ER showed an elevated INR at 1.6 and an elevated total bilirubin at 1.6. Fluids negative, RSV negative, urinalysis negative. Chest x-ray showed no acute process. COVID-19 sent. EKG demonstrated normal sinus rhythm with a first- degree AV block no significant ST-T wave changes. There is worry about clinical bronchitis. He was given a dose of Levaquin and IV fluids in the ER. He was admitted for further monitoring. He was found to have a mildly positive troponin. He was seen by cardio and elevated troponin is due to respiratory symptoms. He was found to have orthostatic hypotension and he received IV fluids and his Imdur was stopped. Orthostatic hypotension resolved. His Covid 19 came back negative. He continued to have some weakness and the plan is for [facility] facility on discharge as dizziness improved but still with unsteady gait. Currently awaiting auth. Patient seen and examined at bedside. He reports that he's had no dizziness on standing for the last 48 hours. No chest pain, shortness breath, nausea, vomiting, or chest discomfort. Hard of hearing. Objective - Vital Signs Vital signs: Vital Signs Temp 97.1 F L 05/04/19 05:00 Pulse 71 05/04/19 07:18 Resp 18 05/04/19 05:00 BP 142/67 05/04/19 07:18 Pulse Ox 100 05/04/19 05:00 Intake & Output 05/03/19 05/04/19 05/04/19 18:59 06:59 18:59 Intake Total 850 Balance 850 Intake: Oral 850 Other: Voiding Method Bedside Commode Urinal Diaper # Voids 1 3 - Exam General: non toxic, no distress, appears at stated age Derm: warm, dry Head: atraumatic, normocephalic, symmetric Eyes: EOMI, no lid lag, anicteric sclera Mouth: no lip lesion, mucus membranes moist Cardiovascular: S1S2 reg, no murmur, positive posterior tibial pulse bilateral, Lungs: decreased bs bilateral, no rhonchi, no rales , no accessory muscle use Abdominal: soft, nontender to palpation, no guarding, no appreciable organomegaly Ext: no gross muscle atrophy, no edema, no contractures Neuro: CN II-XI grossly intact, no focal deficits Psych: Alert, oriented, appropriate affect - Labs CBC & Chem 7: 05/02/19 06:10 05/03/19 07:43 Labs: Abnormal Lab Results - Last 24 Hours (Table) 05/04/19 Range/Units 06:42 PT 26.1 H (9.0-12.0) sec INR 2.7 H (<1.2) Microbiology - Last 24 Hours (Table) 04/30/19 08:25 Blood Culture - Preliminary Blood No Growth after 96 hours Assessment and Plan Assessment: Orthostatic hypotension causing generalized weakness -improved with imdur discontinued - Vit D and B 12 normal - SNF on discharge Coronary artery disease -Continue with Plavix, coumadin - BB - Renexa Hypertension, controlled -Continue with metoprolol, Lasix on hold -Follow blood pressures Dyslipidemia -Statin Hypothyroidism -TSH normal -Levothyroxine Chronic persistent A fib with subtherapeutic Coumadin coagulopathy -Pharmacy to dose Coumadin - Follow heart rate - metoprolol Prerenal azotemia, improved - stop IV fluids - off lasix - monitor for signs of fluid overload DVT prophylaxis: coumadin Discussed with: Patient, nursing Anticipated discharge date: once auth obtained Anticipated discharge place: Awaiting auth from [facility]. A total of 25 minutes was spent on the care of this complex patient more than 50% of the time was spent in counseling and care coordination.
[2019-05-04] MEDS: WARFARIN 2.5 MG TAB PO SCH (18:42)
[2019-05-04 20:56] VITALS: TEMP 97.7
[2019-05-04] MEDS: ATORVASTATIN 40 MG TAB PO SCH (20:57)
[2019-05-04] MEDS: FOLIC ACID 1 MG TAB PO SCH (20:57)
[2019-05-05] MEDS: LEVOTHYROXINE 50 MCG TAB PO SCH (06:07)
[2019-05-05 06:54] VITALS: RESP 16
[2019-05-05 08:09] LABS: INR 2.5 (<1.2); Prothrombin Time 23.9 sec (9.0-12.0)
[2019-05-05] MEDS: RANOLAZINE 500 MG TAB.ER.12H PO SCH (08:13)
[2019-05-05] MEDS: FAMOTIDINE 20 MG TAB PO SCH (08:13)
[2019-05-05] MEDS: CLOPIDOGREL 75 MG TAB PO SCH (08:13)
[2019-05-05] MEDS: METOPROLOL SUCCINATE (ER) 50 MG TAB.ER.24H PO SCH (08:13)
[2019-05-05] MEDS ORDERED: amLODIPine 2.5 MG TAB PO SCH (09:00)
[2019-05-05 10:27] VITALS: BP 129/72; PULSE 99
--- NOTE | 2019-05-05 10:42 | P.DS ---
Providers Date of admission: 04/30/19 09:57 Expected date of discharge: 05/05/19 Attending physician: Faith Welch DO Consults: 04/30/19 10:04 Consult Physician Routine Consulting Provider: Mike Garsia Consult Reason/Comments: sob, poss PNA Do you want consulting provider notified?: Yes 04/30/19 15:45 Consult Physician Routine Consulting Provider: Neto Barboza Consult Reason/Comments: elevated troponin Do you want consulting provider notified?: Yes Primary care physician: Mike Garsia Hospital Course: Discharge Diagnosis: Orthostatic hypotension Generalized weakness Dehydration, prerenal azotemia HTN, controlled Dyslipidemia Hypothyroidism Chronic persistent A fib with subtherapeutic Coumadin Coagulopathy Hospital Course: Patient is an 83-year-old male with a past medical history of atrial flutter, coronary artery disease, hypertension, and dyslipidemia who presented to the hospital with complaints of weakness, fatigue, and shortness of breath. In the ER he underwent an extensive evaluation. On arrival he had a temperature of 100.4 and O2 sat was 94% on room air. Initial laboratory evaluation in the ER showed an elevated INR at 1.6 and an elevated total bilirubin at 1.6. Fluids negative, RSV negative, urinalysis negative. Chest x-ray showed no acute process. COVID-19 sent. EKG demonstrated normal sinus rhythm with a first- degree AV block no significant ST-T wave changes. There is worry about clinical bronchitis. He was given a dose of Levaquin and IV fluids in the ER. He was admitted for further monitoring. He was found to have a mildly positive troponin. He was seen by cardio and elevated troponin is due to respiratory symptoms. He was found to have orthostatic hypotension and he received IV fluids and his Imdur was stopped. Orthostatic hypotension resolved. His Covid 19 came back negative. He continued to have some weakness, but improved significantly with therapy. He was determined stable to be discharged home with home health. His blood pressure was slightly elevated and he was started on Norvasc. His orthostatics remained negative. He will follow-up with Dr. Garsia in 3-5 days and Cardio in 2-3 weeks. He should wear compression stocking when up and ambulating. Patient seen and examined at bedside. Feeling much better, standing much better, diziznesss resolved, no nausea, no vomiting, no chest pain, no shortness of breath. Vital signs reviewed and stable. General: non toxic, no distress, appears at stated age Derm: warm, dry Head: atraumatic, normocephalic, symmetric, CHIT[place] Eyes: EOMI, no lid lag, anicteric sclera Mouth: no lip lesion, mucus membranes moist Cardiovascular: S1S2 reg, no murmur, positive posterior tibial pulse bilateral, Lungs: CTA bilateral, no rhonchi, no rales , no accessory muscle use Abdominal: soft, nontender to palpation, no guarding, no appreciable organomegaly Ext: no gross muscle atrophy, no edema, no contractures Neuro: CN II-XI grossly intact, no focal neuro deficits Psych: Alert, oriented, appropriate affect A total of 38 minutes of time were spent preparing this complex discharge summary . Patient Condition at Discharge: Good Plan - Discharge Summary Discharge Rx Participant: No New Discharge Prescriptions: New amLODIPine [Norvasc] 2.5 mg PO DAILY #30 tab Continue Metoprolol Succinate [Toprol XL] 50 mg PO DAILY Levothyroxine Sodium [Synthroid] 50 mcg PO DAILY Warfarin [Coumadin] 5 mg PO MOFR Folic Acid 1 mg PO HS Atorvastatin [Lipitor] 40 mg PO HS Ranolazine [Ranexa] 500 mg PO BID Clopidogrel [Plavix] 75 mg PO DAILY #90 tab Famotidine [Pepcid] 20 mg PO DAILY Warfarin [Coumadin] 2.5 mg PO SUTUWETHSA Discontinued Nitroglycerin Sl Tabs [Nitrostat] 0.4 mg SUBLINGUAL Q5M PRN PRN Reason: Chest Pain Aspirin EC [Ecotrin Low Dose] 81 mg PO DAILY Isosorbide Mononitrate ER [Imdur] 30 mg PO DAILY Furosemide [Lasix] 20 mg PO DAILY Discharge Medication List Levothyroxine Sodium [Synthroid] 50 mcg PO DAILY 11/09/15 [History] Metoprolol Succinate [Toprol XL] 50 mg PO DAILY 11/09/15 [History] Atorvastatin [Lipitor] 40 mg PO HS 09/26/18 [History] Folic Acid 1 mg PO HS 09/26/18 [History] Warfarin [Coumadin] 5 mg PO MOFR 09/26/18 [History] Ranolazine [Ranexa] 500 mg PO BID 01/04/19 [History] Clopidogrel [Plavix] 75 mg PO DAILY #90 tab 01/05/19 [Rx] Famotidine [Pepcid] 20 mg PO DAILY 04/30/19 [History] Warfarin [Coumadin] 2.5 mg PO SUTUWETHSA 04/30/19 [History] amLODIPine [Norvasc] 2.5 mg PO DAILY #30 tab 05/05/19 [Rx] Follow up Appointment(s)/Referral(s): Mike Garsia MD [Primary Care Provider] - 1-2 days Neto Barboza MD [Family Provider] - 2 Weeks [facility], [NON-STAFF] - 1 Week Ambulatory/Diagnostic Orders: Prothrombin Time INR [LAB.AMB] Time Frame: 2 Days, Location: None Selected Activity/Diet/Wound Care/Special Instructions: Activity: as tolerated Diet: Heart Healthy Special Instructions: Monitor blood pressure if able once daily INR in 2-3 days with home care. Discharge Disposition: HOME WITH HOME HEALTH SERVICES
[2019-05-07] MEDS ORDERED: WARFARIN 5 MG TAB PO SCH (18:00)
== END 2019-05-05 12:11 | DRG 312 ==
LOC: EC 08:09 → 6NMEDSUR 09:57
PROVIDERS: ADMIT Internal Medicine; ATTEND Internal Medicine
DX: I95.1 Orthostatic hypotension (principal); I48.19 Other persistent atrial fibrillation; I11.9 Hypertensive heart disease without heart failure; M19.90 Unspecified osteoarthritis, unspecified site; G47.30 Sleep apnea, unspecified; J40 Bronchitis, not specified as acute or chronic; R26.81 Unsteadiness on feet; R77.8 Other specified abnormalities of plasma proteins; E03.9 Hypothyroidism, unspecified; Z20.828 Contact with and (suspected) exposure to other viral communicable diseases; E78.5 Hyperlipidemia, unspecified; E86.0 Dehydration; F17.290 Nicotine dependence, other tobacco product, uncomplicated; H91.90 Unspecified hearing loss, unspecified ear; I25.10 Atherosclerotic heart disease of native coronary artery without angina pectoris; I25.2 Old myocardial infarction; I44.0 Atrioventricular block, first degree; J44.9 Chronic obstructive pulmonary disease, unspecified; R32 Unspecified urinary incontinence; R79.1 Abnormal coagulation profile; Z66 Do not resuscitate; R01.1 Cardiac murmur, unspecified; Z79.01 Long term (current) use of anticoagulants; Z79.02 Long term (current) use of antithrombotics/antiplatelets; Z79.82 Long term (current) use of aspirin; Z79.890 Hormone replacement therapy; Z79.899 Other long term (current) drug therapy; Z88.0 Allergy status to penicillin; Z88.8 Allergy status to other drugs, medicaments and biological substances; Z95.5 Presence of coronary angioplasty implant and graft; Z85.828 Personal history of other malignant neoplasm of skin; Z96.653 Presence of artificial knee joint, bilateral; Z96.643 Presence of artificial hip joint, bilateral; Z82.49 Family history of ischemic heart disease and other diseases of the circulatory system
CPT/HCPCS: 36415; 71045; 71046; 80048; 80053; 81001; 81003; 82553; 82607; 82652; 83605; 83735; 83880; 84145; 84443; 84484; 85025; 85027; 85610; 85730; 87040; 87502; 87634; 93005; 93306; 94640; 94760; 96361; 96365; 99285

== ENCOUNTER 2020-08-21 13:10 | Emergency (ER) | payer MEDICARE ==
[2020-08-21 13:20] VITALS: BP 135/69; PULSE 56; RESP 20; TEMP 97.4
[2020-08-21] MEDS ORDERED: MORPHINE SULFATE 2 MG/ML SYRINGE IM STA (13:42)
--- NOTE | 2020-08-21 14:19 | XR ---
EXAMINATION TYPE: XR Hip RT and AP Pelvis DATE OF EXAM: 08/21/2020 COMPARISON: NONE HISTORY: pain, falls TECHNIQUE: A single AP view of the pelvis is obtained. Two views of the right hip are obtained. FINDINGS: Left hip replacement hardware is incompletely included. There is a longstem right total hip replacement with acetabular screw and 2 lateral sideplates with m ultiple cerclage wires. The distalmost lateral sideplate is incompletely included. There is general lucency of the bilateral acetabulum surrounding the acetabular cups and particle dis ease or loosening cannot be excluded. Degenerative changes are noted in the lower lumbar spine. There is a possible fracture line seen in the region of the right lesser trochanter. IMPRESSION: Bilateral hip hardware is incompletely included with questionable right lesser trochanter fracture an d lucency surrounding the bilateral acetabular cups raising the possibility for possible particle dis ease or hardware loosening.
--- NOTE | 2020-08-21 14:27 | ED ---
General Adult HPI - General Chief complaint: Extremity Injury, Upper Stated complaint: R hip pain Time Seen by Provider: 08/21/20 13:24 Source: patient, RN notes reviewed Mode of arrival: wheelchair Limitations: physical limitation - History of Present Illness Initial comments: 85-year-old male with a past medical history of atrial flutter, CAD, hyperli pidemia, hypertension presents to the emergency room for a chief complaint of right hip pain. Patient states he fell and broke his hip last November and had surgery in [place]. States that since that time he has had pain of the right hip. He has been doing physical therapy but it has not been helping. Patient reports he no longer wants to do this due to the pain. Patient takes Tylenol at home every now and then but otherwise does not take pain medication. Patient's surgery was in [place].Patient has no other complaints at this time including shortness of breath, chest pain, abdominal pain, nausea or vomiting, headache, or visual changes. - Related Data Home Medications Medication Instructions Recorded Confirmed Levothyroxine Sodium [Synthroid] 50 mcg PO HS 11/09/15 08/21/20 Metoprolol Succinate [Toprol XL] 50 mg PO HS 11/09/15 08/21/20 Atorvastatin [Lipitor] 40 mg PO HS 09/26/18 08/21/20 Folic Acid 1 mg PO HS 09/26/18 08/21/20 Ranolazine [Ranexa] 500 mg PO BID 01/04/19 08/21/20 Apixaban [Eliquis] 5 mg PO BID 08/21/20 08/21/20 Cephalexin [Keflex] 500 mg PO TID 08/21/20 08/21/20 Nitroglycerin Sl Tabs [Nitrostat] 0.4 mg SUBLINGUAL Q5M PRN 08/21/20 08/21/20 Oxybutynin Chloride [Ditropan] 5 mg PO HS 08/21/20 08/21/20 Triamterene-Hctz 37.5-25Mg 1 cap PO HS 08/21/20 08/21/20 [Dyazide 37.5-25 Capsule] Allergies Allergy/AdvReac Type Severity Reaction Status Date / Time Penicillins Allergy Anaphylaxis Verified 08/21/20 14:04 [email or web address] Allergy Anaphylaxis Verified 08/21/20 14:04 cardiolite Allergy Anaphylaxis Uncoded 04/30/19 08:21 Review of Systems ROS Statement: Those systems with pertinent positive or pertinent negative responses have been documented in the HPI. ROS Other: All systems not noted in ROS Statement are negative. Past Medical History Past Medical History: Atrial Flutter, Coronary Artery Disease (CAD), Cancer, Hyperlipidemia, Hypertension, Myocardial Infarction (AR), Osteoarthritis (OA), Sleep Apnea/CPAP/BIPAP, Thyroid Disorder Additional Past Medical History / Comment(s): Healing wound on rt lower leg, hx skin cancer Last Myocardial Infarction Date:: 2008 History of Any Multi-Drug Resistant Organisms: None Reported Past Surgical History: Heart Catheterization With Stent, Joint Replacement Additional Past Surgical History / Comment(s): Replacements of KAREN KNEES, KAREN HIPS and RT SHOULDER, has 2 or 3 coranary stents, recent karen eyelid sx, and removal of skin tag on rt eye lid Past Anesthesia/Blood Transfusion Reactions: No Reported Reaction Date of Last Stent Placement:: 2018 Past Psychological History: No Psychological Hx Reported Smoking Status: Never smoker Past Alcohol Use History: Occasional Past Drug Use History: None Reported - Past Family History Mother Family Medical History: No Reported History Brother(s) Family Medical History: Myocardial Infarction (AR) Father Family Medical History: Myocardial Infarction (AR) General Exam Limitations: physical limitation General appearance: alert, in no apparent distress Head exam: Present: atraumatic, normocephalic, normal inspection Eye exam: Present: normal appearance, PERRL, EOMI. Absent: scleral icterus, conjunctival injection, periorbital swelling ENT exam: Present: normal exam, mucous membranes moist Neck exam: Present: normal inspection, full ROM. Absent: tenderness, meningismus, lymphadenopathy Respiratory exam: Present: normal lung sounds bilaterally. Absent: respiratory distress, wheezes, rales, rhonchi, stridor Cardiovascular Exam: Present: regular rate, normal rhythm, normal heart sounds. Absent: systolic murmur, diastolic murmur, rubs, gallop, clicks GI/Abdominal exam: Present: soft, normal bowel sounds. Absent: distended, tenderness, guarding, rebound, rigid Extremities exam: Present: tenderness (Tenderness to posterior right hip.), normal capillary refill (Capillary refill less than 2 seconds, DP pulse 2+ right lower extremity), other (Sensation intact right lower extremity.). Absent: full ROM (90 of flexion of the right hip elicits pain. Extension to neutral position.), joint swelling (No edema or erythema in the right lower extremity.) Course Vital Signs 08/21/20 13:15 Temperature 97.4 F L Pulse Rate 56 L Respiratory 20 Rate Blood Pressure 135/69 O2 Sat by Pulse 98 Oximetry Medical Decision Making - Medical Decision Making Vitals are stable. Patient is well-appearing. X-ray of the hip and pelvis shows bilateral hip hardware incompletely included. There is questionable right lesser trochanter fracture and lucency surrounding the bilateral acetabular cups raising the possibility for possible particle disease or hardware loosening. I did speak with Lacey who is [facility]. She did speak with Dr. Couch. He recommended obtaining a femur x-ray before discharge and then having him follow-up in the office. Patient was given pain medication and had significant improvement in symptoms. Patient will be discharged home. He will continue to use his walker. Will return here for any worsening symptoms. Disposition Clinical Impression: Pain due to internal orthopedic prosthetic device, Hip pain, right Disposition: HOME SELF-CARE Condition: Good Instructions (If sedation given, give patient instructions): Hip Pain (ED) Additional Instructions: Please take Tylenol 3 as needed for pain. Her member, this can increase risk of falls. Please follow-up with orthopedics to discuss your ongoing hip pain. Return to the emergency room for any worsening symptoms. Is patient prescribed a controlled substance at d/c from ED?: No Referrals: Mike Garsia MD [Primary Care Provider] - 1-2 days Jeff Couch DO [Doctor of Osteopathic Medicine] - 1-2 days Time of Disposition: 15:02
[2020-08-21] MEDS ORDERED: ACET/COD 300 MG/30 MG STARTER PACK 6 TAB BTL PO STA ×2 (14:52→15:03)
--- NOTE | 2020-08-21 15:32 | XR ---
EXAMINATION TYPE: XR femur RT DATE OF EXAM: 08/21/2020 COMPARISON: Same day right hip and pelvic radiograph HISTORY: . Pain. TECHNIQUE: AP and lateral views of the right femur FINDINGS: Right hip total arthroplasty with cerclage wires and fixation plate and screws of the right femur. The distal aspect of the fixation plate and screw appears intact on AP view, and is distally obscured by right knee total arthroplasty hardware on lateral view. The visualized right knee total a rthroplasty hardware appears intact. There is dystrophic calcification and overlapping soft tissue de nsities in the region of the lesser trochanter and medial proximal femur, in the region of questionab le fracture deformity on same day hip radiograph. Persistent lucencies in this region raises possibil ity of a fracture. IMPRESSION: Dystrophic calcifications and overlapping densities the region of the lesser trochanter and medial pr oximal femur. Persistent lucencies seen on some radiographic views again may represent questionable f racture deformity.
== END 2020-08-21 15:54 | disposition home or self-care (01) ==
LOC: EC 13:10
DX: T84.84XA Pain due to internal orthopedic prosthetic devices, implants and grafts, initial encounter (principal); M25.551 Pain in right hip; I10 Essential (primary) hypertension; I25.10 Atherosclerotic heart disease of native coronary artery without angina pectoris; I25.2 Old myocardial infarction; I48.92 Unspecified atrial flutter; E78.5 Hyperlipidemia, unspecified; M19.90 Unspecified osteoarthritis, unspecified site; Z79.890 Hormone replacement therapy; Z79.01 Long term (current) use of anticoagulants; Z79.899 Other long term (current) drug therapy; Z82.49 Family history of ischemic heart disease and other diseases of the circulatory system
CPT/HCPCS: 73502; 73552; 96372; 99283; J2270

== ENCOUNTER → 2020-09-11 | Outpatient (CLI) | payer MEDICARE ==
--- NOTE | 2020-09-12 10:13 | NM ---
EXAMINATION TYPE: NM bone/joint limited DATE OF EXAM: 09/11/2020 COMPARISON: NONE HISTORY: Pain TECHNIQUE: After the intravenous administration of 23 mCi Tc 99m MDP. Images acquired 3 hours post injection. Multiple views of pelvis are submitted. There is mild increased uptake surrounding the right hip prostheses. Faint uptake in the lumbar spine likely degenerative. IMPRESSION: There is mild to moderate uptake surrounding the right hip prostheses. If there is concer n for loosening or infection correlate with tagged WBC study.
== END | disposition home or self-care (01) ==
LOC: RADNMMAIN 10:44
PROVIDERS: ATTEND Physician Assistant
DX: Z96.641 Presence of right artificial hip joint (principal)
CPT/HCPCS: 78300; A9503

== ENCOUNTER → 2020-09-25 | Outpatient (CLI) | payer MEDICARE | END | disposition home or self-care (01) | LOC: LABWHC1 11:33 | PROVIDERS: ATTEND Orthopaedic Surgery | DX: T84.51XA Infection and inflammatory reaction due to internal right hip prosthesis, initial encounter (principal); Y79.2 Prosthetic and other implants, materials and accessory orthopedic devices associated with adverse incidents; M25.551 Pain in right hip; M25.552 Pain in left hip; Z96.651 Presence of right artificial knee joint; Z96.641 Presence of right artificial hip joint | CPT/HCPCS: 36415; 85652; 86140 ==

== ENCOUNTER → 2020-09-29 | Outpatient (CLI) | payer MEDICARE ==
--- NOTE | 2020-09-29 16:43 | US ---
EXAMINATION TYPE: US extremity nonvasc mass RT DATE OF EXAM: 09/29/2020 COMPARISON: Radiograph 08/21/2020 CLINICAL HISTORY: 85-year-old male M25.551 R HIP PAIN, T84.51XA Infection and inflammatory reaction. TECHNIQUE: Targeted ultrasound examination anterior right hip for assessment of joint effusion. FINDINGS: The patient had poor tissue quality for ultrasound. After extensive imaging including real-time scann ing by the radiologist, we were unable to identify any sizable right hip joint effusion that would be amenable to aspiration. IMPRESSION: Unable to identify any sizable right hip joint effusion that would be amenable to aspiration
== END | disposition home or self-care (01) ==
LOC: RADUSWWP 11:19
PROVIDERS: ATTEND Orthopaedic Surgery
DX: M25.551 Pain in right hip (principal)

== ENCOUNTER → 2020-09-29 | Outpatient (CLI) | payer MEDICARE ==
[2020-09-29 14:50] LABS: Basophils # (A) 0.05 X 10*3/uL (0.00-0.10); Basophils % (A) 0.9 %; Eosinophils # (A) 0.09 X 10*3/uL (0.04-0.35); Eosinophils % (A) 1.7 %; HCT 38.3 % (39.6-50.0); Lymphocytes # (A) 1.25 X 10*3/uL (0.90-5.00); Lymphocytes % (A) 23.5 %; MCH 31.2 pg (27.0-32.0); MCHC 33.9 g/dL (32.0-37.0); MCV 91.8 fL (80.0-97.0); Mean Platelet Volume 10.5 fL (9.5-12.2); Monocytes # (A) 0.47 X 10*3/uL (0.20-1.00); Monocytes % (A) 8.8 %; Neutrophils # (A) 3.44 X 10*3/uL (1.80-7.70); Neutrophils % (A) 64.7 %; Platelet Count 331 X 10*3/uL (140-440); RBC 4.17 X 10*6/uL (4.40-5.60); RDW 14.6 % (11.5-14.5); WBC 5.32 X 10*3/uL (4.50-10.00)
[2020-09-29 17:25] LABS: T4, Free (Free Thyroxine) 1.3 ng/dL (0.80-1.80)
[2020-09-29 17:28] LABS: African American GFR (CKD) 57.3 (60.0-200.0); Albumin 3.7 g/dL (3.80-4.90); Albumin/Globulin Ratio 1.23 (1.60-3.17); Anion Gap 6.8 mmol/L (4.00-12.00); BUN/Creat Ratio 18.46 Ratio (12.00-20.00); Calcium 8.8 mg/dL (8.7-10.3); Carbon Dioxide 26.2 mmol/L (21.6-31.8); Chol/HDL Ratio 2.72; LDL Cholesterol,Calculated 61.2 mg/dL (0.0-131.0); Non-African American GFR(CKD) 49.4 (60.0-200.0); Potassium 4.4 mmol/L (3.5-5.5); Total Bilirubin 0.7 mg/dL (0.2-1.2); Total Protein 6.7 g/dL (6.2-8.2); VLDL Calculation 17.8 mg/dL (5.00-40.00)
== END | disposition home or self-care (01) ==
LOC: LABWHC1 10:31
PROVIDERS: ATTEND Internal Medicine
DX: Z00.00 Encounter for general adult medical examination without abnormal findings (principal); E78.5 Hyperlipidemia, unspecified; I10 Essential (primary) hypertension
CPT/HCPCS: 36415; 80053; 80061; 84439; 84443; 85025

== ENCOUNTER 2021-10-10 17:25 | Observation (INO) | payer MEDICARE ==
[2021-10-10] MEDS ORDERED: ASPIRIN 81 MG PO STA (17:57)
--- NOTE | 2021-10-10 18:03 | ED ---
General Adult HPI - General Chief complaint: Chest Pain Stated complaint: chest pains Time Seen by Provider: 10/10/21 17:39 Source: patient, RN notes reviewed, old records reviewed Mode of arrival: ambulatory Limitations: no limitations - History of Present Illness Initial comments: Patient is an 86-year-old male with past medical history remarkable for cardiac stents, CAD, atrial flutter on Eliquis, hypertension, heart of hearing who presents emergency Department complaining of chest pain over the last 4 hours. States it started 4 hours ago. Does not believe he had any other associated symptoms at the time of this chest pain. Denies any sweating. Was sitting down in the chair when it started. No strenuous activity. States he is always short of breath. No worsening shortness of breath that he notices at rest, however occasional worsening shortness of breath on exertion. Does have lower extremity edema. Does have a history of CHF. He is compliant with his blood thinners. Denies any cough or fevers. Denies any abdominal pain, nausea, vomiting. His no other acute complaints at this time. Presents over concern for his chest ofe n. Took 2 nitro tablets as well as a third upon arrival, and chest pain has completely resolved at this time. He states that earlier it was substernal with no radiation. [place] sharp. It was not worse with movement of his arms or torso. - Related Data Home Medications Medication Instructions Recorded Confirmed Levothyroxine Sodium [Synthroid] 50 mcg PO HS 11/09/15 10/10/21 Metoprolol Succinate [Toprol XL] 50 mg PO HS 11/09/15 10/10/21 Atorvastatin [Lipitor] 40 mg PO HS 09/26/18 10/10/21 Folic Acid 1 mg PO HS 09/26/18 10/10/21 Ranolazine [Ranexa] 500 mg PO BID 01/04/19 10/10/21 Apixaban [Eliquis] 5 mg PO BID 08/21/20 10/10/21 Nitroglycerin Sl Tabs [Nitrostat] 0.4 mg SUBLINGUAL Q5M PRN 08/21/20 10/10/21 Triamterene-Hctz 37.5-25Mg 1 cap PO HS 08/21/20 10/10/21 [Dyazide 37.5-25 Capsule] Vit C/E/Zn/Coppr/Lutein/Zeaxan 1 tab PO HS 10/10/21 10/10/21 [Preservision Areds 2 Chew Tab] Allergies Allergy/AdvReac Type Severity Reaction Status Date / Time Penicillins Allergy Anaphylaxis Verified 10/10/21 20:14 [email or web address] Allergy Anaphylaxis Verified 10/10/21 20:14 cardiolite Allergy Anaphylaxis Uncoded 10/10/21 17:31 Review of Systems ROS Statement: Those systems with pertinent positive or pertinent negative responses have been documented in the HPI. Review of Systems: CONST: Denies fever EYES: Denies blurry vision ENT: Denies nasal congestion C/V: Denies Chest pain RESP: Denies shortness of breath GI: Denies abdominal pain : Denies dysuria SKIN: Denies rash. MSK: Denies joint pain. NEURO: Denies headache ROS Other: All systems not noted in ROS Statement are negative. Past Medical History Past Medical History: Atrial Flutter, Coronary Artery Disease (CAD), Cancer, Hyperlipidemia, Hypertension, Myocardial Infarction ([place]), Osteoarthritis (OA), Sleep Apnea/CPAP/BIPAP, Thyroid Disorder Additional Past Medical History / Comment(s): Healing wound on rt lower leg, hx skin cancer Last Myocardial Infarction Date:: 2008 History of Any Multi-Drug Resistant Organisms: None Reported Past Surgical History: Heart Catheterization With Stent, Joint Replacement Additional Past Surgical History / Comment(s): Replacements of KAREN KNEES, KAREN HIPS and RT SHOULDER, has 2 or 3 coranary stents, recent karen eyelid sx, and removal of skin tag on rt eye lid Past Anesthesia/Blood Transfusion Reactions: No Reported Reaction Date of Last Stent Placement:: 2018 Past Psychological History: No Psychological Hx Reported Smoking Status: Never smoker Past Alcohol Use History: Occasional Past Drug Use History: None Reported - Past Family History Mother Family Medical History: No Reported History Brother(s) Family Medical History: Myocardial Infarction (MD) Father Family Medical History: Myocardial Infarction (MD) General Exam - General Exam Comments Initial Comments: General: Appears in no acute distress. HEAD: Normal with no signs of head trauma. EYES: PERRLA, EOMI, conjunctiva normal, no discharge. ENT: Hearing grossly intact, normal oropharynx. RESPIRATORY: Clear breath sounds bilaterally. No wheezes, rales, or rhonchi. No hypoxia. No increased work of breathing. C/V: Regular rate and rhythm. S1 and S2 auscultated, 1+ pitting edema that is symmetric bilaterally, peripheral pulses 2+ and intact throughout ABD: Abd is soft, nontender, nondistended EXT: Normal range of motion, no obvious deformity SKIN: No rashes or lesions observed on exposed skin. Scars located over bi lateral knees secondary to surgeries. NEURO: Alert and oriented 4. No focal deficits. Is hard of hearing. Limitations: no limitations Course Vital Signs 10/10/21 17:29 Temperature 97.5 F L Pulse Rate 55 L Respiratory 20 Rate Blood Pressure 125/63 O2 Sat by Pulse 99 Oximetry Medical Decision Making - Medical Decision Making Based on the patient's presentation and physical exam, I'm concerned for possible acute cardiopulmonary etiology for his resolved chest pain. He is currently symptom-free. He already received nitro prior to arrival which seemed to help with this pain. Will be given an aspirin. We'll obtain cardiac labs, EKG, chest x-ray. He is also having some mild symptoms of CHF including exertional dyspnea, lower extremity edema. We'll obtain a BNP. He was in agreement this plan. We'll monitor on continuous cardiac monitoring. Vital signs within normal limits. Patient was administered aspirin. EKG showed no signs of acute ischemia. Shows atrial flutter which he has a history of. Chest x-ray shows a hiatal hernia. There are coarse lung markings. Could be interstitial pneumonia. Covid swab will be obtained. Laboratory studies remarkable for a minimally elevated troponin of 0.041. BNP is somewhat elevated but still within normal limits. Patient's age at [age]. On reevaluation, patient remains asymptomatic at this time. He has not had any chest pain throughout his stay here in the department. Vital signs remain within normal limits. I did discuss with him the results of his workup. I would like to admit him for further monitoring. He was in agreement this plan. Patient is already on a blood thinning medication, Eliquis and we will continue that at this time. He is due for a dose at 9 PM. We'll trend his troponins. I spoke with the admitting physician, Dr. Coffey of observation telemetry who was in agreement with this plan. He'll monitor the patient's troponin overnight. Cardiology will be consulted. Patient was in agreement with this plan. - Lab Data Result diagrams: 10/10/21 18:54 08/31/22 18:54 Lab Results 10/10/21 10/10/21 10/10/21 Range/Units 18:54 18:54 18:54 WBC 6.6 (3.8-10.6) k/uL RBC 4.41 (4.30-5.90) m/uL Hgb 13.7 (13.0-17.5) gm/dL Hct 42.2 (39.0-53.0) % MCV 95.8 (80.0-100.0) fL MCH 31.2 (25.0-35.0) pg MCHC 32.5 (31.0-37.0) g/dL RDW 13.8 (11.5-15.5) % Plt Count 185 (150-450) k/uL MPV 8.5 Neutrophils % 57 % Lymphocytes % 27 % Monocytes % 7 % Eosinophils % 6 % Basophils % 1 % Neutrophils # 3.7 (1.3-7.7) k/uL Lymphocytes # 1.8 (1.0-4.8) k/uL Monocytes # 0.4 (0-1.0) k/uL Eosinophils # 0.4 (0-0.7) k/uL Basophils # 0.1 (0-0.2) k/uL PT 11.7 (9.0-12.0) sec INR 1.1 (<1.2) APTT 24.2 (22.0-30.0) sec Sodium 139 (137-145) mmol/L Potassium 4.2 (3.5-5.1) mmol/L Chloride 102 (98-107) mmol/L Carbon Dioxide 23 (22-30) mmol/L Anion Gap 14 mmol/L BUN 22 H (9-20) mg/dL Creatinine 1.27 H (0.66-1.25) mg/dL Est GFR (CKD-EPI)AfAm 58 (>60 ml/min/1.73 sqM) Est GFR (CKD-EPI)NonAf 51 (>60 ml/min/1.73 sqM) Glucose 91 (74-99) mg/dL Calcium 9.1 (8.4-10.2) mg/dL Magnesium 2.0 (1.6-2.3) mg/dL Total Bilirubin 0.5 (0.2-1.3) mg/dL AST 25 (17-59) U/L ALT 21 (4-49) U/L Alkaline Phosphatase 73 (38-126) U/L Troponin I (0.000-0.034) ng/mL NT-Pro-B Natriuret Pep pg/mL Total Protein 7.3 (6.3-8.2) g/dL Albumin 4.2 (3.5-5.0) g/dL 10/10/21 10/10/21 Range/Units 18:54 18:54 WBC (3.8-10.6) k/uL RBC (4.30-5.90) m/uL Hgb (13.0-17.5) gm/dL Hct (39.0-53.0) % MCV (80.0-100.0) fL MCH (25.0-35.0) pg MCHC (31.0-37.0) g/dL RDW (11.5-15.5) % Plt Count (150-450) k/uL MPV Neutrophils % % Lymphocytes % % Monocytes % % Eosinophils % % Basophils % % Neutrophils # (1.3-7.7) k/uL Lymphocytes # (1.0-4.8) k/uL Monocytes # (0-1.0) k/uL Eosinophils # (0-0.7) k/uL Basophils # (0-0.2) k/uL PT (9.0-12.0) sec INR (<1.2) APTT (22.0-30.0) sec Sodium (137-145) mmol/L Potassium (3.5-5.1) mmol/L Chloride (98-107) mmol/L Carbon Dioxide (22-30) mmol/L Anion Gap mmol/L BUN (9-20) mg/dL Creatinine (0.66-1.25) mg/dL Est GFR (CKD-EPI)AfAm (>60 ml/min/1.73 sqM) Est GFR (CKD-EPI)NonAf (>60 ml/min/1.73 sqM) Glucose (74-99) mg/dL Calcium (8.4-10.2) mg/dL Magnesium (1.6-2.3) mg/dL Total Bilirubin (0.2-1.3) mg/dL AST (17-59) U/L ALT (4-49) U/L Alkaline Phosphatase (38-126) U/L Troponin I 0.041 H* (0.000-0.034) ng/mL NT-Pro-B Natriuret Pep 1740 pg/mL Total Protein (6.3-8.2) g/dL Albumin (3.5-5.0) g/dL - EKG Data -: EKG Interpreted by Me EKG Comments: 12-lead Electrocardiogram Interpretation Note EKG was reviewed and interpreted by myself. 12-lead ECG performed at 1743 is interpreted by me as revealing atrial flutter at a rate of 54 beats per minute. Left axis deviation. IA interval is unobtainable, QRS duration is 148 ms, QTc is 486 ms.. There were no ST or T wave abnormalities to suggest myocardial ischemia or injury. R wave progression across the precordium was satisfactory. By my interpretation this EKG is non-diagnostic for acute ischemia. Appears similar to prior EKGs from 2020 Disposition Clinical Impression: Elevated troponin, Chest pain Disposition: ADMITTED IP TO THIS HOSP Condition: Stable Time of Disposition: 19:30
--- NOTE | 2021-10-10 18:49 | XR ---
EXAMINATION TYPE: XR chest 2V DATE OF EXAM: 10/10/2021 COMPARISON: NONE HISTORY: Chest pain TECHNIQUE: 3 views FINDINGS: Heart is normal. There is hiatal hernia. Costophrenic angles are clear. There are no hilar masses. Thoracic aorta is atheromatous. Bony thorax is intact. There is some coarsening of the lung m arkings. IMPRESSION: Hiatal hernia. There are coarse lung markings that could be acute interstitial pneumonia and is a change compared to old exam. No pleural fluid or significant cardiomegaly seen to suggest he art failure.
[2021-10-10 19:00] LABS: Basophils # (A) 0.1 k/uL (0-0.2); Basophils % (A) 1 %; Eosinophils # (A) 0.4 k/uL (0-0.7); Eosinophils % (A) 6 %; HCT 42.2 % (39.0-53.0); HGB 13.7 gm/dL (13.0-17.5); Lymphocytes # (A) 1.8 k/uL (1.0-4.8); Lymphocytes % (A) 27 %; MCH 31.2 pg (25.0-35.0); MCHC 32.5 g/dL (31.0-37.0); MCV 95.8 fL (80.0-100.0); Mean Platelet Volume 8.5; Monocytes # (A) 0.4 k/uL (0-1.0); Monocytes % (A) 7 %; Neutrophils # (A) 3.7 k/uL (1.3-7.7); Neutrophils % (A) 57 %; Platelet Count 185 k/uL (150-450); RBC 4.41 m/uL (4.30-5.90); RDW 13.8 % (11.5-15.5); WBC 6.6 k/uL (3.8-10.6)
[2021-10-10 19:08] LABS: INR 1.1 (<1.2); Partial Thromboplastin Time 24.2 sec (22.0-30.0); Prothrombin Time 11.7 sec (9.0-12.0)
[2021-10-10 19:13] LABS: Albumin 4.2 g/dL (3.5-5.0); Calcium 9.1 mg/dL (8.4-10.2); Potassium 4.2 mmol/L (3.5-5.1); Total Bilirubin 0.5 mg/dL (0.2-1.3); Total Protein 7.3 g/dL (6.3-8.2)
[2021-10-10] MEDS ORDERED: NITROGLYCERIN SL TABS 0.4 MG TAB SUBLINGUAL PRN (19:44)
[2021-10-10] MEDS ORDERED: NALOXONE 0.4 MG/ML 1 ML VIAL IV PRN (19:49)
[2021-10-10] MEDS: APIXABAN 5 MG TAB PO SCH (21:10)
[2021-10-10] MEDS: ATORVASTATIN 40 MG TAB PO SCH (21:10)
[2021-10-10] MEDS: RANOLAZINE 500 MG TAB.ER.12H PO SCH (21:12)
[2021-10-10] MEDS: METOPROLOL SUCCINATE (ER) 50 MG TAB.ER.24H PO SCH (21:12)
[2021-10-10] MEDS: LEVOTHYROXINE 50 MCG TAB PO SCH (21:13)
[2021-10-10] MEDS: OXYBUTYNIN CHLORIDE 5 MG TAB PO SCH (21:13)
[2021-10-10] MEDS: TRIAMTERENE-HCTZ 37.5-25MG 1 EACH CAP PO SCH (21:14)
[2021-10-10] MEDS: FOLIC ACID 1 MG TAB PO SCH (22:49)
--- NOTE | 2021-10-10 22:51 | P.HPIM ---
History of Present Illness H&P Date: 10/10/21 The patient is an 86-year-old male with a PMH of A flutter on Eliquis, coronary artery disease status post stents, hypertension, hypothyroidism, and hyperlipidemia who presents to the emergency room with complaints of chest pain. The patient reports that he has been expressing intermittent substernal sharp chest discomfort over the past 2-3 days. The pain occurs at rest, is nonradiating, without associated symptoms, lasts up to 30 minutes, 4 out of 10 at maximum intensity, and resolves spontaneously. The pain is nonpleuritic. He denied experiencing lower extremity swelling or pain. Also denied orthopnea, M.D., shortness of breath, nausea, vomiting, diaphoresis. EKG emergency room revealed a flutter at 54 bpm with a right bundle-branch block with Q waves inferiorly. Chest x-ray revealed coarse lung markings without obvious signs of congestive heart failure. Laboratory evaluation was remarkable for troponin of 0.041 and a proBNP 1740. Review of systems: Pertinent positives and negatives as discussed in HPI, a complete review of systems was performed and all other systems are negative. Physical examination: General: non toxic, no distress, appears at stated age, obese Derm: no unusual rashes/lesions, warm Head: atraumatic, normocephalic, symmetric Eyes: EOMI, no lid lag, anicteric sclera, pupils equal round reactive to light ENT: Nose and ears atraumatic Neck: No cervical lymphadenopathy, trachea midline, supple Mouth: no lip lesion, mucus membranes moist Cardiovascular: S1S2 reg, systolic murmur appreciated, positive dorsalis pedis pulse bilateral, no edema Lungs: CTA bilateral, no rhonchi, no rales, no accessory muscle use Abdominal: soft, nontender to palpation, no guarding Ext: muscle strength 5 out of 5 in all 4 extremities grossly, no gross muscle atrophy, no contractures, Neuro: CN II-XI grossly intact, no gross focal neuro deficits Psych: Alert, oriented, appropriate affect Assessment/plan Chest pain, rule out ACS -Troponin lower than baseline -Patient denying chest discomfort at time of interview -Cardiac monitoring -Cardiology consult -Continue with aspirin, statin -Trend troponin Chronic conditions: A. flutter, hypertension, hypothyroidism, hyperlipidemia -Continue with home meds DVT prophylaxis -Eliquis The patient is admitted with an anticipated less than 2 midnight stay for evaluation of ches[place] pain CODE STATUS: Full Code Discussed with: Patient Anticipated discharge date: in am Anticipated discharge place: Home Past Medical History Past Medical History: Atrial Flutter, Coronary Artery Disease (CAD), Cancer, Hyperlipidemia, Hypertension, Myocardial Infarction (MS), Osteoarthritis (OA), Sleep Apnea/CPAP/BIPAP, Thyroid Disorder Additional Past Medical History / Comment(s): Healing wound on rt lower leg, hx skin cancer Last Myocardial Infarction Date:: 2008 History of Any Multi-Drug Resistant Organisms: None Reported Past Surgical History: Heart Catheterization With Stent, Joint Replacement Additional Past Surgical History / Comment(s): Replacements of KAREN KNEES, KAREN HIPS and RT SHOULDER, has 2 or 3 coranary stents, recent karen eyelid sx, and removal of skin tag on rt eye lid Past Anesthesia/Blood Transfusion Reactions: No Reported Reaction Date of Last Stent Placement:: 2018 Past Psychological History: No Psychological Hx Reported Smoking Status: Never smoker Past Alcohol Use History: Occasional Additional Past Alcohol Use History / Comment(s): Smoking a pipe currently several times a day, was smoking cigars and cigarettes 1PPD SINCE AGE 15 (1952). Past Drug Use History: None Reported - Past Family History Mother Family Medical History: No Reported History Brother(s) Family Medical History: Myocardial Infarction (MS) Father Family Medical History: Myocardial Infarction (MS) Medications and Allergies Home Medications Medication Instructions Recorded Confirmed Type Levothyroxine Sodium [Synthroid] 50 mcg PO HS 11/09/15 10/10/21 History Metoprolol Succinate [Toprol XL] 50 mg PO HS 11/09/15 10/10/21 History Atorvastatin [Lipitor] 40 mg PO HS 09/26/18 10/10/21 History Folic Acid 1 mg PO HS 09/26/18 10/10/21 History Ranolazine [Ranexa] 500 mg PO BID 01/04/19 10/10/21 History Apixaban [Eliquis] 5 mg PO BID 08/21/20 10/10/21 History Nitroglycerin Sl Tabs [Nitrostat] 0.4 mg SUBLINGUAL Q5M PRN 08/21/20 10/10/21 History Triamterene-Hctz 37.5-25Mg 1 cap PO HS 08/21/20 10/10/21 History [Dyazide 37.5-25 Capsule] Vit C/E/Zn/Coppr/Lutein/Zeaxan 1 tab PO HS 10/10/21 10/10/21 History [Preservision Areds 2 Chew Tab] Allergies Allergy/AdvReac Type Severity Reaction Status Date / Time Penicillins Allergy Anaphylaxis Verified 10/10/21 20:14 [email or web address] Allergy Anaphylaxis Verified 10/10/21 20:14 cardiolite Allergy Anaphylaxis Uncoded 10/10/21 17:31 Physical Exam Vitals: Vital Signs Temp Pulse Resp BP BP Pulse Ox 10/10/21 22:00 97.7 F 18 148/72 97 10/10/21 21:17 78 15 127/67 98 10/10/21 20:10 97.7 F 59 L 15 127/76 10/10/21 17:29 97.5 F L 55 L 20 125/63 99 Intake and Output 10/10/21 10/10/21 10/10/21 06:59 14:59 22:59 Other: Weight 101.605 kg Results CBC & Chem 7: 10/10/21 18:54 10/10/21 18:54 Labs: Abnormal Lab Results - Last 24 Hours (Table) 10/10/21 10/10/21 10/10/21 Range/Units 18:54 18:54 21:01 BUN 22 H (9-20) mg/dL Creatinine 1.27 H (0.66-1.25) mg/dL Troponin I 0.041 H* 0.038 H* (0.000-0.034) ng/mL Thrombosis Risk Factor Assmnt - Choose All That Apply Any of the Below Risk Factors Present?: Yes Each Factor Represents 1 point: Obesity (BMI >25) Each Risk Factor Represents 3 Points: Age 75 years or older Thrombosis Risk Factor Assessment Total Risk Factor Score: 4 Thrombosis Risk Factor Assessment Level: Moderate Risk
[2021-10-11 05:30] LABS: Calcium 8.8 mg/dL (8.4-10.2); Potassium 4.1 mmol/L (3.5-5.1)
[2021-10-11 05:37] LABS: Basophils # (A) 0.1 k/uL (0-0.2); Basophils % (A) 1 %; Eosinophils # (A) 0.3 k/uL (0-0.7); Eosinophils % (A) 6 %; HCT 38.1 % (39.0-53.0); HGB 12.5 gm/dL (13.0-17.5); Lymphocytes # (A) 1.6 k/uL (1.0-4.8); Lymphocytes % (A) 31 %; MCH 31.5 pg (25.0-35.0); MCHC 32.9 g/dL (31.0-37.0); MCV 95.6 fL (80.0-100.0); Mean Platelet Volume 8.6; Monocytes # (A) 0.5 k/uL (0-1.0); Monocytes % (A) 10 %; Neutrophils # (A) 2.5 k/uL (1.3-7.7); Neutrophils % (A) 49 %; Platelet Count 170 k/uL (150-450); RBC 3.98 m/uL (4.30-5.90); RDW 13.9 % (11.5-15.5)
[2021-10-11] MEDS: APIXABAN 5 MG TAB PO SCH (08:38)
[2021-10-11] MEDS: RANOLAZINE 500 MG TAB.ER.12H PO SCH ×2 (08:38→21:35)
[2021-10-11] MEDS ORDERED: ALPRAZolam 0.5 MG TAB PO PRN (09:33)
[2021-10-11] MEDS ORDERED: ALPRAZolam 0.25 MG TAB PO PRN (09:33)
[2021-10-11] MEDS ORDERED: ASPIRIN 325 MG TAB PO STA (09:33)
--- NOTE | 2021-10-11 10:40 | P.PN ---
Subjective Progress Note Date: 10/11/21 Principal diagnosis: Chest pain Patient seen and examined today. He is not reporting any new complaints of chest pain no nausea no vomiting no fevers or chills no shortness of breath. Objective - Vital Signs Vital signs: Vital Signs Temp 97.6 F 10/11/21 07:32 Pulse 52 L 10/11/21 07:32 Resp 20 10/11/21 07:32 BP 116/65 10/11/21 07:32 Pulse Ox 97 10/11/21 07:32 FiO2 Intake & Output 10/10/21 10/11/21 10/11/21 18:59 06:59 18:59 Intake Total 10 10 Balance 10 10 Weight 101.605 kg 101.605 kg Intake: IV 10 10 Invasive Line 1 10 10 Other: Voiding Method Toilet Toilet # Voids 0 - Exam Physical examination: General: non toxic, no distress, appears at stated age, obese Derm: no unusual rashes/lesions, warm Head: atraumatic, normocephalic, symmetric Eyes: EOMI, no lid lag, anicteric sclera, pupils equal round reactive to light ENT: Nose and ears atraumatic Neck: No cervical lymphadenopathy, trachea midline, supple Mouth: no lip lesion, mucus membranes moist Cardiovascular: S1S2 reg, systolic murmur appreciated, positive dorsalis pedis pulse bilateral, no edema Lungs: CTA bilateral, no rhonchi, no rales, no accessory muscle use Abdominal: soft, nontender to palpation, no guarding Ext: muscle strength 5 out of 5 in all 4 extremities grossly, no gross muscle atrophy, no contractures, Neuro: CN II-XI grossly intact, no gross focal neuro deficits Psych: Alert, oriented, appropriate affect - Labs CBC & Chem 7: 10/11/21 04:52 10/11/21 04:52 Labs: Abnormal Lab Results - Last 24 Hours (Table) 10/10/21 10/10/21 10/10/21 Range/Units 18:54 18:54 21:01 RBC (4.30-5.90) m/uL Hgb (13.0-17.5) gm/dL Hct (39.0-53.0) % BUN 22 H (9-20) mg/dL Creatinine 1.27 H (0.66-1.25) mg/dL Troponin I 0.041 H* 0.038 H* (0.000-0.034) ng/mL 10/10/21 10/11/21 Range/Units 23:54 04:52 RBC 3.98 L (4.30-5.90) m/uL Hgb 12.5 L (13.0-17.5) gm/dL Hct 38.1 L (39.0-53.0) % BUN (9-20) mg/dL Creatinine (0.66-1.25) mg/dL Troponin I 0.041 H* (0.000-0.034) ng/mL Assessment and Plan Assessment: Assessment/plan Chest pain NSTEMI -Troponins flat -Patient denying chest discomfort -Cardiac monitoring -Cardiology consult awaiting recommendations -Continue with aspirin, statin, heparin GTT Chronic conditions: A. flutter, hypertension, hypothyroidism, hyperlipidemia -Continue with home meds DVT prophylaxis -On heparin CODE STATUS: Full Code Disposition: Patient has anticipated heart catheterization scheduled for tomorrow
[2021-10-11 11:22] LABS: INR 1.2 (<1.2); Partial Thromboplastin Time 26.9 sec (22.0-30.0); Prothrombin Time 12.6 sec (9.0-12.0)
--- NOTE | 2021-10-11 11:43 | P.CRDCN ---
History of Present Illness History of present illness: HISTORY OF PRESENTING ILLNESS This is a pleasant 86-year-old male with a past medical history of coronary artery disease status post PCI of the mid LAD in 12/2018, PCI to mid LAD in 2016, balloon angioplasty of the diagonal 03/2016, chronic total occluded distal RCA, moderate aortic stenosis, mild disease involving the left circumflex, carotid artery disease, permanent atrial fibrillation on Eliquis, hypertension, dyslipidemia, chronic tobacco use. He follows in the office with Dr. Braboza. We have been asked to see in consultation for NSTEMI. Patient states yesterday he was out side in his garage, not doing any exertional activity. He states that he had acute onset substernal chest pressure. It was nonradiating, nonexertional. He had associated symptoms of shortness of breath. He denies any lightheadedness, dizziness, diaphoresis, nausea, vomiting. He denies any symptoms of orthopnea or PND. He states that he did take nitroglycerin with improvement in his symptoms. No specific aggravating factors. His chest pain has currently resolved. DIAGNOSTICS * EKG reveals atrial fibrillation, heart rate 54, right bundle-branch block, no significant ST abnormalities, prior EKG is similar. * Telemetry tracings indicate atrial flutter/atrial fibrillation controlled ventricular rates * Chest xray revealed a hiatal hernia, thoracic aortic atheromatous, slightly coarsened the lung markings. * Laboratory reviewed, CBC unremarkable, BUN 22, serum creatinine 1.27, troponin 0.04, 0.03, 0.04, proBNP 1740, sodium 139, potassium 4.2, mag 2.0 * Echocardiogram 05/2021 revealed an EF 5055 percent, severe LVH, severe dilated left atrium, mild aortic regurgitation, moderate aortic stenosis, mild to moderate mitral regurgitation, moderate tricuspid regurgitation * Cardiac catheterization 12/2018 revealed chronic total occluded RCA, critical disease involving the mid LAD, patient underwent PCI of the mid LAD * Current home cardiac medications include Ranexa 500 mg twice a day, metoprolol succinate 50 mg nightly, atorvastatin 40 mg daily, Eliquis 5 mg twice a day REVIEW OF SYSTEMS At the time of my exam: Patient's chest pain has resolved. CONSTITUTIONAL: Denies fever or chills. CARDIOVASCULAR: Denies chest pain, shortness of breath, orthopnea, PND or palpitations. RESPIRATORY: Denies cough. GASTROINTESTINAL: Denies abdominal pain, diarrhea, constipation, nausea or vomiting. MUSCULOSKELETAL: Denies myalgias. NEUROLOGIC: Denies numbness, tingling, headacbe or weakness. ENDOCRINE: Denies fatigue, weight change, polydipsia or polyurina. GENITOURINARY: Denies burning, hematuria or urgency with micturation. HEMATOLOGIC: Denies history of anemia or bleeding. PHYSICAL EXAMINATION Vitals reviewed CONSTITUTIONAL: No apparent distress. HEENT: Head is normocephalic. Pupils are equal, round. Sclerae anicteric. Mucous membranes of the mouth are moist. No JVD. No carotid bruit. CHEST EXAMINATION: Lungs are clear to auscultation. No chest wall tenderness is noted on palpation or with deep breathing. HEART EXAMINATION: Irregular rate and rhythm. S1, S2 heard. Systolic murmur at right sternal border. ABDOMEN: Soft, nontender. Positive bowel sounds. EXTREMITIES: 2+ peripheral pulses, no lower extremity edema and no calf tenderness. NEUROLOGIC EXAMINATION: Patient is awake, alert and oriented x3. ASSESSMENT NSTEMI Coronary artery disease status post PCI of the mid LAD in 12/2018, PCI to mid LAD in 2016, balloon angioplasty of the diagonal 03/2016, chronic total occluded distal RCA, oderate aortic stenosis Carotid artery disease Permanent atrial fibrillation on Eliquis Hypertension Dyslipidemia Chronic tobacco use PLAN Hold [facility] Plan for cardiac catheterization tomorrow NPO after midnight IV heparin drip Aspirin, statin, beta enzo Monitor renal function Obtain 2D echocardiogram and doppler study to assess cardiac structure and function. I have discussed the risks, benefits and alternative therapies for the above- mentioned procedure and for both sedation/analgesia as well as necessary blood product administration, if indicated, as they pertain to this patient. The patient has indicated understanding and acceptance of the risks and procedures discussed. Questions have been answered appropriately and he is agreeable to move forward with the above-stated procedure. Further recommendations based on clinical course Nurse practitioner note has been reviewed by physician. Signing provider agrees with the documented findings, assessment, and plan of care. Past Medical History Past Medical History: Atrial Flutter, Coronary Artery Disease (CAD), Cancer, Hyperlipidemia, Hypertension, Myocardial Infarction ([place]), Osteoarthritis (OA), Sleep Apnea/CPAP/BIPAP, Thyroid Disorder Additional Past Medical History / Comment(s): Healing wound on rt lower leg, hx skin cancer Last Myocardial Infarction Date:: 2008 History of Any Multi-Drug Resistant Organisms: None Reported Past Surgical History: Heart Catheterization With Stent, Joint Replacement Additional Past Surgical History / Comment(s): Replacements of KAREN KNEES, KAREN HIPS and RT SHOULDER, has 2 or 3 coranary stents, recent karen eyelid sx, and removal of skin tag on rt eye lid Past Anesthesia/Blood Transfusion Reactions: No Reported Reaction Date of Last Stent Placement:: 2018 Past Psychological History: No Psychological Hx Reported Smoking Status: Never smoker Past Alcohol Use History: Occasional Additional Past Alcohol Use History / Comment(s): Smoking a pipe currently several times a day, was smoking cigars and cigarettes 1PPD SINCE AGE 15 (1952). Past Drug Use History: None Reported - Past Family History Mother Family Medical History: No Reported History Brother(s) Family Medical History: Myocardial Infarction (NH) Father Family Medical History: Myocardial Infarction (NH) Medications and Allergies Home Medications Medication Instructions Recorded Confirmed Type Levothyroxine Sodium [Synthroid] 50 mcg PO HS 11/09/15 10/10/21 History Metoprolol Succinate [Toprol XL] 50 mg PO HS 11/09/15 10/10/21 History Atorvastatin [Lipitor] 40 mg PO HS 09/26/18 10/10/21 History Folic Acid 1 mg PO HS 09/26/18 10/10/21 History Ranolazine [Ranexa] 500 mg PO BID 01/04/19 10/10/21 History Apixaban [Eliquis] 5 mg PO BID 08/21/20 10/10/21 History Nitroglycerin Sl Tabs [Nitrostat] 0.4 mg SUBLINGUAL Q5M PRN 08/21/20 10/10/21 History Triamterene-Hctz 37.5-25Mg 1 cap PO HS 08/21/20 10/10/21 History [Dyazide 37.5-25 Capsule] Vit C/E/Zn/Coppr/Lutein/Zeaxan 1 tab PO HS 10/10/21 10/10/21 History [Preservision Areds 2 Chew Tab] Allergies Allergy/AdvReac Type Severity Reaction Status Date / Time Penicillins Allergy Anaphylaxis Verified 10/10/21 20:14 [email or web address] Allergy Anaphylaxis Verified 10/10/21 20:14 cardiolite Allergy Anaphylaxis Uncoded 10/10/21 17:31 Physical Exam Vitals: Vital Signs Temp Pulse Pulse Resp BP BP Pulse Ox 10/11/21 07:32 97.6 F 52 L 20 116/65 97 10/11/21 03:45 54 L 18 108/63 97 10/11/21 00:00 97.7 F 52 L 18 112/54 97 10/10/21 22:00 97.7 F 48 L 18 148/72 97 10/10/21 21:17 78 15 127/67 98 10/10/21 20:10 97.7 F 59 L 15 127/76 10/10/21 17:29 97.5 F L 55 L 20 125/63 99 Intake and Output 10/10/21 10/11/21 10/11/21 22:59 06:59 14:59 Intake Total 10 Balance 10 Intake: IV 10 Invasive Line 1 10 Other: Voiding Method Toilet Toilet # Voids 0 Weight 101.605 kg Results 10/11/21 04:52 10/11/21 04:52 Cardiac Enzymes 10/10/21 10/10/21 10/10/21 Range/Units 18:54 18:54 21:01 AST 25 (17-59) U/L Troponin I 0.041 H* 0.038 H* (0.000-0.034) ng/mL 10/10/21 Range/Units 23:54 AST (17-59) U/L Troponin I 0.041 H* (0.000-0.034) ng/mL Coagulation 10/10/21 Range/Units 18:54 PT 11.7 (9.0-12.0) sec APTT 24.2 (22.0-30.0) sec CBC 10/10/21 10/11/21 Range/Units 18:54 04:52 WBC 6.6 5.0 (3.8-10.6) k/uL RBC 4.41 3.98 L (4.30-5.90) m/uL Hgb 13.7 12.5 L (13.0-17.5) gm/dL Hct 42.2 38.1 L (39.0-53.0) % Plt Count 185 170 (150-450) k/uL Comprehensive Metabolic Panel 10/10/21 10/11/21 Range/Units 18:54 04:52 Sodium 139 137 (137-145) mmol/L Potassium 4.2 4.1 (3.5-5.1) mmol/L Chloride 102 103 (98-107) mmol/L Carbon Dioxide 23 23 (22-30) mmol/L BUN 22 H 19 (9-20) mg/dL Creatinine 1.27 H 1.25 (0.66-1.25) mg/dL Glucose 91 97 (74-99) mg/dL Calcium 9.1 8.8 (8.4-10.2) mg/dL AST 25 (17-59) U/L ALT 21 (4-49) U/L Alkaline Phosphatase 73 (38-126) U/L Total Protein 7.3 (6.3-8.2) g/dL Albumin 4.2 (3.5-5.0) g/dL Current Medications Generic Name Dose Route Start Last Admin Trade Name Freq PRN Reason Stop Dose Admin Apixaban 5 mg 10/10/21 21:00 10/10/21 21:10 Apixaban 5 Mg Tab PO 5 mg BID FELIPE Administration Protocol Atorvastatin Calcium 40 mg 10/10/21 21:00 10/10/21 21:10 Atorvastatin 40 Mg Tab PO 40 mg HS FELIPE Administration Folic Acid 1 mg 10/10/21 21:00 10/10/21 22:49 Folic Acid 1 Mg Tab PO 1 mg HS FELIPE Administration Levothyroxine Sodium 50 mcg 10/10/21 21:00 10/10/21 21:13 Levothyroxine 50 Mcg Tab PO 50 mcg HS FELIPE Administration Metoprolol Succinate 50 mg 10/10/21 21:00 10/10/21 21:12 Metoprolol Succinate (Er) 50 Mg Tab.Er.24h PO 50 mg HS FELIPE Administration Naloxone HCl 0.2 mg 10/10/21 19:49 Naloxone 0.4 Mg/Ml 1 Ml Vial IV Q2M PRN Opioid Reversal Nitroglycerin 0.4 mg 10/10/21 19:44 Nitroglycerin Sl Tabs 0.4 Mg Tab SUBLINGUAL Q5M PRN Chest Pain Oxybutynin Chloride 5 mg 10/10/21 21:00 10/10/21 21:13 Oxybutynin Chloride 5 Mg Tab PO 5 mg HS FELIPE Administration Ranolazine 500 mg 10/10/21 21:00 10/10/21 21:12 Ranolazine 500 Mg Tab.Er.12h PO 500 mg BID FELIPE Administration Triamterene/Hydrochlorothiazide 1 each 10/10/21 21:00 10/10/21 21:14 Triamterene-Hctz 37.5-25mg 1 Each Cap PO 1 each HS FELIPE Administration Intake and Output 10/10/21 10/11/21 10/11/21 22:59 06:59 14:59 Intake Total 10 Balance 10 Intake: IV 10 Invasive Line 1 10 Other: Voiding Method Toilet Toilet # Voids 0 Weight 101.605 kg 10/11/21 04:52 10/11/21 04:52
[2021-10-11] MEDS: HEPARIN SOD,PORK IN 0.45% NACL 25,000 UNIT in 0.45% NACL 1 250ML.BAG IV SCH (12:02)
--- NOTE | 2021-10-11 12:28 | CA ---
Transthoracic Echo Report Name: Rodolfo Mccarty Age: 86 Gender: M : 1935 Exam Date: 10/11/2021 10:38 Exam Location: [facility] Ht (in): 66 Wt (lb): 224 Ordering Physician: Golria Canas Attending/Referring Phys: Tank Filler La Jamison RDCS Procedure CPT: Indications: nstemi Cardiac Hx: Hx of SC and stents Technical Quality: Good Contrast 1: Total Dose (mL): Contrast 2: Total Dose (mL): MEASUREMENTS (Male / Female) Normal Values 2D ECHO LV Diastolic Diameter PLAX 3.5 cm 4.2 - 5.9 / 3.9 - 5.3 cm LV Systolic Diameter PLAX 1.4 cm IVS Diastolic Thickness 1.5 cm 0.6 - 1.0 / 0.6 - 0.9 cm LVPW Diastolic Thickness 1.5 cm 0.6 - 1.0 / 0.6 - 0.9 cm LV Relative Wall Thickness 0.8 RV Internal Dim ED PLAX 4.0 cm LVOT Diameter 2.1 cm LV Diastolic Volume MOD BP 72.6 cm??? 67 - 155 / 56 - 104 cm??? LV Systolic Volume MOD BP 20.8 cm??? 22 - 58 / 19 - 49 cm??? LV Ejection Fraction MOD BP 71.4 % >= 55 % LV Diastolic Volume MOD 4C 76.7 cm??? LV Systolic Volume MOD 4C 20.7 cm??? LV Ejection Fraction MOD 4C 73.0 % LV Diastolic Length 4C 8.6 cm LV Systolic Length 4C 6.0 cm LV Diastolic Volume MOD 2C 59.3 cm??? LV Systolic Volume MOD 2C 20.7 cm??? LV Ejection Fraction MOD 2C 65.1 % LV Diastolic Length 2C 7.4 cm LV Systolic Length 2C 6.5 cm LA Volume 71.5 cm??? 18 - 58 / 22 - 52 cm??? M-MODE Aortic Root Diameter MM 3.7 cm LA Systolic Diameter MM 3.7 cm LA Ao Ratio MM 1.0 MV E Point Septal Separation 0.5 cm AV Cusp Separation MM 1.2 cm DOPPLER AV Peak Velocity 294.3 cm/s AV Peak Gradient 34.7 mmHg AV Mean Velocity 206.8 cm/s AV Mean Gradient 19.6 mmHg AV Velocity Time Integral 74.4 cm LVOT Peak Velocity 132.5 cm/s LVOT Peak Gradient 7.0 mmHg AV Area Cont Eq pk 1.5 cm??? MV Area PHT 4.1 cm??? MR Peak Velocity 305.0 cm/s MR Peak Gradient 37.2 mmHg Mitral E Point Velocity 120.2 cm/s Mitral A Point Velocity 39.3 cm/s Mitral E to A Ratio 3.1 MV Deceleration Time 183.9 ms MV E' Velocity 5.8 cm/s Mitral E to MV E' Ratio 20.8 TR Peak Velocity 244.2 cm/s TR Peak Gradient 23.9 mmHg Right Ventricular Systolic Press 28.9 mmHg PV Peak Velocity 202.1 cm/s PV Peak Gradient 16.3 mmHg PV Mean Velocity 139.0 cm/s PV Mean Gradient 9.0 mmHg PV Velocity Time Integral 44.2 cm PI Peak Gradient 9.0 mmHg FINDINGS Left Ventricle Moderately increased septal wall thickness. Bradycardic. Increased LAP Grade 2 diastolic dysfunction. Left ventricular ejection fraction is estimated at 55-60 %. Right Ventricle Right ventricular dilatation. Right ventricular systolic pressure within normal limits. Right Atrium Normal right atrial size. Left Atrium Moderately increased left atrial volume. Mildly increased left atrial area. Mitral Valve Mitral valve thickened. Mild mitral regurgitation. Aortic Valve Moderate aortic stenosis with a peak gradient of 35 mmHg and a mean gradient of 20 mmHg. No aortic regurgitation. Diffuse thickening of the aortic valve cusps with reduced excursion. Tricuspid Valve Structurally normal tricuspid valve. Mild tricuspid regurgitation. Pulmonic Valve Mild pulmonic regurgitation. Structurally normal pulmonic valve. Pericardium No pericardial effusion. Aorta Normal size aortic root and proximal ascending aorta. CONCLUSIONS Moderate LVH Left ventricular EF 55-60% Mild mitral regurgitation Moderately dilated left atrium Moderate aortic stenosis with mean gradient 20 mmHg Diffuse aortic valve sclerosis with reduced excursion however does not appear to be component of low-flow gradient. Mild tricuspid regurgitation RVSP 28 No pericardial effusion Previewed by: Dr. Mike Almaguer DO (Electronically Signed) Final Date: 11 October 2021 12:27
[2021-10-11] MEDS: HEPARIN SODIUM 1,000 UN/ML (10ML VL) IV PRN (17:52)
[2021-10-11] MEDS: ATORVASTATIN 40 MG TAB PO SCH (21:35)
[2021-10-11] MEDS: METOPROLOL SUCCINATE (ER) 50 MG TAB.ER.24H PO SCH (21:35)
[2021-10-11] MEDS: FOLIC ACID 1 MG TAB PO SCH (21:35)
[2021-10-11] MEDS: OXYBUTYNIN CHLORIDE 5 MG TAB PO SCH (21:35)
[2021-10-11] MEDS: TRIAMTERENE-HCTZ 37.5-25MG 1 EACH CAP PO SCH (21:35)
[2021-10-11] MEDS: LEVOTHYROXINE 50 MCG TAB PO SCH (21:35)
[2021-10-12] MEDS ORDERED: SODIUM CHLORIDE 0.9% 1,000 ML in EMPTY BAG 1 BAG IV SCH
[2021-10-12 05:05] LABS: INR 1.2 (<1.2); Partial Thromboplastin Time 40.4 sec (22.0-30.0); Prothrombin Time 12.3 sec (9.0-12.0)
[2021-10-12] MEDS: HEPARIN SODIUM 1,000 UN/ML (10ML VL) IV PRN (06:01)
[2021-10-12] MEDS: HEPARIN SOD,PORK IN 0.45% NACL 25,000 UNIT in 0.45% NACL 1 250ML.BAG IV SCH (06:03)
[2021-10-12] MEDS: RANOLAZINE 500 MG TAB.ER.12H PO SCH (06:04)
[2021-10-12] MEDS ORDERED: HEPARIN SODIUM,PORCINE 2,500 UNIT in SODIUM CHLORIDE 0.9% 250 ML IRRIGATION PRN (07:00)
[2021-10-12] MEDS ORDERED: HEPARIN SODIUM,PORCINE 10,000 UNIT in SODIUM CHLORIDE 0.9% 1,000 ML IRRIGATION PRN (07:00)
[2021-10-12] MEDS ORDERED: ASPIRIN 325 MG TAB PO STA (07:20)
[2021-10-12 08:29] VITALS: RESP 16
[2021-10-12 08:34] LABS: Basophils % (A) 0 %; Eosinophils # (A) 0.3 k/uL (0-0.7); Eosinophils % (A) 4 %; HCT 40.6 % (39.0-53.0); HGB 13.9 gm/dL (13.0-17.5); Lymphocytes # (A) 1.7 k/uL (1.0-4.8); Lymphocytes % (A) 27 %; MCH 33.3 pg (25.0-35.0); MCHC 34.4 g/dL (31.0-37.0); Mean Platelet Volume 9.1; Monocytes # (A) 0.5 k/uL (0-1.0); Monocytes % (A) 8 %; Neutrophils # (A) 3.4 k/uL (1.3-7.7); Neutrophils % (A) 56 %; Platelet Count 181 k/uL (150-450); RBC 4.18 m/uL (4.30-5.90); RDW 14.3 % (11.5-15.5); WBC 6.1 k/uL (3.8-10.6)
[2021-10-12 08:40] LABS: Calcium 8.7 mg/dL (8.4-10.2); Potassium 4.3 mmol/L (3.5-5.1)
[2021-10-12 11:55] VITALS: TEMP 97.6
[2021-10-12] MEDS ORDERED: VERAPAMIL 2.5 MG/ML 2 ML AMP ONE ×2 (12:05→12:20)
[2021-10-12] MEDS ORDERED: fentaNYL (PF) 50 MCG/ML 2 ML AMP ONE (12:25)
[2021-10-12] MEDS ORDERED: HEPARIN SODIUM 1,000 UN/ML (10ML VL) ONE (12:26)
[2021-10-12] MEDS ORDERED: LIDOCAINE 1% INJ 10MG/ML (30 ML VIAL-PF) SQ ONE ×2 (12:33→12:37)
[2021-10-12] MEDS ORDERED: MIDAZOLAM 2 MG/2 ML VIAL IV ONE ×2 (12:33→12:35)
[2021-10-12] MEDS ORDERED: fentaNYL (PF) 50 MCG/ML 2 ML AMP IV ONE ×2 (12:33→12:35)
[2021-10-12] MEDS ORDERED: IV FLUID CONTINUATION 750 ML IV ONE (12:34)
[2021-10-12] MEDS ORDERED: VERAPAMIL SYRINGE (5 MG/10 ML) INTRAARTER ONE (12:40)
[2021-10-12] MEDS ORDERED: HEPARIN SODIUM 1,000 UN/ML (10ML VL) IV ONE (12:43)
[2021-10-12] MEDS ORDERED: IOPAMIDOL-370 125ML BTL INJ ONE (13:15)
--- NOTE | 2021-10-12 14:07 | P.DS ---
Providers Date of admission: 10/10/21 19:49 Expected date of discharge: 10/12/21 Attending physician: Kelvin Coffey MD Consults: 10/10/21 19:49 Consult Physician Routine Consulting Provider: [facility] Consult Reason/Comments: elevated troponin Do you want consulting provider notified?: Yes, Notify in am Primary care physician: Mike Garsia [facility] Course: Discharge Diagnosis: NSTEMI CAD Carotid artery disease Permanent atrial fibrillation on Eliquis Hypothyroidism Hypertension Dyslipidemia Chronic tobacco use Hospital Course: The patient is an 86-year-old male with A flutter on Eliquis, coronary artery disease status post stents, hypertension, hypothyroidism, and hyperlipidemia who presented to the ED with complaints of chest pain. EKG emergency room revealed a flutter at 54 bpm with a right bundle-branch block with Q waves inferiorly. Chest x-ray revealed coarse lung markings without obvious signs of congestive heart failure. Laboratory evaluation was remarkable for troponin of 0.041 and a proBNP 1740. He was placed in observation for acute coronary syndrome. Cardiology was consulted. His troponins remained relatively flat. He underwent echocardiogram. Patient opted for cardiac catheterization which per verbal report revealed disease not requiring intervention. Patient was cleared by cardiology for discharge. He was determined stable for discharge home with follow-up in the outpatient setting. Formal cath report pending at time of discharge. Echocardiogram-ejection fraction 55-60%, moderate aortic stenosis Patient seen and examined at bedside. Denies any chest pain, shortness breath, nausea, vomiting. Patient was physically seen prior to cardiac cath and was aware if cardiac Is negative he would be discharged home. Vital signs reviewed and stable. General: nontoxic, no distress, appears at stated age Derm: warm, dry Head: atraumatic, normocephalic, symmetric, hard of hearing Eyes: EOMI, no lid lag, anicteric sclera Mouth: no lip lesion, mucus membranes moist Cardiovascular: S1S2 reg with systolic ejection murmur, positive posterior tibial pulse bilateral, Lungs: Decreased bs bilateral, no rhonchi, no rales , no accessory muscle use Abdominal: soft, nontender to palpation, no guarding, no appreciable organomegaly Ext: no gross muscle atrophy, no edema, no contractures Neuro: CN II-XI grossly intact, no focal neuro deficits Psych: Alert, oriented, appropriate affect A total of 25 minutes of time were spent preparing this complex [facility]. Patient was discharged on 10/12/21. Patient Condition at Discharge: Stable Plan - Discharge Summary Discharge Rx Participant: No New Discharge Prescriptions: New Oxybutynin Chloride [Ditropan] 5 mg PO HS tab Continue Metoprolol Succinate [Toprol XL] 50 mg PO HS Levothyroxine Sodium [Synthroid] 50 mcg PO HS Folic Acid 1 mg PO HS Atorvastatin [Lipitor] 40 mg PO HS Ranolazine [Ranexa] 500 mg PO BID Apixaban [Eliquis] 5 mg PO BID Vit C/E/Zn/Coppr/Lutein/Zeaxan [Preservision Areds 2 Chew Tab] 1 tab PO HS Triamterene-Hctz 37.5-25Mg [Dyazide 37.5-25 Capsule] 1 cap PO HS Nitroglycerin Sl Tabs [Nitrostat] 0.4 mg SUBLINGUAL Q5M PRN PRN Reason: Chest Pain Discharge Medication List Levothyroxine Sodium [Synthroid] 50 mcg PO HS 11/09/15 [History] Metoprolol Succinate [Toprol XL] 50 mg PO HS 11/09/15 [History] Atorvastatin [Lipitor] 40 mg PO HS 09/26/18 [History] Folic Acid 1 mg PO HS 09/26/18 [History] Ranolazine [Ranexa] 500 mg PO BID 01/04/19 [History] Apixaban [Eliquis] 5 mg PO BID 08/21/20 [History] Nitroglycerin Sl Tabs [Nitrostat] 0.4 mg SUBLINGUAL Q5M PRN 08/21/20 [History] Triamterene-Hctz 37.5-25Mg [Dyazide 37.5-25 Capsule] 1 cap PO HS 08/21/20 [History] Vit C/E/Zn/Coppr/Lutein/Zeaxan [Preservision Areds 2 Chew Tab] 1 tab PO HS 10/10/21 [History] Oxybutynin Chloride [Ditropan] 5 mg PO HS tab 10/12/21 [Rx] Follow up Appointment(s)/Referral(s): Mike Garsia MD [Primary Care Provider] - 1-2 Days (Office is closed at time of discharge, ensure office aware this is a follow up from the hospital.) Neto Barboza MD [STAFF PHYSICIAN] - 1 Week None,Stated [REFERRING] - 1-2 days Patient Instructions/Handouts: *Surgery [facility] - After Heart Catheterization - Senior Applications Architect Instructions Activity/Diet/Wound Care/Special Instructions: Activity: as tolerated Diet: heart healthy Discharge Disposition: HOME SELF-CARE
--- NOTE | 2021-10-12 17:43 | P.CARDCATH ---
Description of Procedure: PROCEDURES PERFORMED: Bilateral coronary angiography INDICATION: Non-STEMI CONSENT:I have discussed the risks, benefits and alternative therapies for the above-mentioned procedure and for both sedation/analgesia as well as necessary blood product administration, if indicated, as they pertain to this patient. The patient has indicated understanding and acceptance of the risks and procedures discussed. PROCEDURE: After the risks, benefits and alternatives of the above mentioned procedure explained in detail with the patient, informed consent was obtained. Patient was taken to the catheterization lab and prepped and draped in usual fashion. 1% lidocaine was used to anesthetize the right radial artery. A 6- [place] sheath was placed in the right radial artery using modified Seldinger technique. Left coronary angiography was performed with a 5-[place] JL 4.0 catheter and right coronary angiography was performed with a 5-[place] JR5 catheter in various views. The right radial sheath was removed and a TR band was placed with hemostasis achieved. The patient tolerated the procedure well. Patient was transported back to the post catheterization holding area in stable condition. Conscious Sedation: Patient was monitored under the direct supervision of vision of myself for conscious sedation using Versed and fentanyl for a total duration of 20 minutes HEMODYNAMICS: Ao: 134/78 SELECTIVE CORONARY ARTERIOGRAPHY: LEFT MAIN: The left main is a large caliber vessel which bifurcates into the LAD and circumflex. There is diffuse heavily calcified 20% stenosis. LEFT ANTERIOR DESCENDING CORONARY ARTERY: LAD is a large caliber vessel which wraps around to the apex. There is diffuse heavy calcifications including a proximal LAD 50-60% stenosis and otherwise patent mid LAD stent and mild 20-30% stenoses. There are [id number] collaterals. LEFT CIRCUMFLEX CORONARY ARTERY: Left circumflex is a moderate caliber vessel with mild 20-30% circumflex stenosis. RIGHT CORONARY ARTERY: The right coronary artery is a large caliber vessel which gives off a PDA and PLV branch and is the dominant vessel. There is 100% mid RCA stenosis. FINAL IMPRESSION: 1. CAD as described above including 50-60% proximal LAD stenosis, left main 20% stenosis, 100% RCA stenosis with left to right collaterals appearing similar to prior angiograms from 2019. PLAN: 1. Aggressive risk factor modification per most recent ACC/AHA guidelines. 2. Patient with only 2 episodes of atypical chest pain and minimally elevated troponins which have been chronically minimally elevated. Given diffuse heavily calcified coronary arteries and no obvious change would treat medically. If he has recurrent chest pain would consider iFR/FFR of proximal LAD lesion and possible stenting.
[2021-10-12 18:28] VITALS: BP 117/58; PULSE 51
[2021-10-12] MEDS ORDERED: APIXABAN 5 MG TAB PO SCH (21:00)
== END 2021-10-12 19:07 | disposition home or self-care (01) ==
LOC: EC 17:25 → 3SCARD 19:49
PROVIDERS: ADMIT Internal Medicine; ATTEND Internal Medicine
DX: I21.4 Non-ST elevation (NSTEMI) myocardial infarction (principal); I25.10 Atherosclerotic heart disease of native coronary artery without angina pectoris; I65.29 Occlusion and stenosis of unspecified carotid artery; I48.21 Permanent atrial fibrillation; E03.9 Hypothyroidism, unspecified; I10 Essential (primary) hypertension; E78.5 Hyperlipidemia, unspecified; I48.92 Unspecified atrial flutter; I25.2 Old myocardial infarction; M19.90 Unspecified osteoarthritis, unspecified site; I35.0 Nonrheumatic aortic (valve) stenosis; F17.210 Nicotine dependence, cigarettes, uncomplicated; Z79.01 Long term (current) use of anticoagulants; Z79.890 Hormone replacement therapy; Z79.899 Other long term (current) drug therapy; Z88.0 Allergy status to penicillin; Z95.5 Presence of coronary angioplasty implant and graft; Z82.49 Family history of ischemic heart disease and other diseases of the circulatory system; Z20.822 Contact with and (suspected) exposure to COVID-19
CPT/HCPCS: 96365; 96366 ×2; 96372 ×2; 99285; 36415; 93005; 93306; 83880; 80053; 80048 ×2; 83735; 84484; 85025 ×3; 85610 ×3; 85730 ×3; 87635; 71046; 93454; G0378 ×3; J2250; J2001; J3010; J1644 ×4; Q9967

== ENCOUNTER 2022-07-06 11:00 | Observation (INO) | payer MEDICARE ==
--- NOTE | 2022-07-06 11:45 | ED ---
General Adult HPI - General Chief complaint: Recheck/Abnormal Lab/Rx Stated complaint: Lt side pain Time Seen by Provider: 07/06/22 11:12 Source: patient, RN notes reviewed Mode of arrival: ambulatory Limitations: no limitations - History of Present Illness Initial comments: 87-year-old male presents to the emergency department chief complaint of left-s ided chest pain that started yesterday. He states the pain starts in his left axillary area and comes around the chest. Denies radiation into the jaw or left arm. He states that the pain is stabbing in nature and lasts a few minutes at a time. He is unable to pinpoint any aggravating factors. He states that he occasionally gets nauseous when the pain comes on but not every time. He reports some shortness of breath but states this is typical for him. He reports a prior OR for which he had stent placement about 2 years ago. He states that this pain feels different in character to the pain he had at the time of his prior OR. He states he sees Dr. Barboza for cardiology which he saw yesterday but he was not having this pain at the time. He states he takes Eliquis but does not know what it is for. Past medical history includes hypertension, hyperlipidemia, CAD. Denies fever, chills, cough, recent illness. - Related Data Home Medications Medication Instructions Recorded Confirmed Levothyroxine Sodium [Synthroid] 50 mcg PO HS 11/09/15 07/06/22 Atorvastatin [Lipitor] 40 mg PO HS 09/26/18 07/06/22 Folic Acid 1 mg PO HS 09/26/18 07/06/22 Ranolazine [Ranexa] 500 mg PO BID 01/04/19 07/06/22 Apixaban [Eliquis] 5 mg PO BID 08/21/20 07/06/22 Metoprolol Succinate (ER) [Toprol 100 mg PO HS 07/06/22 07/06/22 Xl] Triamterene-Hctz 37.5-25Mg 1 tab PO HS 07/06/22 07/06/22 [Maxzide 37.5-25] Allergies Allergy/AdvReac Type Severity Reaction Status Date / Time Penicillins Allergy Rash/Hives Verified 07/06/22 16:31 regadenoson Allergy Anaphylaxis Verified 07/06/22 16:31 cardiolite Allergy Anaphylaxis Uncoded 07/06/22 16:31 Review of Systems ROS Statement: Those systems with pertinent positive or pertinent negative responses have been documented in the HPI. ROS Other: All systems not noted in ROS Statement are negative. Past Medical History Past Medical History: Atrial Flutter, Coronary Artery Disease (CAD), Cancer, Hyperlipidemia, Hypertension, Myocardial Infarction (OR), Osteoarthritis (OA), Sleep Apnea/CPAP/BIPAP, Thyroid Disorder Additional Past Medical History / Comment(s): Healing wound on rt lower leg, hx skin cancer Last Myocardial Infarction Date:: 2008 History of Any Multi-Drug Resistant Organisms: None Reported Past Surgical History: Heart Catheterization With Stent, Joint Replacement Additional Past Surgical History / Comment(s): Replacements of KAREN KNEES, KAREN HIPS and RT SHOULDER, has 2 or 3 coranary stents, recent karen eyelid sx, and removal of skin tag on rt eye lid Past Anesthesia/Blood Transfusion Reactions: No Reported Reaction Date of Last Stent Placement:: 2018 Past Psychological History: No Psychological Hx Reported Smoking Status: Never smoker Past Alcohol Use History: Occasional Past Drug Use History: None Reported - Past Family History Mother Family Medical History: No Reported History Brother(s) Family Medical History: Myocardial Infarction (OR) Father Family Medical History: Myocardial Infarction (OR) General Exam Limitations: no limitations General appearance: alert, in no apparent distress Head exam: Present: atraumatic, normocephalic, normal inspection Eye exam: Present: normal appearance, PERRL, EOMI. Absent: scleral icterus, conjunctival injection, periorbital swelling ENT exam: Present: normal exam, mucous membranes moist Neck exam: Present: normal inspection. Absent: tenderness, meningismus, lymphadenopathy Respiratory exam: Present: normal lung sounds bilaterally. Absent: respiratory distress, wheezes, rales, rhonchi, stridor, accessory muscle use Cardiovascular Exam: Present: regular rate, normal rhythm, normal heart sounds. Absent: systolic murmur, diastolic murmur, rubs, gallop, clicks GI/Abdominal exam: Present: soft, normal bowel sounds. Absent: distended, tenderness, guarding, rebound, rigid Extremities exam: Present: normal inspection, full ROM, normal capillary refill. Absent: tenderness, pedal edema, joint swelling, calf tenderness Back exam: Present: normal inspection Neurological exam: Present: alert, oriented X3 Psychiatric exam: Present: normal affect, normal mood Skin exam: Present: warm, dry, intact, normal color. Absent: rash Course Vital Signs 07/06/22 07/06/22 11:03 14:33 Temperature 97.5 F L Pulse Rate 55 L 41 L Respiratory 18 16 Rate Blood Pressure 129/63 123/64 O2 Sat by Pulse 98 99 Oximetry Medical Decision Making - Medical Decision Making Was pt. sent in by a medical professional or institution (, PA, LIFE SKILLS INSTRUCTOR, urgent care, hospital, or retirement...) When possible be specific @ -No Did you speak to anyone other than the patient for history (EMS, parent, family, police, friend...)? What history was obtained from this source @ -Some history was obtained from patient's Did you review nursing and triage notes (agree or disagree)? Why? @ -I reviewed and agree with nursing and triage notes Were old charts reviewed (outside hosp., previous admission, EMS record, old EKG, old radiological studies, urgent care reports/EKG's, retirement records)? Report findings @ -Prior charts and laboratory studies were reviewed including prior EKG and troponin Differential Diagnosis (chest pain, altered mental status, abdominal pain women, abdominal pain men, vaginal bleeding, weakness, fever, dyspnea, syncope, headache, dizziness, GI bleed, back pain, seizure, CVA, palpatations, mental health, musculoskeletal)? @ -Differential Chest Pain: Stable Angina, Unstable Angina, STEMI, NSTEMI Aortic Dissection, Pneumothorax, Musculoskeletal, Esophageal Spasm GERD, Cholecystitis, Pancreatitis, Zoster, this is not meant to be an all-inclusive list. EKG interpreted by me (3pts min.). @ -EKG at 1116 shows A. fib rate 50, QRS 149, QTQTc [id number], EKG was reviewed by my attending, Dr. Green X-rays interpreted by me (1pt min.). @ -Chest x-ray was obtained which showed no acute process CT interpreted by me (1pt min.). @ -None done U/S interpreted by me (1pt. min.). @ -None done What testing was considered but not performed or refused? (CT, X-rays, U/S, labs)? Why? @ -None What meds were considered but not given or refused? Why? @ -None Did you discuss the management of the patient with other professionals (professionals i.e. DrShwetha, PA, LIFE SKILLS INSTRUCTOR, lab, RT, psych nurse, social welfare research worker, design agent, teacher, operations officer trust department, case work aide)? Give summary @ -Case was discussed with Dr. Espinoza with [facility] who was accepting of the admission Was smoking cessation discussed for >3mins.? @ -No Was critical care preformed (if so, how long)? @ -No Were there social determinants of health that impacted care today? How? (Homelessness, low income, unemployed, alcoholism, drug addiction, transportation, low edu. Level, literacy, decrease access to med. care, residential, rehab)? @ -No Was there de-escalation of care discussed even if they declined (Discuss DNR or withdrawal of care, Hospice)? DNR status @ -No What co-morbidities impacted this encounter? (DM, HTN, Smoking, COPD, CAD, Cancer, CVA, ARF, Chemo, Hep., AIDS, mental health diagnosis, sleep apnea, morbid obesity)? @ -None Was patient admitted / discharged? Hospital course, mention meds given and route, prescriptions, significant lab abnormalities, going to OR and other pertinent info. @ -admitted. Patient presented to emergency department with chief complaint of chest pain 1 day. Patient was evaluated by my attending, Dr. Green CBC was with in normal limits, CMP showed BUN 30, creatinine 1.5, sodium 141, potassium 4.3 troponin 0.040; chest x-ray showed no acute process. Case is discussed with Dr. Espinoza with [facility] who is accepting of the admission for repeat troponins. Patient stable at time of admission. Undiagnosed new problem with uncertain prognosis? @ -No Drug Therapy requiring intensive monitoring for toxicity (Heparin, Nitro, Insulin, Cardizem)? @ -No Were any procedures done? @ -No Diagnosis/symptom? @ -Chest pain Acute, or Chronic, or Acute on Chronic? @ -acute Uncomplicated (without systemic symptoms) or Complicated (systemic symptoms)? @ -default Side effects of treatment? @ -No Exacerbation, Progression, or Severe Exacerbation? @ -No Poses a threat to life or bodily function? How? (Chest pain, USA, OR, pneumonia, PE, COPD, DKA, ARF, appy, cholecystitis, CVA, Diverticulitis, Homicidal, Suicida l, threat to staff... and all critical care pts) @ -No - Lab Data Result diagrams: 07/06/22 11:32 07/06/22 11:32 Lab Results 07/06/22 07/06/22 07/06/22 Range/Units 11:32 11:32 11:32 WBC 5.0 (3.8-10.6) k/uL RBC 3.96 L (4.30-5.90) m/uL Hgb 12.9 L (13.0-17.5) gm/dL Hct 39.1 (39.0-53.0) % MCV 98.6 (80.0-100.0) fL MCH 32.5 (25.0-35.0) pg MCHC 33.0 (31.0-37.0) g/dL RDW 13.7 (11.5-15.5) % Plt Count 183 (150-450) k/uL MPV 8.8 Neutrophils % 66 % Lymphocytes % 20 % Monocytes % 7 % Eosinophils % 3 % Basophils % 1 % Neutrophils # 3.3 (1.3-7.7) k/uL Lymphocytes # 1.0 (1.0-4.8) k/uL Monocytes # 0.4 (0-1.0) k/uL Eosinophils # 0.2 (0-0.7) k/uL Basophils # 0.0 (0-0.2) k/uL PT 13.4 H (9.0-12.0) sec INR 1.3 H (<1.2) APTT 27.2 (22.0-30.0) sec Sodium 141 (137-145) mmol/L Potassium 4.3 (3.5-5.1) mmol/L Chloride 108 H (98-107) mmol/L Carbon Dioxide 22 (22-30) mmol/L Anion Gap 11 mmol/L BUN 30 H (9-20) mg/dL Creatinine 1.51 H (0.66-1.25) mg/dL Est GFR (CKD-EPI)AfAm 47 (>60 ml/min/1.73 sqM) Est GFR (CKD-EPI)NonAf 41 (>60 ml/min/1.73 sqM) Glucose 133 H (74-99) mg/dL Calcium 8.8 (8.4-10.2) mg/dL Magnesium 2.1 (1.6-2.3) mg/dL Total Bilirubin 0.7 (0.2-1.3) mg/dL AST 22 (17-59) U/L ALT 20 (4-49) U/L Alkaline Phosphatase 65 (38-126) U/L Troponin I (0.000-0.034) ng/mL Total Protein 7.0 (6.3-8.2) g/dL Albumin 3.8 (3.5-5.0) g/dL 07/06/22 Range/Units 11:32 WBC (3.8-10.6) k/uL RBC (4.30-5.90) m/uL Hgb (13.0-17.5) gm/dL Hct (39.0-53.0) % MCV (80.0-100.0) fL MCH (25.0-35.0) pg MCHC (31.0-37.0) g/dL RDW (11.5-15.5) % Plt Count (150-450) k/uL MPV Neutrophils % % Lymphocytes % % Monocytes % % Eosinophils % % Basophils % % Neutrophils # (1.3-7.7) k/uL Lymphocytes # (1.0-4.8) k/uL Monocytes # (0-1.0) k/uL Eosinophils # (0-0.7) k/uL Basophils # (0-0.2) k/uL PT (9.0-12.0) sec INR (<1.2) APTT (22.0-30.0) sec Sodium (137-145) mmol/L Potassium (3.5-5.1) mmol/L Chloride (98-107) mmol/L Carbon Dioxide (22-30) mmol/L Anion Gap mmol/L BUN (9-20) mg/dL Creatinine (0.66-1.25) mg/dL Est GFR (CKD-EPI)AfAm (>60 ml/min/1.73 sqM) Est GFR (CKD-EPI)NonAf (>60 ml/min/1.73 sqM) Glucose (74-99) mg/dL Calcium (8.4-10.2) mg/dL Magnesium (1.6-2.3) mg/dL Total Bilirubin (0.2-1.3) mg/dL AST (17-59) U/L ALT (4-49) U/L Alkaline Phosphatase (38-126) U/L Troponin I 0.040 H* (0.000-0.034) ng/mL Total Protein (6.3-8.2) g/dL Albumin (3.5-5.0) g/dL Disposition Clinical Impression: Chest pain Disposition: ADMITTED IP TO THIS HOSP Condition: Stable Is patient prescribed a controlled substance at d/c from ED?: No
[2022-07-06 11:49] LABS: Basophils % (A) 1 %; Eosinophils # (A) 0.2 k/uL (0-0.7); Eosinophils % (A) 3 %; HCT 39.1 % (39.0-53.0); HGB 12.9 gm/dL (13.0-17.5); Lymphocytes % (A) 20 %; MCH 32.5 pg (25.0-35.0); MCV 98.6 fL (80.0-100.0); Mean Platelet Volume 8.8; Monocytes # (A) 0.4 k/uL (0-1.0); Monocytes % (A) 7 %; Neutrophils # (A) 3.3 k/uL (1.3-7.7); Neutrophils % (A) 66 %; Platelet Count 183 k/uL (150-450); RBC 3.96 m/uL (4.30-5.90); RDW 13.7 % (11.5-15.5)
[2022-07-06 11:55] LABS: INR 1.3 (<1.2); Partial Thromboplastin Time 27.2 sec (22.0-30.0); Prothrombin Time 13.4 sec (9.0-12.0)
--- NOTE | 2022-07-06 11:58 | XR ---
EXAMINATION TYPE: XR chest 2V DATE OF EXAM: 07/06/2022 COMPARISON: Chest x-ray October 10, 2021 HISTORY: Chest pain. TECHNIQUE: Frontal and lateral views of the chest are obtained. FINDINGS: There is no focal air space opacity, pleural effusion, or pneumothorax seen. The cardiac silhouette size is stable and upper limits of normal. Small to moderate size hiatal hernia redemonstr ated. Surgical change right shoulder is partially imaged. IMPRESSION: No acute cardiopulmonary process. No significant change from prior.
[2022-07-06 12:05] LABS: Albumin 3.8 g/dL (3.5-5.0); Calcium 8.8 mg/dL (8.4-10.2); Magnesium 2.1 mg/dL (1.6-2.3); Potassium 4.3 mmol/L (3.5-5.1); Total Bilirubin 0.7 mg/dL (0.2-1.3)
[2022-07-06] MEDS ORDERED: ONDANSETRON 4 MG/2 ML VIAL IVP PRN (13:09)
[2022-07-06] MEDS ORDERED: traMADol 50 MG TAB PO PRN (13:09)
[2022-07-06] MEDS ORDERED: MORPHINE SULFATE 4 MG/ML SYRINGE IV PRN (13:09)
[2022-07-06] MEDS ORDERED: ACETAMINOPHEN TAB 325 MG TAB PO PRN (13:09)
[2022-07-06] MEDS ORDERED: NALOXONE 0.4 MG/ML 1 ML VIAL IV PRN (13:09)
--- NOTE | 2022-07-06 16:32 | P.HPIM ---
History of Present Illness H&P Date: 07/06/22 Patient is a 87-year-old male with history of hypertension, dyslipidemia, atrial fibrillation, hypothyroidism presenting with left-sided chest pain. He claims that the pain is radiating to his left shoulder. His pain has been ongoing for the last 3 years, comes and goes. Mostly in the left side. 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 Currently he is chest pain- free, denies any shortness of breath, abdominal pain, nausea, vomiting, diarrhea, constipation, or urinary complaints. He denies any recent travel history. Denies any recent fevers or chills. He denies any sick contacts. He uses a walker to ambulate. He occasionally drinks alcohol, smokes 2 cigars a day, denies any illicit drug use. In the ED, temperature was 97.5, pulse 55, respiratory rate 18, blood pressure 129/63, saturating at 98% on room air. WBC 5, hemoglobin 12.9, potassium 4.3, creatinine 1.51, slightly above baseline, troponin 0.040, magnesium 2.1. Chest x-ray shows no acute process. EKG reportedly showed atrial fibrillation, rate controlled, not available for review. Patient admitted for chest pain, pending cardiology evaluation. Pertinent positives and negatives as discussed in HPI, a complete review of systems was performed and all other systems are negative. Patient seen and examined at bedside. Vital signs reviewed General: nontoxic, no distress, appears at stated age Derm: warm, dry Head: atraumatic, normocephalic, symmetric Eyes: EOMI, no lid lag, anicteric sclera, pupils equal round reactive to light ENT: Nose and ears atraumatic Neck: No thyromegaly, supple Mouth: no lip lesion, mucus membranes moist Cardiovascular: S1S2 reg, no murmur, no edema Lungs: clear to auscultation bilateral, no rhonchi, no rales, no wheeze, no accessory muscle use Abdominal: soft, nontender to palpation, no guarding, no appreciable organomegaly Ext: no gross muscle atrophy, muscle strength muscle strength 5 out of 5 in all 4 extremities, no contractures Neuro: CN II-XII grossly intact Psych: Alert, oriented, appropriate affect Assessment/Plan: Active: Chest pain, rule out ACS Elevated troponin -Trend troponin -Telemetry -Cardiology consult -Echocardiogram ordered -Continue atorvastatin, started on aspirin Chronic: Atrial fibrillation Hypertension Hypothyroidism The patient is admitted with an anticipated greater than 2 midnight stay as inpatient status for evaluation of chest pain. Surrogate decision-maker: CODE STATUS: Full code DVT prophylaxis: Eliquis Anticipated discharge date: Pending clinical course Anticipated discharge place: Pending clinical course A total of 55 minutes was spent on the care of this complex patient more than 50% of the time was spent in counseling and care coordination. Past Medical History Past Medical History: Atrial Flutter, Coronary Artery Disease (CAD), Cancer, Hyperlipidemia, Hypertension, Myocardial Infarction (MS), Osteoarthritis (OA), Sleep Apnea/CPAP/BIPAP, Thyroid Disorder Additional Past Medical History / Comment(s): Healing wound on rt lower leg, hx skin cancer Last Myocardial Infarction Date:: 2008 History of Any Multi-Drug Resistant Organisms: None Reported Past Surgical History: Heart Catheterization With Stent, Joint Replacement Additional Past Surgical History / Comment(s): Replacements of KAREN KNEES, KAREN HIPS and RT SHOULDER, has 2 or 3 coranary stents, recent karen eyelid sx, and removal of skin tag on rt eye lid Past Anesthesia/Blood Transfusion Reactions: No Reported Reaction Date of Last Stent Placement:: 2018 Past Psychological History: No Psychological Hx Reported Smoking Status: Never smoker Past Alcohol Use History: Occasional Past Drug Use History: None Reported - Past Family History Mother Family Medical History: No Reported History Brother(s) Family Medical History: Myocardial Infarction (MS) Father Family Medical History: Myocardial Infarction (MS) Medications and Allergies Home Medications Medication Instructions Recorded Confirmed Type Levothyroxine Sodium [Synthroid] 50 mcg PO HS 11/09/15 10/10/21 History Metoprolol Succinate [Toprol XL] 50 mg PO HS 11/09/15 10/10/21 History Atorvastatin [Lipitor] 40 mg PO HS 09/26/18 10/10/21 History Folic Acid 1 mg PO HS 09/26/18 10/10/21 History Ranolazine [Ranexa] 500 mg PO BID 01/04/19 10/10/21 History Apixaban [Eliquis] 5 mg PO BID 08/21/20 10/10/21 History Nitroglycerin Sl Tabs [Nitrostat] 0.4 mg SUBLINGUAL Q5M PRN 08/21/20 10/10/21 History Triamterene-Hctz 37.5-25Mg 1 cap PO HS 08/21/20 10/10/21 History [Dyazide 37.5-25 Capsule] Vit C/E/Zn/Coppr/Lutein/Zeaxan 1 tab PO HS 10/10/21 10/10/21 History [Preservision Areds 2 Chew Tab] oxyBUTYnin chloride [Ditropan] 5 mg PO HS tab 10/12/21 Rx Allergies Allergy/AdvReac Type Severity Reaction Status Date / Time Penicillins Allergy Rash/Hives Verified 07/06/22 16:31 [email or web address] Allergy Anaphylaxis Verified 07/06/22 16:31 cardiolite Allergy Anaphylaxis Uncoded 07/06/22 16:31 Physical Exam Vitals: Vital Signs Temp Pulse Resp BP Pulse Ox 07/06/22 14:33 41 L 16 123/64 99 07/06/22 11:03 97.5 F L 55 L 18 129/63 98 Intake and Output 07/05/22 07/06/22 07/06/22 22:59 06:59 14:59 Other: Weight 99.79 kg Results CBC & Chem 7: 07/06/22 11:32 07/06/22 11:32 Labs: Abnormal Lab Results - Last 24 Hours (Table) 07/06/22 07/06/22 07/06/22 Range/Units 11:32 11:32 11:32 RBC 3.96 L (4.30-5.90) m/uL Hgb 12.9 L (13.0-17.5) gm/dL PT 13.4 H (9.0-12.0) sec INR 1.3 H (<1.2) Chloride 108 H (98-107) mmol/L BUN 30 H (9-20) mg/dL Creatinine 1.51 H (0.66-1.25) mg/dL Glucose 133 H (74-99) mg/dL Troponin I (0.000-0.034) ng/mL 07/06/22 Range/Units 11:32 RBC (4.30-5.90) m/uL Hgb (13.0-17.5) gm/dL PT (9.0-12.0) sec INR (<1.2) Chloride (98-107) mmol/L BUN (9-20) mg/dL Creatinine (0.66-1.25) mg/dL Glucose (74-99) mg/dL Troponin I 0.040 H* (0.000-0.034) ng/mL
[2022-07-06] MEDS ORDERED: METOPROLOL SUCCINATE (ER) 100 MG TAB.ER.24H PO SCH (21:00)
[2022-07-06] MEDS: TRIAMTERENE-HCTZ 37.5-25MG 1 EACH TAB PO SCH (21:27)
[2022-07-06] MEDS: RANOLAZINE 500 MG TAB.ER.12H PO SCH (21:27)
[2022-07-06] MEDS: FOLIC ACID 1 MG TAB PO SCH (21:27)
[2022-07-06] MEDS: APIXABAN 2.5 MG TABLET PO SCH (21:27)
[2022-07-06] MEDS: LEVOTHYROXINE 50 MCG TAB PO SCH (21:27)
[2022-07-06] MEDS: ATORVASTATIN 40 MG TAB PO SCH (21:28)
[2022-07-07 08:14] LABS: Basophils % (A) 1 %; Eosinophils # (A) 0.2 k/uL (0-0.7); Eosinophils % (A) 4 %; HCT 38.7 % (39.0-53.0); HGB 12.9 gm/dL (13.0-17.5); Lymphocytes # (A) 1.1 k/uL (1.0-4.8); Lymphocytes % (A) 23 %; MCHC 33.4 g/dL (31.0-37.0); MCV 98.7 fL (80.0-100.0); Monocytes # (A) 0.4 k/uL (0-1.0); Monocytes % (A) 8 %; Neutrophils # (A) 2.9 k/uL (1.3-7.7); Neutrophils % (A) 62 %; Platelet Count 177 k/uL (150-450); RBC 3.92 m/uL (4.30-5.90); RDW 13.7 % (11.5-15.5); WBC 4.8 k/uL (3.8-10.6)
[2022-07-07 08:23] LABS: Calcium 8.9 mg/dL (8.4-10.2); Potassium 4.3 mmol/L (3.5-5.1)
[2022-07-07] MEDS: APIXABAN 2.5 MG TABLET PO SCH ×2 (08:33→22:10)
[2022-07-07] MEDS: ASPIRIN 81 MG PO SCH (08:34)
[2022-07-07] MEDS: RANOLAZINE 500 MG TAB.ER.12H PO SCH ×2 (08:34→22:11)
--- NOTE | 2022-07-07 11:43 | P.CRDCN ---
History of Present Illness Consult date: 07/07/22 Consult reason: chest pain History of present illness: This is Jag Baer NP, I'm dictating on behalf of Dr. Mcginnis's H&P and A&P The patient was interviewed and examined. HPI: Patient is a pleasant 87-year-old male who presented to Hospital complaints of chest pain. Patient states that 2 days ago he started left-sided chest pain under the axilla, which wrapped around to the front of his lower chest. She states that the pain came out of nowhere, and has been constant, and continuous. He does state that deep breathing, or touching the area does exacerbate the pain. Patient to come to the emergency department for evaluation. Patient was found to have borderline troponin elevation. His EKG demonstrated atrial flutter with a right bundle branch block. Due to the concerning nature of the patient's pain, he was admitted for further evaluation. Patient has a significant past medical history for atrial flutter, coronary artery disease, hyperlipidemia, hypertension, myocardial infarction, sleep apnea, and thyroid disorder. His past surgical history that is relevant for coronary artery stenting. This morning patient reports that the chest pain continues, again wrapping from his left axilla, down around the front of his chest. It is exacerbated on palpation. He is otherwise denying shortness of breath and heart palpitations. He reports that he has had this pain on and off for the last 3 years. ROS: [No fever, chills, or rigors] [no cough, phlegm, or expectoration] [no nausea, vomiting, or diarrhea] [no hematuria, dysuria] [Left axillary and lower anterior chest pain] [no strokes or seizures] [no skin lesions] EXAMINATION: GENERAL: Well-appearing, well-nourished and in no acute distress. NECK: Supple without JVD or thyromegaly. LUNGS: Breath sounds clear to auscultation bilaterally. Respiration equal and unlabored. No wheezes, rales or rhonchi. HEART: Regular rate and irregular rhythm without murmurs, rubs or gallops. S1 and S2 heard. EXTREMITIES: Normal range of motion, no edema. No clubbing or cyanosis. Peripheral pulses intact and strong. REVIEW OF LABS, ECG & MEDICAL DATA: LABS: White count 4.8, hemoglobin 12.9, platelets 177, sodium 138, potassium 4.3, B1 25, creatinine 1.28, calcium 8.9, magnesium 2.1, troponin-0.040, 0.043, 0.036, TSH 2.8 EKG: Atrial flutter with right bundle branch block IMAGING: Chest x-ray dated 07/06/2022 demonstrates no acute cardiopulmonary process, no significant change from prior. VITALS: Temp 97.6, pulse 52, respirations 16, blood pressure 112/68, O2 saturation 98% on room air IMPRESSION: 1. Chest pain, unlikely cardiac in origin, chronic 2. Elevated troponins 3. Persistent atrial flutter, controlled rate 4. Hypertension PLAN: Check TSH and lipid panel. Increase Ranexa to 1000 milligrams twice a day. Decrease metoprolol to 50 mg twice a day. Further recommendations based on patient's clinical course. Thank you for the consult and allowing us to participate in the care of this patient. Past Medical History Past Medical History: Atrial Flutter, Coronary Artery Disease (CAD), Cancer, H yperlipidemia, Hypertension, Myocardial Infarction (ID), Osteoarthritis (OA), Sleep Apnea/CPAP/BIPAP, Thyroid Disorder Additional Past Medical History / Comment(s): Healing wound on rt lower leg, hx skin cancer Last Myocardial Infarction Date:: 2008 History of Any Multi-Drug Resistant Organisms: None Reported Past Surgical History: Heart Catheterization With Stent, Joint Replacement Additional Past Surgical History / Comment(s): Replacements of KAREN KNEES, KAREN HIPS and RT SHOULDER, has 2 or 3 coranary stents, recent karen eyelid sx, and removal of skin tag on rt eye lid Past Anesthesia/Blood Transfusion Reactions: No Reported Reaction Date of Last Stent Placement:: 2018 Past Psychological History: No Psychological Hx Reported Smoking Status: Never smoker Past Alcohol Use History: Occasional Past Drug Use History: None Reported - Past Family History Mother Family Medical History: No Reported History Brother(s) Family Medical History: Myocardial Infarction (ID) Father Family Medical History: Myocardial Infarction (ID) Medications and Allergies Home Medications Medication Instructions Recorded Confirmed Type Levothyroxine Sodium [Synthroid] 50 mcg PO HS 11/09/15 07/06/22 History Atorvastatin [Lipitor] 40 mg PO HS 09/26/18 07/06/22 History Folic Acid 1 mg PO HS 09/26/18 07/06/22 History Ranolazine [Ranexa] 500 mg PO BID 01/04/19 07/06/22 History Apixaban [Eliquis] 5 mg PO BID 08/21/20 07/06/22 History Metoprolol Succinate (ER) [Toprol 100 mg PO HS 07/06/22 07/06/22 History Xl] Triamterene-Hctz 37.5-25Mg 1 tab PO HS 07/06/22 07/06/22 History [Maxzide 37.5-25] Allergies Allergy/AdvReac Type Severity Reaction Status Date / Time Penicillins Allergy Rash/Hives Verified 07/06/22 16:31 [email or web address] Allergy Anaphylaxis Verified 07/06/22 16:31 cardiolite Allergy Anaphylaxis Uncoded 07/06/22 16:31 Physical Exam Vitals: Vital Signs Temp Pulse Pulse Resp BP BP Pulse Ox 07/07/22 09:10 95 07/07/22 08:35 97.6 F 52 L 16 112/68 98 07/07/22 04:00 98.6 F 59 L 16 141/58 07/07/22 02:00 56 L 18 07/07/22 00:00 97.9 F 56 L 18 142/71 07/06/22 20:00 98.4 F 55 L 18 130/70 07/06/22 16:00 97.8 F 45 L 16 129/75 97 07/06/22 14:33 41 L 16 123/64 99 Intake and Output 07/06/22 07/07/22 07/07/22 22:59 06:59 14:59 Intake Total 110 500 350 Balance 110 500 350 Intake: Oral 110 500 350 Other: # Voids 3 1 # Bowel Movements 1 Weight 99.79 kg Results 07/07/22 07:25 07/07/22 07:25 Cardiac Enzymes 07/06/22 07/06/22 07/06/22 Range/Units 11:32 11:32 15:27 AST 22 (17-59) U/L Troponin I 0.040 H* 0.043 H* (0.000-0.034) ng/mL 07/06/22 Range/Units 18:11 AST (17-59) U/L Troponin I 0.036 H* (0.000-0.034) ng/mL Coagulation 07/06/22 Range/Units 11:32 PT 13.4 H (9.0-12.0) sec APTT 27.2 (22.0-30.0) sec CBC 07/06/22 07/07/22 Range/Units 11:32 07:25 WBC 5.0 4.8 (3.8-10.6) k/uL RBC 3.96 L 3.92 L (4.30-5.90) m/uL Hgb 12.9 L 12.9 L (13.0-17.5) gm/dL Hct 39.1 38.7 L (39.0-53.0) % Plt Count 183 177 (150-450) k/uL Comprehensive Metabolic Panel 07/06/22 07/07/22 Range/Units 11:32 07:25 Sodium 141 138 (137-145) mmol/L Potassium 4.3 4.3 (3.5-5.1) mmol/L Chloride 108 H 104 (98-107) mmol/L Carbon Dioxide 22 27 (22-30) mmol/L BUN 30 H 25 H (9-20) mg/dL Creatinine 1.51 H 1.28 H (0.66-1.25) mg/dL Glucose 133 H 111 H (74-99) mg/dL Calcium 8.8 8.9 (8.4-10.2) mg/dL AST 22 (17-59) U/L ALT 20 (4-49) U/L Alkaline Phosphatase 65 (38-126) U/L Total Protein 7.0 (6.3-8.2) g/dL Albumin 3.8 (3.5-5.0) g/dL Current Medications Generic Name Dose Route Start Last Admin Trade Name Freq PRN Reason Stop Dose Admin Acetaminophen 650 mg 07/06/22 13:09 Acetaminophen Tab 325 Mg Tab PO Q6HR PRN Mild Pain or Fever > 100.5 Apixaban 2.5 mg 07/06/22 21:00 07/07/22 08:33 Apixaban 2.5 Mg Tablet PO 2.5 mg BID FELIPE Administration Protocol Aspirin 81 mg 07/07/22 09:00 07/07/22 08:34 Aspirin 81 Mg PO 81 mg DAILY FELIPE Administration Atorvastatin Calcium 40 mg 07/06/22 21:00 07/06/22 21:28 Atorvastatin 40 Mg Tab PO 40 mg HS FELIPE Administration Folic Acid 1 mg 07/06/22 21:00 07/06/22 21:27 Folic Acid 1 Mg Tab PO 1 mg HS FELIPE Administration Levothyroxine Sodium 50 mcg 07/06/22 21:00 07/06/22 21:27 Levothyroxine 50 Mcg Tab PO 50 mcg HS FELIPE Administration Metoprolol Succinate 50 mg 07/07/22 21:00 Metoprolol Succinate (Er) 50 Mg Tab.Er.24h PO HS FELIPE Morphine Sulfate 4 mg 07/06/22 13:09 Morphine Sulfate 4 Mg/Ml Syringe IV Q4HR PRN Severe Pain (Scale 7 to 10) Naloxone HCl 0.2 mg 07/06/22 13:09 Naloxone 0.4 Mg/Ml 1 Ml Vial IV Q2M PRN Opioid Reversal Ondansetron HCl 4 mg 07/06/22 13:09 Ondansetron 4 Mg/2 Ml Vial IVP Q8HR PRN Nausea And Vomiting Ranolazine 1,000 mg 07/07/22 21:00 Ranolazine 500 Mg Tab.Er.12h PO BID FELIPE Tramadol HCl 50 mg 07/06/22 13:09 Tramadol 50 Mg Tab PO Q6H PRN Moderate Pain (Scale 4 to 6) Triamterene/Hydrochlorothiazide 1 each 07/06/22 21:00 07/06/22 21:27 Triamterene-Hctz 37.5-25mg 1 Each Tab PO 1 each HS FELIPE Administration Intake and Output 07/06/22 07/07/22 07/07/22 22:59 06:59 14:59 Intake Total 110 500 350 Balance 110 500 350 Intake: Oral 110 500 350 Other: # Voids 3 1 # Bowel Movements 1 Weight 99.79 kg 07/07/22 07:25 07/07/22 07:25
--- NOTE | 2022-07-07 12:12 | P.PN ---
Subjective Progress Note Date: 07/07/22 Hospital Course: 87-year-old male with history of hypertension, dyslipidemia, atrial fi brillation, hypothyroidism presenting with left-sided chest pain. In the ED, temperature was 97.5, pulse 55, respiratory rate 18, blood pressure 129/63, saturating at 98% on room air. WBC 5, hemoglobin 12.9, potassium 4.3, creatinine 1.51, slightly above baseline, troponin 0.040, magnesium 2.1. Chest x-ray shows no acute process. EKG reportedly showed atrial fibrillation, rate controlled, not available for review. Patient admitted for chest pain, cardiology consulted. Subjective: Patient seen and examined at bedside. No acute events overnight. Has persistent CP in left chest. Pertinent positives and negatives as discussed above, a complete review of systems was performed and all other systems are negative. Vitals Signs Reviewed. General: nontoxic, no distress, appears at stated age Derm: warm, dry Head: atraumatic, normocephalic, symmetric Eyes: EOMI, no lid lag, anicteric sclera Mouth: no lip lesion, mucus membranes moist Cardiovascular: S1S2 reg, no murmur, left chest tender to palpation Lungs: CTA bilateral, no rhonchi, no rales , no accessory muscle use Abdominal: soft, nontender to palpation, no guarding, no appreciable organomegaly Ext: no gross muscle atrophy, no edema, no contractures Neuro: CN II-XI grossly intact, no focal neuro deficits Psych: Alert, oriented, appropriate affect Data Reviewed Today: Pertinent Labs: Hemoglobin 12.9, creatinine 1.28, troponin peaked at 0.043, TSH 2.88 Assessment and Plan: Active: Chest pain, likely MSK Elevated troponin Persistent atrial flutter with bradycardia -Personally discussed management with cardiology, increased Ranexa, decrease metoprolol, chest pain likely MSK related -Telemetry -Echocardiogram pending -Continue atorvastatin, started on aspirin -Started on lidocaine patch Chronic: Hypertension Hypothyroidism DVT ppx: eliquis Code status: DNR/DNI Anticipated discharge place: pending clincal course Anticipated discharge time: pending clinical course Objective - Vital Signs Vital signs: Vital Signs Temp 97.6 F 07/07/22 08:35 Pulse 52 L 07/07/22 08:35 Resp 16 07/07/22 08:35 BP 112/68 07/07/22 08:35 Pulse Ox 95 07/07/22 09:10 FiO2 Intake & Output 07/06/22 07/07/22 07/07/22 18:59 06:59 18:59 Intake Total 110 500 350 Balance 110 500 350 Weight 99.79 kg Intake: Oral 110 500 350 Other: # Voids 1 # Bowel Movements 1 - Labs CBC & Chem 7: 07/07/22 07:25 07/07/22 07:25 Labs: Abnormal Lab Results - Last 24 Hours (Table) 07/06/22 07/06/22 07/06/22 Range/Units 11:32 15:27 18:11 RBC (4.30-5.90) m/uL Hgb (13.0-17.5) gm/dL Hct (39.0-53.0) % BUN (9-20) mg/dL Creatinine (0.66-1.25) mg/dL Glucose (74-99) mg/dL Troponin I 0.040 H* 0.043 H* 0.036 H* (0.000-0.034) ng/mL 07/07/22 07/07/22 Range/Units 07:25 07:25 RBC 3.92 L (4.30-5.90) m/uL Hgb 12.9 L (13.0-17.5) gm/dL Hct 38.7 L (39.0-53.0) % BUN 25 H (9-20) mg/dL Creatinine 1.28 H (0.66-1.25) mg/dL Glucose 111 H (74-99) mg/dL Troponin I (0.000-0.034) ng/mL
[2022-07-07] MEDS: LIDOCAINE 5% PATCH TOPICAL SCH (12:32)
[2022-07-07] MEDS ORDERED: QUEtiapine 25 MG TAB PO STA (16:02)
[2022-07-07] MEDS: FOLIC ACID 1 MG TAB PO SCH (22:11)
[2022-07-07] MEDS: ATORVASTATIN 40 MG TAB PO SCH (22:11)
[2022-07-07] MEDS: METOPROLOL SUCCINATE (ER) 50 MG TAB.ER.24H PO SCH (22:11)
[2022-07-07] MEDS: LEVOTHYROXINE 50 MCG TAB PO SCH (22:11)
[2022-07-07] MEDS: TRIAMTERENE-HCTZ 37.5-25MG 1 EACH TAB PO SCH (22:12)
[2022-07-07 23:37] LABS: Chol/HDL Ratio 2.37 Ratio; LDL Cholesterol,Calculated 39.2 mg/dL (0.0-131.0); VLDL Calculation 19.08 mg/dL (5.00-40.00)
[2022-07-08] MEDS: LIDOCAINE 5% PATCH TOPICAL SCH (08:51)
[2022-07-08] MEDS: ASPIRIN 81 MG PO SCH (08:51)
[2022-07-08] MEDS: APIXABAN 2.5 MG TABLET PO SCH ×2 (08:51→21:49)
[2022-07-08] MEDS: RANOLAZINE 500 MG TAB.ER.12H PO SCH ×2 (08:51→21:48)
[2022-07-08 08:52] VITALS: RESP 18
--- NOTE | 2022-07-08 10:55 | P.PN ---
Subjective Progress Note Date: 07/08/22 Hospital Course: 87-year-old male with history of hypertension, dyslipidemia, atrial fibrillatio n, hypothyroidism presenting with left-sided chest pain. In the ED, temperature was 97.5, pulse 55, respiratory rate 18, blood pressure 129/63, saturating at 98% on room air. WBC 5, hemoglobin 12.9, potassium 4.3, creatinine 1.51, slightly above baseline, troponin 0.040, magnesium 2.1. Chest x-ray shows no acute process. EKG reportedly showed atrial fibrillation, rate controlled, not available for review. Patient admitted for chest pain, cardiology consulted. Pain likely MSK related. Improved with lidocaine patch. Subjective: Patient seen and examined at bedside. No acute events overnight. Has persistent CP in left chest, but improved with lidocaine patch. Pertinent positives and negatives as discussed above, a complete review of systems was performed and all other systems are negative. Vitals Signs Reviewed. General: nontoxic, no distress, appears at stated age Derm: warm, dry Head: atraumatic, normocephalic, symmetric Eyes: EOMI, no lid lag, anicteric sclera Mouth: no lip lesion, mucus membranes moist Cardiovascular: S1S2 reg, no murmur, left chest tender to palpation Lungs: CTA bilateral, no rhonchi, no rales , no accessory muscle use Abdominal: soft, nontender to palpation, no guarding, no appreciable organomegaly Ext: no gross muscle atrophy, no edema, no contractures Neuro: CN II-XI grossly intact, no focal neuro deficits Psych: Alert, oriented, appropriate affect Data Reviewed Today: Pertinent Labs: No new labs today Assessment and Plan: Active: Chest pain, likely MSK Elevated troponin Persistent atrial flutter with bradycardia -Cardiology following, increased Ranexa, decrease metoprolol, chest pain likely noncardiac -Telemetry -Echocardiogram pending -Continue atorvastatin, started on aspirin -Continue lidocaine patch Chronic: Hypertension Hypothyroidism DVT ppx: eliquis Code status: DNR/DNI Anticipated discharge place: pending clincal course Anticipated discharge time: pending clinical course Objective - Vital Signs Vital signs: Vital Signs Temp 98.1 F 07/08/22 10:44 Pulse 65 07/08/22 10:44 Resp 18 07/08/22 10:44 BP 130/66 07/08/22 10:44 Pulse Ox 95 07/08/22 10:44 FiO2 Intake & Output 07/07/22 07/08/22 07/08/22 18:59 06:59 18:59 Intake Total 460 0 Balance 460 0 Weight 94.3 kg Intake: Oral 460 0 Other: # Voids 1 # Bowel Movements 1 - Labs CBC & Chem 7: 07/07/22 07:25 07/07/22 07:25
--- NOTE | 2022-07-08 11:40 | P.PN ---
Subjective Progress Note Date: 07/08/22 The patient is an 87-year-old male with past medical history of atrial flutter, coronary artery disease, hyperlipidemia, hypertension, and thyroid disorder, who presented to the hospital with left-sided chest pain under the axilla to left pectoral area. The patient was found to have mildly elevated troponins, therefore cardiology was consulted. The patient states his pain is chronic and is not worsened by movement. He did flinch at the time of my exam to the area. No obvious rash or irritation to the skin. He denies any difficulty breathing or orthopnea. No heart racing or fluttering. GENERAL: Well-appearing, well-nourished and in no acute distress. NECK: Supple without JVD or thyromegaly. LUNGS: Breath sounds diminished to auscultation bilaterally. Respiration equal and unlabored. No wheezes, rales or rhonchi. HEART: Irregular rate and rhythm. Systolic murmur. No rubs or gallops. S1 and S2 heard. EXTREMITIES: Normal range of motion, no edema. No clubbing or cyanosis. Peripheral pulses intact and strong. VITALS: Blood pressure 130/66, SpO2 95% on room air, pulse 65, respiratory rate 18, afebrile TELEMETRY: Sinus rhythm overnight LABS: Liver profile shows triglycerides at 95, LDL 39, HDL 42, TSH 2.8 IMPRESSION: Left pectoral pain, likely musculoskeletal Elevated troponins Persistent atrial flutter, controlled rate Hypertension PLAN: Recommend the patient get up and ambulate around the unit to assess for exacerbating symptoms No further recommendations from the cardiac standpoint I am dictating on behalf of Dr Julio Mcginnis's history/physical and assessment/plan. Objective - Vital Signs Vital signs: Vital Signs Temp 98.1 F 07/08/22 10:44 Pulse 65 07/08/22 10:44 Resp 18 07/08/22 10:44 BP 130/66 07/08/22 10:44 Pulse Ox 95 07/08/22 10:44 FiO2 Intake & Output 07/07/22 07/08/22 07/08/22 18:59 06:59 18:59 Intake Total 460 0 Balance 460 0 Weight 94.3 kg Intake: Oral 460 0 Other: # Voids 1 # Bowel Movements 1 - Labs CBC & Chem 7: 07/07/22 07:25 07/07/22 07:25
[2022-07-08] MEDS: TRIAMTERENE-HCTZ 37.5-25MG 1 EACH TAB PO SCH (21:49)
[2022-07-08] MEDS: METOPROLOL SUCCINATE (ER) 50 MG TAB.ER.24H PO SCH (21:49)
[2022-07-08] MEDS: LEVOTHYROXINE 50 MCG TAB PO SCH (21:49)
[2022-07-08] MEDS: ATORVASTATIN 40 MG TAB PO SCH (21:49)
[2022-07-08] MEDS: FOLIC ACID 1 MG TAB PO SCH (21:49)
[2022-07-09] MEDS: LIDOCAINE 5% PATCH TOPICAL SCH (08:11)
[2022-07-09] MEDS: APIXABAN 2.5 MG TABLET PO SCH (08:12)
[2022-07-09] MEDS: ASPIRIN 81 MG PO SCH (08:12)
[2022-07-09] MEDS: RANOLAZINE 500 MG TAB.ER.12H PO SCH (08:12)
--- NOTE | 2022-07-09 10:35 | P.DS ---
Providers Date of admission: 07/06/22 14:27 Expected date of discharge: 07/09/22 Attending physician: Mono Hook MD Consults: 07/06/22 13:09 Consult Physician Routine Consulting Provider: Neto Barboza Consult Reason/Comments: chest pain Do you want consulting provider notified?: Yes, Notify in am Primary care physician: Mike Ady [facility] Hospital Course: Assessment: Chest pain Elevated troponin Persistent atrial flutter with bradycardia Hospital Course: 87-year-old male with history of hypertension, dyslipidemia, atrial fibrillation, hypothyroidism presenting with left-sided chest pain. In the ED, temperature was 97.5, pulse 55, respiratory rate 18, blood pressure 129/63, saturating at 98% on room air. WBC 5, hemoglobin 12.9, potassium 4.3, creatinine 1.51, slightly above baseline, troponin 0.040, magnesium 2.1. Chest x-ray shows no acute process. EKG reportedly showed atrial fibrillation, rate controlled. Patient admitted for chest pain, cardiology consulted. Pain likely MSK related. Improved with lidocaine patch. Patient was seen and cleared by cardiology service. Echo completed, but pending read at the time of discharge. Patient was instructed to f/u with PCP and cardiology on discharge. Medication changes included the addition of aspirin, increased dosage of ranexa to 1000 BID, and decreased dosage of metoprolol and Apixaban to 50mg qHS and 2.5mg BID, respectively. Gen: awake, alert HEENT: normocephalic, atraumatic, good hearing acuity, moist mucous membranes Resp: good air exchange, breathing comfortably with no accessory muscle use CVS: good distal perfusion x 4, GI: soft, NTTP, ND : no SPT, no CVAT, mak catheter not present MSK: no pitting edema, no clubbing Neuro: non-focal, moving all extremities Psych: cooperative, euthymic mood Patient Condition at Discharge: Good Plan - Discharge Summary Discharge Rx Participant: No New Discharge Prescriptions: New Aspirin 81 mg PO DAILY #30 tab Apixaban [Eliquis] 2.5 mg PO BID #60 tab Ranolazine [Ranexa] 1,000 mg PO BID #120 tab Metoprolol Succinate (ER) [Toprol XL] 50 mg PO HS #30 tab Continue Levothyroxine Sodium [Synthroid] 50 mcg PO HS Folic Acid 1 mg PO HS Atorvastatin [Lipitor] 40 mg PO HS Triamterene-Hctz 37.5-25Mg [Maxzide 37.5-25] 1 tab PO HS Discontinued Ranolazine [Ranexa] 500 mg PO BID Apixaban [Eliquis] 5 mg PO BID Metoprolol Succinate (ER) [Toprol Xl] 100 mg PO HS Discharge Medication List Levothyroxine Sodium [Synthroid] 50 mcg PO HS 11/09/15 [History] Atorvastatin [Lipitor] 40 mg PO HS 09/26/18 [History] Folic Acid 1 mg PO HS 09/26/18 [History] Triamterene-Hctz 37.5-25Mg [Maxzide 37.5-25] 1 tab PO HS 07/06/22 [History] Apixaban [Eliquis] 2.5 mg PO BID #60 tab 07/09/22 [Rx] Aspirin 81 mg PO DAILY #30 tab 07/09/22 [Rx] Metoprolol Succinate (ER) [Toprol XL] 50 mg PO HS #30 tab 07/09/22 [Rx] Ranolazine [Ranexa] 1,000 mg PO BID #120 tab 07/09/22 [Rx] Follow up Appointment(s)/Referral(s): Vikas Coleman MD [STAFF PHYSICIAN] - 1 Week Pretty Albarran MD [REFERRING] - 1-2 days Discharge Disposition: HOME SELF-CARE
--- NOTE | 2022-07-09 11:37 | CA ---
Transthoracic Echo Report Name: Rodolfo Mccarty Age: 87 Gender: M : 1935 Exam Date: 07/09/2022 09:47 Exam Location: [facility] Ht (in): 66 Wt (lb): 207 Ordering Physician: Gregorio Harris MD Attending/Referring Phys: Certified Vehicle Fire Investigator Praveena White RDCS Procedure CPT: Indications: Chest Pain Cardiac Hx: Technical Quality: Good Contrast 1: Total Dose (mL): Contrast 2: Total Dose (mL): MEASUREMENTS (Male / Female) Normal Values 2D ECHO LV Diastolic Diameter PLAX 4.4 cm 4.2 - 5.9 / 3.9 - 5.3 cm LV Systolic Diameter PLAX 3.4 cm IVS Diastolic Thickness 1.4 cm 0.6 - 1.0 / 0.6 - 0.9 cm LVPW Diastolic Thickness 1.5 cm 0.6 - 1.0 / 0.6 - 0.9 cm LV Relative Wall Thickness 0.7 RV Internal Dim ED PLAX 3.4 cm LVOT Diameter 2.4 cm LA Systolic Diameter LX 4.2 cm 3.0 - 4.0 / 2.7 - 3.8 cm LV Diastolic Volume MOD 4C 131.1 cm??? LV Systolic Volume MOD 4C 69.3 cm??? LV Ejection Fraction MOD 4C 47.1 % LV Diastolic Length 4C 8.5 cm LV Systolic Length 4C 7.2 cm LV Diastolic Volume MOD 2C 128.4 cm??? LV Systolic Volume MOD 2C 66.8 cm??? LV Ejection Fraction MOD 2C 48.0 % LV Diastolic Length 2C 8.4 cm LV Systolic Length 2C 7.4 cm LA Volume 113.8 cm??? 18 - 58 / 22 - 52 cm??? M-MODE Aortic Root Diameter MM 4.2 cm DOPPLER AV Peak Velocity 329.7 cm/s AV Peak Gradient 43.5 mmHg AV Mean Velocity 219.7 cm/s AV Mean Gradient 22.6 mmHg AV Velocity Time Integral 73.3 cm LVOT Peak Velocity 80.2 cm/s LVOT Peak Gradient 2.6 mmHg AV Area Cont Eq pk 1.1 cm??? MV Area PHT 3.7 cm??? Mitral E Point Velocity 116.0 cm/s Mitral A Point Velocity 43.8 cm/s Mitral E to A Ratio 2.7 MV Deceleration Time 207.6 ms MV E' Velocity 5.1 cm/s Mitral E to MV E' Ratio 22.6 TR Peak Velocity 277.2 cm/s TR Peak Gradient 30.7 mmHg Right Ventricular Systolic Press 35.4 mmHg FINDINGS Left Ventricle Left ventricular ejection fraction is estimated at 45-50 %. Left ventricular cavity size normal. Moderate concentric left ventricular hypertrophy. . Right Ventricle Mild right ventricular dilatation. Mild pulmonary hypertension. Right Atrium Normal right atrial size. Left Atrium Mildly increased left atrial diameter. Severely increased left atrial volume. Moderately increased left atrial area. Mitral Valve Mitral valve thickened. Mitral annular calcification. Mild mitral regurgitation. Aortic Valve Trileaflet aortic valve. Moderate aortic valve sclerosis. Moderate aortic stenosis with a peak gradient of 44 mmHg and a mean gradient of 23 mmHg. Tricuspid Valve Structurally normal tricuspid valve. Mild tricuspid regurgitation. Pulmonic Valve Structurally normal pulmonic valve. Mild pulmonic regurgitation. Pericardium Normal pericardium. No pericardial effusion. Aorta Moderate aortic dilatation at the level of the sinuses of valsalva 42 mm CONCLUSIONS Mild LV systolic dysfunction with an ejection fraction of 45% Moderate left ventricular hypertrophy Severe left atrial enlargement Mitral annular calcification with mild mitral regurgitation Moderate aortic stenosis Aortic root dilatation measuring 4.2 cm Previewed by: Dr. Renato Meraz MD (Electronically Signed) Final Date: 09 Jul 2022 11:36
[2022-07-09 12:07] VITALS: BP 137/50; PULSE 62; TEMP 97.6
--- NOTE | 2022-07-09 13:25 | P.PN ---
Subjective Progress Note Date: 07/09/22 HISTORY OF PRESENT ILLNESS: Patient examined this morning at the bedside. Patient denies shortness of breath. He reports left-sided chest pain that is worse with chest wall palpatio n. Vital signs are stable. Telemetry reveals atrial flutter with controlled ventricular rate. PHYSICAL EXAM: VITAL SIGNS: Reviewed. GENERAL: Well-developed in no acute distress. NECK: Supple. No JVD or thyromegaly LUNGS: Respirations even and unlabored. Lungs essentially clear to auscultation bilaterally. HEART: Regular rate and rhythm. S1 and S2 heard. EXTREMITIES: Normal range of motion. No clubbing or cyanosis. Peripheral pulses intact. No lower extremity edema ASSESSMENT: Chest pain, musculoskeletal in nature, acute coronary syndrome ruled out Persistent atrial flutter Hypertension PLAN: Continue current cardiac medications Patient is stable for discharge home today from a cardiac standpoint We will sign off. Please reconsult if needed. Nurse practitioner note has been reviewed by physician. Signing provider agrees with the documented findings, assessment, and plan of care. Objective - Vital Signs Vital signs: Vital Signs Temp 97.6 F 07/09/22 12:00 Pulse 62 07/09/22 12:00 Resp 18 07/09/22 12:00 BP 137/50 07/09/22 12:00 Pulse Ox 98 07/09/22 12:00 FiO2 Intake & Output 07/08/22 07/09/22 07/09/22 18:59 06:59 18:59 Intake Total 228 220 Output Total 250 Balance 228 -30 Intake: Oral 228 220 Output: Urine 250 Other: Voiding Method Toilet Urinal # Voids 1 - Labs CBC & Chem 7: 07/07/22 07:25 07/07/22 07:25
== END 2022-07-09 13:38 | disposition home or self-care (01) ==
LOC: EC 11:00 → 3SCARD 14:27 → INTOOBSV 14:27 → 3SCARD 14:51
PROVIDERS: ADMIT Family Medicine; ATTEND Family Medicine
DX: R07.89 Other chest pain (principal); I48.92 Unspecified atrial flutter; R79.89 Other specified abnormal findings of blood chemistry; I48.91 Unspecified atrial fibrillation; R00.1 Bradycardia, unspecified; I10 Essential (primary) hypertension; E78.5 Hyperlipidemia, unspecified; I25.10 Atherosclerotic heart disease of native coronary artery without angina pectoris; I45.10 Unspecified right bundle-branch block; I25.2 Old myocardial infarction; M19.90 Unspecified osteoarthritis, unspecified site; G47.30 Sleep apnea, unspecified; E03.9 Hypothyroidism, unspecified; Z66 Do not resuscitate; Z79.890 Hormone replacement therapy; Z79.01 Long term (current) use of anticoagulants; Z79.899 Other long term (current) drug therapy; Z88.0 Allergy status to penicillin; Z88.8 Allergy status to other drugs, medicaments and biological substances; Z85.828 Personal history of other malignant neoplasm of skin; Z95.5 Presence of coronary angioplasty implant and graft; Z96.643 Presence of artificial hip joint, bilateral; Z96.653 Presence of artificial knee joint, bilateral; Z96.611 Presence of right artificial shoulder joint; Z98.890 Other specified postprocedural states; Z82.49 Family history of ischemic heart disease and other diseases of the circulatory system
CPT/HCPCS: 96374; 99285; 36415; 94760; 93005; 93306; 80061; 80053; 80048; 84443; 83735; 84484; 85025 ×2; 85610; 85730; 71046; G0378 ×4; J2270

== ENCOUNTER 2022-07-09 16:33 | Emergency (ER) | payer MEDICARE ==
[2022-07-09] MEDS ORDERED: MORPHINE SULFATE 4 MG/ML SYRINGE IVP STA (17:07)
--- NOTE | 2022-07-09 18:00 | CT ---
EXAMINATION TYPE: CT brain fernando wo con DATE OF EXAM: 07/09/2022 COMPARISON: 11/23/2018 HISTORY: ams, fall CT DLP: 1670.5 mGycm, Automated exposure control for dose reduction was used. CONTRAST: Patient injected with 0 mL of Isovue 300. CT of the brain is performed utilizing 3 mm thick sections through the posterior fossa and 3 mm thick sections through the remaining calvarium. Study is performed within 24 hours of arrival to the hospital. No abnormal hyperdensity is present to suggest an acute intracranial hemorrhage. No mass lesion is evident. No acute infarcts are evident. There is patchy to confluent periventricular white matter hypodensity , likely on the basis of chronic white matter ischemic changes. Ventricles and sulci are prominent for the patient age. Paranasal sinuses and mastoid air cells within the [id number] are clear. IMPRESSIONS: 1. Atrophy with chronic appearing periventricular white matter ischemic-type changes. Findings appear stable from comparison. CT cervical spine. COMPARISON: None CT of the cervical spine is performed in the axial plane at 2 mm thick sections. Reconstructed image s in the coronal, and sagittal plane are reviewed on the computer. No acute fractures are evident. Vertebral body alignment is normal. There is diffuse mild disc space narrowing within the cervical spine. Vertebral body heights are preserved. Anterior vertebral body spurring is present throughout the cerv ical spine. Prevertebral space appears normal. Posterior spinal lamellar line is intact. No spinal canal stenosis is evident. Uncovertebral joint hypertrophy is present C2-C3 with some foraminal narrowing. Severe left foraminal stenosis is present C3-4 due to uncovertebral joint hypertrophy and facet hypertrophy. Bilateral for aminal stenosis present at C4-5, C5-6, left C6-7 due to uncovertebral joint hypertrophy. IMPRESSIONS: 1. Degenerative disc change and uncovertebral joint changes. 2. No acute osseous abnormality
[2022-07-09 18:25] VITALS: TEMP 97.9
--- NOTE | 2022-07-09 18:33 | ED ---
Fall HPI - General Chief Complaint: Fall Stated Complaint: femur fracture Time Seen by Provider: 07/09/22 16:44 Source: patient, family, EMS, RN notes reviewed Mode of arrival: EMS Limitations: no limitations - History of Present Illness Initial Comments: This is an 87-year-old male who presents to the emergency department for a fall. Patient was in his garage earlier today when he lost his balance and fell, landing on his right side. He did hit his head, however he states that it was not very hard and he denies any loss of consciousness. He is on baby aspirin and Eliquis. The majority of his pain is to the right knee and right hip. States that he is unable to move the leg at this time. He was not given anything for pain by EMS on route. He also reports right shoulder pain, however he is able to move the right arm. He was just discharged from here earlier today for chest pain rule out, and his cardiac workup was negative. Denies any fevers, chills, sore throat, cough, dyspnea, chest pain, palpitations, abdominal pain, nausea, vomiting, diarrhea, back pain, or headaches. MD Complaint: fall Fall From: standing Loss of Consciousness: none - Related Data Home Medications Medication Instructions Recorded Confirmed RX: Levothyroxine Sodium 50 mcg PO HS 11/09/15 07/09/22 [Synthroid] RX: Atorvastatin [Lipitor] 40 mg PO HS 09/26/18 07/09/22 RX: Folic Acid 1 mg PO HS 09/26/18 07/09/22 RX: Triamterene-Hctz 37.5-25Mg 1 tab PO HS 07/06/22 07/09/22 [Maxzide 37.5-25] Previous Rx's Medication Instructions Recorded RX: Apixaban [Eliquis] 2.5 mg PO BID #60 tab 07/09/22 RX: Aspirin 81 mg PO DAILY #30 tab 07/09/22 RX: Metoprolol Succinate (ER) 50 mg PO HS #30 tab 07/09/22 [Toprol XL] RX: Ranolazine [Ranexa] 1,000 mg PO BID #120 tab 07/09/22 Allergies Allergy/AdvReac Type Severity Reaction Status Date / Time Penicillins Allergy Rash/Hives Verified 07/09/22 19:35 regadenoson Allergy Anaphylaxis Verified 07/09/22 19:35 cardiolite Allergy Anaphylaxis Uncoded 07/09/22 16:43 Review of Systems ROS Statement: Those systems with pertinent positive or pertinent negative responses have been documented in the HPI. ROS Other: All systems not noted in ROS Statement are negative. Past Medical History Past Medical History: Atrial Flutter, Coronary Artery Disease (CAD), Cancer, Hyperlipidemia, Hypertension, Myocardial Infarction (AK), Osteoarthritis (OA), Sleep Apnea/CPAP/BIPAP, Thyroid Disorder Additional Past Medical History / Comment(s): Healing wound on rt lower leg, hx skin cancer Last Myocardial Infarction Date:: 2008 History of Any Multi-Drug Resistant Organisms: None Reported Past Surgical History: Heart Catheterization With Stent, Joint Replacement Additional Past Surgical History / Comment(s): Replacements of KAREN KNEES, KAREN HIPS and RT SHOULDER, has 2 or 3 coranary stents, recent karen eyelid sx, and removal of skin tag on rt eye lid Past Anesthesia/Blood Transfusion Reactions: No Reported Reaction Date of Last Stent Placement:: 2018 Past Psychological History: No Psychological Hx Reported Smoking Status: Never smoker Past Alcohol Use History: Occasional Past Drug Use History: None Reported - Past Family History Mother Family Medical History: No Reported History Brother(s) Family Medical History: Myocardial Infarction (AK) Father Family Medical History: Myocardial Infarction (AK) General Exam Limitations: no limitations General appearance: alert, in no apparent distress Head exam: Present: atraumatic, normocephalic, normal inspection Eye exam: Present: normal appearance, PERRL, EOMI. Absent: scleral icterus, conjunctival injection, periorbital swelling Respiratory exam: Present: normal lung sounds bilaterally. Absent: respiratory distress, wheezes, rales, rhonchi, stridor Cardiovascular Exam: Present: regular rate, normal rhythm, normal heart sounds. Absent: systolic murmur, diastolic murmur, rubs, gallop, clicks Extremities exam: Present: other (Shortening and external rotation of the right leg. 2+ DP and TP pulses. Swelling to the right knee. Full active and passive range of motion of the right upper extremity. Minor tenderness to the humeral head. 2+ radial pulses.) Neurological exam: Present: alert, oriented X3, CN II-XII intact Psychiatric exam: Present: normal affect, normal mood Skin exam: Present: warm, dry, intact, normal color. Absent: rash Course Vital Signs 07/09/22 07/09/22 07/09/22 16:38 18:24 19:38 Temperature 98.0 F 97.9 F Pulse Rate 68 87 64 Respiratory 18 18 14 Rate Blood Pressure 110/63 127/86 108/62 O2 Sat by Pulse 95 98 96 Oximetry Medical Decision Making - Medical Decision Making This is an 87-year-old male who presents to the emergency department for right hip and right knee pain after a fall. Was pt. sent in by a medical professional or institution? @ -No Did you speak to anyone other than the patient for history? @ -No Did you review nursing and triage notes? @ -Yes, and I agree, it is accurate with regards to the patient's symptoms. Were old charts reviewed? @ -No Differential Diagnosis? @ -Differential Knee/Hip Pain: Fracture, dislocation, contusion, this is not meant to be an all-inclusive list. EKG interpreted by me (3pts min.)? @ -Not obtained X-rays interpreted by me (1pt min.)? @ -X-ray of the right femur and right knee obtained, my interpretation identifies a distal oblique femoral fracture. X-ray of the right shoulder, hand, and chest obtained as well. My interpretation of those x-rays reveals no acute fractures or dislocations. CT interpreted by me (1pt min.)? @ -Computed tomography scan of the brain and c-spine obtained. My interpretation identifies no evidence of an acute intracranial hemorrhage, skull fracture, or cervical spine fracture. U/S interpreted by me (1pt. min.)? @ -Not obtained What testing was considered but not performed? (CT, X-rays, U/S, labs)? Why? @ -Not obtained What meds were considered but not given? Why? @ -Not obtained Did you discuss the management of the patient with other professionals? @ -I first spoke with Sammy Hartmann PA-C, at [facility], who advised discussing the case with [facility], as they are not comfortable taking the case. I then spoke with Dr. Callahan at [facility], who also advised transferred to another facility for higher level of care. Dr. Estrada at [facility] accepts the patient for ED to ED transfer. Did you reconcile home meds? @ -No Was smoking cessation discussed for >3mins.? @ -No Was critical care preformed (if so, how long)? @ -No Were there social determinants of health that impacted care today? How? (Homelessness, low income, unemployed, alcoholism, drug addiction, transpor tation, low edu. Level, literacy, decrease access to med. care, alf, rehab)? @ -No Was there de-escalation of care discussed even if they declined? (Discuss DNR or withdrawal of care, Hospice)? @ -No What co-morbidities impacted this encounter? (DM, HTN, Smoking, COPD, CAD, Cancer, CVA, Hep., AIDS, mental health diagnosis, sleep apnea, morbid obesity)? @ -CAD, HLD, HTN, OA Was patient admitted / discharged? @ -Transferred to [facility]. X-ray of the right femur and hip obtained revealing a distal diaphysis femoral oblique fracture. This is between the p rostheses in his hip and knee, which he had done in [place] several years ago. Additional x-rays of the chest, shoulder, and hand revealed no acute findings. Computed tomography scan of the brain and C-spine obtained as well, also revealing no acute process. Patient had seen both [facility] and [facility] in the past. I spoke with both offices, and they both advised transferred to another facility for a higher level of care due to the complexity of his fracture. Pt accepted as an ED to ED transfer to [facility]. Dr. Estrada is the accepting provider. There was a large delay in transfer due to the delay by radiology in reading the patient's imaging followed by waiting to speak with both orthopedic offices. Undiagnosed new problem with uncertain prognosis? @ -None Drug Therapy requiring intensive monitoring for toxicity (Heparin, Nitro, Insulin, Cardizem)? @ -None Were any procedures done? @ -None Diagnosis/symptom? @ -Distal femoral oblique fracture Acute, or Chronic, or Acute on Chronic? @ -Acute Uncomplicated (without systemic symptoms) or Complicated (systemic symptoms)? @ -Complicated Side effects of treatment? @ -None Exacerbation, Progression, or Severe Exacerbation] @ -Not applicable Poses a threat to life or bodily function? @ -Yes This case was discussed in detail with the attending ED physician, Dr. Barcenas. Presentation, findings, and treatment plan discussed in detail as well. - Lab Data Result diagrams: 07/09/22 21:04 07/09/22 21:04 Lab Results 07/09/22 07/09/22 07/09/22 Range/Units 21:04 21:04 21:04 WBC 9.2 (3.8-10.6) k/uL RBC 3.92 L (4.30-5.90) m/uL Hgb 13.1 (13.0-17.5) gm/dL Hct 37.6 L (39.0-53.0) % MCV 95.8 (80.0-100.0) fL MCH 33.3 (25.0-35.0) pg MCHC 34.8 (31.0-37.0) g/dL RDW 13.3 (11.5-15.5) % Plt Count 162 (150-450) k/uL MPV 8.8 Neutrophils % 76 % Lymphocytes % 12 % Monocytes % 8 % Eosinophils % 1 % Basophils % 1 % Neutrophils # 7.0 (1.3-7.7) k/uL Lymphocytes # 1.1 (1.0-4.8) k/uL Monocytes # 0.7 (0-1.0) k/uL Eosinophils # 0.1 (0-0.7) k/uL Basophils # 0.1 (0-0.2) k/uL PT 12.2 H (9.0-12.0) sec INR 1.2 H (<1.2) APTT 24.6 (22.0-30.0) sec Sodium 135 L (137-145) mmol/L Potassium 4.4 (3.5-5.1) mmol/L Chloride 102 (98-107) mmol/L Carbon Dioxide 25 (22-30) mmol/L Anion Gap 8 mmol/L BUN 23 H (9-20) mg/dL Creatinine 1.34 H (0.66-1.25) mg/dL Est GFR (CKD-EPI)AfAm 55 (>60 ml/min/1.73 sqM) Est GFR (CKD-EPI)NonAf 47 (>60 ml/min/1.73 sqM) Glucose 116 H (74-99) mg/dL Calcium 8.7 (8.4-10.2) mg/dL Total Bilirubin 0.9 (0.2-1.3) mg/dL AST 28 (17-59) U/L ALT 23 (4-49) U/L Alkaline Phosphatase 70 (38-126) U/L Total Protein 7.0 (6.3-8.2) g/dL Albumin 3.8 (3.5-5.0) g/dL - Radiology Data Radiology results: report reviewed, image reviewed Disposition Clinical Impression: Fracture of distal end of right femur Disposition: OTHER INSTITUTION NOT DEFINED Referrals: Mike Garsia MD [Primary Care Provider] - 1-2 days - Out of Hospital Transfer - Req. Specs Out of Hospital Transfer - Requested Specifics: Other Emergency Center ([facility])
--- NOTE | 2022-07-09 19:53 | XR ---
EXAMINATION TYPE: XR pelvis AP view DATE OF EXAM: 07/09/2022 COMPARISON: None HISTORY: Fall, pain TECHNIQUE: AP pelvis FINDINGS: Bilateral hip prostheses are present. Additional femoral repair is present on the right. Symphysis pubis and sacroiliac joints are normal. No acute pelvic fractures evident. IMPRESSION: 1. No acute osseous abnormality evident. 2. Bilateral hip prostheses.
--- NOTE | 2022-07-09 19:55 | XR ---
EXAMINATION TYPE: XR hand complete RT DATE OF EXAM: 07/09/2022 COMPARISON: None HISTORY: Fall, pain TECHNIQUE: 3 view right hand FINDINGS: Degenerative joint changes are at the distal interphalangeal joint spaces and to a lesser d egree the proximal interphalangeal joint spaces. Structures are osteopenic. This could be further ashu luated with bone density. No acute displaced fractures are evident. Soft tissue swelling at the joint space levels appears to b e present. Vascular calcification is present. IV is within the wrist. IMPRESSION: 1. No acute fractures identified. Follow up exams in 7-10 days can be performed. 2. Osteopenia. 3. Degenerative joint changes
--- NOTE | 2022-07-09 19:56 | XR ---
EXAMINATION TYPE: XR shoulder complete RT DATE OF EXAM: 07/09/2022 COMPARISON: None HISTORY: Fall, pain TECHNIQUE: 3 view right shoulder FINDINGS: There is a right shoulder prosthesis present. No acute fractures or dislocations are eviden t. IMPRESSION: 1. No acute osseous abnormality right shoulder. Right shoulder prosthesis is present.
--- NOTE | 2022-07-09 20:02 | XR ---
EXAMINATION TYPE: XR knee limited RT DATE OF EXAM: 07/09/2022 COMPARISON: None HISTORY: Fall, pain TECHNIQUE: 2 views right knee FINDINGS: There is an oblique fracture extending out of the field of view of the distal diaphyseal fe mur. Knee prosthesis is present. No additional areas suspicious for fractures within the [id number] w. Vascular calcification is present IMPRESSION: 1. Distal diaphyseal femoral oblique fracture
--- NOTE | 2022-07-09 20:04 | XR ---
EXAMINATION TYPE: XR femur RT DATE OF EXAM: 07/09/2022 COMPARISON: None HISTORY: Fall, pain TECHNIQUE: 2 view right femur FINDINGS: There is an oblique fracture below the level of the femoral prosthesis stem and below the l ateral plate laterally. This is also above the stem of the right knee prosthesis. No additional fractures are evident. Vascular calcification is present. IMPRESSION: 1. Oblique fracture distal diaphyseal right femur
--- NOTE | 2022-07-09 20:05 | XR ---
EXAMINATION TYPE: XR chest 1V DATE OF EXAM: 07/09/2022 COMPARISON: 07/06/2022 INDICATION: Pain after falling TECHNIQUE: Single frontal view of the chest is obtained. FINDINGS: The heart size is enlarged. The pulmonary vasculature is normal. No focal consolidation is evident. IMPRESSION: 1. Cardiomegaly
[2022-07-09 21:19] LABS: Basophils # (A) 0.1 k/uL (0-0.2); Basophils % (A) 1 %; Eosinophils # (A) 0.1 k/uL (0-0.7); Eosinophils % (A) 1 %; HCT 37.6 % (39.0-53.0); HGB 13.1 gm/dL (13.0-17.5); Lymphocytes # (A) 1.1 k/uL (1.0-4.8); Lymphocytes % (A) 12 %; MCH 33.3 pg (25.0-35.0); MCHC 34.8 g/dL (31.0-37.0); MCV 95.8 fL (80.0-100.0); Mean Platelet Volume 8.8; Monocytes # (A) 0.7 k/uL (0-1.0); Monocytes % (A) 8 %; Neutrophils % (A) 76 %; Platelet Count 162 k/uL (150-450); RBC 3.92 m/uL (4.30-5.90); RDW 13.3 % (11.5-15.5); WBC 9.2 k/uL (3.8-10.6)
[2022-07-09 21:36] LABS: INR 1.2 (<1.2); Partial Thromboplastin Time 24.6 sec (22.0-30.0); Prothrombin Time 12.2 sec (9.0-12.0)
[2022-07-09 21:41] LABS: Albumin 3.8 g/dL (3.5-5.0); Calcium 8.7 mg/dL (8.4-10.2); Potassium 4.4 mmol/L (3.5-5.1); Total Bilirubin 0.9 mg/dL (0.2-1.3)
[2022-07-09 23:36] VITALS: BP 104/64; PULSE 72; RESP 18
== END 2022-07-09 22:30 | disposition other institution (70) ==
LOC: EC 16:33
DX: S72.491A Other fracture of lower end of right femur, initial encounter for closed fracture (principal); M79.621 Pain in right upper arm; I10 Essential (primary) hypertension; I25.2 Old myocardial infarction; I25.10 Atherosclerotic heart disease of native coronary artery without angina pectoris; E78.5 Hyperlipidemia, unspecified; E07.9 Disorder of thyroid, unspecified; Z79.890 Hormone replacement therapy; Z79.899 Other long term (current) drug therapy; Z88.0 Allergy status to penicillin; Z88.8 Allergy status to other drugs, medicaments and biological substances; Z95.5 Presence of coronary angioplasty implant and graft; Z96.611 Presence of right artificial shoulder joint; W18.30XA Fall on same level, unspecified, initial encounter; Y92.59 Other trade areas as the place of occurrence of the external cause
CPT/HCPCS: 36415; 80053; 85025; 85610; 85730; 72170; 73552; 73030; 73130; 73560; 71045; 72125; 70450; 99285; 96374; J2270

== ENCOUNTER 2022-07-23 08:34 | Inpatient (IN) | payer MEDICARE ==
[2022-07-23] MEDS ORDERED: SODIUM CHLORIDE 0.9% 500 ML 500 ML IV ONE (09:16)
[2022-07-23 09:54] LABS: Glucose,Whole Blood 130 mg/dL (70-110)
[2022-07-23 10:02] LABS: Basophils % (A) 0 %; Eosinophils # (A) 0.2 k/uL (0-0.7); Eosinophils % (A) 1 %; HCT 31.7 % (39.0-53.0); HGB 10.6 gm/dL (13.0-17.5); Lymphocytes % (A) 6 %; MCH 32.2 pg (25.0-35.0); MCHC 33.2 g/dL (31.0-37.0); MCV 96.8 fL (80.0-100.0); Mean Platelet Volume 8.8; Monocytes # (A) 0.8 k/uL (0-1.0); Monocytes % (A) 5 %; Neutrophils # (A) 14.8 k/uL (1.3-7.7); Neutrophils % (A) 87 %; Platelet Count 286 k/uL (150-450); RBC 3.28 m/uL (4.30-5.90); RDW 14.5 % (11.5-15.5)
[2022-07-23 10:08] LABS: INR 1.1 (<1.2); Partial Thromboplastin Time 23.7 sec (22.0-30.0); Prothrombin Time 11.8 sec (9.0-12.0)
[2022-07-23 10:12] LABS: ALT 40 U/L (4-49); AST 32 U/L (17-59); African American GFR (CKD) 58 (>60 ml/min/1.73 sqM); Alkaline Phosphatase 67 U/L (38-126); Anion Gap 10 mmol/L; Blood Urea Nitrogen 27 mg/dL (9-20); Calcium 8.4 mg/dL (8.4-10.2); Carbon Dioxide 20 mmol/L (22-30); Chloride 109 mmol/L (98-107); Glucose 118 mg/dL (74-99); Non-African American GFR(CKD) 51 (>60 ml/min/1.73 sqM); Potassium 4.1 mmol/L (3.5-5.1); Sodium 139 mmol/L (137-145); Total Bilirubin 1.2 mg/dL (0.2-1.3); Total Protein 5.9 g/dL (6.3-8.2)
[2022-07-23 10:15] LABS: Appearance,Urine Clear (Clear); Bilirubin,Urine Negative (Negative); Blood,Urine Moderate (Negative); Color,Urine Dark Brown; Glucose,Urine (UA) Negative (Negative); Ketones,Urine Negative (Negative); Leukocyte Esterase,Urine Moderate (Negative); Nitrite,Urine Negative (Negative); Protein,Urine 1+ (Negative); RBC,Urine >182 /hpf (0-5); Specific Gravity,Urine 1.023 (1.001-1.035); Squamous Epithelial Cell,Urine 1 /hpf (0-4); WBC,Urine 34 /hpf (0-5)
--- NOTE | 2022-07-23 10:25 | XR ---
EXAMINATION TYPE: XR chest 1V DATE OF EXAM: 07/23/2022 COMPARISON: 07/09/2022 HISTORY: 87-year-old male confusion, altered mental status TECHNIQUE: Single frontal view of the chest is obtained. FINDINGS: Partially visualized right shoulder plasty. Heart mildly enlarged. Diffuse interstitial op acity. No consolidation or pleural effusion. IMPRESSION: Cardiomegaly and interstitial density. Correlate for CHF with pulmonary vascular congest ion.
--- NOTE | 2022-07-23 10:36 | CT ---
EXAMINATION TYPE: CT brain wo con DATE OF EXAM: 07/23/2022 COMPARISON: 07/09/2022 HISTORY: 87-year-old male confusion, Altered mental status TECHNIQUE: Examination was done in axial plane without intravenous contrast. Coronal and sagittal r econstructions performed. CT DLP: 1186.4 mGycm Automated exposure control for dose reduction was used. FINDINGS: Redemonstrated calcified extra-axial nodularity superior right frontal convexity, possible 1 cm menin gioma. There is mild ventriculomegaly, Holland ratio calculated at 0.34. Confluent white matter hypodensities in both cerebral hemispheres and moderate generalized supratentorial volume loss. Prominent atherosclerotic calcifications throughout the bilateral carotid siphons. There is no evidence of acute intracranial hemorrhage, acute ischemic changes, mass effect, or extra -axial fluid collection. There is no effacement of cerebral sulci or basal subarachnoid cisterns. Th ere is no midline shift. Atkinson-white matter distinction is preserved. Rightward nasal septal deviation. Mild mucosal thickening ethmoid air cells. Mastoid air cells are we ll pneumatized. Orbits and globes are intact. IMPRESSION: 1. Mild hydrocephalus is unchanged. Possible ex vacuo enlargement from moderate atrophy. Correlate to exclude a component of NPH. 2. Moderate to severe confluent burden of chronic small vessel ischemic disease redemonstrated. 3. No acute intracranial abnormality seen.
[2022-07-23] MEDS ORDERED: ACETAMINOPHEN TAB 325 MG TAB PO PRN (11:36)
[2022-07-23] MEDS ORDERED: NALOXONE 0.4 MG/ML 1 ML VIAL IV PRN (11:36)
--- NOTE | 2022-07-23 11:36 | ED ---
Altered Mental Status HPI - General Chief Complaint: Altered Mental Status Stated Complaint: Altered Mental Status Time Seen by Provider: 07/23/22 08:40 Source: patient Mode of arrival: EMS Limitations: altered mental status - History of Present Illness Initial Comments: 87-year-old male with past history of a flutter, hypertension, hyperlipidemia, dementia who presents to the ED with altered mental status. He does come from [facility]. He awoke at 6 AM to take his medications and was normal. At 7:00 they attempted to give the patient breakfast. It was reported that the patient was unable to be aroused this morning by verbal and tactile stimuli. Eventually the patient was able to be aroused after repetitive painful stimuli. They state that he has normally a and O 1 at baseline. Patient arrives, remains with his eyes closed but is able to provide some history. Denies that he hasn't any pain. No report of any fevers. No falls. No external signs of trauma. Does have some healing wounds to his bilateral lower extremities and a right hip dressing from previous surgical repair. No vomiting. Admits to a good appetite. Remainder of the HPI is limited because of patient's current condition - Related Data Home Medications Medication Instructions Recorded Confirmed Levothyroxine Sodium [Synthroid] 50 mcg PO HS 11/09/15 07/23/22 Atorvastatin [Lipitor] 40 mg PO HS 09/26/18 07/23/22 Folic Acid 1 mg PO HS 09/26/18 07/23/22 Acetaminophen Tab [Tylenol] 975 mg PO Q8H 07/23/22 07/23/22 Topiramate [Topamax] 50 mg PO DAILY 07/23/22 07/23/22 Previous Rx's Medication Instructions Recorded Apixaban [Eliquis] 2.5 mg PO BID #60 tab 07/09/22 Metoprolol Succinate (ER) [Toprol 50 mg PO HS #30 tab 07/09/22 XL] Ranolazine [Ranexa] 1,000 mg PO BID #120 tab 07/09/22 cefUROXime axetiL [Ceftin] 500 mg PO BID 3 Days #6 tab 07/25/22 Allergies Allergy/AdvReac Type Severity Reaction Status Date / Time Penicillins Allergy Rash/Hives Verified 07/23/22 09:22 [email or web address] Allergy Anaphylaxis Verified 07/23/22 09:22 cardiolite Allergy Anaphylaxis Uncoded 07/23/22 08:43 Review of Systems ROS Statement: Those systems with pertinent positive or pertinent negative responses have been documented in the HPI. ROS Other: All systems not noted in ROS Statement are negative. Past Medical History Past Medical History: Atrial Flutter, Coronary Artery Disease (CAD), Cancer, Hyperlipidemia, Hypertension, Myocardial Infarction ([place]), Osteoarthritis (OA), Sleep Apnea/CPAP/BIPAP, Thyroid Disorder Additional Past Medical History / Comment(s): Healing wound on rt lower leg, hx skin cancer Last Myocardial Infarction Date:: 2008 History of Any Multi-Drug Resistant Organisms: None Reported Past Surgical History: Heart Catheterization With Stent, Joint Replacement Additional Past Surgical History / Comment(s): Replacements of KAREN KNEES, KAREN HIPS and RT SHOULDER, has 2 or 3 coranary stents, recent karen eyelid sx, and removal of skin tag on rt eye lid, femur fracture July 2022, Past Anesthesia/Blood Transfusion Reactions: No Reported Reaction Date of Last Stent Placement:: 2018 Past Psychological History: No Psychological Hx Reported Smoking Status: Never smoker Past Alcohol Use History: Occasional Past Drug Use History: None Reported - Past Family History Mother Family Medical History: No Reported History Brother(s) Family Medical History: Myocardial Infarction ([place]) Father Family Medical History: Myocardial Infarction ([place]) General Exam Limitations: altered mental status General appearance: alert, in no apparent distress Head exam: Present: atraumatic, normocephalic, normal inspection Eye exam: Present: normal appearance, PERRL, EOMI. Absent: scleral icterus, conjunctival injection, periorbital swelling Neck exam: Present: normal inspection. Absent: tenderness, meningismus, lymphadenopathy Respiratory exam: Present: normal lung sounds bilaterally. Absent: respiratory distress, wheezes, rales, rhonchi, stridor Cardiovascular Exam: Present: regular rate, normal rhythm, normal heart sounds. Absent: systolic murmur, diastolic murmur, rubs, gallop, clicks GI/Abdominal exam: Present: soft, normal bowel sounds. Absent: distended, tenderness, guarding, rebound, rigid Neurological exam: Present: alert, other (does not follow commands) Course Vital Signs 07/23/22 07/23/22 07/23/22 08:36 09:36 11:30 Temperature 97.5 F L Pulse Rate 70 70 71 Respiratory 16 18 18 Rate Blood Pressure 121/62 101/59 152/124 O2 Sat by Pulse 100 100 97 Oximetry 07/23/22 07/23/22 12:27 12:41 Temperature Pulse Rate 75 74 Respiratory 18 18 Rate Blood Pressure 98/78 O2 Sat by Pulse 98 98 Oximetry Medical Decision Making - Medical Decision Making Was pt. sent in by a medical professional or institution (, PA, LABOR DELIVERY RN, urgent care, hospital, or [facility]...) When possible be specific @ -[facility] Did you speak to anyone other than the patient for history (EMS, parent, family, police, friend...)? What history was obtained from this source @ -EMS Did you review nursing and triage notes (agree or disagree)? Why? @ -I reviewed and agree with nursing and triage notes Were old charts reviewed (outside hosp., previous admission, EMS record, old EKG, old radiological studies, urgent care reports/EKG's, [facility] records)? Report findings @ -Chart from [facility] reviewed Differential Diagnosis (chest pain, altered mental status, abdominal pain women, abdominal pain men, vaginal bleeding, weakness, fever, dyspnea, syncope, headache, dizziness, GI bleed, back pain, seizure, CVA, palpatations, mental health, musculoskeletal)? @ -UTI, PNA, CVA, encephalitis, sah, sdh EKG interpreted by me (3pts min.). @ -Yes and demonstrates sinus rhythm with a rate of 69. Significant baseline artifact. MO interval 65. QRS 149. QTC of 484. No ST segment elevations or depressions X-rays interpreted by me (1pt min.). @ -yes, pulmonary vascular congestion CT interpreted by me (1pt min.). @ -yes - normal brain U/S interpreted by me (1pt. min.). @ -None done What testing was considered but not performed or refused? (CT, X-rays, U/S, labs)? Why? @ -None What meds were considered but not given or refused? Why? @ -None Did you discuss the management of the patient with other professionals (jeannie todd i.e. , ZELALEM, LABOR DELIVERY RN, lab, RT, psych nurse, social and human services assistant, naphtha washing system operator, teacher, president and chief commercial officer, family service caseworker)? Give summary @ -Dr. Chatman Was smoking cessation discussed for >3mins.? @ -No Was critical care preformed (if so, how long)? @ -No Were there social determinants of health that impacted care today? How? (Homelessness, low income, unemployed, alcoholism, drug addiction, tra nsportation, low edu. Level, literacy, decrease access to med. care, fpc, rehab)? @ -From [facility] Was there de-escalation of care discussed even if they declined (Discuss DNR or withdrawal of care, Hospice)? DNR status @ -No What co-morbidities impacted this encounter? (DM, HTN, Smoking, COPD, CAD, Cancer, CVA, ARF, Chemo, Hep., AIDS, mental health diagnosis, sleep apnea, morbid obesity)? @ -aflutter, htn Was patient admitted / discharged? Hospital course, mention meds given and r oute, prescriptions, significant lab abnormalities, going to OR and other pertinent info. @ -Upon arrival patient is placed in a trauma 2. A thorough history and physical exam is performed. Patient is alert to verbal stimuli. Oriented to self. Does have some repetitive questioning. IV is established laboratory studies were conducted. Patient has mild leukocytosis of 17. Troponin 0.065. BNP 5040. Urinalysis demonstrates moderate blood. He is given 1 dose of Rocephin for abnormal UA. CT of the brain is performed which demonstrates mild hydrocephalus which is unchanged. Moderate to severe confluent burden of chronic small vessel ischemic disease. Chest x-ray demonstrates cardiomegaly and interstitial density. Recommended admission in order to trend his troponins and monitor his mental status. Spoke with Dr. Elizondo who is agreeable to admit the patient overnight. Undiagnosed new problem with uncertain prognosis? @ -yes Drug Therapy requiring intensive monitoring for toxicity (Heparin, Nitro, Insul in, Cardizem)? @ -No Were any procedures done? @ -No Diagnosis/symptom? @ -acute encephalopathy, leukocytosis, abn ua, nstemi Acute, or Chronic, or Acute on Chronic? @ -acute Uncomplicated (without systemic symptoms) or Complicated (systemic symptoms)? @ -complicated Side effects of treatment? @ -No Exacerbation, Progression, or Severe Exacerbation? @ -No Poses a threat to life or bodily function? How? (Chest pain, USA, MO, pneumonia, PE, COPD, DKA, ARF, appy, cholecystitis, CVA, Diverticulitis, Homicidal, Suicidal, threat to staff... and all critical care pts) @ -No - Lab Data Result diagrams: 07/24/22 08:19 07/25/22 05:45 Lab Results 07/23/22 07/23/22 07/23/22 Range/Units 09:45 09:45 09:45 WBC 17.0 H (3.8-10.6) k/uL RBC 3.28 L (4.30-5.90) m/uL Hgb 10.6 L (13.0-17.5) gm/dL Hct 31.7 L (39.0-53.0) % MCV 96.8 (80.0-100.0) fL MCH 32.2 (25.0-35.0) pg MCHC 33.2 (31.0-37.0) g/dL RDW 14.5 (11.5-15.5) % Plt Count 286 (150-450) k/uL MPV 8.8 Neutrophils % 87 % Lymphocytes % 6 % Monocytes % 5 % Eosinophils % 1 % Basophils % 0 % Neutrophils # 14.8 H (1.3-7.7) k/uL Lymphocytes # 1.0 (1.0-4.8) k/uL Monocytes # 0.8 (0-1.0) k/uL Eosinophils # 0.2 (0-0.7) k/uL Basophils # 0.0 (0-0.2) k/uL PT 11.8 (9.0-12.0) sec INR 1.1 (<1.2) APTT 23.7 (22.0-30.0) sec Sodium 139 (137-145) mmol/L Potassium 4.1 (3.5-5.1) mmol/L Chloride 109 H (98-107) mmol/L Carbon Dioxide 20 L (22-30) mmol/L Anion Gap 10 mmol/L BUN 27 H (9-20) mg/dL Creatinine 1.26 H (0.66-1.25) mg/dL Est GFR (CKD-EPI)AfAm 58 (>60 ml/min/1.73 sqM) Est GFR (CKD-EPI)NonAf 51 (>60 ml/min/1.73 sqM) Glucose 118 H (74-99) mg/dL POC Glucose (mg/dL) (70-110) mg/dL POC Glu Wave Guide Assembler ID Calcium 8.4 (8.4-10.2) mg/dL Total Bilirubin 1.2 (0.2-1.3) mg/dL AST 32 (17-59) U/L ALT 40 (4-49) U/L Alkaline Phosphatase 67 (38-126) U/L Troponin I (0.000-0.034) ng/mL NT-Pro-B Natriuret Pep pg/mL Total Protein 5.9 L (6.3-8.2) g/dL Albumin 3.0 L (3.5-5.0) g/dL Urine Color Urine Appearance (Clear) Urine pH (5.0-8.0) Ur Specific [place] (1.001-1.035) Urine Protein (Negative) Urine Glucose (UA) (Negative) Urine Ketones (Negative) Urine Blood (Negative) Urine Nitrite (Negative) Urine Bilirubin (Negative) Urine Urobilinogen (<2.0) mg/dL Ur Leukocyte Esterase (Negative) Urine RBC (0-5) /hpf Urine WBC (0-5) /hpf Ur Squamous Epith Cells (0-4) /hpf 07/23/22 07/23/22 07/23/22 Range/Units 09:45 09:45 09:52 WBC (3.8-10.6) k/uL RBC (4.30-5.90) m/uL Hgb (13.0-17.5) gm/dL Hct (39.0-53.0) % MCV (80.0-100.0) fL MCH (25.0-35.0) pg MCHC (31.0-37.0) g/dL RDW (11.5-15.5) % Plt Count (150-450) k/uL MPV Neutrophils % % Lymphocytes % % Monocytes % % Eosinophils % % Basophils % % Neutrophils # (1.3-7.7) k/uL Lymphocytes # (1.0-4.8) k/uL Monocytes # (0-1.0) k/uL Eosinophils # (0-0.7) k/uL Basophils # (0-0.2) k/uL PT (9.0-12.0) sec INR (<1.2) APTT (22.0-30.0) sec Sodium (137-145) mmol/L Potassium (3.5-5.1) mmol/L Chloride (98-107) mmol/L Carbon Dioxide (22-30) mmol/L Anion Gap mmol/L BUN (9-20) mg/dL Creatinine (0.66-1.25) mg/dL Est GFR (CKD-EPI)AfAm (>60 ml/min/1.73 sqM) Est GFR (CKD-EPI)NonAf (>60 ml/min/1.73 sqM) Glucose (74-99) mg/dL POC Glucose (mg/dL) 130 H (70-110) mg/dL POC Glu Wave Guide Assembler ID Esteban, Don Calcium (8.4-10.2) mg/dL Total Bilirubin (0.2-1.3) mg/dL AST (17-59) U/L ALT (4-49) U/L Alkaline Phosphatase (38-126) U/L Troponin I 0.065 H* (0.000-0.034) ng/mL NT-Pro-B Natriuret Pep 5040 pg/mL Total Protein (6.3-8.2) g/dL Albumin (3.5-5.0) g/dL Urine Color Urine Appearance (Clear) Urine pH (5.0-8.0) Ur Specific [place] (1.001-1.035) Urine Protein (Negative) Urine Glucose (UA) (Negative) Urine Ketones (Negative) Urine Blood (Negative) Urine Nitrite (Negative) Urine Bilirubin (Negative) Urine Urobilinogen (<2.0) mg/dL Ur Leukocyte Esterase (Negative) Urine RBC (0-5) /hpf Urine WBC (0-5) /hpf Ur Squamous Epith Cells (0-4) /hpf 07/23/22 Range/Units 09:58 WBC (3.8-10.6) k/uL RBC (4.30-5.90) m/uL Hgb (13.0-17.5) gm/dL Hct (39.0-53.0) % MCV (80.0-100.0) fL MCH (25.0-35.0) pg MCHC (31.0-37.0) g/dL RDW (11.5-15.5) % Plt Count (150-450) k/uL MPV Neutrophils % % Lymphocytes % % Monocytes % % Eosinophils % % Basophils % % Neutrophils # (1.3-7.7) k/uL Lymphocytes # (1.0-4.8) k/uL Monocytes # (0-1.0) k/uL Eosinophils # (0-0.7) k/uL Basophils # (0-0.2) k/uL PT (9.0-12.0) sec INR (<1.2) APTT (22.0-30.0) sec Sodium (137-145) mmol/L Potassium (3.5-5.1) mmol/L Chloride (98-107) mmol/L Carbon Dioxide (22-30) mmol/L Anion Gap mmol/L BUN (9-20) mg/dL Creatinine (0.66-1.25) mg/dL Est GFR (CKD-EPI)AfAm (>60 ml/min/1.73 sqM) Est GFR (CKD-EPI)NonAf (>60 ml/min/1.73 sqM) Glucose (74-99) mg/dL POC Glucose (mg/dL) (70-110) mg/dL POC Glu Wave Guide Assembler ID Calcium (8.4-10.2) mg/dL Total Bilirubin (0.2-1.3) mg/dL AST (17-59) U/L ALT (4-49) U/L Alkaline Phosphatase (38-126) U/L Troponin I (0.000-0.034) ng/mL NT-Pro-B Natriuret Pep pg/mL Total Protein (6.3-8.2) g/dL Albumin (3.5-5.0) g/dL Urine Color Dark Brown Urine Appearance Clear (Clear) Urine pH 7.0 (5.0-8.0) Ur Specific [place] 1.023 (1.001-1.035) Urine Protein 1+ H (Negative) Urine Glucose (UA) Negative (Negative) Urine Ketones Negative (Negative) Urine Blood Moderate H (Negative) Urine Nitrite Negative (Negative) Urine Bilirubin Negative (Negative) Urine Urobilinogen 8.0 (<2.0) mg/dL Ur Leukocyte Esterase Moderate H (Negative) Urine RBC >182 H (0-5) /hpf Urine WBC 34 H (0-5) /hpf Ur Squamous Epith Cells 1 (0-4) /hpf Disposition Clinical Impression: Dehydration, Elevated troponin, Abnormal urinalysis, Acute encephalopathy Disposition: ADMITTED IP TO THIS HOSP Condition: Stable Is patient prescribed a controlled substance at d/c from ED?: No Time of Disposition: 11:36 Decision to Admit Reason: Admit from EC Decision Date: 07/23/22 Decision Time: 11:36
[2022-07-23] MEDS ORDERED: cefTRIAXone IN SWFI 1,000 MG/10 ML SYRINGE IVP STA (11:37)
[2022-07-23] MEDS: SODIUM CHLORIDE 0.9% 1,000 ML IV SCH (12:30)
--- NOTE | 2022-07-23 12:40 | P.HPIM ---
History of Present Illness 87-year-old male with known history of dementia end-stage and is alert oriented 1 at baseline was sent in because of increasing confusion. Although patient appears to be at baseline. Patient was diagnosed with mild dehydration with mildly elevated creatinine was started on IV fluids. He was slightly abnormal.Patient has mildly elevated at 10.6 by patient did have elevated white count without any fever. CT of the head showed hydrocephalus which is secondary to severe brain atrophy due to his dementia this did not change compared to the previous CT of the head. Chest x-ray although showed some pulmonary congestion. Patient's BNP is 55 to be clinically patient appears to be dry. Echocardiogram which was done last month showed EF of around 45%. REVIEW OF SYSTEMS: Unable to obtain PHYSICAL EXAMINATION: GENERAL: The patient is alert and oriented x1, not in any acute distress. Well developed, well nourished. HEENT: Pupils are round and equally reacting to light. EOMI. No scleral icterus. No conjunctival pallor. Normocephalic, atraumatic. No pharyngeal erythema. No thyromegaly. CARDIOVASCULAR: S1 and S2 present. No murmurs, rubs, or gallops. PULMONARY: Chest is clear to auscultation, no wheezing or crackles. ABDOMEN: Soft, nontender, nondistended, normoactive bowel sounds. No palpable organomegaly. MUSCULOSKELETAL: No joint swelling or deformity. EXTREMITIES: No cyanosis, clubbing, or pedal edema. NEUROLOGICAL: Mental status at his baseline, patient will follow commands because of which this exam is limited SKIN: No rashes. Assessment and plan Metabolic and toxic encephalopathy: Probably secondary to UTI and dehydration patient was started on IV fluids and monitor him. Patient does have history of heart failure with elevated BNP need to closely monitor for any heart failure exacerbation. Patient will be started on IV antibiotics which will be continued. Next -Possible urinary tract infection -Congestive heart failure chronic systolic dysfunction not in acute exacerbation -Mild troponin elevation: Secondary to chronic heart failure and chronic kidney disease and acute renal failure -Acute renal failure secondary to intravascular volume depletion patient will be continued on IV fluids -Chronic kidney disease stage III DVT prophylaxis: Subcutaneous heparin Past Medical History Past Medical History: Atrial Flutter, Coronary Artery Disease (CAD), Cancer, Hyperlipidemia, Hypertension, Myocardial Infarction ([place]), Osteoarthritis (OA), S leep Apnea/CPAP/BIPAP, Thyroid Disorder Additional Past Medical History / Comment(s): Healing wound on rt lower leg, hx skin cancer Last Myocardial Infarction Date:: 2008 History of Any Multi-Drug Resistant Organisms: None Reported Past Surgical History: Heart Catheterization With Stent, Joint Replacement Additional Past Surgical History / Comment(s): Replacements of KAREN KNEES, KAREN HIPS and RT SHOULDER, has 2 or 3 coranary stents, recent karen eyelid sx, and removal of skin tag on rt eye lid, femur fracture July 2022, Past Anesthesia/Blood Transfusion Reactions: No Reported Reaction Date of Last Stent Placement:: 2018 Past Psychological History: No Psychological Hx Reported Smoking Status: Never smoker Past Alcohol Use History: Occasional Past Drug Use History: None Reported - Past Family History Mother Family Medical History: No Reported History Brother(s) Family Medical History: Myocardial Infarction ([place]) Father Family Medical History: Myocardial Infarction ([place]) Medications and Allergies Home Medications Medication Instructions Recorded Confirmed Type Levothyroxine Sodium [Synthroid] 50 mcg PO HS 11/09/15 07/23/22 History Atorvastatin [Lipitor] 40 mg PO HS 09/26/18 07/23/22 History Folic Acid 1 mg PO HS 09/26/18 07/23/22 History Apixaban [Eliquis] 2.5 mg PO BID #60 tab 07/09/22 07/23/22 Rx Metoprolol Succinate (ER) [Toprol 50 mg PO HS #30 tab 07/09/22 07/23/22 Rx XL] Ranolazine [Ranexa] 1,000 mg PO BID #120 tab 07/09/22 07/23/22 Rx Acetaminophen Tab [Tylenol] 975 mg PO Q8H 07/23/22 07/23/22 History Topiramate [Topamax] 50 mg PO DAILY 07/23/22 07/23/22 History Allergies Allergy/AdvReac Type Severity Reaction Status Date / Time Penicillins Allergy Rash/Hives Verified 07/23/22 09:22 [email or web address] Allergy Anaphylaxis Verified 07/23/22 09:22 cardiolite Allergy Anaphylaxis Uncoded 07/23/22 08:43 Physical Exam Vitals: Vital Signs Temp Pulse Resp BP Pulse Ox 07/23/22 12:27 75 18 98/78 98 07/23/22 11:30 71 18 152/124 97 07/23/22 09:36 70 18 101/59 100 07/23/22 08:36 97.5 F L 70 16 121/62 100 Intake and Output 07/22/22 07/23/22 07/23/22 22:59 06:59 14:59 Other: Weight 103.555 kg Results CBC & Chem 7: 07/23/22 09:45 07/23/22 09:45 Labs: Abnormal Lab Results - Last 24 Hours (Table) 07/23/22 07/23/22 07/23/22 Range/Units 09:45 09:45 09:45 WBC 17.0 H (3.8-10.6) k/uL RBC 3.28 L (4.30-5.90) m/uL Hgb 10.6 L (13.0-17.5) gm/dL Hct 31.7 L (39.0-53.0) % Neutrophils # 14.8 H (1.3-7.7) k/uL Chloride 109 H (98-107) mmol/L Carbon Dioxide 20 L (22-30) mmol/L BUN 27 H (9-20) mg/dL Creatinine 1.26 H (0.66-1.25) mg/dL Glucose 118 H (74-99) mg/dL POC Glucose (mg/dL) (70-110) mg/dL Troponin I 0.065 H* (0.000-0.034) ng/mL Total Protein 5.9 L (6.3-8.2) g/dL Albumin 3.0 L (3.5-5.0) g/dL Urine Protein (Negative) Urine Blood (Negative) Ur Leukocyte Esterase (Negative) Urine RBC (0-5) /hpf Urine WBC (0-5) /hpf 07/23/22 07/23/22 Range/Units 09:52 09:58 WBC (3.8-10.6) k/uL RBC (4.30-5.90) m/uL Hgb (13.0-17.5) gm/dL Hct (39.0-53.0) % Neutrophils # (1.3-7.7) k/uL Chloride (98-107) mmol/L Carbon Dioxide (22-30) mmol/L BUN (9-20) mg/dL Creatinine (0.66-1.25) mg/dL Glucose (74-99) mg/dL POC Glucose (mg/dL) 130 H (70-110) mg/dL Troponin I (0.000-0.034) ng/mL Total Protein (6.3-8.2) g/dL Albumin (3.5-5.0) g/dL Urine Protein 1+ H (Negative) Urine Blood Moderate H (Negative) Ur Leukocyte Esterase Moderate H (Negative) Urine RBC >182 H (0-5) /hpf Urine WBC 34 H (0-5) /hpf
[2022-07-23] MEDS: METOPROLOL SUCCINATE (ER) 50 MG TAB.ER.24H PO SCH (20:53)
[2022-07-23] MEDS: APIXABAN 2.5 MG TABLET PO SCH (20:53)
[2022-07-23] MEDS: ATORVASTATIN 40 MG TAB PO SCH (20:53)
[2022-07-23] MEDS: RANOLAZINE 500 MG TAB.ER.12H PO SCH (20:53)
[2022-07-24] MEDS: SODIUM CHLORIDE 0.9% 1,000 ML IV SCH ×2 (04:47→19:11)
[2022-07-24] MEDS: LEVOTHYROXINE 50 MCG TAB PO SCH (05:57)
[2022-07-24 08:56] LABS: Basophils % (A) 0 %; Eosinophils % (A) 0 %; HCT 28.5 % (39.0-53.0); HGB 9.4 gm/dL (13.0-17.5); Lymphocytes % (A) 11 %; MCH 31.7 pg (25.0-35.0); MCHC 32.8 g/dL (31.0-37.0); MCV 96.5 fL (80.0-100.0); Mean Platelet Volume 8.8; Monocytes # (A) 0.5 k/uL (0-1.0); Monocytes % (A) 5 %; Neutrophils # (A) 7.4 k/uL (1.3-7.7); Neutrophils % (A) 81 %; Platelet Count 275 k/uL (150-450); RBC 2.96 m/uL (4.30-5.90); RDW 14.7 % (11.5-15.5); WBC 9.1 k/uL (3.8-10.6)
[2022-07-24] MEDS: RANOLAZINE 500 MG TAB.ER.12H PO SCH ×2 (09:08→20:39)
[2022-07-24] MEDS: TOPIRAMATE 25 MG TAB PO SCH (09:08)
[2022-07-24] MEDS: APIXABAN 2.5 MG TABLET PO SCH ×2 (09:09→20:39)
[2022-07-24 10:04] LABS: African American GFR (CKD) 60 (>60 ml/min/1.73 sqM); Anion Gap 7 mmol/L; Blood Urea Nitrogen 26 mg/dL (9-20); Calcium 7.9 mg/dL (8.4-10.2); Carbon Dioxide 21 mmol/L (22-30); Chloride 111 mmol/L (98-107); Glucose 117 mg/dL (74-99); Non-African American GFR(CKD) 52 (>60 ml/min/1.73 sqM); Potassium 3.3 mmol/L (3.5-5.1); Sodium 139 mmol/L (137-145)
[2022-07-24] MEDS ORDERED: POTASSIUM CHLORIDE ER 20 MEQ TAB.ER PO STA (11:37)
--- NOTE | 2022-07-24 14:16 | XR ---
EXAMINATION TYPE: XR chest 1V portable DATE OF EXAM: 07/24/2022 COMPARISON: 07/23/2022 HISTORY: Shortness of breath TECHNIQUE: Single frontal view of the chest is obtained. FINDINGS: There is no focal air space opacity, pleural effusion, or pneumothorax seen. Mild cardiome johnny with no overt failure. The osseous structures are intact. Diffuse hyperinflation. There is pos tsurgical change right shoulder with bilateral shoulder arthropathy. Atherosclerotic change aorta. IMPRESSION: 1. Cardiomegaly with COPD correlate for chronic interstitial pulmonary fibrosis.
[2022-07-24] MEDS: METOPROLOL SUCCINATE (ER) 50 MG TAB.ER.24H PO SCH (20:39)
[2022-07-24] MEDS: ATORVASTATIN 40 MG TAB PO SCH (20:39)
--- NOTE | 2022-07-24 21:05 | P.PN ---
Subjective Progress Note Date: 07/24/22 History of Present Illness 87-year-old male with known history of dementia end-stage and is alert oriented 1 at baseline was sent in because of increasing confusion. Although patient appears to be at baseline. Patient was diagnosed with mild dehydration with mildly elevated creatinine was started on IV fluids. He was slightly abnormal.Patient has mildly elevated at 10.6 by patient did have elevated white count without any fever. CT of the head showed hydrocephalus which is secondary to severe brain atrophy due to his dementia this did not change compared to the previous CT of the head. Chest x-ray although showed some pulmonary congestion. Patient's BNP is 55 to be clinically patient appears to be dry. Echocardiogram which was done last month showed EF of around 45%. 07/24/2022 Patient seen and evaluated in follow-up today appears to be at baseline per wi fe. Patient is maintained on IV antibiotics along with gentle IV hydration with some slight improvement in kidney functions and will continue hydration for another day and follow-up with repeat labs. Potassium is 3.3 and will replace per protocol. Patient is currently a [facility] and reports plan is to return there for rehab. Encouraged oral intake and will follow-up on labs in a.m. REVIEW OF SYSTEMS: Unable to obtain PHYSICAL EXAMINATION: GENERAL: The patient is alert and oriented x1, not in any acute distress. Well developed, well nourished. HEENT: Pupils are round and equally reacting to light. EOMI. No scleral icterus. No conjunctival pallor. Normocephalic, atraumatic. No pharyngeal erythema. No thyromegaly. CARDIOVASCULAR: S1 and S2 present. No murmurs, rubs, or gallops. PULMONARY: Chest is clear to auscultation, no wheezing or crackles. ABDOMEN: Soft, non-tender, non-distended, normoactive bowel sounds. No palpable organomegaly. MUSCULOSKELETAL: No joint swelling or deformity. EXTREMITIES: No cyanosis, clubbing, or pedal edema. NEUROLOGICAL: Mental status at his baseline, patient will follow commands because of which this exam is limited SKIN: No rashes. Assessment: -Metabolic and toxic encephalopathy: Probably secondary to UTI and dehydration patient was started on IV fluids the improving -Possible urinary tract infection, present on admission continue ceftriaxone for now -Congestive heart failure chronic systolic dysfunction not in acute exacerbation -Mild troponin elevation: Secondary to chronic heart failure and chronic kidney disease and acute renal failure -Acute renal failure secondary to intravascular volume depletion patient will be continued on IV fluids -Chronic kidney disease stage III -History of paroxysmal A. fib presently rate controlled continue with anticoagulation., Continue with metoprolol. -GI prophylaxis -DVT prophylaxis: Subcutaneous heparin -Full code Plan: Recommend to continue with current medications and will continue IV antibiotics along with gentle IV hydration and follow-up labs Recommend PT/OT therapy evaluation and patient will be returning to [facility] once stabilized and discharged Kidney function slightly improved and potassium found to be slightly low at 3.3 and will replace per protocol and follow-up with repeat labs Possible discharge to ECF in the next 24-48 hours Case management is following and has submitted for insurance authorization which is currently pending The impression and plan of care has been dictated by Evangelina Miranda, Nurse Practitioner as directed. Dr. Lurdes MD I have performed a history and examination and MDM of this patient, discussed the same with the dictator, and agree with the dictator's assessment and plan as written ,documented as a scribe. Based on total visit time, I have performed more than 50% of the visit. Objective - Vital Signs Vital signs: Vital Signs Temp 97.3 F L 07/24/22 04:00 Pulse 71 07/24/22 04:00 Resp 21 07/24/22 04:00 BP 107/57 07/24/22 04:00 Pulse Ox 97 07/24/22 04:00 FiO2 Intake & Output 07/23/22 07/24/22 07/24/22 18:59 06:59 18:59 Intake Total 110 110 Output Total 950 Balance 110 -950 110 Weight 103.555 kg Intake: Oral 110 110 Output: Urine 950 Other: Voiding Method External Catheter - Labs CBC & Chem 7: 07/24/22 08:19 07/24/22 08:19 Labs: Abnormal Lab Results - Last 24 Hours (Table) 07/23/22 07/23/22 07/23/22 Range/Units 09:45 09:45 09:45 WBC 17.0 H (3.8-10.6) k/uL RBC 3.28 L (4.30-5.90) m/uL Hgb 10.6 L (13.0-17.5) gm/dL Hct 31.7 L (39.0-53.0) % Neutrophils # 14.8 H (1.3-7.7) k/uL Chloride 109 H (98-107) mmol/L Carbon Dioxide 20 L (22-30) mmol/L BUN 27 H (9-20) mg/dL Creatinine 1.26 H (0.66-1.25) mg/dL Glucose 118 H (74-99) mg/dL POC Glucose (mg/dL) (70-110) mg/dL Troponin I 0.065 H* (0.000-0.034) ng/mL Total Protein 5.9 L (6.3-8.2) g/dL Albumin 3.0 L (3.5-5.0) g/dL Urine Protein (Negative) Urine Blood (Negative) Ur Leukocyte Esterase (Negative) Urine RBC (0-5) /hpf Urine WBC (0-5) /hpf 07/23/22 07/23/22 07/23/22 Range/Units 09:52 09:58 11:51 WBC (3.8-10.6) k/uL RBC (4.30-5.90) m/uL Hgb (13.0-17.5) gm/dL Hct (39.0-53.0) % Neutrophils # (1.3-7.7) k/uL Chloride (98-107) mmol/L Carbon Dioxide (22-30) mmol/L BUN (9-20) mg/dL Creatinine (0.66-1.25) mg/dL Glucose (74-99) mg/dL POC Glucose (mg/dL) 130 H (70-110) mg/dL Troponin I 0.078 H* (0.000-0.034) ng/mL Total Protein (6.3-8.2) g/dL Albumin (3.5-5.0) g/dL Urine Protein 1+ H (Negative) Urine Blood Moderate H (Negative) Ur Leukocyte Esterase Moderate H (Negative) Urine RBC >182 H (0-5) /hpf Urine WBC 34 H (0-5) /hpf 07/23/22 07/24/22 Range/Units 15:32 08:19 WBC (3.8-10.6) k/uL RBC 2.96 L (4.30-5.90) m/uL Hgb 9.4 L (13.0-17.5) gm/dL Hct 28.5 L (39.0-53.0) % Neutrophils # (1.3-7.7) k/uL Chloride (98-107) mmol/L Carbon Dioxide (22-30) mmol/L BUN (9-20) mg/dL Creatinine (0.66-1.25) mg/dL Glucose (74-99) mg/dL POC Glucose (mg/dL) (70-110) mg/dL Troponin I 0.078 H* (0.000-0.034) ng/mL Total Protein (6.3-8.2) g/dL Albumin (3.5-5.0) g/dL Urine Protein (Negative) Urine Blood (Negative) Ur Leukocyte Esterase (Negative) Urine RBC (0-5) /hpf Urine WBC (0-5) /hpf
[2022-07-25] MEDS: LEVOTHYROXINE 50 MCG TAB PO SCH (06:05)
[2022-07-25 06:50] LABS: African American GFR (CKD) 72 (>60 ml/min/1.73 sqM); Anion Gap 8 mmol/L; Blood Urea Nitrogen 23 mg/dL (9-20); Carbon Dioxide 19 mmol/L (22-30); Chloride 113 mmol/L (98-107); Glucose 101 mg/dL (74-99); Non-African American GFR(CKD) 62 (>60 ml/min/1.73 sqM); Potassium 3.7 mmol/L (3.5-5.1); Sodium 140 mmol/L (137-145)
[2022-07-25] MEDS: RANOLAZINE 500 MG TAB.ER.12H PO SCH (11:04)
[2022-07-25] MEDS: TOPIRAMATE 25 MG TAB PO SCH (11:05)
[2022-07-25] MEDS: APIXABAN 2.5 MG TABLET PO SCH (11:05)
[2022-07-25] MEDS: SODIUM CHLORIDE 0.9% 1,000 ML IV SCH (11:05)
--- NOTE | 2022-07-25 13:22 | P.DS ---
Providers Date of admission: 07/23/22 11:36 Expected date of discharge: 07/25/22 Attending physician: Chapis Chatman Primary care physician: John Harrington Hospital Course: Final diagnosis -Metabolic and toxic encephalopathy: secondary to UTI and dehydration -Acute urinary tract infection, present on admission -Congestive heart failure chronic systolic dysfunction not in acute exacerbation -Mild troponin elevation: Secondary to chronic heart failure and chronic kidney disease and acute renal failure -Acute renal failure secondary to intravascular volume depletion -Chronic kidney disease stage III -History of paroxysmal A. fib presently rate controlled continue with anticoagulation. -GI prophylaxis -DVT prophylaxis -Full code Discharge disposition Patient is being discharged in a stable condition with guarded prognosis to [facility] . Patient will follow-up with Dr. Harrington in the outpatient setting upon discharge. Patient is to continue with oral Ceftin 500 mg twice daily extremities complete a course. Recommend follow-up labs of CBC, BMP in the next 2-3 days. Total time taken is greater than 35 minutes. Hospital course This is a 87-year-old male who was recently admitted with change in mentation with concerns of possible urinary tract infection. Patient was found to be dehydrated in mild acute kidney injury secondary to dehydration and continued on gentle IV hydration with improvement and labs. Recommend follow-up labs in the next 2-3 days to monitor kidney functions closely as well as sodium levels. Patient to continue heart healthy diet and resume physical therapy. Currently no reports of chest pain, shortness of breath, or palpitations. Patient is afebrile. No reports of nausea or vomiting and patient is tolerating diet. Patient will be going to [facility] today. Physical exam: Gen: This is a 79-year-old male who is alert and oriented 1 at his baseline, well-developed, well-nourished HEENT: Head is atraumatic, normocephalic. Pupils equal, round. Sclerae is anicteric. NECK: Supple. No JVD. No lymphadenopathy. No thyromegaly. LUNGS: Clear to auscultation. No wheezes or rhonchi. No intercostal retractions. HEART: Regular rate and rhythm. No murmur. ABDOMEN: Soft. Bowel sounds are present. No masses. No tenderness. EXTREMITIES: No pedal edema. No calf tenderness. NEUROLOGICAL: Patient is awake, alert and oriented x1. Cranial nerves 2 through 12 are grossly intact. Diffusely weak Please refer to medication reconciliation sheet for a list of medications. The impression and plan of care has been dictated by Evangelina Miranda, Nurse Practitioner as directed. Dr. Lurdes MD I have performed a history and examination and MDM of this patient, discussed the same with the dictator, and agree with the dictator's assessment and plan as written ,documented as a scribe. Based on total visit time, I have performed more than 50% of the visit. Patient Condition at Discharge: Stable Plan - Discharge Summary Discharge Rx Participant: No New Discharge Prescriptions: New cefUROXime axetiL [Ceftin] 500 mg PO BID 3 Days #6 tab Continue Levothyroxine Sodium [Synthroid] 50 mcg PO HS Folic Acid 1 mg PO HS Atorvastatin [Lipitor] 40 mg PO HS Apixaban [Eliquis] 2.5 mg PO BID #60 tab Ranolazine [Ranexa] 1,000 mg PO BID #120 tab Acetaminophen Tab [Tylenol] 975 mg PO Q8H Metoprolol Succinate (ER) [Toprol XL] 50 mg PO HS #30 tab Topiramate [Topamax] 50 mg PO DAILY Discharge Medication List Levothyroxine Sodium [Synthroid] 50 mcg PO HS 11/09/15 [History] Atorvastatin [Lipitor] 40 mg PO HS 09/26/18 [History] Folic Acid 1 mg PO HS 09/26/18 [History] Apixaban [Eliquis] 2.5 mg PO BID #60 tab 07/09/22 [Rx] Metoprolol Succinate (ER) [Toprol XL] 50 mg PO HS #30 tab 07/09/22 [Rx] Ranolazine [Ranexa] 1,000 mg PO BID #120 tab 07/09/22 [Rx] Acetaminophen Tab [Tylenol] 975 mg PO Q8H 07/23/22 [History] Topiramate [Topamax] 50 mg PO DAILY 07/23/22 [History] cefUROXime axetiL [Ceftin] 500 mg PO BID 3 Days #6 tab 07/25/22 [Rx] Follow up Appointment(s)/Referral(s): John Harrington MD [Primary Care Provider] - 1-2 days Activity/Diet/Wound Care/Special Instructions: Patient is returning [facility] as tolerated Continue taking medications as prescribed Recommend follow-up CBC and BMP in 2-3 days Continue heart healthy diet Discharge Disposition: TRANSFER TO SNF/ECF
[2022-07-25 15:09] VITALS: BP 128/66; PULSE 71; RESP 18; TEMP 98.7
== END 2022-07-25 15:23 | DRG 689 ==
LOC: EC 08:34 → 3SCARD 11:36 → OBSVTOIN 11:36 → 3SCARD 12:43 → 4SSUR 07-25 04:04
PROVIDERS: ADMIT Internal Medicine; ATTEND Internal Medicine
DX: N39.0 Urinary tract infection, site not specified (principal); G92.8 Other toxic encephalopathy; N17.9 Acute kidney failure, unspecified; I13.0 Hypertensive heart and chronic kidney disease with heart failure and stage 1 through stage 4 chronic kidney disease, or unspecified chronic kidney disease; G91.9 Hydrocephalus, unspecified; I50.22 Chronic systolic (congestive) heart failure; E86.0 Dehydration; N18.30 Chronic kidney disease, stage 3 unspecified; E86.9 Volume depletion, unspecified; R79.89 Other specified abnormal findings of blood chemistry; M19.90 Unspecified osteoarthritis, unspecified site; G31.89 Other specified degenerative diseases of nervous system; I48.0 Paroxysmal atrial fibrillation; F03.90 Unspecified dementia, unspecified severity, without behavioral disturbance, psychotic disturbance, mood disturbance, and anxiety; I25.10 Atherosclerotic heart disease of native coronary artery without angina pectoris; G31.9 Degenerative disease of nervous system, unspecified; E78.5 Hyperlipidemia, unspecified; I25.2 Old myocardial infarction; Z79.01 Long term (current) use of anticoagulants; Z79.890 Hormone replacement therapy; Z79.899 Other long term (current) drug therapy; Z85.828 Personal history of other malignant neoplasm of skin; Z82.49 Family history of ischemic heart disease and other diseases of the circulatory system; Z88.0 Allergy status to penicillin; Z88.8 Allergy status to other drugs, medicaments and biological substances; Z96.653 Presence of artificial knee joint, bilateral; Z96.643 Presence of artificial hip joint, bilateral; Z96.611 Presence of right artificial shoulder joint
CPT/HCPCS: 36415; 70450; 71045; 80048; 80053; 81001; 83880; 84484; 85025; 85610; 85730; 87040; 93005; 96361; 96374; 99285

== ENCOUNTER 2022-08-20 14:10 | Observation (INO) | payer MEDICARE ==
[2022-08-20] MEDS ORDERED: SODIUM CHLORIDE 0.9% 500 ML 500 ML IV ONE (14:26)
--- NOTE | 2022-08-20 14:29 | ED ---
General Adult HPI - General Chief complaint: Altered Mental Status Stated complaint: AMS Time Seen by Provider: 08/20/22 14:20 Source: patient, EMS, RN notes reviewed, old records reviewed Mode of arrival: EMS - History of Present Illness Initial comments: This is an 87-year-old male who was brought to the emergency department all the history is given to us by EMS per patient was found unresponsive at home by the physical therapist and the patient remained unresponsive for approximately half an hour when EMS arrived they did a sternal rub for a little bit of time and the patient eventually slowly came around and was back to his baseline which is alert and oriented times one. Patient denies any pain patient denies any difficulty breathing. Patient doesn't remember if he fell. No one else with the patient the signs and no further history can be obtained - Related Data Home Medications Medication Instructions Recorded Confirmed Levothyroxine Sodium [Synthroid] 50 mcg PO HS 11/09/15 07/23/22 Atorvastatin [Lipitor] 40 mg PO HS 09/26/18 07/23/22 Folic Acid 1 mg PO HS 09/26/18 07/23/22 Acetaminophen Tab [Tylenol] 975 mg PO Q8H 07/23/22 07/23/22 Topiramate [Topamax] 50 mg PO DAILY 07/23/22 07/23/22 Previous Rx's Medication Instructions Recorded Apixaban [Eliquis] 2.5 mg PO BID #60 tab 07/09/22 Metoprolol Succinate (ER) [Toprol 50 mg PO HS #30 tab 07/09/22 XL] Ranolazine [Ranexa] 1,000 mg PO BID #120 tab 07/09/22 cefUROXime axetiL [Ceftin] 500 mg PO BID 3 Days #6 tab 07/25/22 Allergies Allergy/AdvReac Type Severity Reaction Status Date / Time Penicillins Allergy Rash/Hives Verified 07/23/22 09:22 regadenoson Allergy Anaphylaxis Verified 07/23/22 09:22 cardiolite Allergy Anaphylaxis Uncoded 07/23/22 08:43 Review of Systems ROS Statement: Those systems with pertinent positive or pertinent negative responses have been documented in the HPI. ROS Other: All systems not noted in ROS Statement are negative. Past Medical History Past Medical History: Atrial Flutter, Coronary Artery Disease (CAD), Cancer, Hyperlipidemia, Hypertension, Myocardial Infarction (IL), Osteoarthritis (OA), Sleep Apnea/CPAP/BIPAP, Thyroid Disorder Additional Past Medical History / Comment(s): Healing wound on rt lower leg, hx skin cancer Last Myocardial Infarction Date:: 2008 History of Any Multi-Drug Resistant Organisms: None Reported Past Surgical History: Heart Catheterization With Stent, Joint Replacement Additional Past Surgical History / Comment(s): Replacements of KAREN KNEES, KAREN HIPS and RT SHOULDER, has 2 or 3 coranary stents, recent karen eyelid sx, and removal of skin tag on rt eye lid, femur fracture July 2022, Past Anesthesia/Blood Transfusion Reactions: No Reported Reaction Date of Last Stent Placement:: 2018 Past Psychological History: No Psychological Hx Reported Smoking Status: Never smoker Past Alcohol Use History: Occasional Past Drug Use History: None Reported - Past Family History Mother Family Medical History: No Reported History Brother(s) Family Medical History: Myocardial Infarction ([place]) Father Family Medical History: Myocardial Infarction ([place]) General Exam - General Exam Comments Initial Comments: GENERAL: Patient is well-developed and well-nourished. Patient is nontoxic and well- hydrated and is in no acute distress. ENT: Neck is soft and supple. No significant lymphadenopathy is noted. Oropharynx is clear. Moist mucous membranes. Neck has full range of motion without eliciting any pain. EYES: The sclera were anicteric and conjunctiva were pink and moist. Extraocular movements were intact and pupils were equal round and reactive to light. Eyelids were unremarkable. PULMONARY: Unlabored respirations. Good breath sounds bilaterally. No audible rales rhonchi or wheezing was noted. CARDIOVASCULAR: There is a regular rate and rhythm without any murmurs gallops or rubs. ABDOMEN: Soft and nontender with normal bowel sounds. SKIN: Skin is clear with no lesions or rashes and otherwise unremarkable. NEUROLOGIC: Patient is alert and oriented 1. Cranial nerves II through XII are grossly intact. Motor and sensory are also intact. Normal speech, volume and content. Symmetrical smile. MUSCULOSKELETAL: Normal extremities with adequate strength and full range of motion. No lower extremity swelling or edema. No calf tenderness. LYMPHATICS: No significant lymphadenopathy is noted PSYCHIATRIC: Normal psychiatric evaluation. Course Vital Signs 08/20/22 08/20/22 14:14 16:40 Temperature 97.4 F L Pulse Rate 85 80 Respiratory 18 18 Rate Blood Pressure 125/64 111/63 O2 Sat by Pulse 98 95 Oximetry Medical Decision Making - Medical Decision Making EKG was interpreted by myself that shows sinus rhythm at 81 bpm AL interval is a first-degree block at 160 QRS is 153 QT interval 450 QTC is 487. Patient's EKG shows a right bundle branch block Was pt. sent in by a medical professional or institution (ZELALEM Hyde, HEADWAITRESS, urgent care, hospital, or prison...) When possible be specific @ -Physical therapist sent the patient into the hospital Did you speak to anyone other than the patient for history (EMS, parent, family, police, friend...)? What history was obtained from this source @ -No Did you review nursing and triage notes (agree or disagree)? Why? @ -I reviewed and agree with nursing and triage notes Were old charts reviewed (outside hosp., previous admission, EMS record, old EKG, old radiological studies, urgent care reports/EKG's, prison records)? Report findings @ -I reviewed prior lab work prior charts on this patient Differential Diagnosis (chest pain, altered mental status, abdominal pain women, abdominal pain men, vaginal bleeding, weakness, fever, dyspnea, syncope, headache, dizziness, GI bleed, back pain, seizure, CVA, palpatations, mental health, musculoskeletal)? @ -Differential Altered Mental Status: Hypoglycemia, DKA, hypercapnia, ETOH, overdose, CO poisoning, trauma, myxedema coma, HTN encephalopathy, infection, encephalitis, psychosis, intercranial hemorrhage, hepatic encephalopathy, meningitis, CVA, this is not meant to be an all-inclusive list EKG interpreted by me (3pts min.). @ -As above X-rays interpreted by me (1pt min.). @ -Chest x-ray shows no acute abnormality CT interpreted by me (1pt min.). @ -CT of the brain shows no acute abnormality U/S interpreted by me (1pt. min.). @ -None done What testing was considered but not performed or refused? (CT, X-rays, U/S, labs)? Why? @ -None What meds were considered but not given or refused? Why? @ -None Did you discuss the management of the patient with other professionals (professionals i.e. ZELALEM Hyde, HEADWAITRESS, lab, RT, psych nurse, social sciences research scientist, edger tailer, teacher, training systems officer, director case management)? Give summary @ -Spoke with the [facility] hospitalist and they agreed to admit the patient Was smoking cessation discussed for >3mins.? @ -No Was critical care preformed (if so, how long)? @ -No Were there social determinants of health that impacted care today? How? (Homelessness, low income, unemployed, alcoholism, drug addiction, transportation, low edu. Level, literacy, decrease access to med. care, skilled nursing, rehab)? @ -No Was there de-escalation of care discussed even if they declined (Discuss DNR or withdrawal of care, Hospice)? DNR status @ -No What co-morbidities impacted this encounter? (DM, HTN, Smoking, COPD, CAD, Cancer, CVA, ARF, Chemo, Hep., AIDS, mental health diagnosis, sleep apnea, morbid obesity)? @ -None Was patient admitted / discharged? Hospital course, mention meds given and route, prescriptions, significant lab abnormalities, going to OR and other pertinent info. @ -Patient had lab work done as well as radiological studies. None of which explain the patient's unresponsive episode. However patient's troponin was mildly elevated and since he was unresponsive for half an hour I thought it best to admit the patient for further evaluation. I spoke with the [facility] Hospitalist and they agreed to admit the patient Undiagnosed new problem with uncertain prognosis? @ -No Drug Therapy requiring intensive monitoring for toxicity (Heparin, Nitro, Insulin, Cardizem)? @ -No Were any procedures done? @ -No Diagnosis/symptom? @ -Unresponsive episode Acute, or Chronic, or Acute on Chronic? @ -Acute Uncomplicated (without systemic symptoms) or Complicated (systemic symptoms)? @ -Complicated Side effects of treatment? @ -No Exacerbation, Progression, or Severe Exacerbation? @ -No Poses a threat to life or bodily function? How? (Chest pain, [place], [place], pneumonia, PE, COPD, DKA, ARF, appy, cholecystitis, CVA, Diverticulitis, Homicidal, Crane icidal, threat to staff... and all critical care pts) @ -Yes it's possible this could be life-threatening because we don't know the cause at this point in time for the unresponsive 30 minute episode Diagnosis/symptom? @ -Elevated troponin Acute, or Chronic, or Acute on Chronic? @ -Acute Uncomplicated (without systemic symptoms) or Complicated (systemic symptoms)? @ -Complicated Side effects of treatment? @ -none Exacerbation, Progression, or Severe Exacerbation] @ -no Poses a threat to life or bodily function? @ -Yes this could lead to possible IL which could lead to significant end organ dysfunction - Lab Data Result diagrams: 08/20/22 14:29 08/20/22 14:29 Lab Results 08/20/22 08/20/22 08/20/22 Range/Units 14:29 14:29 14:29 WBC 6.5 (3.8-10.6) k/uL RBC 3.35 L (4.30-5.90) m/uL Hgb 10.5 L (13.0-17.5) gm/dL Hct 32.6 L (39.0-53.0) % MCV 97.4 (80.0-100.0) fL MCH 31.3 (25.0-35.0) pg MCHC 32.1 (31.0-37.0) g/dL RDW 14.7 (11.5-15.5) % Plt Count 379 (150-450) k/uL MPV 8.6 Neutrophils % 74 % Lymphocytes % 17 % Monocytes % 7 % Eosinophils % 1 % Basophils % 0 % Neutrophils # 4.8 (1.3-7.7) k/uL Lymphocytes # 1.1 (1.0-4.8) k/uL Monocytes # 0.5 (0-1.0) k/uL Eosinophils # 0.1 (0-0.7) k/uL Basophils # 0.0 (0-0.2) k/uL Hypochromasia Slight PT 12.6 H (9.0-12.0) sec INR 1.2 H (<1.2) APTT 22.2 (22.0-30.0) sec Sodium (137-145) mmol/L Potassium (3.5-5.1) mmol/L Chloride (98-107) mmol/L Carbon Dioxide (22-30) mmol/L Anion Gap mmol/L BUN (9-20) mg/dL Creatinine (0.66-1.25) mg/dL Est GFR (CKD-EPI)AfAm (>60 ml/min/1.73 sqM) Est GFR (CKD-EPI)NonAf (>60 ml/min/1.73 sqM) Glucose (74-99) mg/dL POC Glucose (mg/dL) (70-110) mg/dL POC Glu School Director ID Calcium (8.4-10.2) mg/dL Total Bilirubin (0.2-1.3) mg/dL AST (17-59) U/L ALT (4-49) U/L Alkaline Phosphatase (38-126) U/L Troponin I (0.000-0.034) ng/mL Total Protein (6.3-8.2) g/dL Albumin (3.5-5.0) g/dL Urine Opiates Screen Not Detected (NotDetected) Ur Oxycodone Screen Not Detected (NotDetected) Urine Methadone Screen Not Detected (NotDetected) Ur Propoxyphene Screen Not Detected (NotDetected) Ur Barbiturates Screen Not Detected (NotDetected) U Tricyclic Antidepress Not Detected (NotDetected) Ur Phencyclidine Scrn Not Detected (NotDetected) Ur Amphetamines Screen Not Detected (NotDetected) U Methamphetamines Scrn Not Detected (NotDetected) U Benzodiazepines Scrn Not Detected (NotDetected) Urine Cocaine Screen Not Detected (NotDetected) U Marijuana (THC) Screen Not Detected (NotDetected) 08/20/22 08/20/22 08/20/22 Range/Units 14:29 14:29 15:00 WBC (3.8-10.6) k/uL RBC (4.30-5.90) m/uL Hgb (13.0-17.5) gm/dL Hct (39.0-53.0) % MCV (80.0-100.0) fL MCH (25.0-35.0) pg MCHC (31.0-37.0) g/dL RDW (11.5-15.5) % Plt Count (150-450) k/uL MPV Neutrophils % % Lymphocytes % % Monocytes % % Eosinophils % % Basophils % % Neutrophils # (1.3-7.7) k/uL Lymphocytes # (1.0-4.8) k/uL Monocytes # (0-1.0) k/uL Eosinophils # (0-0.7) k/uL Basophils # (0-0.2) k/uL Hypochromasia PT (9.0-12.0) sec INR (<1.2) APTT (22.0-30.0) sec Sodium 142 (137-145) mmol/L Potassium 4.0 (3.5-5.1) mmol/L Chloride 114 H (98-107) mmol/L Carbon Dioxide 21 L (22-30) mmol/L Anion Gap 7 mmol/L BUN 22 H (9-20) mg/dL Creatinine 1.05 (0.66-1.25) mg/dL Est GFR (CKD-EPI)AfAm 73 (>60 ml/min/1.73 sqM) Est GFR (CKD-EPI)NonAf 64 (>60 ml/min/1.73 sqM) Glucose 112 H (74-99) mg/dL POC Glucose (mg/dL) 92 (70-110) mg/dL POC Glu School Director ID Sunni Carl Calcium 8.7 (8.4-10.2) mg/dL Total Bilirubin 0.9 (0.2-1.3) mg/dL AST 35 (17-59) U/L ALT 39 (4-49) U/L Alkaline Phosphatase 89 (38-126) U/L Troponin I 0.094 H* (0.000-0.034) ng/mL Total Protein 7.1 (6.3-8.2) g/dL Albumin 3.2 L (3.5-5.0) g/dL Urine Opiates Screen (NotDetected) Ur Oxycodone Screen (NotDetected) Urine Methadone Screen (NotDetected) Ur Propoxyphene Screen (NotDetected) Ur Barbiturates Screen (NotDetected) U Tricyclic Antidepress (NotDetected) Ur Phencyclidine Scrn (NotDetected) Ur Amphetamines Screen (NotDetected) U Methamphetamines Scrn (NotDetected) U Benzodiazepines Scrn (NotDetected) Urine Cocaine Screen (NotDetected) U Marijuana (THC) Screen (NotDetected) Disposition Clinical Impression: Unresponsive episode, Elevated troponin Disposition: ADMITTED IP TO THIS [facility] Referrals: None,Stated [REFERRING] - 1-2 days Time of Disposition: 16:48
[2022-08-20 14:59] LABS: INR 1.2 (<1.2); Partial Thromboplastin Time 22.2 sec (22.0-30.0); Prothrombin Time 12.6 sec (9.0-12.0)
[2022-08-20 15:02] LABS: ALT 39 U/L (4-49); AST 35 U/L (17-59); African American GFR (CKD) 73 (>60 ml/min/1.73 sqM); Albumin 3.2 g/dL (3.5-5.0); Alkaline Phosphatase 89 U/L (38-126); Anion Gap 7 mmol/L; Blood Urea Nitrogen 22 mg/dL (9-20); Calcium 8.7 mg/dL (8.4-10.2); Carbon Dioxide 21 mmol/L (22-30); Chloride 114 mmol/L (98-107); Glucose 112 mg/dL (74-99); Non-African American GFR(CKD) 64 (>60 ml/min/1.73 sqM); Sodium 142 mmol/L (137-145); Total Bilirubin 0.9 mg/dL (0.2-1.3); Total Protein 7.1 g/dL (6.3-8.2)
[2022-08-20 15:02] LABS: Glucose,Whole Blood 92 mg/dL (70-110)
[2022-08-20 15:09] LABS: Basophils % (A) 0 %; Eosinophils # (A) 0.1 k/uL (0-0.7); Eosinophils % (A) 1 %; HCT 32.6 % (39.0-53.0); HGB 10.5 gm/dL (13.0-17.5); Hypochromasia Slight; Lymphocytes # (A) 1.1 k/uL (1.0-4.8); Lymphocytes % (A) 17 %; MCH 31.3 pg (25.0-35.0); MCHC 32.1 g/dL (31.0-37.0); MCV 97.4 fL (80.0-100.0); Mean Platelet Volume 8.6; Monocytes # (A) 0.5 k/uL (0-1.0); Monocytes % (A) 7 %; Neutrophils # (A) 4.8 k/uL (1.3-7.7); Neutrophils % (A) 74 %; Platelet Count 379 k/uL (150-450); RBC 3.35 m/uL (4.30-5.90); RDW 14.7 % (11.5-15.5); WBC 6.5 k/uL (3.8-10.6)
--- NOTE | 2022-08-20 15:49 | CT ---
EXAMINATION TYPE: CT brain wo con DATE OF EXAM: 08/20/2022 COMPARISON: 07/23/2022 HISTORY: ams CT DLP: 1188.7 mGycm Automated exposure control for dose reduction was used. FINDINGS: Moderate to severe to severe generalized degenerative change. There is moderate low attenuation in th e deep white matter. Findings similar to prior exam. There is nasal septal deviation with changes of chronic sinusitis. Orbits are symmetric. Calvarium in tact. 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 There is no acute hemorrhage or mass effect. No midline shift. Intracranial atherosclerotic changes a re stable. IMPRESSION: 1. EXTENSIVE DEGENERATIVE CHANGE WITH A SLIGHTLY GREATER CENTRAL COMPONENT. A COMPONENT OF NORMAL PRE SSURE HYDROCEPHALUS IN THE DIFFERENTIAL DIAGNOSIS. 2. NO EVIDENCE OF ACUTE HEMORRHAGE OR MASS EFFECT. 3. NONSPECIFIC WHITE MATTER CHANGES MOST TYPICAL REMOTE WHITE MATTER ISCHEMIA.
--- NOTE | 2022-08-20 15:52 | XR ---
EXAMINATION TYPE: XR chest 2V DATE OF EXAM: 08/20/2022 COMPARISON: 07/24/2022 TECHNIQUE: PA and lateral views submitted. HISTORY: Altered mental status. FINDINGS: The lungs are clear and there is no pneumothorax, pleural effusion, or focal pneumonia. Heart size normal and no overt failure. Osseous structures demonstrate hypertrophic and degenerative changes of the spine. Diffuse osteopenia with postsurgical change right shoulder. There is severe arthropathy of the right AC joint and chronic appearing absorption of the distal left clavicle. Emphysematous blanco es are seen. IMPRESSION: 1. No acute process.
[2022-08-20 16:15] LABS: Amphetamine Screen,Urine Not Detected (NotDetected); Benzodiazepines Screen,Urine Not Detected (NotDetected); Cocaine Screen,Urine Not Detected (NotDetected); Methadone Screen, Urine Not Detected (NotDetected); Opiate Screen,Urine Not Detected (NotDetected); Phencyclidine Screen,Urine Not Detected (NotDetected); Tricyclic Antidepressant,Urine Not Detected (NotDetected); Urn Cannabinoid Scrn Not Detected (NotDetected)
[2022-08-20 16:16] LABS: Barbiturate Screen,Urine Not Detected (NotDetected); Oxycodone Screen, Urine Not Detected (NotDetected)
[2022-08-20] MEDS ORDERED: NITROGLYCERIN SL TABS 0.4 MG TAB SUBLINGUAL PRN (16:48)
[2022-08-20] MEDS: NITROGLYCERIN OINT 1 INCH/GM PACKET TOPICAL SCH (18:30)
[2022-08-20] MEDS ORDERED: ONDANSETRON 4 MG/2 ML VIAL IVP PRN (23:34)
[2022-08-21] MEDS: ACETAMINOPHEN TAB 325 MG TAB PO SCH ×3 (00:33→15:52)
[2022-08-21] MEDS: FOLIC ACID 1 MG TAB PO SCH ×2 (00:33→20:52)
[2022-08-21] MEDS: APIXABAN 2.5 MG TABLET PO SCH ×3 (00:34→20:52)
[2022-08-21] MEDS: ATORVASTATIN 40 MG TAB PO SCH ×2 (00:34→20:52)
[2022-08-21] MEDS: RANOLAZINE 500 MG TAB.ER.12H PO SCH ×3 (00:34→20:52)
[2022-08-21] MEDS: LEVOTHYROXINE 50 MCG TAB PO SCH ×2 (00:34→20:52)
[2022-08-21] MEDS: METOPROLOL SUCCINATE (ER) 50 MG TAB.ER.24H PO SCH ×2 (00:34→20:52)
[2022-08-21] MEDS: NITROGLYCERIN OINT 1 INCH/GM PACKET TOPICAL SCH ×2 (00:35→05:35)
[2022-08-21] MEDS ORDERED: ASPIRIN 325 MG TAB PO SCH (09:00)
--- NOTE | 2022-08-21 10:14 | P.CRDCN ---
History of Present Illness History of present illness: HISTORY OF PRESENT ILLNESS: This is a 87-year-old male with a past medical history significant for atrial fibrillation/flutter, coronary artery disease, valvular heart disease with aortic stenosis and mitral regurgitation, hypertension, and hyperlipidemia. Patient follows in the office with Dr. Dr. Barboza. We have been asked to see the patient in consultation for episode of unresponsiveness. Patient examined at the bedside. The patient appears somewhat confused at the time of examination. He is a poor historian. There is no family at the bedside. He is unsure why he is at the hospital. According to ER documentation, the patient was brought in by EMS after he was found unresponsive at home by his physical therapist. The patient denies having any chest pain or pressure. He denies any shortness of breath. * EKG reveals atrial flutter with controlled ventricular rate * Chest xray negative for acute process * Laboratory data: WBC 6.5. Hemoglobin 10.5. Platelet count 379. Sodium 142. Potassium 4.0. B UN 22. Creatinine 1.05. Troponin 0.094. 0.092. 0.098. * Current home cardiac medications include Eliquis 5mg BID, Lipitor 40 mg at night, metoprolol succinate 50 mg at night, and Ranexa 1000 mg twice a day * Most recent echocardiogram obtained in June 2022 revealed ejection fraction 45- 50%, moderate LVH, mild pulmonary pretension, moderate aortic stenosis, mild mitral regurgitation * Cardiac catheterization history: October 2021 revealing coronary artery disease including 50-60% proximal LAD stenosis, left main 20% stenosis, 100% RCA stenosis with [id number] collaterals appearing similar to prior angiogram from 2019. Medical management was recommended. If patient has recurrent chest pain would consider IFR/FFR of proximal LAD lesion and possible stenting. REVIEW OF SYSTEMS: At the time of my exam: Unable to obtain thorough review of systems secondary to altered mental status PHYSICAL EXAM: VITAL SIGNS: Reviewed. GENERAL: Well-developed in no acute distress. HEENT: Head is normocephalic. Pupils are equal, round. Sclerae anicteric. Mucous membranes of the mouth are moist. Neck supple. No JVD or thyromegaly LUNGS: Respirations even and unlabored. Lungs essentially clear to auscultation bilaterally. HEART: Regular rate and rhythm. S1 and S2 heard. Systolic murmur noted ABDOMEN: Soft. Nondistended. Nontender. EXTREMITIES: Normal range of motion. No clubbing or cyanosis. Peripheral pulses intact. No lower extremity edema NEUROLOGIC: Awake and alert. Oriented x 3. ASSESSMENT: Episode of unresponsiveness at home Coronary artery disease Valvular heart disease including moderate aortic stenosis and mild mitral regurgitation Permanent atrial fibrillation/typical flutter with controlled ventricular rates Abnormal troponins, flat, not suggestive of acute coronary syndrome Hypertension Hyperlipidemia PLAN: No need to repeat echocardiogram as this was performed in June 2022 Resume home cardiac medications No further inpatient recommendations from a cardiology standpoint We will sign off. Please reconsult if needed. Nurse practitioner note has been reviewed by physician. Signing provider agrees with the documented findings, assessment, and plan of care. Past Medical History Past Medical History: Atrial Flutter, Coronary Artery Disease (CAD), Cancer, Hyperlipidemia, Hypertension, Myocardial Infarction ([place]), Osteoarthritis (OA), Sleep Apnea/CPAP/BIPAP, Thyroid Disorder Additional Past Medical History / Comment(s): Healing wound on rt lower leg, hx skin cancer Last Myocardial Infarction Date:: 2008 History of Any Multi-Drug Resistant Organisms: None Reported Past Surgical History: Heart Catheterization With Stent, Joint Replacement Additional Past Surgical History / Comment(s): Replacements of KAREN KNEES, KAREN HIPS and RT SHOULDER, has 2 or 3 coranary stents, recent karen eyelid sx, and removal of skin tag on rt eye lid, femur fracture July 2022, Past Anesthesia/Blood Transfusion Reactions: No Reported Reaction Date of Last Stent Placement:: 2018 Past Psychological History: No Psychological Hx Reported Smoking Status: Former smoker Past Alcohol Use History: Occasional Additional Past Alcohol Use History / Comment(s): Smoking a pipe currently several times a day, was smoking cigars and cigarettes 1PPD SINCE AGE 15 (1952). Past Drug Use History: None Reported - Past Family History Mother Family Medical History: No Reported History Brother(s) Family Medical History: Myocardial Infarction ([place]) Father Family Medical History: Myocardial Infarction ([place]) Medications and Allergies Home Medications Medication Instructions Recorded Confirmed Type Levothyroxine Sodium [Synthroid] 50 mcg PO HS 11/09/15 08/20/22 History Atorvastatin [Lipitor] 40 mg PO HS 09/26/18 08/20/22 History Folic Acid 1 mg PO HS 09/26/18 08/20/22 History Apixaban [Eliquis] 2.5 mg PO BID #60 tab 07/09/22 08/20/22 Rx Metoprolol Succinate (ER) [Toprol 50 mg PO HS #30 tab 07/09/22 08/20/22 Rx XL] Ranolazine [Ranexa] 1,000 mg PO BID #120 tab 07/09/22 08/20/22 Rx Acetaminophen Tab [Tylenol] 975 mg PO Q8H 07/23/22 08/20/22 History Topiramate [Topamax] 50 mg PO HS 07/23/22 08/20/22 History Allergies Allergy/AdvReac Type Severity Reaction Status Date / Time Penicillins Allergy Rash/Hives Verified 08/20/22 19:21 [email or web address] Allergy Anaphylaxis Verified 08/20/22 19:21 cardiolite Allergy Anaphylaxis Uncoded 08/20/22 19:21 Physical Exam Vitals: Vital Signs Temp Pulse Pulse Resp BP BP Pulse Ox 08/21/22 08:00 98 F 77 18 103/54 97 08/21/22 04:38 97.4 F L 82 18 105/65 97 08/21/22 00:30 97.6 F 98 16 130/57 100 08/20/22 23:05 97.6 F 101 H 16 149/65 95 08/20/22 22:37 97.8 F 99 18 125/60 95 08/20/22 18:31 81 18 111/72 98 08/20/22 16:40 80 18 111/63 95 08/20/22 14:14 97.4 F L 85 18 125/64 98 Intake and Output 08/20/22 08/21/22 08/21/22 22:59 06:59 14:59 Other: Voiding Method Diaper Diaper # Voids 0 Weight 77.111 kg Results 08/20/22 14:29 08/20/22 14:29 Cardiac Enzymes 08/20/22 08/20/22 08/20/22 Range/Units 14:29 14:29 17:53 AST 35 (17-59) U/L Troponin I 0.094 H* 0.092 H* (0.000-0.034) ng/mL 08/20/22 Range/Units 20:48 AST (17-59) U/L Troponin I 0.098 H* (0.000-0.034) ng/mL Coagulation 08/20/22 Range/Units 14:29 PT 12.6 H (9.0-12.0) sec APTT 22.2 (22.0-30.0) sec CBC 08/20/22 Range/Units 14:29 WBC 6.5 (3.8-10.6) k/uL RBC 3.35 L (4.30-5.90) m/uL Hgb 10.5 L (13.0-17.5) gm/dL Hct 32.6 L (39.0-53.0) % Plt Count 379 (150-450) k/uL Comprehensive Metabolic Panel 08/20/22 Range/Units 14:29 Sodium 142 (137-145) mmol/L Potassium 4.0 (3.5-5.1) mmol/L Chloride 114 H (98-107) mmol/L Carbon Dioxide 21 L (22-30) mmol/L BUN 22 H (9-20) mg/dL Creatinine 1.05 (0.66-1.25) mg/dL Glucose 112 H (74-99) mg/dL Calcium 8.7 (8.4-10.2) mg/dL AST 35 (17-59) U/L ALT 39 (4-49) U/L Alkaline Phosphatase 89 (38-126) U/L Total Protein 7.1 (6.3-8.2) g/dL Albumin 3.2 L (3.5-5.0) g/dL Current Medications Generic Name Dose Route Start Last Admin Trade Name Freq PRN Reason Stop Dose Admin Acetaminophen 975 mg 08/20/22 23:30 08/21/22 06:25 Acetaminophen Tab 325 Mg Tab PO Not Given Q8H FELIPE Apixaban 2.5 mg 08/20/22 23:45 08/21/22 00:34 Apixaban 2.5 Mg Tablet PO 2.5 mg BID FELIPE Administration Protocol Atorvastatin Calcium 40 mg 08/20/22 23:45 08/21/22 00:34 Atorvastatin 40 Mg Tab PO 40 mg HS FELIPE Administration Folic Acid 1 mg 08/20/22 23:45 08/21/22 00:33 Folic Acid 1 Mg Tab PO Not Given HS FELIPE Levothyroxine Sodium 50 mcg 08/20/22 23:45 08/21/22 00:34 Levothyroxine 50 Mcg Tab PO 50 mcg HS FELIPE Administration Metoprolol Succinate 50 mg 08/20/22 23:45 08/21/22 00:34 Metoprolol Succinate (Er) 50 Mg Tab.Er.24h PO 50 mg HS FELIPE Administration Nitroglycerin 0.4 mg 08/20/22 16:48 Nitroglycerin Sl Tabs 0.4 Mg Tab SUBLINGUAL Q5M PRN Chest Pain Nitroglycerin 1 inch 08/20/22 18:00 08/21/22 05:35 Nitroglycerin Oint 1 Inch/Gm Packet TOPICAL Not Given Q6HR [facility] Ondansetron HCl 4 mg 08/20/22 23:34 Ondansetron 4 Mg/2 Ml Vial IVP Q6HR PRN Nausea And Vomiting Ranolazine 1,000 mg 08/20/22 23:45 08/21/22 00:34 Ranolazine 500 Mg Tab.Er.12h PO 1,000 mg BID FELIPE Administration Topiramate 50 mg 08/21/22 21:00 Topiramate 25 Mg Tab PO HS [facility] Intake and Output 08/20/22 08/21/22 08/21/22 22:59 06:59 14:59 Other: Voiding Method Diaper Diaper # Voids 0 Weight 77.111 kg 08/20/22 14:29 08/20/22 14:29
[2022-08-21 11:15] LABS: Chol/HDL Ratio 2.54 Ratio; LDL Cholesterol,Calculated 48.3 mg/dL (0.0-131.0); VLDL Calculation 13.46 mg/dL (5.00-40.00)
--- NOTE | 2022-08-21 14:24 | P.HPIM ---
History of Present Illness H&P Date: 08/21/22 History of present illness: Patient is 87-year-old gentleman with past medical history significant for dementia, atrial fibrillation presented to the ER because of an episode of unresponsiveness. Most of the history is obtained from the EMR. Patient was found unresponsive by his physical therapist Patient was unresponsive for close to half an hour. EMS was called, With sternal rub he came back to his senses and to his baseline. Because of this episode, patient was brought to the ER Initial lab work done in the ER showed WBC 6.5, hemoglobin 10.5, platelet count 379, sodium 142, potassium 4, chloride 114, BUN 22, creatinine 1.05 blood glucose 112 troponin 0.094. Urine drug screen was negative CT brain showed extensive degenerative changes with a slightly greater Central competent, normal pressure hydrocephalus in the differential diagnosis, no evidence of acute hemorrhage or mass effect Nonspecific white matter changes Chest x-ray negative for any acute process Patient was admitted to medicine service REVIEW OF SYSTEMS: Cannot be obtained because of patient history of dementia PHYSICAL EXAMINATION: GENERAL: The patient is alert and oriented x1, not in any acute distress. Well developed, well nourished. HEENT: Pupils are round and equally reacting to light. EOMI. No scleral icterus. No conjunctival pallor. Normocephalic, atraumatic. No pharyngeal erythema. No thyromegaly. CARDIOVASCULAR: S1 and S2 present. No murmurs, rubs, or gallops. PULMONARY: Chest is clear to auscultation, no wheezing or crackles. ABDOMEN: Soft, nontender, nondistended, normoactive bowel sounds. No palpable organomegaly. MUSCULOSKELETAL: No joint swelling or deformity. EXTREMITIES: No cyanosis, clubbing, or pedal edema. NEUROLOGICAL: Gross neurological examination did not reveal any focal deficits. SKIN: No rashes. Assessment and plan Acute metabolic encephalopathy Elevated troponin History of paroxysmal A. fib History of Congestive heart failure chronic systolic Chronic kidney disease stage III History of dementia Monitor vital signs Monitor CBC Monitor CMP Trend troponin Telemetry monitoring Ordered EEG Consult neurology Consult cardiology Resume home meds PT and OT evaluation Past Medical History Past Medical History: Atrial Flutter, Coronary Artery Disease (CAD), Cancer, Hyperlipidemia, Hypertension, Myocardial Infarction ([place]), Osteoarthritis (OA), Sleep Apnea/CPAP/BIPAP, Thyroid Disorder Additional Past Medical History / Comment(s): Healing wound on rt lower leg, hx skin cancer Last Myocardial Infarction Date:: 2008 History of Any Multi-Drug Resistant Organisms: None Reported Past Surgical History: Heart Catheterization With Stent, Joint Replacement Additional Past Surgical History / Comment(s): Replacements of KAREN KNEES, KAREN HIPS and RT SHOULDER, has 2 or 3 coranary stents, recent karen eyelid sx, and removal of skin tag on rt eye lid, femur fracture July 2022, Past Anesthesia/Blood Transfusion Reactions: No Reported Reaction Date of Last Stent Placement:: 2018 Past Psychological History: No Psychological Hx Reported Smoking Status: Former smoker Past Alcohol Use History: Occasional Additional Past Alcohol Use History / Comment(s): Smoking a pipe currently several times a day, was smoking cigars and cigarettes 1PPD SINCE AGE 15 (1951). Past Drug Use History: None Reported - Past Family History Mother Family Medical History: No Reported History Brother(s) Family Medical History: Myocardial Infarction ([place]) Father Family Medical History: Myocardial Infarction ([place]) Medications and Allergies Home Medications Medication Instructions Recorded Confirmed Type Levothyroxine Sodium [Synthroid] 50 mcg PO HS 11/09/15 08/20/22 History Atorvastatin [Lipitor] 40 mg PO HS 09/26/18 08/20/22 History Folic Acid 1 mg PO HS 09/26/18 08/20/22 History Apixaban [Eliquis] 2.5 mg PO BID #60 tab 07/09/22 08/20/22 Rx Metoprolol Succinate (ER) [Toprol 50 mg PO HS #30 tab 07/09/22 08/20/22 Rx XL] Ranolazine [Ranexa] 1,000 mg PO BID #120 tab 07/09/22 08/20/22 Rx Acetaminophen Tab [Tylenol] 975 mg PO Q8H 07/23/22 08/20/22 History Topiramate [Topamax] 50 mg PO HS 07/23/22 08/20/22 History Allergies Allergy/AdvReac Type Severity Reaction Status Date / Time Penicillins Allergy Rash/Hives Verified 08/20/22 19:21 [email or web address] Allergy Anaphylaxis Verified 08/20/22 19:21 cardiolite Allergy Anaphylaxis Uncoded 08/20/22 19:21 Physical Exam Vitals: Vital Signs Temp Pulse Pulse Resp BP BP Pulse Ox 08/21/22 08:00 98 F 77 18 103/54 97 08/21/22 04:38 97.4 F L 82 18 105/65 97 08/21/22 00:30 97.6 F 98 16 130/57 100 08/20/22 23:05 97.6 F 101 H 16 149/65 95 08/20/22 22:37 97.8 F 99 18 125/60 95 08/20/22 18:31 81 18 111/72 98 08/20/22 16:40 80 18 111/63 95 08/20/22 14:14 97.4 F L 85 18 125/64 98 Intake and Output 08/20/22 08/21/22 08/21/22 22:59 06:59 14:59 Other: Voiding Method Diaper Diaper # Voids 0 Weight 77.111 kg Results CBC & Chem 7: 08/20/22 14:29 08/20/22 14:29 Labs: Abnormal Lab Results - Last 24 Hours (Table) 08/20/22 08/20/22 08/20/22 Range/Units 14:29 14:29 14:29 RBC 3.35 L (4.30-5.90) m/uL Hgb 10.5 L (13.0-17.5) gm/dL Hct 32.6 L (39.0-53.0) % PT 12.6 H (9.0-12.0) sec INR 1.2 H (<1.2) Chloride 114 H (98-107) mmol/L Carbon Dioxide 21 L (22-30) mmol/L BUN 22 H (9-20) mg/dL Glucose 112 H (74-99) mg/dL Troponin I (0.000-0.034) ng/mL Albumin 3.2 L (3.5-5.0) g/dL 08/20/22 08/20/22 08/20/22 Range/Units 14:29 17:53 20:48 RBC (4.30-5.90) m/uL Hgb (13.0-17.5) gm/dL Hct (39.0-53.0) % PT (9.0-12.0) sec INR (<1.2) Chloride (98-107) mmol/L Carbon Dioxide (22-30) mmol/L BUN (9-20) mg/dL Glucose (74-99) mg/dL Troponin I 0.094 H* 0.092 H* 0.098 H* (0.000-0.034) ng/mL Albumin (3.5-5.0) g/dL Thrombosis Risk Factor Assmnt - Choose All That Apply Any of the Below Risk Factors Present?: Yes Each Factor Represents 1 point: Medical pt on bed rest Other Risk Factors: Yes Each Risk Factor Represents 3 Points: Age 75 years or older Each Risk Factor Represents 5 Points: Hip, pelvis, or leg fracture (< 1 month) Thrombosis Risk Factor Assessment Total Risk Factor Score: 9 Thrombosis Risk Factor Assessment Level: High Risk
[2022-08-21] MEDS ORDERED: TOPIRAMATE 25 MG TAB PO SCH (21:00)
[2022-08-22] MEDS: ACETAMINOPHEN TAB 325 MG TAB PO SCH ×3 (00:45→16:33)
--- NOTE | 2022-08-22 09:45 | P.CNNES ---
History of Present Illness Consult date: 08/21/22 Requesting physician: Zackary Mckeon Reason for Consult: Unresponsiveness History of Present Illness: Patient is a 87-year-old male with history of dementia, came to the hospital by ambulance yesterday at 2:10 PM for an episode of unresponsiveness. Patient does not remember details, not able to provide history. As per EMS flow sheet, when they arrived, patient was laying in his bed. Patient had physical therapy came to the house to work with him due to previous femur fracture. Patient was unresponsive upon the therapist arrival. Patient was in that state for about 30 minutes before 911 was called. When EMS arrived, patient was breathing normally and patient's blood glucose was 120. Patient was unresponsive to verbal and painful stimuli. Sternal rub patient responded to pain. Patient's states that there was no possibility of him taking anything he wasn't supposed to, because he is bedbound and she has to give him all of his pills. Patient's also mentioned that he recently had a UTI. Patient had right bundle branch block on EKG. Patient was spontaneously alert upon arrival to the hospital. He was alert and oriented 2 which is his baseline. Patient's blood pressure was 132/52, pulse rate 84, respiration 18, saturation 97%. It was further reported in the ED records, patient was started on Topamax recently by his physician last month, and his cognition has decreased since then. Blood test shows normal WBC, hemoglobin 10.5, normal platelets. INR 1.2, PTT normal. Electrolytes normal, BUN 22 creatinine 1.05. Troponin is mildly elevated 0.094. Hepatic panel normal. Lipid panel with cholesterol 102, LDL 48, HDL 40 and triglycerides 67. Urine drug screen negative. CT head revealed extensive degenerative changes with a slightly greater central component. A component of normal pressure hydrocephalus in the differential. No evidence of acute hemorrhage or mass effect. Nonspecific white matter changes most typical remote white matter ischemia. Chest x-ray showed no acute process. EKG reported atrial flutter/tachycardia, although the desktop support engineer has cut out atrial flutter, placed as sinus tachycardia. Patient has been seen by myself on 11/24/2018 for tremors, likely metabolic due to acute pneumonia/UTI. Patient also had acute non-STEMI. Patient has history of atrial flutter, on anticoagulation. 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 At present patient states that he feels "not too bad". I spoke to patient's nu rse, who states that patient's has mentioned that lately he has been calling his names and has been maintained and verbally abusive. She also has noticed that patient's mood is sometimes up and down. He could be quiet at times and other times more agitated. Review of Systems Constitutional: Denies chills, Denies fever Eyes: denies blurred vision, denies diplopia, denies pain Ears: bilateral: decreased hearing, deny: ear discharge Ears, nose, mouth and throat: Denies headache, Denies sore throat Cardiovascular: Denies chest pain, Denies shortness of breath Respiratory: Denies cough, Denies excessive sputum Gastrointestinal: Denies abdominal pain, Denies diarrhea, Denies nausea, Denies vomiting Musculoskeletal: Denies low back pain, Denies myalgias, Denies neck pain Integumentary: Reports foot/leg ulcers, Reports wounds, Denies pruritus, Denies rash Neurological: Reports as per HPI Psychiatric: Reports disorientation, Reports irritability, Reports memory loss, Denies anxiety, Denies depression Endocrine: Denies fatigue, Denies weight change Past Medical History Past Medical History: Atrial Flutter, Coronary Artery Disease (CAD), Cancer, Hyperlipidemia, Hypertension, Myocardial Infarction (ID), Osteoarthritis (OA), S leep Apnea/CPAP/BIPAP, Thyroid Disorder Additional Past Medical History / Comment(s): Healing wound on rt lower leg, hx skin cancer Last Myocardial Infarction Date:: 2008 History of Any Multi-Drug Resistant Organisms: None Reported Past Surgical History: Heart Catheterization With Stent, Joint Replacement Additional Past Surgical History / Comment(s): Replacements of KAREN KNEES, KAREN HIPS and RT SHOULDER, has 2 or 3 coranary stents, recent karen eyelid sx, and removal of skin tag on rt eye lid, femur fracture July 2022, Past Anesthesia/Blood Transfusion Reactions: No Reported Reaction Date of Last Stent Placement:: 2018 Past Psychological History: No Psychological Hx Reported Smoking Status: Former smoker Past Alcohol Use History: Occasional Additional Past Alcohol Use History / Comment(s): Smoking a pipe currently s everal times a day, was smoking cigars and cigarettes 1PPD SINCE AGE 15 (1). Past Drug Use History: None Reported - Past Family History Mother Family Medical History: No Reported History Brother(s) Family Medical History: Myocardial Infarction (ID) Father Family Medical History: Myocardial Infarction (ID) Medications and Allergies Home Medications Medication Instructions Recorded Confirmed Type Levothyroxine Sodium [Synthroid] 50 mcg PO HS 11/09/15 08/20/22 History Atorvastatin [Lipitor] 40 mg PO HS 09/26/18 08/20/22 History Folic Acid 1 mg PO HS 09/26/18 08/20/22 History Apixaban [Eliquis] 2.5 mg PO BID #60 tab 07/09/22 08/20/22 Rx Metoprolol Succinate (ER) [Toprol 50 mg PO HS #30 tab 07/09/22 08/20/22 Rx XL] Ranolazine [Ranexa] 1,000 mg PO BID #120 tab 07/09/22 08/20/22 Rx Acetaminophen Tab [Tylenol] 975 mg PO Q8H 07/23/22 08/20/22 History Topiramate [Topamax] 50 mg PO HS 07/23/22 08/20/22 History Allergies Allergy/AdvReac Type Severity Reaction Status Date / Time Penicillins Allergy Rash/Hives Verified 08/20/22 19:21 [email or web address] Allergy Anaphylaxis Verified 08/20/22 19:21 cardiolite Allergy Anaphylaxis Uncoded 08/20/22 19:21 Physical Examination - Vital Signs Vital Signs: Vital Signs Temp Pulse Pulse Resp BP BP Pulse Ox 08/21/22 12:00 98 F 76 18 116/56 100 08/21/22 08:00 98 F 77 18 103/54 97 08/21/22 04:38 97.4 F L 82 18 105/65 97 08/21/22 00:30 97.6 F 98 16 130/57 100 08/20/22 23:05 97.6 F 101 H 16 149/65 95 08/20/22 22:37 97.8 F 99 18 125/60 95 08/20/22 18:31 81 18 111/72 98 08/20/22 16:40 80 18 111/63 95 Intake and Output 08/20/22 08/21/22 08/21/22 22:59 06:59 14:59 Intake Total 118 Balance 118 Intake: Oral 118 Other: Voiding Method Diaper Diaper # Voids 0 1 Weight 77.111 kg Patient is an elderly male, in no acute distress. Patient is alert awake. Patient knows his name, states it's August and the year is 1955. He has very slow mentation, prolonged latency time to answer any question. He knows that he is in [facility], could not tell the name of the building. Speech and language functions are normal. Patient can name simple objects like glasses, pen, but for earlobe, patient said "ear mask". He can repeat very well. No obvious aphasia or dysarthria. Attention, concentration and fund of knowledge is very limited. On cranial nerve examination, pupils are equal, round and reacting to light, visual tadeo are full on confrontation, with no neglect on double simultaneous stimulation. Extraocular muscles are intact with no nystagmus. Face is symmetric, tongue protrudes to the midline. Palatal elevation and sensation normal, hearing is at least moderately decreased and shoulder shrug normal, facial sensation normal. On muscle strength testing, there is no pronator drift and the strength is normal in arms and legs distally and proximally, except left deltoid which is 5- . Deep tendon reflexes are symmetric and trace all over and plantars downgoing bilaterally. Sensory to touch is equal with no neglect on double simultaneous stimulation. Cerebellar function showed no ataxia for corzge-qb-pymb testing. No dysdiadochokinesia. Tone and bulk of muscles normal. Gait deferred.. On general examination, there is no carotid bruit or murmur, S1-S2 audible. Chest is clear on consultation. Abdomen is soft nontender. No organomegaly, bowel sounds present. Peripheral pulses are present. No edema. Results - Laboratory Findings CBC and BMP: 08/20/22 14:29 08/20/22 14:29 Abnormal Lab Findings: Abnormal Labs 08/20/22 08/20/22 08/20/22 14:29 14:29 14:29 RBC 3.35 L Hgb 10.5 L Hct 32.6 L PT 12.6 H INR 1.2 H Chloride 114 H Carbon Dioxide 21 L BUN 22 H Glucose 112 H Troponin I Albumin 3.2 L 08/20/22 08/20/22 08/20/22 14:29 17:53 20:48 RBC Hgb Hct PT INR Chloride Carbon Dioxide BUN Glucose Troponin I 0.094 H* 0.092 H* 0.098 H* Albumin Assessment and Plan Assessment: * Episode of unresponsiveness, unclear etiology. Rule out arrhythmia. Rule out seizure * Atrial fibrillation, currently on Eliquis 2.5 mg twice a day * Hyperlipidemia * Dementia, at least moderate degree. * CHF * CAD * Hypertension Plan: * Check carotid Doppler * EEG rule out epileptiform activity * 2-D echo from 07/09/2022 revealed left ventricular EF 45-50%. Moderate concentric LVH, mildly increased left atrial diameter. Severely increased left atrial volume. Moderately increased left atrial area. Mild MR, moderate aortic stenosis * Considered 30 day event monitor rule out arrhythmia. Cardiology on board. * Patient has atrial fibrillation, currently on Eliquis. * Patient has elevated cardiac enzymes, cardiology on board. * Lipid panel with cholesterol 102, LDL 48, HDL 40, triglycerides 67 * Check B12, folate. TSH is normal 2.88 * Neurology will follow. Thank you for the consult.
--- NOTE | 2022-08-22 10:00 | EEG ---
ELECTROENCEPHALOGRAM REPORT PREAMBLE: This is an 87-year-old male with episode of unresponsiveness. This study is performed to evaluate for any epileptiform activity. EEG FINDINGS: This is a 21-channel digital EEG recorded with video component, utilizing 10/20 international system with referential and bipolar montages. Background consists of well-developed, but not very well regulated, mixed frequencies of 6 to 7 hertz theta, intermixed with some moderate amplitude delta slowing seen in bihemispheric region. Background does not seem to be clearly reactive to eye opening and closing. Photic stimulation was not performed. Different stages of sleep were not seen. No focal or generalized epileptiform activity was seen. IMPRESSION: This is an abnormal EEG due to background slowing of mild to moderate degree. This is suggestive of generalized cerebral dysfunction as can be seen with toxic metabolic encephalopathy or related to diffuse structural brain abnormality. Clinical correlation is recommended. No epileptiform activity was seen. MMODL / IJN: [id number] /
[2022-08-22] MEDS: RANOLAZINE 500 MG TAB.ER.12H PO SCH ×2 (11:18→19:59)
[2022-08-22] MEDS: APIXABAN 2.5 MG TABLET PO SCH ×2 (11:18→19:59)
--- NOTE | 2022-08-22 11:22 | US ---
EXAMINATION TYPE: US carotid duplex BILAT DATE OF EXAM: 08/22/2022 COMPARISON: NONE CLINICAL INDICATION: Male, 87 years old with history of Episode of unresponsiveness; episode of unres ponsiveness TECHNIQUE: Carotid duplex ultrasound examination. Indirect Doppler criteria was utilized. FINDINGS: EXAM MEASUREMENTS: RIGHT: Peak Systolic Velocity (PSV) cm/sec ----- Right CCA: 99.0 ----- Right ICA: 79.0 ----- Right ECA: 106.4 ICA/CCA ratio: 0.8 RIGHT: End Diastole cm/sec ----- Right CCA: 15.4 ----- Right ICA: 14.8 ----- Right ECA: 0.0 LEFT: Peak Systolic Velocity (PSV) cm/sec ----- Left CCA: 82.2 ----- Left ICA: 86.6 ----- Left ECA: 62.0 ICA/CCA ratio: 1.1 LEFT: End Diastole cm/sec ----- Left CCA: 14.4 ----- Left ICA: 15.4 ----- Left ECA: 0.0 VERTEBRALS (direction of flow): Right Vertebral: Antegrade Left Vertebral: Antegrade Rhythm: Normal MARINE MAMMAL TRAINER NOTES: Mild atherosclerotic IMPRESSION: Mild atherosclerotic change with no evidence of significant hemodynamic stenosis. Criteria for Assigning % of Stenosis / Diameter reduction (Estimation based on the indirect measurements of the internal carotid artery velocities (ICA PSV). 1. Normal (no stenosis)=ICA PSV < 125 cm/s: ratio < 2.0: ICA EDV<40 cm/s. 2. Less than 50% stenosis=ICA PSV < 125 cm/s: ratio < 2.0: ICA EDV<40 cm/s. 3. 50 to 69% stenosis=ICA PSV of 125 to 230 cm/s: ration 2.0 ? 4.0: ICA EDV 40-100 cm/s. 4. Greater than 70% stenosis to near occlusion= ICA PSV > 230 cm/s: ratio > 4.0: ICA EDV > 100 cm/s. 5. Near occlusion= ICA PSV velocities may be low or undetectable: variable ratio and ICA EDV. 6. Total occlusion=unable to detect flow.
[2022-08-22 11:25] LABS: Basophils % (A) 0 %; Eosinophils % (A) 1 %; HCT 32.2 % (39.0-53.0); HGB 10.2 gm/dL (13.0-17.5); Hypochromasia Slight; Lymphocytes # (A) 0.8 k/uL (1.0-4.8); Lymphocytes % (A) 12 %; MCH 30.6 pg (25.0-35.0); MCHC 31.7 g/dL (31.0-37.0); MCV 96.6 fL (80.0-100.0); Mean Platelet Volume 9.1; Monocytes # (A) 0.3 k/uL (0-1.0); Monocytes % (A) 5 %; Neutrophils # (A) 5.2 k/uL (1.3-7.7); Neutrophils % (A) 79 %; Platelet Count 328 k/uL (150-450); RBC 3.33 m/uL (4.30-5.90); WBC 6.5 k/uL (3.8-10.6)
[2022-08-22 11:52] LABS: Potassium 3.5 mmol/L (3.5-5.1)
[2022-08-22 11:53] LABS: African American GFR (CKD) 74 (>60 ml/min/1.73 sqM); Anion Gap 10 mmol/L; Blood Urea Nitrogen 23 mg/dL (9-20); Calcium 8.6 mg/dL (8.4-10.2); Carbon Dioxide 21 mmol/L (22-30); Chloride 109 mmol/L (98-107); Glucose 110 mg/dL (74-99); Non-African American GFR(CKD) 64 (>60 ml/min/1.73 sqM); Sodium 140 mmol/L (137-145)
--- NOTE | 2022-08-22 13:04 | P.CNOR ---
History of Present Illness - HPI Consult date: 08/21/22 History of present illness: The patient is a very pleasant 87-year-old male multiple medical problems was currently admitted to internal medicine after being found unresponsive. The patient has a long-standing history of problems with his right leg. I've seen the patient wants in the past regarding pain in both his right hip and knee. Briefly the patient has had multiple surgeries on his right leg. The patient had a hip replacement in the past as well as a knee replacement and revision knee replacement by Dr. Nile Angeles here at this facility. The patient sustained a fall on July 09, 2022 and was seen in our ER and was found to have an inter- prosthetic femur fracture. Dr. Angeles was called, but felt uncomfortable managing it and had the patient shipped to a higher level of care.The patient underwent revision ORIF another facility. He was readmitted to our facility with altered mental status. At the time of my evaluation the patient has mild discomfort in his right leg but is unable to give any meaningful history. Past Medical History Past Medical History: Atrial Flutter, Coronary Artery Disease (CAD), Cancer, Hyperlipidemia, Hypertension, Myocardial Infarction (CO), Osteoarthritis (OA), Sleep Apnea/CPAP/BIPAP, Thyroid Disorder Additional Past Medical History / Comment(s): Healing wound on rt lower leg, hx skin cancer Last Myocardial Infarction Date:: 2008 History of Any Multi-Drug Resistant Organisms: None Reported Past Surgical History: Heart Catheterization With Stent, Joint Replacement Additional Past Surgical History / Comment(s): Replacements of KAREN KNEES, KAREN HIPS and RT SHOULDER, has 2 or 3 coranary stents, recent karen eyelid sx, and re moval of skin tag on rt eye lid, femur fracture July 2022, Past Anesthesia/Blood Transfusion Reactions: No Reported Reaction Date of Last Stent Placement:: 2018 Past Psychological History: No Psychological Hx Reported Smoking Status: Former smoker Past Alcohol Use History: Occasional Additional Past Alcohol Use History / Comment(s): Smoking a pipe currently several times a day, was smoking cigars and cigarettes 1PPD SINCE AGE 15 (1952). Past Drug Use History: None Reported - Past Family History Mother Family Medical History: No Reported History Brother(s) Family Medical History: Myocardial Infarction (CO) Father Family Medical History: Myocardial Infarction (CO) Medications and Allergies Home Medications Medication Instructions Recorded Confirmed Type Levothyroxine Sodium [Synthroid] 50 mcg PO HS 11/09/15 08/20/22 History Atorvastatin [Lipitor] 40 mg PO HS 09/26/18 08/20/22 History Folic Acid 1 mg PO HS 09/26/18 08/20/22 History Apixaban [Eliquis] 2.5 mg PO BID #60 tab 07/09/22 08/20/22 Rx Metoprolol Succinate (ER) [Toprol 50 mg PO HS #30 tab 07/09/22 08/20/22 Rx XL] Ranolazine [Ranexa] 1,000 mg PO BID #120 tab 07/09/22 08/20/22 Rx Acetaminophen Tab [Tylenol] 975 mg PO Q8H 07/23/22 08/20/22 History Topiramate [Topamax] 50 mg PO HS 07/23/22 08/20/22 History Allergies Allergy/AdvReac Type Severity Reaction Status Date / Time Penicillins Allergy Rash/Hives Verified 08/20/22 19:21 [email or web address] Allergy Anaphylaxis Verified 08/20/22 19:21 cardiolite Allergy Anaphylaxis Uncoded 08/20/22 19:21 Physical Examination The patient is resting comfortably in his bed. He is alert and will follow commands but is very confused.Mister is not measured. He demonstrates symmetric chest expansion. His head is normocephalic and atraumatic. A focused examina tion of the patient's right lower extremity was conducted. On inspection there no obvious deformities. There is a healed lateral incision from the right hip to the knee. There is no erythema or warmth. There is also a healed anterior incision over the knee from prior total knee replacement. His thigh is soft. He has minimal pain with passive range of motion of the hip or knee. Results - Labs Labs: Abnormal Lab Results - Last 24 Hours (Table) 08/22/22 08/22/22 Range/Units 11:09 11:09 RBC 3.33 L (4.30-5.90) m/uL Hgb 10.2 L (13.0-17.5) gm/dL Hct 32.2 L (39.0-53.0) % Lymphocytes # 0.8 L (1.0-4.8) k/uL Chloride 109 H (98-107) mmol/L Carbon Dioxide 21 L (22-30) mmol/L BUN 23 H (9-20) mg/dL Glucose 110 H (74-99) mg/dL H & H 08/20/22 08/22/22 Range/Units 14:29 11:09 Hgb 10.5 L 10.2 L (13.0-17.5) gm/dL Hct 32.6 L 32.2 L (39.0-53.0) % Coagulation 08/20/22 Range/Units 14:29 INR 1.2 H (<1.2) Result Diagrams: 08/22/22 11:09 08/22/22 11:09 Assessment and Plan Assessment: Status post revision open reduction internal fixation of right inter-prosthetic femur fracture and an outside facility Altered Mental status Multiple medical comorbidities Plan: We will obtain x-rays of the patient's right femur and make further recommendations on weightbearing status after seeing them. It is unlikely he will need any type of formal surgical treatment. I would be happy to follow the patient following discharge for his femur fracture so the patient doesn't have to travel out of town for follow-up appointments.
--- NOTE | 2022-08-22 13:25 | P.PN ---
Subjective Progress Note Date: 08/22/22 Patient is 87-year-old gentleman with past medical history significant for dementia, atrial fibrillation presented to the ER because of an episode of unresponsiveness. Most of the history is obtained from the EMR. Patient was found unresponsive by his physical therapist Patient was unresponsive for close to half an hour. EMS was called, With sternal rub he came back to his senses and to his baseline. Because of this episode, patient was brought to the ER Initial lab work done in the ER showed WBC 6.5, hemoglobin 10.5, platelet count 379, sodium 142, potassium 4, chloride 114, BUN 22, creatinine 1.05 blood glucose 112 troponin 0.094. Urine drug screen was negative CT brain showed extensive degenerative changes with a slightly greater Central competent, normal pressure hydrocephalus in the differential diagnosis, no evidence of acute hemorrhage or mass effect Nonspecific white matter changes Chest x-ray negative for any acute process Patient was admitted to medicine service 08/22. Patient seen and examined. Still has right hip pain. Orthopedic evaluated the patient and recommended doing x-ray of right hip REVIEW OF SYSTEMS: CONSTITUTIONAL: No fever, no malaise,. CARDIOVASCULAR: No chest pain, no palpitations, no syncope. PULMONARY: No shortness of breath, no cough, GASTROINTESTINAL: No diarrhea, no nausea, no vomiting, no abdominal pain. NEUROLOGICAL: No headaches, no weakness, PHYSICAL EXAMINATION: GENERAL: The patient is alert and oriented x1, not in any acute distress. Well developed, well nourished. HEENT: Pupils are round and equally reacting to light. EOMI. No scleral icterus. No conjunctival pallor. Normocephalic, atraumatic. No pharyngeal erythema. No thyromegaly. CARDIOVASCULAR: S1 and S2 present. No murmurs, rubs, or gallops. PULMONARY: Chest is clear to auscultation, no wheezing or crackles. ABDOMEN: Soft, nontender, nondistended, normoactive bowel sounds. No palpable organomegaly. MUSCULOSKELETAL: No joint swelling or deformity. EXTREMITIES: No cyanosis, clubbing, or pedal edema. NEUROLOGICAL: Gross neurological examination did not reveal any focal deficits. SKIN: No rashes. Assessment and plan Acute metabolic encephalopathy Elevated troponin History of paroxysmal A. fib History of Congestive heart failure chronic systolic Chronic kidney disease stage III History of dementia Monitor vital signs Monitor CBC Monitor CMP Continue telemetry monitoring EEG ordered showed evidence of toxic metabolic encephalopathy, no epileptiform activity seen Ultrasound of carotids ordered Cardiology evaluated the patient, recommended no ischemic workup at this time, recommend resuming home meds PT and OT consulted Orthopedics consulted, they ordered x-ray of right hip Labs and medication were reviewed.. Continue same treatment. Continue with symptomatic treatment. Resume home medication. Monitor labs and vitals. DVT and GI prophylaxis. Further recommendations as per clinical course of the patient Objective - Vital Signs Vital signs: Vital Signs Temp 97.9 F 08/21/22 20:00 Pulse 64 08/22/22 04:00 Resp 18 08/22/22 04:00 BP 104/58 08/22/22 04:00 Pulse Ox 99 08/22/22 09:18 FiO2 Intake & Output 08/21/22 08/22/22 08/22/22 18:59 06:59 18:59 Intake Total 118 Output Total 310 Balance 118 -310 Intake: Oral 118 Output: Urine 310 Other: Voiding Method Diaper Diaper # Voids 1 2 - Labs CBC & Chem 7: 08/22/22 11:09 08/22/22 11:09
--- NOTE | 2022-08-22 16:20 | XR ---
EXAMINATION TYPE: XR femur RT DATE OF EXAM: 08/22/2022 CLINICAL HISTORY: ORIF TECHNIQUE: Two views of the right femur are obtained. COMPARISON: 07/09/2022 FINDINGS: There is been revision of plate fixation of the fixation plate and screws in place. Cerclage wires ar e also noted overlying the distal one third of the right femoral diaphysis. Proximal intramedullary r od as well as distal intramedullary crystal component total knee arthroplasty in place. There is improved alignment at the fracture site relative to the prior study. Periosteal reaction noted. IMPRESSION: Revised ORIF of the right femur with improved fracture alignment.
--- NOTE | 2022-08-22 16:23 | P.PN ---
Subjective Progress Note Date: 08/22/22 Patient was seen for a follow-up. Patient continues to be very confused. Patient is laying comfortably in the bed. Patient has been started on Topamax in July 2022 after he was hospitalized in [facility]. Patient never has any history of seizures. Uncertain as to why Topamax was started. Patient has been getting confused since then, getting worse. Patient was able to drive, but stopped driving since he suffered from hip fracture. His confusion seems to be getting worse. Patient also seeing orthopedic surgeon for his history of right hip fracture. Objective - Vital Signs Vital signs: Vital Signs Temp 98.1 F 08/22/22 12:00 Pulse 70 08/22/22 14:00 Resp 18 08/22/22 14:00 BP 108/62 08/22/22 12:00 Pulse Ox 98 08/22/22 12:00 FiO2 Intake & Output 08/21/22 08/22/22 08/22/22 18:59 06:59 18:59 Intake Total 118 180 Output Total 310 Balance 118 -310 180 Intake: Oral 118 180 Output: Urine 310 Other: Voiding Method Diaper Diaper Diaper # Voids 1 2 - Exam Patient is laying comfortably in the bed. He was sleeping. Patient has dry mouth. Patient at times mumbles, slurs, difficult to understand. Rest of the examination is unchanged. Patient's strength is normal in the ankles. He does lift his legs up and has fairly good strength bilaterally. - Labs CBC & Chem 7: 08/23/22 06:29 08/23/22 06:29 Labs: Abnormal Lab Results - Last 24 Hours (Table) 08/22/22 08/22/22 Range/Units 11:09 11:09 RBC 3.33 L (4.30-5.90) m/uL Hgb 10.2 L (13.0-17.5) gm/dL Hct 32.2 L (39.0-53.0) % Lymphocytes # 0.8 L (1.0-4.8) k/uL Chloride 109 H (98-107) mmol/L Carbon Dioxide 21 L (22-30) mmol/L BUN 23 H (9-20) mg/dL Glucose 110 H (74-99) mg/dL Assessment and Plan Assessment: * Episode of unresponsiveness, unclear etiology. Rule out arrhythmia. Rule out seizure * Atrial fibrillation, currently on Eliquis 2.5 mg twice a day * History of right femoral fracture * Hyperlipidemia * Altered mental status, possible due to metabolic encephalopathy, possible from side effects from Topamax. * CHF * CAD * Hypertension Plan: * Patient's mental functions have gotten worse since he was started on Topamax in July 2022 at [facility]. We will stop Topamax. * Carotid Doppler revealed mild atherosclerotic change with no evidence of si gnificant hemodynamic stenosis. Antegrade flow in both vertebral arteries. * EEG revealed background slowing of mild to moderate degree, consistent with encephalopathy. No epileptiform activity was seen. * 2-D echo from 07/09/2022 revealed left ventricular EF 45-50%. Moderate concentric LVH, mildly increased left atrial diameter. Severely increased left atrial volume. Moderately increased left atrial area. Mild MR, moderate aortic stenosis * Considered 30 day event monitor rule out arrhythmia. Cardiology on board. * Patient has atrial fibrillation, currently on Eliquis. * Patient has elevated cardiac enzymes, cardiology on board. * Lipid panel with cholesterol 102, LDL 48, HDL 40, triglycerides 67 * B12 702, folate 29. TSH is normal 2.88 * Telemetry monitoring showing sinus rhythm in the 70s. * Regarding mental status change, we will follow clinically after Topamax has been discontinued.
[2022-08-22 17:05] VITALS: TEMP 97.8
[2022-08-22] MEDS: ATORVASTATIN 40 MG TAB PO SCH (19:59)
[2022-08-22] MEDS: METOPROLOL SUCCINATE (ER) 50 MG TAB.ER.24H PO SCH (19:59)
[2022-08-22] MEDS: FOLIC ACID 1 MG TAB PO SCH (19:59)
[2022-08-22] MEDS: LEVOTHYROXINE 50 MCG TAB PO SCH (19:59)
[2022-08-23] MEDS: ACETAMINOPHEN TAB 325 MG TAB PO SCH ×3 (02:11→15:55)
[2022-08-23 06:57] LABS: HCT 30.2 % (39.0-53.0); HGB 9.8 gm/dL (13.0-17.5); Hypochromasia Slight; MCH 30.9 pg (25.0-35.0); MCHC 32.4 g/dL (31.0-37.0); MCV 95.5 fL (80.0-100.0); Mean Platelet Volume 8.4; Platelet Count 318 k/uL (150-450); RBC 3.16 m/uL (4.30-5.90); RDW 15.2 % (11.5-15.5); WBC 5.3 k/uL (3.8-10.6)
[2022-08-23 07:14] LABS: ALT 27 U/L (4-49); AST 22 U/L (17-59); African American GFR (CKD) 68 (>60 ml/min/1.73 sqM); Albumin 2.6 g/dL (3.5-5.0); Alkaline Phosphatase 92 U/L (38-126); Anion Gap 7 mmol/L; Blood Urea Nitrogen 20 mg/dL (9-20); Calcium 8.3 mg/dL (8.4-10.2); Carbon Dioxide 23 mmol/L (22-30); Chloride 108 mmol/L (98-107); Glucose 99 mg/dL (74-99); Non-African American GFR(CKD) 59 (>60 ml/min/1.73 sqM); Potassium 3.1 mmol/L (3.5-5.1); Sodium 138 mmol/L (137-145); Total Bilirubin 0.7 mg/dL (0.2-1.3); Total Protein 5.7 g/dL (6.3-8.2)
[2022-08-23] MEDS: APIXABAN 2.5 MG TABLET PO SCH (08:17)
[2022-08-23] MEDS: RANOLAZINE 500 MG TAB.ER.12H PO SCH (08:17)
[2022-08-23] MEDS ORDERED: Potassium Replacement Protocol 1 EACH MISC MISCELLANE PRN (09:51)
[2022-08-23] MEDS ORDERED: CYANOCOBALAMIN 1,000 MCG/ML 1 ML VIAL IM ONE (10:00)
[2022-08-23] MEDS: POTASSIUM CHLORIDE ER 20 MEQ TAB.ER PO SCH ×2 (10:19→12:57)
--- NOTE | 2022-08-23 13:10 | P.PN ---
Progress Note - Text Progress Note Date: 08/23/22 I reviewed the patient's x-rays of his right femur. He has had interval revision ORIF of an intra-prosthetic femur fracture. The fixation appears stable and the fracture appears stable. He is about 6-weeks out from surgery. Given his age, poor bone quality and revision surgery, I would keep him toe-touch weight bearing on the right leg. He should mobilize out of bed to chair as able. The patient is ok to discharge from an orthopaedic standpoint and should follow-up with us in 2-weeks in the office.
--- NOTE | 2022-08-23 13:23 | P.DS ---
Providers Date of admission: 08/20/22 16:51 Expected date of discharge: 08/23/22 Attending physician: Marycarmen Gusman Consults: 08/21/22 09:35 Consult Physician Urgent Consulting Provider: Fariba Segura Consult Reason/Comments: Unresponsiveness Do you want consulting provider notified?: Yes 08/21/22 13:46 Consult Physician Routine Consulting Provider: Duarte Casey Consult Reason/Comments: bedbound since R Femur Fx repair and NWB Do you want consulting provider notified?: Already Contacted Primary care physician: Mike Garsia [place] [facility] Course: Discharge diagnoses; Acute metabolic encephalopathy Elevated troponin History of paroxysmal A. fib History of Congestive heart failure chronic systolic Chronic kidney disease stage III History of dementia Hospital course; Patient is 87-year-old gentleman with past medical history significant for dementia, atrial fibrillation presented to the ER because of an episode of unresponsiveness. Most of the history is obtained from the EMR. Patient was found unresponsive by his physical therapist Patient was unresponsive for close to half an hour. EMS was called, With sternal rub he came back to his senses and to his baseline. Because of this episode, patient was brought to the ER Initial lab work done in the ER showed WBC 6.5, hemoglobin 10.5, platelet count 379, sodium 142, potassium 4, chloride 114, BUN 22, creatinine 1.05 blood glucose 112 troponin 0.094. Urine drug screen was negative CT brain showed extensive degenerative changes with a slightly greater Central competent, normal pressure hydrocephalus in the differential diagnosis, no evidence of acute hemorrhage or mass effect Nonspecific white matter changes Chest x-ray negative for any acute process Patient was admitted to medicine service 08/22. Patient seen and examined. Still has right hip pain. Orthopedic evaluated the patient and recommended doing x-ray of right hip 08/23. Patient seen and examined. Potassium this morning was 3.1, and his been ordered. Discussed with patient's in detail regarding plan of care, neurology has. Patient's Topamax. PT and OT recommended rehab but patient has used up all his therapy days, family at this time unwilling to pay for co-pay for rehab, patient will be discharged home with homecare PHYSICAL EXAMINATION: GENERAL: The patient is alert and oriented x1, not in any acute distress. Well developed, well nourished. HEENT: Pupils are round and equally reacting to light. EOMI. No scleral icterus. No conjunctival pallor. Normocephalic, atraumatic. No pharyngeal erythema. No thyromegaly. CARDIOVASCULAR: S1 and S2 present. No murmurs, rubs, or gallops. PULMONARY: Chest is clear to auscultation, no wheezing or crackles. ABDOMEN: Soft, nontender, nondistended, normoactive bowel sounds. No palpable organomegaly. MUSCULOSKELETAL: No joint swelling or deformity. EXTREMITIES: No cyanosis, clubbing, or pedal edema. NEUROLOGICAL: Gross neurological examination did not reveal any focal deficits. SKIN: No rashes. Patient Condition at Discharge: Good Plan - Discharge Summary New Discharge Prescriptions: New Cyanocobalamin [Vitamin B-12] 1,000 mcg PO DAILY #30 tablet Continue Levothyroxine Sodium [Synthroid] 50 mcg PO HS Folic Acid 1 mg PO HS Atorvastatin [Lipitor] 40 mg PO HS Apixaban [Eliquis] 2.5 mg PO BID #60 tab Ranolazine [Ranexa] 1,000 mg PO BID #120 tab Acetaminophen Tab [Tylenol] 975 mg PO Q8H Metoprolol Succinate (ER) [Toprol XL] 50 mg PO HS #30 tab Discontinued Topiramate [Topamax] 50 mg PO HS Discharge Medication List Levothyroxine Sodium [Synthroid] 50 mcg PO HS 11/09/15 [History] Atorvastatin [Lipitor] 40 mg PO HS 09/26/18 [History] Folic Acid 1 mg PO HS 09/26/18 [History] Apixaban [Eliquis] 2.5 mg PO BID #60 tab 07/09/22 [Rx] Metoprolol Succinate (ER) [Toprol XL] 50 mg PO HS #30 tab 07/09/22 [Rx] Ranolazine [Ranexa] 1,000 mg PO BID #120 tab 07/09/22 [Rx] Acetaminophen Tab [Tylenol] 975 mg PO Q8H 07/23/22 [History] Cyanocobalamin [Vitamin B-12] 1,000 mcg PO DAILY #30 tablet 08/23/22 [Rx] Follow up Appointment(s)/Referral(s): None,Stated [REFERRING] - 1-2 days Duarte Casey MD [Medical Doctor] - 2 Weeks
[2022-08-23 17:01] VITALS: BP 104/63; PULSE 73; RESP 20
== END 2022-08-23 16:00 | disposition home health service (06) ==
LOC: EC 14:10 → 3SCARD 16:51 → OBSVTOIN 17:07 → INTOOBSV 17:07 → 3SCARD 19:39 → UNDODISOB 08-23 16:00 → UNDODISIN 08-23 16:00
PROVIDERS: ADMIT Hospitalist; ATTEND Hospitalist
DX: G93.41 Metabolic encephalopathy (principal); I13.0 Hypertensive heart and chronic kidney disease with heart failure and stage 1 through stage 4 chronic kidney disease, or unspecified chronic kidney disease; N18.30 Chronic kidney disease, stage 3 unspecified; I50.22 Chronic systolic (congestive) heart failure; I48.21 Permanent atrial fibrillation; I48.92 Unspecified atrial flutter; I25.10 Atherosclerotic heart disease of native coronary artery without angina pectoris; I08.0 Rheumatic disorders of both mitral and aortic valves; F03.90 Unspecified dementia, unspecified severity, without behavioral disturbance, psychotic disturbance, mood disturbance, and anxiety; R77.8 Other specified abnormalities of plasma proteins; I25.2 Old myocardial infarction; E78.5 Hyperlipidemia, unspecified; M48.061 Spinal stenosis, lumbar region without neurogenic claudication; S72.91XA Unspecified fracture of right femur, initial encounter for closed fracture; I45.10 Unspecified right bundle-branch block; I44.0 Atrioventricular block, first degree; M19.90 Unspecified osteoarthritis, unspecified site; E07.9 Disorder of thyroid, unspecified; G47.30 Sleep apnea, unspecified; R26.9 Unspecified abnormalities of gait and mobility; R68.2 Dry mouth, unspecified; F17.290 Nicotine dependence, other tobacco product, uncomplicated; Z79.01 Long term (current) use of anticoagulants; Z79.890 Hormone replacement therapy; Z79.899 Other long term (current) drug therapy; Z88.0 Allergy status to penicillin; Z88.8 Allergy status to other drugs, medicaments and biological substances; Z91.041 Radiographic dye allergy status; Z74.01 Bed confinement status; Z85.828 Personal history of other malignant neoplasm of skin; Z95.5 Presence of coronary angioplasty implant and graft; Z96.653 Presence of artificial knee joint, bilateral; Z96.643 Presence of artificial hip joint, bilateral; Z96.611 Presence of right artificial shoulder joint; Z87.440 Personal history of urinary (tract) infections; Z82.49 Family history of ischemic heart disease and other diseases of the circulatory system
CPT/HCPCS: 96372; 99285; 36415; 94760 ×2; 95816; 93005; 97530 ×4; 97161; 97535; 97165; 80061; 80053 ×2; 80048; 82607; 82746; 84484; 85025 ×2; 85027; 85610; 85730; 80306; 73552; 71046; 93880; 70450; G0378 ×4; J3420

== ENCOUNTER 2022-12-03 15:37 | Inpatient (IN) | payer MEDICARE ==
--- NOTE | 2022-12-03 16:13 | ED ---
General Adult HPI - General Chief complaint: Chest Pain Stated complaint: Chest Pain Time Seen by Provider: 12/03/22 15:41 Source: EMS Mode of arrival: EMS Limitations: altered mental status (Patient appears to have dementia versus delirium) - History of Present Illness Initial comments: Patient is an 87-year-old man brought in by EMS to have evaluation after he had told his he was having chest pains. The patient's reports that he usually does not walk but he had gotten himself to the bedside commode chair. He states that he had been wanted to go outside, and she wheeled him outside to have a beer in a cigar. He then stated that he was having chest pain and wanted to go to the hospital. When EMS arrived the patient became combative. On arrival here, the patient is disoriented. He is not believe he is at the hospital. He does not believe that caregivers are hospital employees. He states he is angry and he wants to go home. He is denying pains here. -: minutes(s) Location: chest Consistency: now resolved Improves with: none Worsens with: none Associated Symptoms: chest pain Treatments Prior to Arrival: none - Related Data Home Medications Medication Instructions Recorded Confirmed Levothyroxine Sodium [Synthroid] 50 mcg PO HS 11/09/15 12/03/22 Atorvastatin [Lipitor] 40 mg PO HS 09/26/18 12/03/22 Folic Acid 1 mg PO HS 09/26/18 12/03/22 Acetaminophen Tab [Tylenol] 975 mg PO Q8H 07/23/22 12/03/22 Apixaban [Eliquis] 2.5 mg PO BID 11/03/22 12/03/22 Ranolazine [Ranexa] 500 mg PO BID 11/03/22 12/03/22 Previous Rx's Medication Instructions Recorded Cyanocobalamin [Vitamin B-12] 1,000 mcg PO DAILY #30 tablet 08/23/22 Acetaminophen Tab [Tylenol] 650 mg PO Q6HR PRN tab 11/07/22 Pantoprazole [Protonix] 40 mg PO AC-BRKFST tab 11/07/22 Furosemide [Lasix] 40 mg PO BID@0900,1600 tab 12/10/22 Melatonin 3 mg PO HS PRN #3 tab 12/10/22 Multivitamins, Thera [Multivitamin 1 each PO DAILY@1200 tab 12/10/22 (formulary)] Thiamine [Vitamin B-1] 100 mg PO DAILY@1200 tab 12/10/22 cefUROXime axetiL [Ceftin] 500 mg PO BID 5 Days #10 tab 12/10/22 Allergies Allergy/AdvReac Type Severity Reaction Status Date / Time Penicillins Allergy Rash/Hives Verified 12/03/22 18:03 regadenoson Allergy Anaphylaxis Verified 12/03/22 18:03 cardiolite Allergy Anaphylaxis Uncoded 12/03/22 18:03 Review of Systems ROS Statement: Those systems with pertinent positive or pertinent negative responses have been documented in the HPI. ROS Other: All systems not noted in ROS Statement are negative. Limitations: ROS unobtainable due to patients medical condition Constitutional: Denies: fever Cardiovascular: Reports: as per HPI, chest pain Gastrointestinal: Denies: vomiting, diarrhea Neurological: Denies: headache Past Medical History Past Medical History: Atrial Flutter, Coronary Artery Disease (CAD), Cancer, Hyperlipidemia, Hypertension, Myocardial Infarction ([place]), Osteoarthritis (OA), Sleep Apnea/CPAP/BIPAP, Thyroid Disorder Additional Past Medical History / Comment(s): hx skin cancer Last Myocardial Infarction Date:: 2008 History of Any Multi-Drug Resistant Organisms: None Reported Past Surgical History: Heart Catheterization With Stent, Joint Replacement Additional Past Surgical History / Comment(s): Replacements of KAREN KNEES, KAREN HIPS and RT SHOULDER, has 2 or 3 coranary stents, recent karen eyelid sx, and removal of skin tag on rt eye lid, femur fracture with repair July 2022, Past Anesthesia/Blood Transfusion Reactions: No Reported Reaction Date of Last Stent Placement:: 2018 Past Psychological History: No Psychological Hx Reported Smoking Status: Former smoker - Past Family History Mother Family Medical History: No Reported History Brother(s) Family Medical History: Myocardial Infarction ([place]) Father Family Medical History: Myocardial Infarction ([place]) General Exam Limitations: altered mental status General appearance: alert, in no apparent distress, other Head exam: Present: atraumatic, normocephalic Eye exam: Present: normal appearance, PERRL, EOMI. Absent: scleral icterus, conjunctival injection ENT exam: Present: mucous membranes dry Neck exam: Present: full ROM. Absent: tenderness Respiratory exam: Present: normal lung sounds bilaterally. Absent: respiratory distress, wheezes, rales, rhonchi, stridor, chest wall tenderness, accessory muscle use Cardiovascular Exam: Present: regular rate, normal rhythm, normal heart sounds. Absent: systolic murmur, diastolic murmur, rubs, gallop GI/Abdominal exam: Present: soft. Absent: distended, tenderness, guarding, rebound, rigid, mass Extremities exam: Present: normal inspection, normal capillary refill. Absent: pedal edema, calf tenderness Back exam: Present: normal inspection Neurological exam: Present: alert, CN II-XII intact. Absent: oriented X3 (Patient is oriented only to person), motor sensory deficit Psychiatric exam: Present: agitated Skin exam: Present: warm, dry, intact, normal color. Absent: rash Course Vital Signs 12/03/22 12/03/22 12/03/22 15:54 18:14 20:41 Temperature 97.4 F L Pulse Rate 85 73 Respiratory 20 18 18 Rate Blood Pressure 135/72 128/77 O2 Sat by Pulse 97 95 Oximetry EKG Findings - EKG Results: EKG: interpreted by ERMD - Dysrhythmias: Supraventricular dysrhythmia: atrial flutter - Blocks, [place], Hypertrophy, ST Abn: AV and intraventricular conduction: right bundle branch block (fixed/intermittent, complete/incomplete) - [place], Pacemaker, Normal: Myocardial infarction: inferior [place] (old age indeterminate) Medical Decision Making - Medical Decision Making Patient is an 87-year-old man brought to have evaluation after he had complained of chest pain. The patient's reportedly also having altered mental status. The patient clinically appearing to have probable dementia with exacerbation of symptoms due to being in unfamiliar surroundings versus delirium related to urinary tract infection. Patient will be admitted to treat urinary tract inf ection. Patient had CT of the brain which I interpreted as not showing acute hemorrhage or bony injury. Patient had chest x-ray which I interpreted as showing mild vascular congestion, suggestive of congestive heart failure. No acute infiltrate Was pt. sent in by a medical professional or institution (, PA, CHLORINATOR OPERATOR, urgent care, hospital, or [place] health care facility...) When possible be specific @ -[No] Did you speak to anyone other than the patient for history (EMS, parent, family, police, friend...)? What history was obtained from this source @ -[The patient's gave most of the history Did you review nursing and triage notes (agree or disagree)? Why? @ -[I reviewed and agree with nursing and triage notes] Were old charts reviewed (outside hosp., previous admission, EMS record, old EKG, old radiological studies, urgent care reports/EKG's, [place] health care facility records)? Report findings @ -[No old charts were reviewed] Differential Diagnosis (chest pain, altered mental status, abdominal pain women, abdominal pain men, vaginal bleeding, weakness, fever, dyspnea, syncope, headache, dizziness, GI bleed, back pain, seizure, CVA, palpatations, mental health, musculoskeletal)? @ -[Differential Chest Pain: Stable Angina, Unstable Angina, STEMI, NSTEMI Aortic Dissection, Pneumothorax, Musculoskeletal, Esophageal Spasm GERD, Cholecystitis, Pancreatitis, Zoster, this is not meant to be an all-inclusive list. Differential Altered Mental Status: Hypoglycemia, DKA, hypercapnia, ETOH, overdose, CO poisoning, trauma, myxedema coma, HTN encephalopathy, infection, encephalitis, psychosis, intercranial hemorrhage, hepatic encephalopathy, meningitis, CVA, this is not meant to be an all-inclusive list EKG interpreted by me (3pts min.). @ -[I interpreted As above] X-rays interpreted by me (1pt min.). @ -[I interpreted as above CT interpreted by me (1pt min.). @ -[I interpreted as above U/S interpreted by me (1pt. min.). @ -[None done] What testing was considered but not performed or refused? (CT, X-rays, U/S, labs)? Why? @ -[None] What meds were considered but not given or refused? Why? @ -[None] Did you discuss the management of the patient with other professionals (professionals i.e. , PA, CHLORINATOR OPERATOR, lab, RT, psych nurse, social service director, pill machine operator, teacher, co founder and chief strategy officer, high risk case manager)? Give summary @ -[Case discussed with admitting physician and treatment recommendations are incorporated Was smoking cessation discussed for >3mins.? @ -[No] Was critical care preformed (if so, how long)? @ -[No] Were there social determinants of health that impacted care today? How? (Homelessness, low income, unemployed, alcoholism, drug addiction, transportation, low edu. Level, literacy, decrease access to med. care, detention, rehab)? @ -[No] Was there de-escalation of care discussed even if they declined (Discuss DNR or withdrawal of care, Hospice)? DNR status @ -[No] What co-morbidities impacted this encounter? (DM, HTN, Smoking, COPD, CAD, Cancer, CVA, ARF, Chemo, Hep., AIDS, mental health diagnosis, sleep apnea, morbid obesity)? @ -[None] Was patient admitted / discharged? Hospital course, mention meds given and route, prescriptions, significant lab abnormalities, going to OR and other [facility] nent info. @ -[Patient is admitted to have IV antibiotics and further care for suspected urinary tract infection and congestive heart failure exacerbation Undiagnosed new problem with uncertain prognosis? @ -[No] Drug Therapy requiring intensive monitoring for toxicity (Heparin, Nitro, Insulin, Cardizem)? @ -[No] Were any procedures done? @ -[No] Diagnosis/symptom? @ -[Acute altered mental status Acute congestive heart failure Urinary tract infection Acute, or Chronic, or Acute on Chronic? @ -[Acute Uncomplicated (without systemic symptoms) or Complicated (systemic symptoms)? @ -[Compazine by mental status change Side effects of treatment? @ -[No] Exacerbation, Progression, or Severe Exacerbation? @ -[No] Poses a threat to life or bodily function? How? (Chest pain, [place], [place], pneumonia, PE, COPD, DKA, ARF, appy, cholecystitis, CVA, Diverticulitis, Homicidal, Suicidal, threat to staff... and all critical care pts) @ -[No] - Lab Data Result diagrams: 12/06/22 07:13 12/06/22 07:13 Lab Results 12/03/22 12/03/22 12/03/22 Range/Units 16:06 16:06 16:06 WBC 6.0 (3.8-10.6) k/uL RBC 3.64 L (4.30-5.90) m/uL Hgb 11.4 L (13.0-17.5) gm/dL Hct 34.6 L (39.0-53.0) % MCV 95.2 (80.0-100.0) fL MCH 31.3 (25.0-35.0) pg MCHC 32.9 (31.0-37.0) g/dL RDW 17.2 H (11.5-15.5) % Plt Count 263 (150-450) k/uL MPV 7.9 Neutrophils % 65 % Lymphocytes % 23 % Monocytes % 8 % Eosinophils % 1 % Basophils % 1 % Neutrophils # 3.9 (1.3-7.7) k/uL Lymphocytes # 1.4 (1.0-4.8) k/uL Monocytes # 0.5 (0-1.0) k/uL Eosinophils # 0.1 (0-0.7) k/uL Basophils # 0.0 (0-0.2) k/uL Anisocytosis Slight PT 12.8 H (10.0-12.5) sec INR 1.2 H (<1.2) APTT 26.4 (22.0-30.0) sec Sodium 138 (137-145) mmol/L Potassium 4.6 (3.5-5.1) mmol/L Chloride 104 (98-107) mmol/L Carbon Dioxide 24 (22-30) mmol/L Anion Gap 10 mmol/L BUN 18 (9-20) mg/dL Creatinine 0.80 (0.66-1.25) mg/dL Est GFR (CKD-EPI)AfAm >90 (>60 ml/min/1.73 sqM) Est GFR (CKD-EPI)NonAf 80 (>60 ml/min/1.73 sqM) Glucose 95 (74-99) mg/dL Plasma Lactic Acid Robby (0.7-2.0) mmol/L Calcium 8.9 (8.4-10.2) mg/dL Magnesium 1.9 (1.6-2.3) mg/dL Total Bilirubin 0.4 (0.2-1.3) mg/dL AST 19 (17-59) U/L ALT 16 (4-49) U/L Alkaline Phosphatase 84 (38-126) U/L Troponin I (0.000-0.034) ng/mL NT-Pro-B Natriuret Pep pg/mL Total Protein 6.3 (6.3-8.2) g/dL Albumin 3.1 L (3.5-5.0) g/dL Urine Color Urine Appearance (Clear) Urine pH (5.0-8.0) Ur Specific [place] (1.001-1.035) Urine Protein (Negative) Urine Glucose (UA) (Negative) Urine Ketones (Negative) Urine Blood (Negative) Urine Nitrite (Negative) Urine Bilirubin (Negative) Urine Urobilinogen (<2.0) mg/dL Ur Leukocyte Esterase (Negative) Urine RBC (0-5) /hpf Urine WBC (0-5) /hpf Urine WBC Clumps (None) /hpf Ur Squamous Epith Cells (0-4) /hpf Urine Bacteria (None) /hpf Urine Mucus (None) /hpf Serum Alcohol <10 mg/dL 12/03/22 12/03/22 12/03/22 Range/Units 16:06 16:06 16:06 WBC (3.8-10.6) k/uL RBC (4.30-5.90) m/uL Hgb (13.0-17.5) gm/dL Hct (39.0-53.0) % MCV (80.0-100.0) fL MCH (25.0-35.0) pg MCHC (31.0-37.0) g/dL RDW (11.5-15.5) % Plt Count (150-450) k/uL MPV Neutrophils % % Lymphocytes % % Monocytes % % Eosinophils % % Basophils % % Neutrophils # (1.3-7.7) k/uL Lymphocytes # (1.0-4.8) k/uL Monocytes # (0-1.0) k/uL Eosinophils # (0-0.7) k/uL Basophils # (0-0.2) k/uL Anisocytosis PT (10.0-12.5) sec INR (<1.2) APTT (22.0-30.0) sec Sodium (137-145) mmol/L Potassium (3.5-5.1) mmol/L Chloride (98-107) mmol/L Carbon Dioxide (22-30) mmol/L Anion Gap mmol/L BUN (9-20) mg/dL Creatinine (0.66-1.25) mg/dL Est GFR (CKD-EPI)AfAm (>60 ml/min/1.73 sqM) Est GFR (CKD-EPI)NonAf (>60 ml/min/1.73 sqM) Glucose (74-99) mg/dL Plasma Lactic Acid Robby (0.7-2.0) mmol/L Calcium (8.4-10.2) mg/dL Magnesium (1.6-2.3) mg/dL Total Bilirubin (0.2-1.3) mg/dL AST (17-59) U/L ALT (4-49) U/L Alkaline Phosphatase (38-126) U/L Troponin I 0.078 H* (0.000-0.034) ng/mL NT-Pro-B Natriuret Pep 4130 pg/mL Total Protein (6.3-8.2) g/dL Albumin (3.5-5.0) g/dL Urine Color Terri Urine Appearance Cloudy (Clear) Urine pH 5.5 (5.0-8.0) Ur Specific [place] 1.025 (1.001-1.035) Urine Protein 1+ (Negative) Urine Glucose (UA) Negative (Negative) Urine Ketones Negative (Negative) Urine Blood Small (Negative) Urine Nitrite Negative (Negative) Urine Bilirubin Negative (Negative) Urine Urobilinogen 2.0 (<2.0) mg/dL Ur Leukocyte Esterase Large (Negative) Urine RBC 14 H (0-5) /hpf Urine WBC 172 H (0-5) /hpf Urine WBC Clumps Few H (None) /hpf Ur Squamous Epith Cells 1 (0-4) /hpf Urine Bacteria Many H (None) /hpf Urine Mucus Rare H (None) /hpf Serum Alcohol mg/dL 12/03/22 Range/Units 18:19 WBC (3.8-10.6) k/uL RBC (4.30-5.90) m/uL Hgb (13.0-17.5) gm/dL Hct (39.0-53.0) % MCV (80.0-100.0) fL MCH (25.0-35.0) pg MCHC (31.0-37.0) g/dL RDW (11.5-15.5) % Plt Count (150-450) k/uL MPV Neutrophils % % Lymphocytes % % Monocytes % % Eosinophils % % Basophils % % Neutrophils # (1.3-7.7) k/uL Lymphocytes # (1.0-4.8) k/uL Monocytes # (0-1.0) k/uL Eosinophils # (0-0.7) k/uL Basophils # (0-0.2) k/uL Anisocytosis PT (10.0-12.5) sec INR (<1.2) APTT (22.0-30.0) sec Sodium (137-145) mmol/L Potassium (3.5-5.1) mmol/L Chloride (98-107) mmol/L Carbon Dioxide (22-30) mmol/L Anion Gap mmol/L BUN (9-20) mg/dL Creatinine (0.66-1.25) mg/dL Est GFR (CKD-EPI)AfAm (>60 ml/min/1.73 sqM) Est GFR (CKD-EPI)NonAf (>60 ml/min/1.73 sqM) Glucose (74-99) mg/dL Plasma Lactic Acid Robby 1.0 (0.7-2.0) mmol/L Calcium (8.4-10.2) mg/dL Magnesium (1.6-2.3) mg/dL Total Bilirubin (0.2-1.3) mg/dL AST (17-59) U/L ALT (4-49) U/L Alkaline Phosphatase (38-126) U/L Troponin I (0.000-0.034) ng/mL NT-Pro-B Natriuret Pep pg/mL Total Protein (6.3-8.2) g/dL Albumin (3.5-5.0) g/dL Urine Color Urine Appearance (Clear) Urine pH (5.0-8.0) Ur Specific [place] (1.001-1.035) Urine Protein (Negative) Urine Glucose (UA) (Negative) Urine Ketones (Negative) Urine Blood (Negative) Urine Nitrite (Negative) Urine Bilirubin (Negative) Urine Urobilinogen (<2.0) mg/dL Ur Leukocyte Esterase (Negative) Urine RBC (0-5) /hpf Urine WBC (0-5) /hpf Urine WBC Clumps (None) /hpf Ur Squamous Epith Cells (0-4) /hpf Urine Bacteria (None) /hpf Urine Mucus (None) /hpf Serum Alcohol mg/dL Disposition Clinical Impression: UTI (urinary tract infection), Elevated troponin, Acute encephalopathy Disposition: ADMITTED IP TO THIS HOSP Condition: Fair Is patient prescribed a controlled substance at d/c from ED?: No
[2022-12-03 16:30] LABS: Anisocytosis Slight; Basophils % (A) 1 %; Eosinophils # (A) 0.1 k/uL (0-0.7); Eosinophils % (A) 1 %; HCT 34.6 % (39.0-53.0); HGB 11.4 gm/dL (13.0-17.5); Lymphocytes # (A) 1.4 k/uL (1.0-4.8); Lymphocytes % (A) 23 %; MCH 31.3 pg (25.0-35.0); MCHC 32.9 g/dL (31.0-37.0); MCV 95.2 fL (80.0-100.0); Mean Platelet Volume 7.9; Monocytes # (A) 0.5 k/uL (0-1.0); Monocytes % (A) 8 %; Neutrophils # (A) 3.9 k/uL (1.3-7.7); Neutrophils % (A) 65 %; Platelet Count 263 k/uL (150-450); RBC 3.64 m/uL (4.30-5.90); RDW 17.2 % (11.5-15.5)
--- NOTE | 2022-12-03 16:39 | XR ---
EXAMINATION TYPE: XR chest 1V portable DATE OF EXAM: 12/03/2022 4:32 PM CLINICAL INDICATION:Male, 87 years old with history of chest pain; [facility] COMPARISON: Chest radiographs from 11/04/2022 TECHNIQUE: XR chest 1V portable Frontal view of the chest. FINDINGS: Lungs/Pleura: No evidence of focal consolidation or pneumothorax. Blunting of the costophrenic angles is present. Pulmonary vascularity: Pulmonary vascular congestion. Heart/mediastinum: Cardiomediastinal silhouette is enlarged and stable. Musculoskeletal: No acute osseous pathology. Right shoulder arthroplasty with hardware intact IMPRESSION: Cardiomegaly, pulmonary vascular congestion and bilateral pleural effusions. Correlate with BNP for c ongestive heart failure.
[2022-12-03 16:42] LABS: INR 1.2 (<1.2); Partial Thromboplastin Time 26.4 sec (22.0-30.0); Prothrombin Time 12.8 sec (10.0-12.5)
[2022-12-03 16:43] LABS: Appearance,Urine Cloudy (Clear); Color,Urine Amber; Glucose,Urine (UA) Negative (Negative); PH, Urine 5.5 (5.0-8.0); Protein,Urine 1+ (Negative); Specific Gravity,Urine 1.025 (1.001-1.035)
[2022-12-03 16:44] LABS: Bilirubin,Urine Negative (Negative); Blood,Urine Small (Negative); Ketones,Urine Negative (Negative); Leukocyte Esterase,Urine Large (Negative); Nitrite,Urine Negative (Negative)
[2022-12-03 16:47] LABS: ALT 16 U/L (4-49); AST 19 U/L (17-59); African American GFR (CKD) >90 (>60 ml/min/1.73 sqM); Albumin 3.1 g/dL (3.5-5.0); Alcohol <10 mg/dL; Alkaline Phosphatase 84 U/L (38-126); Anion Gap 10 mmol/L; Blood Urea Nitrogen 18 mg/dL (9-20); Calcium 8.9 mg/dL (8.4-10.2); Carbon Dioxide 24 mmol/L (22-30); Chloride 104 mmol/L (98-107); Glucose 95 mg/dL (74-99); Magnesium 1.9 mg/dL (1.6-2.3); Non-African American GFR(CKD) 80 (>60 ml/min/1.73 sqM); Potassium 4.6 mmol/L (3.5-5.1); Sodium 138 mmol/L (137-145); Total Bilirubin 0.4 mg/dL (0.2-1.3); Total Protein 6.3 g/dL (6.3-8.2)
[2022-12-03 16:48] LABS: Bacteria,Urine Many /hpf; Mucus,Urine Rare /hpf; RBC,Urine 14 /hpf (0-5); Squamous Epithelial Cell,Urine 1 /hpf (0-4); WBC,Urine 172 /hpf (0-5)
[2022-12-03] MEDS ORDERED: SODIUM CHLORIDE 0.9% 500 ML 500 ML IV STA (17:34)
[2022-12-03] MEDS ORDERED: SODIUM CHLORIDE 0.9% 1,000 ML IV ONE (17:34)
--- NOTE | 2022-12-03 17:46 | CT ---
EXAMINATION TYPE: CT brain wo con CT DLP: 1193.1 mGycm, Automated exposure control for dose reduction was used. DATE OF EXAM: 12/03/2022 5:31 PM COMPARISON: 11/03/2022.. CLINICAL INDICATION:Male, 87 years old with history of altered mental status, ams TECHNIQUE: Brain: Axial CT images of the brain were obtained with coronal and sagittal reformats created and rev iewed. Contrast used: None. Oral contrast used: None. FINDINGS: Brain: Extra-axial spaces: No abnormal extra-axial fluid collections. Ventricular system: Dilatation in proportion to cerebral atrophy. Cerebral parenchyma: Cerebral atrophy. No acute intraparenchymal hemorrhage or mass effect. The ni -white junction is well differentiated. Scattered hypoattenuating areas are seen within the white mat ter. Cerebellum: Unremarkable. Mass effect: No evidence of midline shift. Intracranial vasculature: Atherosclerotic calcifications of the intracranial vessels. Soft tissues: Normal. Calvarium/osseous structures: No depressed skull fracture. Paranasal sinuses and mastoid air cells: Mild scattered paranasal sinus disease. Visualized orbits: Bilateral aphakia IMPRESSION: 1. No acute intracranial process. 2. Nonspecific white matter changes, likely secondary to chronic small vessel ischemic disease.
[2022-12-03] MEDS ORDERED: MAG HYDROX/AL HYDROX/SIMETH 30 ML CUP PO PRN (18:19)
[2022-12-03] MEDS ORDERED: NALOXONE 0.4 MG/ML 1 ML VIAL IV PRN (18:19)
[2022-12-03] MEDS: SODIUM CHLORIDE 0.9% 1,000 ML IV STA ×2 (18:53→23:07)
[2022-12-03] MEDS: RANOLAZINE 500 MG TAB.ER.12H PO SCH (23:06)
[2022-12-03] MEDS: APIXABAN 2.5 MG TABLET PO SCH (23:06)
[2022-12-03] MEDS: FOLIC ACID 1 MG TAB PO SCH (23:06)
[2022-12-03] MEDS: LEVOTHYROXINE 50 MCG TAB PO SCH (23:06)
[2022-12-03] MEDS: ATORVASTATIN 40 MG TAB PO SCH (23:06)
[2022-12-03] MEDS: FAMOTIDINE 20 MG TAB PO SCH (23:07)
--- NOTE | 2022-12-04 04:20 | P.CNPUL ---
History of Present Illness Consult date: 12/04/22 Requesting physician: Rudy Barcenas Reason for consult: other (UTI and possible sepsis) Chief complaint: Altered mental status History of present illness: I am seeing this patient in consultation today 12/04/2022 after the patient presented to emergency room yesterday afternoon confused. Patient is a 87-year-old male with past medical history significant for coronary artery disease with multiple previous coronary stents, hypertension, hyperlipidemia, congestive heart failure, A. fib/aflutter anticoagulated on Eliquis, hypothyroidism, obstructive sleep apnea with home CPAP. Patient follows with Dr. Garsia as his primary care provider. Patient is currently confused and a poor historian. Patient presented to the emergency room yesterday afternoon accompanied by his . He was outside smoking a cigar when he started to have chest pain. On arrival to the emergency room, the patient was combative and disoriented. Brain CT showed no acute intracranial process. Patient is current ly sitting up in bed, on room air, in no acute distress. SPO2 is 99%. He is pleasantly confused and alert. He is disoriented 3. I am told the patient has some baseline dementia. Patient currently denies any complaints. He believes he is at home. He denies having any chest pain. Urinalysis was taken which showed leukocytosis and many bacteria. Urinary tract infection may be exacerbating his delirium. Patient was started on Rocephin in the emergency room.. CBC on arrival showed a WBC count of 6, hemoglobin 11.4, hematocrit 34.6, platelets 263. BMP on arrival is unremarkable. Normal saline is infusing at 130 ML's per hour. His received a total of about 1-1/2 L normal saline bolus. Lactic acid level not elevated. Troponins 0.078 and 0.075 currently. EKG did not show any acute ischemic changes. NT proBNP elevated at 4130. Chest x-ray on arrival didn't show cardiomegaly, pulmonary vascular congestion, small bilateral pleural effusions. Patient appears clinically stable. Review of Systems ROS unobtainable: due to mental status Past Medical History Past Medical History: Atrial Flutter, Coronary Artery Disease (CAD), Cancer, Hyperlipidemia, Hypertension, Myocardial Infarction (MS), Osteoarthritis (OA), Sleep Apnea/CPAP/BIPAP, Thyroid Disorder Additional Past Medical History / Comment(s): hx skin cancer Last Myocardial Infarction Date:: 2008 History of Any Multi-Drug Resistant Organisms: None Reported Past Surgical History: Heart Catheterization With Stent, Joint Replacement Additional Past Surgical History / Comment(s): Replacements of KAREN KNEES, KAREN HIPS and RT SHOULDER, has 2 or 3 coranary stents, recent karen eyelid sx, and removal of skin tag on rt eye lid, femur fracture with repair July 2022, Past Anesthesia/Blood Transfusion Reactions: No Reported Reaction Date of Last Stent Placement:: 2018 Past Psychological History: No Psychological Hx Reported Smoking Status: Former smoker - Past Family History Mother Family Medical History: No Reported History Brother(s) Family Medical History: Myocardial Infarction (MS) Father Family Medical History: Myocardial Infarction (MS) Medications and Allergies Home Medications Medication Instructions Recorded Confirmed Type Levothyroxine Sodium [Synthroid] 50 mcg PO HS 11/09/15 12/03/22 History Atorvastatin [Lipitor] 40 mg PO HS 09/26/18 12/03/22 History Folic Acid 1 mg PO HS 09/26/18 12/03/22 History Acetaminophen Tab [Tylenol] 975 mg PO Q8H 07/23/22 12/03/22 History Cyanocobalamin [Vitamin B-12] 1,000 mcg PO DAILY #30 tablet 08/23/22 12/03/22 Rx Apixaban [Eliquis] 2.5 mg PO BID 11/03/22 12/03/22 History Ranolazine [Ranexa] 500 mg PO BID 11/03/22 12/03/22 History Acetaminophen Tab [Tylenol] 650 mg PO Q6HR PRN tab 11/07/22 12/03/22 Rx Furosemide [Lasix] 20 mg PO DAILY tab 11/07/22 12/03/22 Rx Pantoprazole [Protonix] 40 mg PO AC-BRKFST tab 11/07/22 12/03/22 Rx Allergies Allergy/AdvReac Type Severity Reaction Status Date / Time Penicillins Allergy Rash/Hives Verified 12/03/22 18:03 regadenoson Allergy Anaphylaxis Verified 12/03/22 18:03 cardiolite Allergy Anaphylaxis Uncoded 12/03/22 18:03 Physical Exam Vitals: Vital Signs Temp Pulse Pulse Resp BP BP Pulse Ox 12/04/22 02:00 72 20 12/04/22 00:00 97.7 F 72 20 148/77 99 12/03/22 23:38 78 20 12/03/22 21:45 97.6 F 78 21 151/76 98 12/03/22 20:41 18 12/03/22 18:14 73 18 128/77 95 12/03/22 15:54 97.4 F L 85 20 135/72 97 Intake and Output 12/03/22 12/03/22 12/04/22 14:59 22:59 06:59 Output Total 150 Balance -150 Output: Urine 150 Other: Voiding Method Urinal Weight 81.647 kg GENERAL EXAM: Alert but pleasantly confused, 87-year-old white male, comfortable in no apparent distress. HEAD: Normocephalic and atraumatic EYES: Normal reaction of pupils, equal size. NOSE: Clear with pink turbinates. THROAT: No erythema or exudates. NECK: No masses, no JVD. CHEST: No chest wall deformity. LUNGS: Equal air entry with bibasilar inspiratory crackles. No wheeze, rhonchi or dullness. On room air. No conversational dyspnea or accessory muscle use.. CVS: S1 and S2 normal with harsh systolic murmur. regular rhythm. No other extra heart sounds ABDOMEN: No hepatosplenomegaly, active bowel sounds, no guarding or rigidity. SPINE: No scoliosis or deformity SKIN: No rashes CENTRAL NERVOUS SYSTEM: He is cooperative with examination. Disoriented 3. No focal deficits, tone is normal in all 4 extremities. EXTREMITIES: There is mild nonpitting bilateral lower extremity edema. No clubbing, or cyanosis. Peripheral pulses are intact. Results - Laboratory Findings CBC and BMP: 12/03/22 16:06 12/03/22 16:06 PT/INR, D-dimer PT 12.8 sec (10.0-12.5) H 12/03/22 16:06 INR 1.2 (<1.2) H 12/03/22 16:06 Abnormal lab findings: Abnormal Labs 12/03/22 12/03/22 12/03/22 16:06 16:06 16:06 RBC 3.64 L Hgb 11.4 L Hct 34.6 L RDW 17.2 H PT 12.8 H INR 1.2 H Troponin I Albumin 3.1 L Urine RBC Urine WBC Urine WBC Clumps Urine Bacteria Urine Mucus 12/03/22 12/03/22 12/04/22 16:06 16:06 01:31 RBC Hgb Hct RDW PT INR Troponin I 0.078 H* 0.075 H* Albumin Urine RBC 14 H Urine WBC 172 H Urine WBC Clumps Few H Urine Bacteria Many H Urine Mucus Rare H - Diagnostic Findings Chest x-ray: image reviewed Assessment and Plan Assessment: Suspected urinary tract infection Altered mental status, Brain CT was negative for any acute intracranial process. I am told the patient has some baseline dementia. Suspected acute mild exacerbation of systolic congestive heart failure Troponin leak, rule out non-ST elevation MS History of atrial fibrillation/A flutter, anticoagulated on Eliquis History of coronary artery disease, with previous coronary stents History of valvular heart disease, including moderate aortic stenosis and mild mitral regurgitation Benign essential hypertension Hyperlipidemia Obstructive sleep apnea, with home CPAP Hypothyroidism Plan: Patient's medications, labs, chest x-ray reviewed On room air Patient was started on Rocephin. Blood and urine cultures are pending. Home cardiac medications have been resumed, including Lasix Eliquis has been restarted We will continue to follow I have personally seen and examined the patient, performed the documentation and the assessment and plan as written. Number of minutes spent on the visit:20 This is a joint evaluation that was done along with the nurse practitioner. The patient was seen and evaluated. Evaluation was done in more than 30 minutes. The patient is having altered mentation. He does have an underlying baseline dementia and the patient with ileus. CAT scan of the brain was negative and the patient suspected to have a UTI. Overall respiratory status is stable. Cardiac pulmonary status is stable. The patient remains having episodes of A. fib and is maintained on anticoagulation with Eliquis. No chest pain. Troponins are minimally elevated and the patient is going to be ventilated by cardiology. Cultures were sent. Is currently on room and oxygen. We'll continue to follow. Time with Patient: Greater than 30
[2022-12-04] MEDS: PANTOPRAZOLE 40 MG TABLET PO SCH (06:55)
[2022-12-04] MEDS: SODIUM CHLORIDE 0.9% 1,000 ML IV SCH (06:55)
[2022-12-04] MEDS ORDERED: FUROSEMIDE 20 MG TAB PO SCH (09:00)
[2022-12-04] MEDS: RANOLAZINE 500 MG TAB.ER.12H PO SCH ×2 (09:09→21:40)
[2022-12-04] MEDS: FAMOTIDINE 20 MG TAB PO SCH ×2 (09:09→21:40)
[2022-12-04] MEDS: CYANOCOBALAMIN 500 MCG TAB PO SCH (09:09)
[2022-12-04] MEDS: APIXABAN 2.5 MG TABLET PO SCH ×2 (09:09→21:40)
[2022-12-04] MEDS: FUROSEMIDE 10 MG/ML 4 ML VIAL IV SCH ×2 (14:35→21:40)
--- NOTE | 2022-12-04 15:08 | HP ---
HISTORY AND PHYSICAL CHIEF COMPLAINT: Multiple including chest pain and change in mental status. HISTORY OF PRESENT ILLNESS: This is an 87-year-old man with a past medical history of multiple sclerosis, admitted with chest pain, in the center part of chest, rest of the chest and the patient apparently became combative before coming to the ER and the patient was found to have troponin elevated up to 0.078 indicated of nonspecific rap-TA-dyfnpqh elevation myocardial infarction. The patient also had features of CHF in the chest x-ray. The patient is admitted for further evaluation. The patient also found to have UTI, antibiotics initiated. There is no history of ay fever, rigors, or chills at this time. PAST MEDICAL HISTORY: Reviewed include CAD, atrial flutter, rest of the history and rest of the chart is also reviewed. HOME MEDICATIONS: Reviewed include Ranexa, dose and rest of medications reviewed. ALLERGIES: Reviewed include penicillin, rest of allergies reviewed. FAMILY HISTORY: No history of heart disease or the strokes in the family. SOCIAL HISTORY: Previous history of smoking. REVIEW OF SYSTEMS: A 14-point review is negative except as mentioned earlier. PHYSICAL EXAMINATION: VITAL SIGNS: Pulse 76, blood pressure 116/50, and respirations 18. HEENT: Conjunctivae normal. NECK: No jugular venous distention. CARDIOVASCULAR: S1, S2. RESPIRATIONS: Few scattered rhonchi. ABDOMEN: Soft and nontender. LEGS: No edema. NERVOUS SYSTEM: No focal deficits. SKIN: No ulcer, rash, or bleeding. JOINTS: No active deforming arthropathy. LABORATORY DATA: WBC 6, hemoglobin 11.4, rest of labs are noted. ASSESSMENT: 1. Chest pain. possible unstable angina. 2. Possible acute [id number]-elevation myocardial infarction with troponin 0.078. 3. Possible CHF acute exacerbation. 4. Possible acute UTI present on admission. 5. Change in mental status, possible metabolic encephalopathy. 6. History of atrial fibrillation, CAD. 7. Multiple medical issues. 8. History of CAD, stent. 9. No code, no CPR. RECOMMENDATIONS AND DISCUSSION: This 87-year-old gentleman presented with multiple complex medical issues, we will monitor the patient closely. Patient started on Rocephin. We will continue to monitor. We will also continue with IV Lasix and cardiology consultation. We will obtain a 2D echo with Doppler and continue to monitor. Prognosis guarded. Further recommendations to follow. See orders for details and home medications will be continued once they are confirmed. Further recommendations to follow. See orders for details. MMODL / IJN: [id number] /
[2022-12-04] MEDS: ATORVASTATIN 40 MG TAB PO SCH (21:40)
[2022-12-04] MEDS: FOLIC ACID 1 MG TAB PO SCH (21:40)
[2022-12-04] MEDS: LEVOTHYROXINE 50 MCG TAB PO SCH (21:40)
[2022-12-05] MEDS: PANTOPRAZOLE 40 MG TABLET PO SCH (06:11)
[2022-12-05] MEDS: SODIUM CHLORIDE 0.9% 1,000 ML IV SCH (06:11)
[2022-12-05] MEDS: FAMOTIDINE 20 MG TAB PO SCH ×2 (08:40→20:55)
[2022-12-05] MEDS: CYANOCOBALAMIN 500 MCG TAB PO SCH (08:40)
[2022-12-05] MEDS: APIXABAN 2.5 MG TABLET PO SCH ×2 (08:40→20:55)
[2022-12-05] MEDS: RANOLAZINE 500 MG TAB.ER.12H PO SCH ×2 (08:40→20:55)
[2022-12-05] MEDS: FUROSEMIDE 10 MG/ML 4 ML VIAL IV SCH ×2 (08:40→20:54)
[2022-12-05 09:05] LABS: Anisocytosis Slight; Basophils % (A) 0 %; Eosinophils # (A) 0.1 k/uL (0-0.7); Eosinophils % (A) 1 %; HCT 31.7 % (39.0-53.0); HGB 10.7 gm/dL (13.0-17.5); Lymphocytes # (A) 0.9 k/uL (1.0-4.8); Lymphocytes % (A) 19 %; MCH 31.5 pg (25.0-35.0); MCHC 33.7 g/dL (31.0-37.0); MCV 93.4 fL (80.0-100.0); Mean Platelet Volume 8.3; Monocytes # (A) 0.5 k/uL (0-1.0); Monocytes % (A) 9 %; Neutrophils # (A) 3.4 k/uL (1.3-7.7); Neutrophils % (A) 68 %; Platelet Count 274 k/uL (150-450); RBC 3.39 m/uL (4.30-5.90)
[2022-12-05 09:21] LABS: African American GFR (CKD) >90 (>60 ml/min/1.73 sqM); Anion Gap 7 mmol/L; Blood Urea Nitrogen 12 mg/dL (9-20); Calcium 8.3 mg/dL (8.4-10.2); Carbon Dioxide 26 mmol/L (22-30); Chloride 102 mmol/L (98-107); Glucose 92 mg/dL (74-99); Non-African American GFR(CKD) 82 (>60 ml/min/1.73 sqM); Potassium 3.6 mmol/L (3.5-5.1); Sodium 135 mmol/L (137-145)
[2022-12-05] MEDS ORDERED: ZINC OXIDE PASTE (Z-GUARD) 1 APPLIC APPLIC TOPICAL PRN (10:24)
--- NOTE | 2022-12-05 12:01 | CA ---
Transthoracic Echo Report Name: Rodolfo Mccarty Age: 87 Gender: M : 1935 Exam Date: 12/04/2022 14:04 Exam Location: [facility] Ht (in): 67 Wt (lb): 180 Ordering Physician: Marycarmen Gusman MD Attending/Referring Phys: Electrical Engineering Technologist Nile Rubio Procedure CPT: Indications: chf Cardiac Hx: Technical Quality: Fair Contrast 1: Total Dose (mL): Contrast 2: Total Dose (mL): MEASUREMENTS (Male / Female) Normal Values 2D ECHO LV Diastolic Diameter PLAX 3.1 cm 4.2 - 5.9 / 3.9 - 5.3 cm LV Systolic Diameter PLAX 2.4 cm IVS Diastolic Thickness 2.1 cm 0.6 - 1.0 / 0.6 - 0.9 cm LVPW Diastolic Thickness 1.7 cm 0.6 - 1.0 / 0.6 - 0.9 cm LV Relative Wall Thickness 1.2 RV Internal Dim ED PLAX 3.0 cm LVOT Diameter 2.3 cm Aortic Root Diameter 3.6 cm LA Systolic Diameter LX 3.0 cm 3.0 - 4.0 / 2.7 - 3.8 cm LV Diastolic Volume MOD BP 42.6 cm??? 67 - 155 / 56 - 104 cm??? LV Systolic Volume MOD BP 20.8 cm??? 22 - 58 / 19 - 49 cm??? LV Ejection Fraction MOD BP 51.2 % >= 55 % LV Cardiac Index MOD BP 814.4 cm???/min???m??? LV Diastolic Volume MOD 4C 43.7 cm??? LV Systolic Volume MOD 4C 20.4 cm??? LV Ejection Fraction MOD 4C 53.3 % LV Cardiac Index MOD 4C 869.2 cm???/min???m??? LV Diastolic Length 4C 7.9 cm LV Systolic Length 4C 6.4 cm LV Diastolic Volume MOD 2C 36.5 cm??? LV Systolic Volume MOD 2C 20.6 cm??? LV Ejection Fraction MOD 2C 43.6 % LV Cardiac Index MOD 2C 593.9 cm???/min???m??? LV Diastolic Length 2C 6.7 cm LV Systolic Length 2C 5.8 cm LA Volume 86.5 cm??? 18 - 58 / 22 - 52 cm??? LA Volume Index 43.6 cm???/m??? 16 - 28 cm???/m??? DOPPLER AV Peak Velocity 232.7 cm/s AV Peak Gradient 21.7 mmHg LVOT Peak Velocity 76.1 cm/s LVOT Peak Gradient 2.3 mmHg LVOT Velocity Time Integral 19.7 cm LVOT Stroke Volume 81.4 cm??? LVOT Stroke Volume Index 42.1 ml/m??? LVOT Cardiac Index 3036.7 cm???/min???m??? AV Area Cont Eq pk 1.4 cm??? MV Peak Velocity 140.6 cm/s MV Peak Gradient 7.9 mmHg MV Mean Velocity 70.4 cm/s MV Mean Gradient 2.5 mmHg MV Velocity Time Integral 34.4 cm MR Peak Velocity 519.0 cm/s MR Peak Gradient 107.7 mmHg Mitral E Point Velocity 131.7 cm/s Mitral A Point Velocity 27.1 cm/s Mitral E to A Ratio 4.9 MV Deceleration Time 280.5 ms MV E' Velocity 5.8 cm/s Mitral E to MV E' Ratio 22.6 TR Peak Velocity 298.3 cm/s TR Peak Gradient 35.6 mmHg Right Ventricular Systolic Press 40.6 mmHg PV Peak Velocity 121.7 cm/s PV Peak Gradient 5.9 mmHg FINDINGS Left Ventricle Severe concentric left ventricular hypertrophy. LVEF is estimated at 55-60%. Normal global LV systolic function. No obvious regional wall motion abnormality Right Ventricle Moderate right atrial dilatation Right Atrium Moderate left atrial dilatation Left Atrium Severely increased left atrial volume. Mildly increased left atrial area. LA volume index= 45ml/m2 Mitral Valve Moderate posterior mitral annular calcification. Mild to moderate MR. Aortic Valve Aortic valve not well visualized. Moderate AV calcification. AV peak gradient= 22mmHg. mean gradient 15 mmHg, mild aortic stenosis , No aortic regurgitation. Tricuspid Valve Structurally normal tricuspid valve. Moderate to severeTR. Pulmonic Valve Pulmonic valve not well visualized. Trace PI. Pericardium Normal pericardium. Aorta Normal size aortic root. CONCLUSIONS LVEF is estimated at 55-60%. Severe concentric left ventricular hypertrophy. No obvious regional wall motion abnormality. Moderate biatrial dilatation Calcific aortic valve with mild aortic stenosis RVSP estimated at 45 mmHg No pericardial effusion Previewed by: Dr Leo Chambers (Electronically Signed) Final Date: 05 December 2022 12:00
--- NOTE | 2022-12-05 15:00 | P.CRDCN ---
History of Present Illness History of present illness: HISTORY OF PRESENTING ILLNESS Patient is a pleasant 87-year-old male with history of CAD with prior PCI, A. fib/atrial flutter on anticoagulation, hypothyroidism, sleep apnea. Patient presented yesterday apparently secondary to altered mental status however there was additional concern of chest pain per EMR. Patient cannot recall why he came in and believes he came to visit his . He currently denies any chest pain or pressure. He was found to have white blood cell count of 6, urinalysis consistent with UTI and minimally elevated troponin 0.078, 0.075. ProBNP 4130. He denies any shortness breath on lying flat in bed. EKG shows atrial flutter with heart rate 80 bpm, right bundle branch block with no significant ST or T wave abnormalities. Echocardiogram performed which shows severe LVH, ejection fraction 55-60%, dilated left atrium, mild to moderate mitral regurgitation, mild aortic stenosis and moderate to severe tricuspid regurgitation. REVIEW OF SYSTEMS At the time of my exam: CONSTITUTIONAL: Denies fever or chills. CARDIOVASCULAR: Denies chest pain, shortness of breath, orthopnea, PND or palpitations. RESPIRATORY: Denies cough. GASTROINTESTINAL: Denies abdominal pain, diarrhea, constipation, nausea or vomiting. MUSCULOSKELETAL: Denies myalgias. NEUROLOGIC: Denies numbness, tingling or weakness. ENDOCRINE: Denies fatigue, weight change, polydipsia or polyurina. GENITOURINARY: Denies burning, hematuria or urgency with micturation. HEMATOLOGIC: Denies history of anemia or bleeding. PHYSICAL EXAMINATION Vital signs reviewed. CONSTITUTIONAL: No apparent distress, pleasantly confused. HEENT: Head is normocephalic. Pupils are equal, round. Sclerae anicteric. Mucous membranes of the mouth are moist. No JVD. No carotid bruit. CHEST EXAMINATION: Lungs are clear to auscultation. No chest wall tenderness is noted on palpation or with deep breathing. HEART EXAMINATION: Regular rate and rhythm. S1, S2 heard. No murmurs, gallops or rub. ABDOMEN: Soft, nontender. Positive bowel sounds. EXTREMITIES: 2+ peripheral pulses, no lower extremity edema and no calf tenderness. NEUROLOGIC EXAMINATION: Patient is awake, alert. ASSESSMENT 1. CAD with prior PCI 2. Non-STEMI likely related to urinary tract infection, does not appear consistent with acute coronary syndrome 3. Atrial flutter with controlled ventricular rates 4. Hypertension 5. Severe left ventricular hypertrophy 6. Altered mental status appears related to urinary tract infection 7. Poly-valvular disease: Mild aortic stenosis, mild to moderate mitral regurgitation, moderate to severe tricuspid regurgitation PLAN Echocardiogram showing preserved EF and mildly elevated troponin likely related to urinary tract infection and is not appear consistent with acute coronary syndrome. Continue with anticoagulation as well as Ranexa. Ideally beta enzo however he has been off of this and may have some component of bradycardia in the past. Continue current supportive care and monitor symptomatically. Further recommendations to follow. Past Medical History Past Medical History: Atrial Flutter, Coronary Artery Disease (CAD), Cancer, Hyperlipidemia, Hypertension, Myocardial Infarction (ID), Osteoarthritis (OA), Sleep Apnea/CPAP/BIPAP, Thyroid Disorder Additional Past Medical History / Comment(s): hx skin cancer Last Myocardial Infarction Date:: 2008 History of Any Multi-Drug Resistant Organisms: None Reported Past Surgical History: Heart Catheterization With Stent, Joint Replacement Additional Past Surgical History / Comment(s): Replacements of KAREN KNEES, KAREN HIPS and RT SHOULDER, has 2 or 3 coranary stents, recent karen eyelid sx, and removal of skin tag on rt eye lid, femur fracture with repair July 2022, Past Anesthesia/Blood Transfusion Reactions: No Reported Reaction Date of Last Stent Placement:: 2018 Past Psychological History: No Psychological Hx Reported Smoking Status: Former smoker - Past Family History Mother Family Medical History: No Reported History Brother(s) Family Medical History: Myocardial Infarction (ID) Father Family Medical History: Myocardial Infarction (ID) Medications and Allergies Home Medications Medication Instructions Recorded Confirmed Type Levothyroxine Sodium [Synthroid] 50 mcg PO HS 11/09/15 12/03/22 History Atorvastatin [Lipitor] 40 mg PO HS 09/26/18 12/03/22 History Folic Acid 1 mg PO HS 09/26/18 12/03/22 History Acetaminophen Tab [Tylenol] 975 mg PO Q8H 07/23/22 12/03/22 History Cyanocobalamin [Vitamin B-12] 1,000 mcg PO DAILY #30 tablet 08/23/22 12/03/22 Rx Apixaban [Eliquis] 2.5 mg PO BID 11/03/22 12/03/22 History Ranolazine [Ranexa] 500 mg PO BID 11/03/22 12/03/22 History Acetaminophen Tab [Tylenol] 650 mg PO Q6HR PRN tab 11/07/22 12/03/22 Rx Furosemide [Lasix] 20 mg PO DAILY tab 11/07/22 12/03/22 Rx Pantoprazole [Protonix] 40 mg PO AC-BRKFST tab 11/07/22 12/03/22 Rx Allergies Allergy/AdvReac Type Severity Reaction Status Date / Time Penicillins Allergy Rash/Hives Verified 12/03/22 18:03 regadenoson Allergy Anaphylaxis Verified 12/03/22 18:03 cardiolite Allergy Anaphylaxis Uncoded 12/03/22 18:03 Physical Exam Vitals: Vital Signs Temp Pulse Resp BP Pulse Ox 12/05/22 12:03 98.1 F 90 16 136/73 98 12/05/22 07:10 97.7 F 77 18 127/76 97 12/05/22 04:00 98.2 F 76 18 136/79 98 12/05/22 02:00 91 18 12/05/22 00:00 98.6 F 91 18 125/70 95 12/04/22 20:00 98.2 F 90 18 152/72 97 Intake and Output 12/04/22 12/05/22 12/05/22 22:59 06:59 14:59 Intake Total 310 236 Output Total 220 300 Balance 90 -64 Intake: Oral 310 236 Output: Urine 220 300 Other: Voiding Method Diaper Diaper Diaper Incontinent Incontinent Incontinent # Voids 3 2 # Bowel Movements 1 1 Weight 60 kg Results 12/05/22 08:15 12/05/22 08:15 CBC 12/05/22 Range/Units 08:15 WBC 5.0 (3.8-10.6) k/uL RBC 3.39 L (4.30-5.90) m/uL Hgb 10.7 L (13.0-17.5) gm/dL Hct 31.7 L (39.0-53.0) % Plt Count 274 (150-450) k/uL Comprehensive Metabolic Panel 12/05/22 Range/Units 08:15 Sodium 135 L (137-145) mmol/L Potassium 3.6 (3.5-5.1) mmol/L Chloride 102 (98-107) mmol/L Carbon Dioxide 26 (22-30) mmol/L BUN 12 (9-20) mg/dL Creatinine 0.74 (0.66-1.25) mg/dL Glucose 92 (74-99) mg/dL Calcium 8.3 L (8.4-10.2) mg/dL Current Medications Generic Name Dose Route Start Last Admin Trade Name Freq PRN Reason Stop Dose Admin Acetaminophen 650 mg 12/03/22 18:19 Acetaminophen Tab 325 Mg Tab PO Q6HR PRN Mild Pain or Fever > 100.5 Al Hydroxide/Mg Hydroxide 15 ml 12/03/22 18:19 Mag Hydrox/Al Hydrox/Simeth 30 Ml Cup PO Q6HR PRN Indigestion Apixaban 2.5 mg 12/03/22 21:00 12/05/22 08:40 Apixaban 2.5 Mg Tablet PO 2.5 mg BID FELIPE Administration Protocol Atorvastatin Calcium 40 mg 12/03/22 21:00 12/04/22 21:40 Atorvastatin 40 Mg Tab PO 40 mg HS FELIPE Administration Cyanocobalamin 1,000 mcg 12/04/22 09:00 12/05/22 08:40 Cyanocobalamin 500 Mcg Tab PO 1,000 mcg DAILY FELIPE Administration Famotidine 20 mg 12/03/22 21:00 12/05/22 08:40 Famotidine 20 Mg Tab PO 20 mg BID FELIPE Administration Folic Acid 1 mg 12/03/22 21:00 12/04/22 21:40 Folic Acid 1 Mg Tab PO 1 mg HS FELIPE Administration Furosemide 40 mg 12/04/22 13:45 12/05/22 08:40 Furosemide 10 Mg/Ml 4 Ml Vial IV 40 mg Q12HR FELIPE Administration Sodium Chloride 1,000 mls @ 20 mls/hr 12/03/22 18:30 12/05/22 06:11 Saline 0.9% IV Not Given .Q24H FELIPE Ceftriaxone Sodium 2 gm/ 50 mls @ 100 mls/hr 12/04/22 18:00 12/04/22 14:35 Sodium Chloride IVPB 100 mls/hr Q24H FELIPE Administration Protocol Levothyroxine Sodium 50 mcg 12/03/22 21:00 12/04/22 21:40 Levothyroxine 50 Mcg Tab PO 50 mcg HS FELIPE Administration Multivitamins 1 each 12/05/22 12:00 Multivitamins, Thera 1 Each Tab PO DAILY@1200 FELIPE Naloxone HCl 0.2 mg 12/03/22 18:19 Naloxone 0.4 Mg/Ml 1 Ml Vial IV Q2M PRN Opioid Reversal Pantoprazole Sodium 40 mg 12/04/22 07:30 12/05/22 06:11 Pantoprazole 40 Mg Tablet PO 40 mg AC-BRKFST FELIPE Administration Petrolatum 1 applic 12/05/22 10:24 Zinc Oxide Paste (Z-Guard) 1 Applic Applic TOPICAL Q2HR PRN Wound Healing Ranolazine 500 mg 12/03/22 21:00 12/05/22 08:40 Ranolazine 500 Mg Tab.Er.12h PO 500 mg BID FELIPE Administration Thiamine HCl 100 mg 12/05/22 12:00 Thiamine 100 Mg Tab PO DAILY@1200 [facility] Intake and Output 12/04/22 12/05/22 12/05/22 22:59 06:59 14:59 Intake Total 310 236 Output Total 220 300 Balance 90 -64 Intake: Oral 310 236 Output: Urine 220 300 Other: Voiding Method Diaper Diaper Diaper Incontinent Incontinent Incontinent # Voids 3 2 # Bowel Movements 1 1 Weight 60 kg 12/05/22 08:15 12/05/22 08:15
[2022-12-05] MEDS: MULTIVITAMINS, THERA 1 EACH TAB PO SCH (15:28)
[2022-12-05] MEDS: THIAMINE 100 MG TAB PO SCH (15:28)
--- NOTE | 2022-12-05 17:49 | P.PN ---
Subjective Progress Note Date: 12/05/22 I am seeing this patient in consultation today 12/04/2022 after the patient presented to emergency room yesterday afternoon confused. Patient is a 87-year-old male with past medical history significant for coronary artery disease with multiple previous coronary stents, hypertension, hyperlipidemia, congestive heart failure, A. fib/aflutter anticoagulated on Eliquis, hypothyroidism, obstructive sleep apnea with home CPAP. Patient follows with Dr. Garsia as his primary care provider. Patient is currently confused and a poor historian. Patient presented to the emergency room yesterday afternoon acc ompanied by his . He was outside smoking a cigar when he started to have chest pain. On arrival to the emergency room, the patient was combative and disoriented. Brain CT showed no acute intracranial process. Patient is currently sitting up in bed, on room air, in no acute distress. SPO2 is 99%. He is pleasantly confused and alert. He is disoriented 3. I am told the patient has some baseline dementia. Patient currently denies any complaints. He believes he is at home. He denies having any chest pain. Urinalysis was taken which showed leukocytosis and many bacteria. Urinary tract infection may be exacerbating his delirium. Patient was started on Rocephin in the emergency room.. CBC on arrival showed a WBC count of 6, hemoglobin 11.4, hematocrit 34.6, platelets 263. BMP on arrival is unremarkable. Normal saline is infusing at 130 ML's per hour. His received a total of about 1-1/2 L normal saline bolus. Lactic acid level not elevated. Troponins 0.078 and 0.075 currently. EKG did not show any acute ischemic changes. NT proBNP elevated at 4130. Chest x-ray on arrival didn't show cardiomegaly, pulmonary vascular congestion, small bilateral pleural effusions. Patient appears clinically stable. On today's evaluation of 12/05/2022, the patient has stable. No chest pain. Still being treated with IV antibiotics for suspected urinary tract infection. He is on room air oxygen. He remains in atrial flutter with controlled rate. His echo cardiac exam shows a preserved LV function. The patient's the white cell count is at 5 with a hemoglobin of 10.7, BUN is at 12 with a creatinine of 0.7. Cultures are still pending including a negative blood culture. Hem odynamically stable. No altered mentation. Clinically stable. Objective - Vital Signs Vital signs: Vital Signs Temp 97.7 F 12/05/22 07:10 Pulse 77 12/05/22 07:10 Resp 18 12/05/22 07:10 BP 127/76 12/05/22 07:10 Pulse Ox 97 12/05/22 07:10 FiO2 Intake & Output 12/04/22 12/05/22 12/05/22 18:59 06:59 18:59 Intake Total 530 118 Output Total 500 Balance 30 118 Weight 60 kg Intake: Oral 530 118 Output: Urine 440 Post Void Residual 60 Other: Voiding Method Urinal Diaper Diaper Incontinent Incontinent # Voids 3 2 # Bowel Movements 1 1 - Exam GENERAL EXAM: Alert but pleasantly confused, 87-year-old white male, comfortable in no apparent distress. HEAD: Normocephalic and atraumatic EYES: Normal reaction of pupils, equal size. NOSE: Clear with pink turbinates. THROAT: No erythema or exudates. NECK: No masses, no JVD. CHEST: No chest wall deformity. LUNGS: Equal air entry with bibasilar inspiratory crackles. No wheeze, rhonchi or dullness. On room air. No conversational dyspnea or accessory muscle use.. CVS: S1 and S2 normal with harsh systolic murmur. regular rhythm. No other extra heart sounds ABDOMEN: No hepatosplenomegaly, active bowel sounds, no guarding or rigidity. SPINE: No scoliosis or deformity SKIN: No rashes CENTRAL NERVOUS SYSTEM: He is cooperative with examination. Disoriented 3. No focal deficits, tone is normal in all 4 extremities. EXTREMITIES: There is mild nonpitting bilateral lower extremity edema. No clubbing, or cyanosis. Peripheral pulses are intact. - Labs CBC & Chem 7: 12/05/22 08:15 12/05/22 08:15 Labs: Abnormal Lab Results - Last 24 Hours (Table) 12/05/22 12/05/22 Range/Units 08:15 08:15 RBC 3.39 L (4.30-5.90) m/uL Hgb 10.7 L (13.0-17.5) gm/dL Hct 31.7 L (39.0-53.0) % RDW 17.0 H (11.5-15.5) % Lymphocytes # 0.9 L (1.0-4.8) k/uL Sodium 135 L (137-145) mmol/L Calcium 8.3 L (8.4-10.2) mg/dL Microbiology - Last 24 Hours (Table) 12/03/22 18:24 Blood Culture Gram Stain - Preliminary Blood Blood Culture - Preliminary Coagulase Negative Staph 12/03/22 18:04 Blood Culture Gram Stain - Preliminary Blood Assessment and Plan Assessment: Suspected urinary tract infection Altered mental status, Brain CT was negative for any acute intracranial process. I am told the patient has some baseline dementia. No worsening in the mental status and the patient is alert and awake and communicating. Preserved LV function with an ejection fraction of 55%. Moderate degree of aortic valve calcification. No aortic regurgitation. Mild stenosis. Evidence of severe tricuspid regurgitation. Right ventricle systolic pressures estimated to be 45. Troponin leak, rule out non-ST elevation UT, nonspecific, likely secondary to underlying ALLERGIC infection and sepsis History of atrial fibrillation/A flutter, anticoagulated on Eliquis History of coronary artery disease, with previous coronary stents History of valvular heart disease, including moderate aortic stenosis and mild mitral regurgitation Benign essential hypertension Hyperlipidemia Obstructive sleep apnea, with home CPAP Hypothyroidism Plan: Continue IV Rocephin Awaiting cultures Housing Assistant Property Manager on the case regarding a flutter which is controlled and the patient is currently on anticoagulation with Eliquis 2.5 mg twice a day Clinically stable and hemodynamically stable. Medications are unchanged. We'll continue to follow.
[2022-12-05] MEDS: ATORVASTATIN 40 MG TAB PO SCH (20:55)
[2022-12-05] MEDS: LEVOTHYROXINE 50 MCG TAB PO SCH (20:55)
[2022-12-05] MEDS: FOLIC ACID 1 MG TAB PO SCH (20:55)
[2022-12-06] MEDS: MELATONIN 3 MG TABLET PO SCH ×2 (00:45→21:15)
--- NOTE | 2022-12-06 01:32 | PN ---
PROGRESS NOTE DATE OF SERVICE: 12/05/2022 SUBJECTIVE: This is an 87-year-old gentleman who was admitted with chest pain with possible unstable angina, also had a CHF acute exacerbation. A 2D echo showed moderate biatrial dilatation. No chest pain, no palpitations, no fever. OBJECTIVE: VITAL SIGNS: Pulse is 90, blood pressure 130/73, respirations 16. HEENT: Conjunctivae normal. NECK: No jugular venous distention. CARDIOVASCULAR: S1, S2. RESPIRATIONS: Diminished at the bases, few scattered rhonchi. ABDOMEN: Soft. LEGS: Normal. LABORATORY DATA: Reviewed. ASSESSMENT: 1. Chest pain, possible unstable angina. 2. Possible acute [id number]-elevation myocardial infarction with troponin 0.078. 3. Possible CHF acute exacerbation. 4. Possible acute UTI, present on admission. 5. Change in mental status, possible metabolic encephalopathy, acute. 6. History atrial fibrillation CAD. 7. History of CAD and stent. 8. Multiple medical issues. 9. No code, no CPR, no vent. RECOMMENDATIONS: Recommended to continue current management, continue symptomatic treatment, closely follow with Cardiology and pulmonology. Otherwise, continue to monitor. Followup labs. Prognosis guarded. Further recommendations to follow. MMODL / IJN: [id number] /
[2022-12-06] MEDS: SODIUM CHLORIDE 0.9% 1,000 ML IV SCH (06:10)
[2022-12-06] MEDS: PANTOPRAZOLE 40 MG TABLET PO SCH (06:10)
[2022-12-06 08:11] LABS: Anisocytosis Slight; Basophils % (A) 1 %; Eosinophils # (A) 0.1 k/uL (0-0.7); Eosinophils % (A) 2 %; HCT 33.1 % (39.0-53.0); Lymphocytes # (A) 0.9 k/uL (1.0-4.8); Lymphocytes % (A) 22 %; MCH 31.1 pg (25.0-35.0); MCHC 33.2 g/dL (31.0-37.0); MCV 93.7 fL (80.0-100.0); Mean Platelet Volume 7.9; Monocytes # (A) 0.4 k/uL (0-1.0); Monocytes % (A) 10 %; Neutrophils # (A) 2.6 k/uL (1.3-7.7); Neutrophils % (A) 64 %; Platelet Count 288 k/uL (150-450); RBC 3.53 m/uL (4.30-5.90); RDW 16.9 % (11.5-15.5); WBC 4.1 k/uL (3.8-10.6)
[2022-12-06] MEDS: CYANOCOBALAMIN 500 MCG TAB PO SCH (08:29)
[2022-12-06] MEDS: FAMOTIDINE 20 MG TAB PO SCH ×2 (08:29→21:16)
[2022-12-06] MEDS: RANOLAZINE 500 MG TAB.ER.12H PO SCH ×2 (08:29→21:16)
[2022-12-06] MEDS: APIXABAN 2.5 MG TABLET PO SCH ×2 (08:29→21:15)
[2022-12-06] MEDS: FUROSEMIDE 10 MG/ML 4 ML VIAL IV SCH (08:29)
[2022-12-06] MEDS: MULTIVITAMINS, THERA 1 EACH TAB PO SCH (08:29)
[2022-12-06] MEDS: THIAMINE 100 MG TAB PO SCH (08:29)
[2022-12-06 08:42] LABS: African American GFR (CKD) >90 (>60 ml/min/1.73 sqM); Anion Gap 7 mmol/L; Blood Urea Nitrogen 11 mg/dL (9-20); Calcium 8.6 mg/dL (8.4-10.2); Carbon Dioxide 31 mmol/L (22-30); Chloride 98 mmol/L (98-107); Glucose 87 mg/dL (74-99); Non-African American GFR(CKD) 80 (>60 ml/min/1.73 sqM); Potassium 3.6 mmol/L (3.5-5.1); Sodium 136 mmol/L (137-145)
--- NOTE | 2022-12-06 11:47 | P.PN ---
Subjective Progress Note Date: 12/06/22 HISTORY OF PRESENTING ILLNESS Patient is a pleasant 87-year-old male with history of CAD with prior PCI, A. fib/atrial flutter on anticoagulation, hypothyroidism, sleep apnea. Patient presented yesterday apparently secondary to altered mental status however there was additional concern of chest pain per EMR. Patient cannot recall why he came in and believes he came to visit his . He currently denies any chest pain or pressure. He was found to have white blood cell count of 6, urinalysis consistent with UTI and minimally elevated troponin 0.078, 0.075. ProBNP 4130. He denies any shortness breath on lying flat in bed. EKG shows atrial flutter with heart rate 80 bpm, right bundle branch block with no significant ST or T wave abnormalities. Echocardiogram performed which shows severe LVH, ejection fraction 55-60%, dilated left atrium, mild to moderate mitral regurgitation, mild aortic stenosis and moderate to severe tricuspid regurgitation. 12/06 Patient is seen today in follow-up. Heart rate has been in the 80s, blood pressure 112/66, pulse ox 96% on room air. Repeat blood work reveals WBC 4.1, hemoglobin 11, platelet count 288. Sodium 136, potassium 3.6, chloride 98, CO2 31, BUN 11 creatinine 0.79. Telemetry is atrial fibrillation rate controlled. Patient's mental status is at his baseline according to the family. Prior to this hospitalization, patient was not complaining of chest pain. He is mostly homebound and has not followed with Dr. Barboza a long time. PHYSICAL EXAMINATION Vital signs reviewed. CONSTITUTIONAL: No apparent distress, pleasantly confused. HEENT: Head is normocephalic. Pupils are equal, round. Sclerae anicteric. Mucous membranes of the mouth are moist. No JVD. No carotid bruit. CHEST EXAMINATION: Lungs are clear to auscultation. No chest wall tenderness is noted on palpation or with deep breathing. HEART EXAMINATION: Regular rate and rhythm. S1, S2 heard. No murmurs, gallops or rub. ABDOMEN: Soft, nontender. Positive bowel sounds. EXTREMITIES: 2+ peripheral pulses, no lower extremity edema and no calf tenderness. NEUROLOGIC EXAMINATION: Patient is awake, alert. ASSESSMENT 1. CAD with prior PCI 2. Non-STEMI likely related to urinary tract infection, does not appear consistent with acute coronary syndrome 3. Atrial flutter with controlled ventricular rates 4. Hypertension 5. Severe left ventricular hypertrophy 6. Altered mental status appears related to urinary tract infection 7. Poly-valvular disease: Mild aortic stenosis, mild to moderate mitral regurgitation, moderate to severe tricuspid regurgitation PLAN Echocardiogram showing preserved EF and mildly elevated troponin likely related to urinary tract infection and is not appear consistent with acute coronary syndrome. Continue with anticoagulation as well as Ranexa. Ideally beta enzo however he has been off of this and may have some component of bradycardia in the past. Cardiology will sign off this case and follow on an as-needed basis. Please reconsult for any new concerns. Patient may follow-up with Dr. Barboza on an as- needed basis due to his homebound status. Nurse practitioner note has been reviewed, I agree with the documented findings and plan of care. Patient was seen and examined. Objective - Vital Signs Vital signs: Vital Signs Temp 97.5 F L 12/06/22 08:00 Pulse 85 12/06/22 08:00 Resp 16 12/06/22 08:00 BP 112/66 12/06/22 08:00 Pulse Ox 96 12/06/22 08:00 FiO2 Intake & Output 12/05/22 12/06/22 12/06/22 18:59 06:59 18:59 Intake Total 236 118 128 Output Total 300 Balance -64 118 128 Weight 76 kg Intake: IV 10 Invasive Line 1 10 Oral 236 118 118 Output: Urine 300 Other: Voiding Method Diaper Diaper Diaper Incontinent Incontinent Incontinent # Voids 2 4 # Bowel Movements 1 - Labs CBC & Chem 7: 12/06/22 07:13 12/06/22 07:13 Labs: Abnormal Lab Results - Last 24 Hours (Table) 12/06/22 12/06/22 Range/Units 07:13 07:13 RBC 3.53 L (4.30-5.90) m/uL Hgb 11.0 L (13.0-17.5) gm/dL Hct 33.1 L (39.0-53.0) % RDW 16.9 H (11.5-15.5) % Lymphocytes # 0.9 L (1.0-4.8) k/uL Sodium 136 L (137-145) mmol/L Carbon Dioxide 31 H (22-30) mmol/L Microbiology - Last 24 Hours (Table) 12/03/22 18:24 Blood Culture Gram Stain - Preliminary Blood Blood Culture - Preliminary Coagulase Negative Staph 12/03/22 17:54 Urine Culture - Preliminary Urine,Catheterized Gram Neg Bacilli 12/03/22 18:04 Blood Culture Gram Stain - Preliminary Blood
--- NOTE | 2022-12-06 14:36 | P.PN ---
Subjective Progress Note Date: 12/06/22 I am seeing this patient in consultation today 12/04/2022 after the patient presented to emergency room yesterday afternoon confused. Patient is a 87-year-old male with past medical history significant for coronary artery disease with multiple previous coronary stents, hypertension, hyperlipidemia, congestive heart failure, A. fib/aflutter anticoagulated on Eliquis, hypothyroidism, obstructive sleep apnea with home CPAP. Patient follows with Dr. Garsia as his primary care provider. Patient is currently confused and a poor historian. Patient presented to the emergency room yesterday afternoon acc ompanied by his . He was outside smoking a cigar when he started to have chest pain. On arrival to the emergency room, the patient was combative and disoriented. Brain CT showed no acute intracranial process. Patient is currently sitting up in bed, on room air, in no acute distress. SPO2 is 99%. He is pleasantly confused and alert. He is disoriented 3. I am told the patient has some baseline dementia. Patient currently denies any complaints. He believes he is at home. He denies having any chest pain. Urinalysis was taken which showed leukocytosis and many bacteria. Urinary tract infection may be exacerbating his delirium. Patient was started on Rocephin in the emergency room.. CBC on arrival showed a WBC count of 6, hemoglobin 11.4, hematocrit 34.6, platelets 263. BMP on arrival is unremarkable. Normal saline is infusing at 130 ML's per hour. His received a total of about 1-1/2 L normal saline bolus. Lactic acid level not elevated. Troponins 0.078 and 0.075 currently. EKG did not show any acute ischemic changes. NT proBNP elevated at 4130. Chest x-ray on arrival didn't show cardiomegaly, pulmonary vascular congestion, small bilateral pleural effusions. Patient appears clinically stable. On today's evaluation of 12/05/2022, the patient has stable. No chest pain. Still being treated with IV antibiotics for suspected urinary tract infection. He is on room air oxygen. He remains in atrial flutter with controlled rate. His echo cardiac exam shows a preserved LV function. The patient's the white cell count is at 5 with a hemoglobin of 10.7, BUN is at 12 with a creatinine of 0.7. Cultures are still pending including a negative blood culture. Hem odynamically stable. No altered mentation. Clinically stable. On 12/06/2022, the patient is pleasantly confused. Doing well. Hemodynamically stable. Afebrile. He remains on IV Rocephin. He remains active fibrillation with a controlled rate. History of any chest pain. His white cell count of 4.1 with a hemoglobin of 11 and a platelet count of 288. BUN is 11 with a creatinine of 0.7. No other complaints. Resting comfortably in bed. His mental status was altered secondary to underlying are checked infection. However, he has chronic confusion and cognitive impairment and dementia. Echocardiogram showed mild aortic stenosis, [id number] mitral regurgitation and moderate to severe tricuspid regurgitation. The patient has a preserved LV function with an ejection fraction of 55-60%. Global LV function was within normal limits. Objective - Vital Signs Vital signs: Vital Signs Temp 97.5 F L 12/06/22 08:00 Pulse 85 12/06/22 08:00 Resp 16 12/06/22 08:00 BP 112/66 12/06/22 08:00 Pulse Ox 96 12/06/22 08:00 FiO2 Intake & Output 12/05/22 12/06/22 12/06/22 18:59 06:59 18:59 Intake Total 236 118 128 Output Total 300 Balance -64 118 128 Weight 76 kg Intake: IV 10 Invasive Line 1 10 Oral 236 118 118 Output: Urine 300 Other: Voiding Method Diaper Diaper Diaper Incontinent Incontinent Incontinent # Voids 2 4 # Bowel Movements 1 - Exam GENERAL EXAM: Alert but pleasantly confused, 87-year-old white male, comfortable in no apparent distress. HEAD: Normocephalic and atraumatic EYES: Normal reaction of pupils, equal size. NOSE: Clear with pink turbinates. THROAT: No erythema or exudates. NECK: No masses, no JVD. CHEST: No chest wall deformity. LUNGS: Equal air entry with bibasilar inspiratory crackles. No wheeze, rhonchi or dullness. On room air. No conversational dyspnea or accessory muscle use.. CVS: S1 and S2 normal with harsh systolic murmur. regular rhythm. No other extra heart sounds ABDOMEN: No hepatosplenomegaly, active bowel sounds, no guarding or rigidity. SPINE: No scoliosis or deformity SKIN: No rashes CENTRAL NERVOUS SYSTEM: He is cooperative with examination. Disoriented 3. No focal deficits, tone is normal in all 4 extremities. EXTREMITIES: There is mild nonpitting bilateral lower extremity edema. No clubbing, or cyanosis. Peripheral pulses are intact. - Labs CBC & Chem 7: 12/06/22 07:13 12/06/22 07:13 Labs: Abnormal Lab Results - Last 24 Hours (Table) 12/06/22 12/06/22 Range/Units 07:13 07:13 RBC 3.53 L (4.30-5.90) m/uL Hgb 11.0 L (13.0-17.5) gm/dL Hct 33.1 L (39.0-53.0) % RDW 16.9 H (11.5-15.5) % Lymphocytes # 0.9 L (1.0-4.8) k/uL Sodium 136 L (137-145) mmol/L Carbon Dioxide 31 H (22-30) mmol/L Microbiology - Last 24 Hours (Table) 12/03/22 18:24 Blood Culture Gram Stain - Preliminary Blood Blood Culture - Preliminary Coagulase Negative Staph 12/03/22 17:54 Urine Culture - Preliminary Urine,Catheterized Gram Neg Bacilli 12/03/22 18:04 Blood Culture Gram Stain - Preliminary Blood Assessment and Plan Assessment: E. coli UTI and the patient is currently on IV Rocephin Altered mental status, Brain CT was negative for any acute intracranial process. I am told the patient has some baseline dementia. No worsening in the mental status and the patient is alert and awake and communicating. Preserved LV function with an ejection fraction of 55%. Moderate degree of aortic valve calcification. No aortic regurgitation. Mild stenosis. Evidence of severe tricuspid regurgitation. Right ventricle systolic pressures estimated to be 45. Troponin leak, rule out non-ST elevation [place], nonspecific, likely secondary to underlying ALLERGIC infection and sepsis History of atrial fibrillation/A flutter, anticoagulated on Eliquis History of coronary artery disease, with previous coronary stents History of valvular heart disease, including moderate aortic stenosis and mild mitral regurgitation Benign essential hypertension Hyperlipidemia Obstructive sleep apnea, with home CPAP Hypothyroidism Plan: Continue IV Rocephin Urine cultures indicating E. coli Echocardiogram was noted and the patient has a preserved LV function Procurement Specialist on the case regarding a flutter which is controlled and the patient is currently on anticoagulation with Eliquis 2.5 mg twice a day Clinically stable and hemodynamically stable. IV Lasix with cardiology Medications are unchanged. We'll continue to follow.
--- NOTE | 2022-12-06 15:29 | CDI ---
Documentation Clarification Form Date: From: Lucita Mclaughlin Phone: [phone] Admit Date: 12/03/2022 06:21:00 PM Patient Name: Rodolfo Mccarty Visit Number: [id number] Discharge Date: ATTENTION: The Clinical Documentation Specialists (CDI) and [facility] Coding Staff appreciate your assistance in clarifying documentation. Please respond to the clarification below the line at the bottom and electronically sign. The CDI & [facility] Coding staff will review the response and follow-up if needed. Please note: Queries are made part of the Legal Health Record. If you have any questions, please contact the author of this message via ITS. Dr. Marycarmen Gusman There is documentation of "Non-STEMI " - Per Cardiology Note on 12/05. Additional clarification is requested. History/Risk Factors: "87-year-old man brought in by EMS to have evaluation after he had told his he was having chest pains." - Per ED Note on 12/03 Clinical Indicators: "Non-STEMI likely related to urinary tract infection, does not appear consistent with acute coronary syndrome" "He denies any shortness breath on lying flat in bed. EKG shows atrial flutter with heart rate 80 bpm, right bundle branch block with no significant ST or T wave abnormalities" - Per Cardiology Note on 12/05 Trop: 12/03 - 0.078, 12/04 - 0.075 Treatment: Per Cardiology Note on 12/05 "Continue with anticoagulation as well as Ranexa. Ideally beta enzo however he has been off of this and may have some component of bradycardia in the past." Can you please clarify. [ x ] Type 2 AK due to UTI / Sepsis [ ] Other, please specify [ ] Unable to determine MTDD
--- NOTE | 2022-12-06 18:45 | P.PN ---
Subjective This is a pleasant 87 years old male with past medical history of multiple medical problems, who presents because of confusion which is multifactorial thought secondary to acute urinary tract infection with urine culture is growing E. coli, ceftriaxone and also IV Lasix twice daily for CHF exacerbation. His elevated troponin are consistent with his infection and other medical problems rather than acute coronary syndrome. His A. fib is controlled on liquids 2.5 mg. His beta enzo was off as he was bradycardic before. We will switch his IV Lasix and oral dose 40 mg twice daily As per bedside nurse patient is back to baseline when she talked to the family. Patient denies any specific complaint and he looks confused. Pleasant. He is hemodynamically stable. Labs reviewed. Patient is medically stable for discharge once cleared by consultants. Cardiology team signed off. I discussed the case with rn case manager hospice when pending catheterization for him to go to subacute rehab. Objective - Vital Signs Vital signs: Vital Signs Temp 97.4 F L 12/06/22 15:43 Pulse 78 12/06/22 15:43 Resp 14 12/06/22 15:43 BP 116/71 12/06/22 15:43 Pulse Ox 99 12/06/22 15:43 FiO2 Intake & Output 12/05/22 12/06/22 12/06/22 18:59 06:59 18:59 Intake Total 236 118 256 Output Total 300 Balance -64 118 256 Weight 76 kg Intake: IV 20 Invasive Line 1 20 Oral 236 118 236 Output: Urine 300 Other: Voiding Method Diaper Diaper Diaper Incontinent Incontinent Incontinent # Voids 2 4 1 # Bowel Movements 1 - Exam -GENERAL: The patient is alert and oriented , confused not in any acute distress. Well developed, well nourished. HEENT: Pupils are round and equally reacting to light. EOMI. No scleral icterus. No conjunctival pallor. Normocephalic, atraumatic. No pharyngeal erythema. No thyromegaly. CARDIOVASCULAR: S1 and S2 present. No murmurs, rubs, or gallops. PULMONARY: Chest is clear to auscultation, no wheezing , no crackles. ABDOMEN: Soft, nontender, nondistended, normoactive bowel sounds. No palpable organomegaly. MUSCULOSKELETAL: No joint swelling or deformity. EXTREMITIES: No cyanosis, clubbing, or pedal edema. NEUROLOGICAL: Gross neurological examination did not reveal any focal deficits. SKIN: No rashes. no petechiae. - Labs CBC & Chem 7: 12/06/22 07:13 12/06/22 07:13 Labs: Abnormal Lab Results - Last 24 Hours (Table) 12/06/22 12/06/22 Range/Units 07:13 07:13 RBC 3.53 L (4.30-5.90) m/uL Hgb 11.0 L (13.0-17.5) gm/dL Hct 33.1 L (39.0-53.0) % RDW 16.9 H (11.5-15.5) % Lymphocytes # 0.9 L (1.0-4.8) k/uL Sodium 136 L (137-145) mmol/L Carbon Dioxide 31 H (22-30) mmol/L Microbiology - Last 24 Hours (Table) 12/03/22 17:54 Urine Culture - Final Urine,Catheterized Escherichia coli 12/03/22 18:24 Blood Culture Gram Stain - Preliminary Blood Blood Culture - Preliminary Coagulase Negative Staph Assessment and Plan Assessment: Acute urinary tract infection secondary to sensitive E. coli Metabolic/toxic encephalopathy Acute CHF exacerbation Elevated troponin secondary to above. Acute coronary syndrome ruled out Paroxysmal atrial fibrillation on eliquis Red aortic stenosis Obstructive sleep apnea on CPAP Plan: Continue with ceftriaxone Antibiotics status patient to oral Ceftin for short oral course upon discharge Switch IV Lasix and oral dose Cartilage team signed off Pulmonary input is appreciated Continue with Eliquis 2.5 mg Labs and medication were reviewed.. Continue same treatment. Continue with symptomatic treatment. Resume home medication. Monitor labs and vitals. DVT and GI prophylaxis. Further recommendations as per clinical course of the patient DVT prophylaxis: Eliquis GI Prophylaxis: Pepcid PT/OT: naomi Prognosis is guarded
[2022-12-06] MEDS: LEVOTHYROXINE 50 MCG TAB PO SCH (21:15)
[2022-12-06] MEDS: ATORVASTATIN 40 MG TAB PO SCH (21:15)
[2022-12-06] MEDS: FOLIC ACID 1 MG TAB PO SCH (21:15)
[2022-12-07] MEDS: SODIUM CHLORIDE 0.9% 1,000 ML IV SCH (02:31)
[2022-12-07] MEDS: PANTOPRAZOLE 40 MG TABLET PO SCH (06:20)
[2022-12-07] MEDS: FAMOTIDINE 20 MG TAB PO SCH ×2 (08:18→19:38)
[2022-12-07] MEDS: FUROSEMIDE 40 MG TAB PO SCH ×2 (08:18→16:35)
[2022-12-07] MEDS: MULTIVITAMINS, THERA 1 EACH TAB PO SCH (08:18)
[2022-12-07] MEDS: RANOLAZINE 500 MG TAB.ER.12H PO SCH ×2 (08:18→19:38)
[2022-12-07] MEDS: THIAMINE 100 MG TAB PO SCH (08:18)
[2022-12-07] MEDS: APIXABAN 2.5 MG TABLET PO SCH ×2 (08:18→19:38)
[2022-12-07] MEDS: CYANOCOBALAMIN 500 MCG TAB PO SCH (08:18)
--- NOTE | 2022-12-07 10:20 | P.PN ---
Subjective This is a pleasant 87 years old male with past medical history of multiple medical problems, who presents because of confusion which is multifactorial thought secondary to acute urinary tract infection with urine culture is growing E. coli, ceftriaxone and also IV Lasix twice daily for CHF exacerbation. His elevated troponin are consistent with his infection and other medical problems rather than acute coronary syndrome. His A. fib is controlled on liquids 2.5 mg. His beta enzo was off as he was bradycardic before. We will switch his IV Lasix and oral dose 40 mg twice daily As per bedside nurse patient is back to baseline when she talked to the family. Patient denies any specific complaint and he looks confused. Pleasant. He is hemodynamically stable. Labs reviewed. Patient is medically stable for discharge once cleared by consultants. Cardiology team signed off. I discussed the case with family service caseworker when pending authorization for him to go to subacute rehab. 12/07/2022 Patient is more awake and alert today, he knows in a [facility]. He still mildly confused with looks at his baseline. He says that his dysuria he had on admission has resolved. Any other urinary symptoms. His story remains on Rocephin for his urinary tract infection He has positive blood culture with staph epidermidis most likely contamination. Objective - Vital Signs Vital signs: Vital Signs Temp 97.1 F L 12/07/22 08:18 Pulse 74 12/07/22 08:18 Resp 16 12/07/22 08:18 BP 105/57 12/07/22 08:18 Pulse Ox 97 12/07/22 08:18 FiO2 Intake & Output 12/06/22 12/07/22 12/07/22 18:59 06:59 18:59 Intake Total 256 20 128 Balance 256 20 128 Weight 77 kg Intake: IV 20 20 10 Invasive Line 1 20 20 10 Oral 236 118 Other: Voiding Method Diaper Diaper Diaper Incontinent Incontinent Incontinent # Voids 1 2 - Exam -GENERAL: The patient is alert and oriented , confused not in any acute distress. Well developed, well nourished. HEENT: Pupils are round and equally reacting to light. EOMI. No scleral icterus. No conjunctival pallor. Normocephalic, atraumatic. No pharyngeal erythema. No thyromegaly. CARDIOVASCULAR: S1 and S2 present. No murmurs, rubs, or gallops. PULMONARY: Chest is clear to auscultation, no wheezing , no crackles. ABDOMEN: Soft, nontender, nondistended, normoactive bowel sounds. No palpable organomegaly. MUSCULOSKELETAL: No joint swelling or deformity. EXTREMITIES: No cyanosis, clubbing, or pedal edema. NEUROLOGICAL: Gross neurological examination did not reveal any focal deficits. SKIN: No rashes. no petechiae. - Labs CBC & Chem 7: 12/06/22 07:13 12/06/22 07:13 Labs: Microbiology - Last 24 Hours (Table) 12/03/22 17:54 Urine Culture - Final Urine,Catheterized Escherichia coli Assessment and Plan Assessment: Acute urinary tract infection secondary to sensitive E. coli Metabolic/toxic encephalopathy Acute CHF exacerbation Elevated troponin secondary to above. Acute coronary syndrome ruled out Paroxysmal atrial fibrillation on eliquis Red aortic stenosis Obstructive sleep apnea on CPAP Plan: Continue with ceftriaxone Antibiotics status patient to oral Ceftin for short oral course upon discharge Switch IV Lasix to oral dose Cardiology team signed off Pulmonary input is appreciated Continue with Eliquis 2.5 mg Labs and medication were reviewed.. Continue same treatment. Continue with symptomatic treatment. Resume home medication. Monitor labs and vitals. DVT and GI prophylaxis. Further recommendations as per clinical course of the patient DVT prophylaxis: Eliquis GI Prophylaxis: Pepcid PT/OT: naomi Prognosis is guarded
--- NOTE | 2022-12-07 11:29 | P.PN ---
Subjective Progress Note Date: 12/07/22 I am seeing this patient in consultation today 12/04/2022 after the patient presented to emergency room yesterday afternoon confused. Patient is a 87-year-old male with past medical history significant for coronary artery disease with multiple previous coronary stents, hypertension, hyperlipidemia, congestive heart failure, A. fib/aflutter anticoagulated on Eliquis, hypothyroidism, obstructive sleep apnea with home CPAP. Patient follows with Dr. Garsia as his primary care provider. Patient is currently confused and a poor historian. Patient presented to the emergency room yesterday afternoon acc ompanied by his . He was outside smoking a cigar when he started to have chest pain. On arrival to the emergency room, the patient was combative and disoriented. Brain CT showed no acute intracranial process. Patient is currently sitting up in bed, on room air, in no acute distress. SPO2 is 99%. He is pleasantly confused and alert. He is disoriented 3. I am told the patient has some baseline dementia. Patient currently denies any complaints. He believes he is at home. He denies having any chest pain. Urinalysis was taken which showed leukocytosis and many bacteria. Urinary tract infection may be exacerbating his delirium. Patient was started on Rocephin in the emergency room.. CBC on arrival showed a WBC count of 6, hemoglobin 11.4, hematocrit 34.6, platelets 263. BMP on arrival is unremarkable. Normal saline is infusing at 130 ML's per hour. His received a total of about 1-1/2 L normal saline bolus. Lactic acid level not elevated. Troponins 0.078 and 0.075 currently. EKG did not show any acute ischemic changes. NT proBNP elevated at 4130. Chest x-ray on arrival didn't show cardiomegaly, pulmonary vascular congestion, small bilateral pleural effusions. Patient appears clinically stable. On today's evaluation of 12/05/2022, the patient has stable. No chest pain. Still being treated with IV antibiotics for suspected urinary tract infection. He is on room air oxygen. He remains in atrial flutter with controlled rate. His echo cardiac exam shows a preserved LV function. The patient's the white cell count is at 5 with a hemoglobin of 10.7, BUN is at 12 with a creatinine of 0.7. Cultures are still pending including a negative blood culture. Hem odynamically stable. No altered mentation. Clinically stable. On 12/06/2022, the patient is pleasantly confused. Doing well. Hemodynamically stable. Afebrile. He remains on IV Rocephin. He remains active fibrillation with a controlled rate. History of any chest pain. His white cell count of 4.1 with a hemoglobin of 11 and a platelet count of 288. BUN is 11 with a creatinine of 0.7. No other complaints. Resting comfortably in bed. His mental status was altered secondary to underlying are checked infection. However, he has chronic confusion and cognitive impairment and dementia. Echocardiogram showed mild aortic stenosis, [id number] mitral regurgitation and moderate to severe tricuspid regurgitation. The patient has a preserved LV function with an ejection fraction of 55-60%. Global LV function was within normal limits. 12/07/2022, no new complaints. No confusion or agitation. Remains on IV Rocephin. No respiratory difficulties. Remains on anticoagulation with Eliquis. No change in the medication. The white cell count of 4.1 from yesterday. BUN is 11 with a creatinine of 0.7. No new labs are available from today. Objective - Vital Signs Vital signs: Vital Signs Temp 97.1 F L 12/07/22 08:18 Pulse 74 12/07/22 08:18 Resp 16 12/07/22 08:18 BP 105/57 12/07/22 08:18 Pulse Ox 97 12/07/22 08:18 FiO2 Intake & Output 12/06/22 12/07/22 12/07/22 18:59 06:59 18:59 Intake Total 256 20 128 Balance 256 20 128 Weight 77 kg Intake: IV 20 20 10 Invasive Line 1 20 20 10 Oral 236 118 Other: Voiding Method Diaper Diaper Diaper Incontinent Incontinent Incontinent # Voids 1 2 - Exam GENERAL EXAM: Alert but pleasantly confused, 87-year-old white male, comfortable in no apparent distress. HEAD: Normocephalic and atraumatic EYES: Normal reaction of pupils, equal size. NOSE: Clear with pink turbinates. THROAT: No erythema or exudates. NECK: No masses, no JVD. CHEST: No chest wall deformity. LUNGS: Equal air entry with bibasilar inspiratory crackles. No wheeze, rhonchi or dullness. On room air. No conversational dyspnea or accessory muscle use.. CVS: S1 and S2 normal with harsh systolic murmur. regular rhythm. No other extra heart sounds ABDOMEN: No hepatosplenomegaly, active bowel sounds, no guarding or rigidity. SPINE: No scoliosis or deformity SKIN: No rashes CENTRAL NERVOUS SYSTEM: He is cooperative with examination. Disoriented 3. No focal deficits, tone is normal in all 4 extremities. EXTREMITIES: There is mild nonpitting bilateral lower extremity edema. No clubbing, or cyanosis. Peripheral pulses are intact. - Labs CBC & Chem 7: 12/06/22 07:13 12/06/22 07:13 Labs: Microbiology - Last 24 Hours (Table) 12/03/22 17:54 Urine Culture - Final Urine,Catheterized Escherichia coli Assessment and Plan Assessment: E. coli UTI and the patient is currently on IV Rocephin Altered mental status, Brain CT was negative for any acute intracranial process. I am told the patient has some baseline dementia. No worsening in the mental s tatus and the patient is alert and awake and communicating. Preserved LV function with an ejection fraction of 55%. Moderate degree of aortic valve calcification. No aortic regurgitation. Mild stenosis. Evidence of severe tricuspid regurgitation. Right ventricle systolic pressures estimated to be 45. Troponin leak, rule out non-ST elevation CT, nonspecific, likely secondary to underlying ALLERGIC infection and sepsis History of atrial fibrillation/A flutter, anticoagulated on Eliquis History of coronary artery disease, with previous coronary stents History of valvular heart disease, including moderate aortic stenosis and mild mitral regurgitation Benign essential hypertension Hyperlipidemia Obstructive sleep apnea, with home CPAP Hypothyroidism Plan: Overall condition stable and the patient remains on room air oxygen Continue IV Rocephin Urine cultures indicating E. coli Echocardiogram was noted and the patient has a preserved LV function Sole Stainer on the case regarding a flutter which is controlled and the patient is currently on anticoagulation with Eliquis 2.5 mg twice a day Clinically stable and hemodynamically stable. IV oral Lasix 40 mg every twice a day Medications are unchanged. We'll continue to follow. Discharge planning is in progress
[2022-12-07] MEDS: MELATONIN 3 MG TABLET PO SCH (19:38)
[2022-12-07] MEDS: FOLIC ACID 1 MG TAB PO SCH (19:38)
[2022-12-07] MEDS: LEVOTHYROXINE 50 MCG TAB PO SCH (19:38)
[2022-12-07] MEDS: ATORVASTATIN 40 MG TAB PO SCH (19:38)
[2022-12-08] MEDS: PANTOPRAZOLE 40 MG TABLET PO SCH (06:16)
[2022-12-08] MEDS: SODIUM CHLORIDE 0.9% 1,000 ML IV SCH (06:16)
[2022-12-08] MEDS: APIXABAN 2.5 MG TABLET PO SCH ×2 (08:21→19:31)
[2022-12-08] MEDS: FAMOTIDINE 20 MG TAB PO SCH ×2 (08:21→19:31)
[2022-12-08] MEDS: THIAMINE 100 MG TAB PO SCH (08:21)
[2022-12-08] MEDS: FUROSEMIDE 40 MG TAB PO SCH ×2 (08:21→16:07)
[2022-12-08] MEDS: CYANOCOBALAMIN 500 MCG TAB PO SCH (08:21)
[2022-12-08] MEDS: MULTIVITAMINS, THERA 1 EACH TAB PO SCH (08:21)
[2022-12-08] MEDS: RANOLAZINE 500 MG TAB.ER.12H PO SCH ×2 (08:21→19:31)
--- NOTE | 2022-12-08 09:40 | P.PN ---
Subjective This is a pleasant 87 years old male with past medical history of multiple medical problems, who presents because of confusion which is multifactorial thought secondary to acute urinary tract infection with urine culture is growing E. coli, ceftriaxone and also IV Lasix twice daily for CHF exacerbation. His elevated troponin are consistent with his infection and other medical problems rather than acute coronary syndrome. His A. fib is controlled on liquids 2.5 mg. His beta enzo was off as he was bradycardic before. We will switch his IV Lasix and oral dose 40 mg twice daily As per bedside nurse patient is back to baseline when she talked to the family. Patient denies any specific complaint and he looks confused. Pleasant. He is hemodynamically stable. Labs reviewed. Patient is medically stable for discharge once cleared by consultants. Cardiology team signed off. I discussed the case with case management director when pending authorization for him to go to subacute rehab. 12/07/2022 Patient is more awake and alert today, he knows in a [facility]. He still mildly confused with looks at his baseline. He says that his dysuria he had on admission has resolved. Any other urinary symptoms. His story remains on Rocephin for his urinary tract infection He has positive blood culture with staph epidermidis most likely contamination. 12/08/2022 Patient has 2 blood cultures with staph epidermidis most likely contamination. Blood culture is ordered yesterday. Patient indication is at baseline. No specific complaint. He is hemodynamically stable Situation oral dose 4 mg twice daily Next subacute rehab upon discharge Objective - Vital Signs Vital signs: Vital Signs Temp 98.1 F 12/08/22 08:20 Pulse 86 12/08/22 08:20 Resp 18 12/08/22 08:20 BP 116/58 12/08/22 08:20 Pulse Ox 98 12/08/22 08:20 FiO2 Intake & Output 12/07/22 12/08/22 12/08/22 18:59 06:59 18:59 Intake Total 496 Balance 496 Intake: IV 20 Invasive Line 1 20 Oral 476 Other: Voiding Method Diaper Diaper Diaper Incontinent Incontinent Incontinent # Voids 1 2 - Exam -GENERAL: The patient is alert and oriented , confused not in any acute distress. Well developed, well nourished. HEENT: Pupils are round and equally reacting to light. EOMI. No scleral icterus. No conjunctival pallor. Normocephalic, atraumatic. No pharyngeal erythema. No thyromegaly. CARDIOVASCULAR: S1 and S2 present. No murmurs, rubs, or gallops. PULMONARY: Chest is clear to auscultation, no wheezing , no crackles. ABDOMEN: Soft, nontender, nondistended, normoactive bowel sounds. No palpable organomegaly. MUSCULOSKELETAL: No joint swelling or deformity. EXTREMITIES: No cyanosis, clubbing, or pedal edema. NEUROLOGICAL: Gross neurological examination did not reveal any focal deficits. SKIN: No rashes. no petechiae. - Labs CBC & Chem 7: 12/06/22 07:13 12/06/22 07:13 Labs: Microbiology - Last 24 Hours (Table) 12/03/22 18:04 Blood Culture Gram Stain - Preliminary Blood Blood Culture - Preliminary Coagulase Negative Staph Assessment and Plan Assessment: Acute urinary tract infection secondary to sensitive E. coli positive blood culture with staph epidermidis Metabolic/toxic encephalopathy, improved Acute CHF exacerbation, improved Elevated troponin secondary to above. Acute coronary syndrome ruled out Paroxysmal atrial fibrillation on eliquis Red aortic stenosis Obstructive sleep apnea on CPAP Plan: Continue with ceftriaxone Antibiotics status patient to oral Ceftin for short oral course upon discharge Follow-up repeat blood culture Switch IV Lasix to oral dose Cardiology team signed off Pulmonary input is appreciated Continue with Eliquis 2.5 mg Labs and medication were reviewed.. Continue same treatment. Continue with symptomatic treatment. Resume home medication. Monitor labs and vitals. DVT and GI prophylaxis. Further recommendations as per clinical course of the patient DVT prophylaxis: Eliquis GI Prophylaxis: Pepcid PT/OT: naomi Prognosis is guarded
--- NOTE | 2022-12-08 11:58 | P.PN ---
Subjective Progress Note Date: 12/08/22 I am seeing this patient in consultation today 12/04/2022 after the patient presented to emergency room yesterday afternoon confused. Patient is a 87-year-old male with past medical history significant for coronary artery disease with multiple previous coronary stents, hypertension, hyperlipidemia, congestive heart failure, A. fib/aflutter anticoagulated on Eliquis, hypothyroidism, obstructive sleep apnea with home CPAP. Patient follows with Dr. Garsia as his primary care provider. Patient is currently confused and a poor historian. Patient presented to the emergency room yesterday afternoon acc ompanied by his . He was outside smoking a cigar when he started to have chest pain. On arrival to the emergency room, the patient was combative and disoriented. Brain CT showed no acute intracranial process. Patient is currently sitting up in bed, on room air, in no acute distress. SPO2 is 99%. He is pleasantly confused and alert. He is disoriented 3. I am told the patient has some baseline dementia. Patient currently denies any complaints. He believes he is at home. He denies having any chest pain. Urinalysis was taken which showed leukocytosis and many bacteria. Urinary tract infection may be exacerbating his delirium. Patient was started on Rocephin in the emergency room.. CBC on arrival showed a WBC count of 6, hemoglobin 11.4, hematocrit 34.6, platelets 263. BMP on arrival is unremarkable. Normal saline is infusing at 130 ML's per hour. His received a total of about 1-1/2 L normal saline bolus. Lactic acid level not elevated. Troponins 0.078 and 0.075 currently. EKG did not show any acute ischemic changes. NT proBNP elevated at 4130. Chest x-ray on arrival didn't show cardiomegaly, pulmonary vascular congestion, small bilateral pleural effusions. Patient appears clinically stable. On today's evaluation of 12/05/2022, the patient has stable. No chest pain. Still being treated with IV antibiotics for suspected urinary tract infection. He is on room air oxygen. He remains in atrial flutter with controlled rate. His echo cardiac exam shows a preserved LV function. The patient's the white cell count is at 5 with a hemoglobin of 10.7, BUN is at 12 with a creatinine of 0.7. Cultures are still pending including a negative blood culture. Hem odynamically stable. No altered mentation. Clinically stable. On 12/06/2022, the patient is pleasantly confused. Doing well. Hemodynamically stable. Afebrile. He remains on IV Rocephin. He remains active fibrillation with a controlled rate. History of any chest pain. His white cell count of 4.1 with a hemoglobin of 11 and a platelet count of 288. BUN is 11 with a creatinine of 0.7. No other complaints. Resting comfortably in bed. His mental status was altered secondary to underlying are checked infection. However, he has chronic confusion and cognitive impairment and dementia. Echocardiogram showed mild aortic stenosis, [id number] mitral regurgitation and moderate to severe tricuspid regurgitation. The patient has a preserved LV function with an ejection fraction of 55-60%. Global LV function was within normal limits. 12/07/2022, no new complaints. No confusion or agitation. Remains on IV Rocephin. No respiratory difficulties. Remains on anticoagulation with Eliquis. No change in the medication. The white cell count of 4.1 from yesterday. BUN is 11 with a creatinine of 0.7. No new labs are available from today. 12/08/2022, condition is stable. Continues to have some confusion. No respiratory difficulties. Continues to be on IV Rocephin. Rest of the medications remain unchanged. Remains on room air oxygen. No new labs are available from today. Objective - Vital Signs Vital signs: Vital Signs Temp 98.1 F 12/08/22 08:20 Pulse 86 12/08/22 08:20 Resp 18 12/08/22 08:20 BP 116/58 12/08/22 08:20 Pulse Ox 98 12/08/22 08:20 FiO2 Intake & Output 12/07/22 12/08/22 12/08/22 18:59 06:59 18:59 Intake Total 496 Balance 496 Intake: IV 20 Invasive Line 1 20 Oral 476 Other: Voiding Method Diaper Diaper Diaper Incontinent Incontinent Incontinent # Voids 1 2 - Exam GENERAL EXAM: Alert but pleasantly confused, 87-year-old white male, comfortable in no apparent distress. HEAD: Normocephalic and atraumatic EYES: Normal reaction of pupils, equal size. NOSE: Clear with pink turbinates. THROAT: No erythema or exudates. NECK: No masses, no JVD. CHEST: No chest wall deformity. LUNGS: Equal air entry with bibasilar inspiratory crackles. No wheeze, rhonchi or dullness. On room air. No conversational dyspnea or accessory muscle use.. CVS: S1 and S2 normal with harsh systolic murmur. regular rhythm. No other extra heart sounds ABDOMEN: No hepatosplenomegaly, active bowel sounds, no guarding or rigidity. SPINE: No scoliosis or deformity SKIN: No rashes CENTRAL NERVOUS SYSTEM: He is cooperative with examination. Disoriented 3. No focal deficits, tone is normal in all 4 extremities. EXTREMITIES: There is mild nonpitting bilateral lower extremity edema. No clubbing, or cyanosis. Peripheral pulses are intact. - Labs CBC & Chem 7: 12/06/22 07:13 12/06/22 07:13 Labs: Microbiology - Last 24 Hours (Table) 12/03/22 18:04 Blood Culture Gram Stain - Preliminary Blood Blood Culture - Preliminary Coagulase Negative Staph Assessment and Plan Assessment: E. coli UTI and the patient is currently on IV Rocephin, currently stable Altered mental status, Brain CT was negative for any acute intracranial process. I am told the patient has some baseline dementia. No worsening in the mental status and the patient is alert and awake and communicating. Preserved LV function with an ejection fraction of 55%. Moderate degree of aortic valve calcification. No aortic regurgitation. Mild stenosis. Evidence of severe tricuspid regurgitation. Right ventricle systolic pressures estimated to be 45. Troponin leak, rule out non-ST elevation TN, nonspecific, likely secondary to underlying ALLERGIC infection and sepsis History of atrial fibrillation/A flutter, anticoagulated on Eliquis History of coronary artery disease, with previous coronary stents History of valvular heart disease, including moderate aortic stenosis and mild mitral regurgitation Benign essential hypertension Hyperlipidemia Obstructive sleep apnea, with home CPAP Hypothyroidism Plan: Clinically stable Overall condition stable and the patient remains on room air oxygen Continue IV Rocephin Urine cultures indicating E. coli Echocardiogram was noted and the patient has a preserved LV function Pipe Racker on the case regarding a flutter which is controlled and the patient is currently on anticoagulation with Eliquis 2.5 mg twice a day Clinically stable and hemodynamically stable. Oral Lasix Medications are unchanged. We'll continue to follow. Rehab discharge Pulmonary we'll sign off
[2022-12-08] MEDS: LEVOTHYROXINE 50 MCG TAB PO SCH (19:31)
[2022-12-08] MEDS: MELATONIN 3 MG TABLET PO SCH (19:31)
[2022-12-08] MEDS: ATORVASTATIN 40 MG TAB PO SCH (19:31)
[2022-12-08] MEDS: FOLIC ACID 1 MG TAB PO SCH (19:31)
[2022-12-09] MEDS: SODIUM CHLORIDE 0.9% 1,000 ML IV SCH (05:36)
[2022-12-09] MEDS: PANTOPRAZOLE 40 MG TABLET PO SCH (05:41)
--- NOTE | 2022-12-09 07:58 | P.CONS ---
History of Present Illness - Reason for Consult Consult date: 12/08/22 Positive blood culture Requesting physician: Ezio E Alonso - Chief Complaint Chest pain shortness of breath x few days - History of Present Illness Patient is a 87-year-old male with a past medical history significant for hypertension hyperlipidemia coronary artery disease atrial fibrillation sleep apnea patient presenting the hospital about 6 days ago for evaluation of chest pain patient was noticed to be combative and disoriented on arrival of the EMS to pick the patient up on presentation to the hospital patient was afebrile and no fever has been recorded subsequently patient did have a normal white count kidney function was normal troponins were mildly elevated he did have a positive UA patient was diagnosed with a UTI and has been treated with the Rocephin urine culture has been positive for E. coli that is sensitive pathogen patient did have a blood culture drawn on 12/03/2022 being reported positive for coagulase-negative staph that has prompted this infectious disease consultation patient is currently afebrile the patient is breathing comfortably on room air denies any further chest pain or coughing no nausea vomiting abdominal pain or d iarrhea patient did not have any swelling to the lower extremity joint swelling or any open wound, patient did have a chest x-ray with cardiomegaly and pulm vascular congestion and bilateral effusion on admission no x-rays has been repeated since then Review of Systems Positive point and negatives has been mentioned in the HPI, complete review of systems was performed and all other systems are negative Past Medical History Past Medical History: Atrial Flutter, Coronary Artery Disease (CAD), Cancer, Hyperlipidemia, Hypertension, Myocardial Infarction ([place]), Osteoarthritis (OA), Sleep Apnea/CPAP/BIPAP, Thyroid Disorder Additional Past Medical History / Comment(s): hx skin cancer Last Myocardial Infarction Date:: 2008 History of Any Multi-Drug Resistant Organisms: None Reported Past Surgical History: Heart Catheterization With Stent, Joint Replacement Additional Past Surgical History / Comment(s): Replacements of KAREN KNEES, KAREN HIPS and RT SHOULDER, has 2 or 3 coranary stents, recent karen eyelid sx, and removal of skin tag on rt eye lid, femur fracture with repair July 2022, Past Anesthesia/Blood Transfusion Reactions: No Reported Reaction Date of Last Stent Placement:: 2018 Past Psychological History: No Psychological Hx Reported Smoking Status: Former smoker - Past Family History Mother Family Medical History: No Reported History Brother(s) Family Medical History: Myocardial Infarction ([place]) Father Family Medical History: Myocardial Infarction ([place]) Medications and Allergies Home Medications Medication Instructions Recorded Confirmed Type Levothyroxine Sodium [Synthroid] 50 mcg PO HS 11/09/15 12/03/22 History Atorvastatin [Lipitor] 40 mg PO HS 09/26/18 12/03/22 History Folic Acid 1 mg PO HS 09/26/18 12/03/22 History Acetaminophen Tab [Tylenol] 975 mg PO Q8H 07/23/22 12/03/22 History Cyanocobalamin [Vitamin B-12] 1,000 mcg PO DAILY #30 tablet 08/23/22 12/03/22 Rx Apixaban [Eliquis] 2.5 mg PO BID 11/03/22 12/03/22 History Ranolazine [Ranexa] 500 mg PO BID 11/03/22 12/03/22 History Acetaminophen Tab [Tylenol] 650 mg PO Q6HR PRN tab 11/07/22 12/03/22 Rx Pantoprazole [Protonix] 40 mg PO AC-BRKFST tab 11/07/22 12/03/22 Rx Furosemide [Lasix] 40 mg PO BID@0900,1600 tab 12/10/22 Rx Melatonin 3 mg PO HS PRN #3 tab 12/10/22 Rx Multivitamins, Thera [Multivitamin 1 each PO DAILY@1200 tab 12/10/22 Rx (formulary)] Thiamine [Vitamin B-1] 100 mg PO DAILY@1200 tab 12/10/22 Rx cefUROXime axetiL [Ceftin] 500 mg PO BID 5 Days #10 tab 12/10/22 Rx Allergies Allergy/AdvReac Type Severity Reaction Status Date / Time Penicillins Allergy Rash/Hives Verified 12/03/22 18:03 [email or web address] Allergy Anaphylaxis Verified 12/03/22 18:03 cardiolite Allergy Anaphylaxis Uncoded 12/03/22 18:03 Physical Exam Vitals: Vital Signs Temp Pulse Resp BP Pulse Ox 12/08/22 11:56 77 16 124/72 99 12/08/22 08:20 98.1 F 86 18 116/58 98 12/08/22 03:08 97.9 F 78 18 111/62 99 12/07/22 23:17 98.9 F 84 18 113/58 97 12/07/22 19:56 98.1 F 75 16 119/69 98 12/07/22 16:02 97.8 F 74 16 134/76 98 Intake and Output 12/07/22 12/08/22 12/08/22 22:59 06:59 14:59 Intake Total 240 320 Balance 240 320 Intake: Oral 240 320 Other: Voiding Method Diaper Diaper Diaper Incontinent Incontinent Incontinent # Voids 1 2 GENERAL DESCRIPTION: Elderly male lying in bed, no distress. No tachypnea or accessory muscle of respiration use. HEENT: Shows Pallor , no scleral icterus. Oral mucous membrane is dry. No pharyngeal erythema or thrush NECK: Trachea central, no thyromegaly. LUNGS: Unlabored breathing. Decreased best at the base HEART: S1, S2, regular rate and rhythm. No loud murmur ABDOMEN: Soft, no tenderness , guarding or rigidity, no organomegaly EXTREMITIES: No edema of feet. SKIN: No rash, no masses palpable. NEUROLOGICAL: The patient is awake, alert, oriented x3, mood and affect normal. Results CBC & Chem 7: 12/06/22 07:13 12/06/22 07:13 Labs: Microbiology - Last 24 Hours (Table) 12/03/22 18:04 Blood Culture Gram Stain - Preliminary Blood Blood Culture - Preliminary Coagulase Negative Staph Assessment and Plan (1) Positive blood culture Status: Acute Code(s): R78.81 - BACTEREMIA SNOMED Code(s): 732955329 Plan: 1patient with a positive blood culture with coagulase-negative staph most likely representing contamination as the patient has no clinical disease to go along with this patient has been in the hospital for almost a week with initial presentation with chest pain patient chest x-ray did not show any evidence of pneumonia patient currently not have any cellulitis or joint swelling 2-blood culture has been repeated and will be followed if they are positive as well will need further work-up 3-patient also have mental status changes on admission did have positive UA and urine positive for E. coli likely asymptomatic E. coli urinary tract infection and will cover the patient on Rocephin We will follow on clinical condition and cultures to further adjust medication if needed Thank you for this consultation we will follow the patient along with you Dictation was produced using [employer] software. please excuse any grammatical, word or spelling errors. Time with Patient: Greater than 30
--- NOTE | 2022-12-09 08:48 | P.PN ---
Subjective This is a pleasant 87 years old male with past medical history of multiple medical problems, who presents because of confusion which is multifactorial thought secondary to acute urinary tract infection with urine culture is growing E. coli, ceftriaxone and also IV Lasix twice daily for CHF exacerbation. His elevated troponin are consistent with his infection and other medical problems rather than acute coronary syndrome. His A. fib is controlled on liquids 2.5 mg. His beta enzo was off as he was bradycardic before. We will switch his IV Lasix and oral dose 40 mg twice daily As per bedside nurse patient is back to baseline when she talked to the family. Patient denies any specific complaint and he looks confused. Pleasant. He is hemodynamically stable. Labs reviewed. Patient is medically stable for discharge once cleared by consultants. Cardiology team signed off. I discussed the case with major case detective when pending authorization for him to go to subacute rehab. 12/07/2022 Patient is more awake and alert today, he knows in a [facility]. He still mildly confused with looks at his baseline. He says that his dysuria he had on admission has resolved. Any other urinary symptoms. His story remains on Rocephin for his urinary tract infection He has positive blood culture with staph epidermidis most likely contamination. 12/08/2022 Patient has 2 blood cultures with staph epidermidis most likely contamination. Blood culture is ordered yesterday. Patient indication is at baseline. No specific complaint. He is hemodynamically stable Situation oral dose 4 mg twice daily Next subacute rehab upon discharge 12/09/2022 Patient mentation at baseline. No other symptoms. He is hemodynamically stable. No fever, no leukocytosis. Repeat blood culture still pending, most likely contamination Patient remains on ceftriaxone Possible discharge in 24-48 hours Patient will need subacute rehab upon discharge Objective - Vital Signs Vital signs: Vital Signs Temp 98.3 F 12/09/22 02:42 Pulse 74 12/09/22 02:42 Resp 14 12/09/22 02:42 BP 108/53 12/09/22 02:42 Pulse Ox 95 12/09/22 02:42 FiO2 Intake & Output 12/08/22 12/09/22 12/09/22 18:59 06:59 18:59 Intake Total 438 Balance 438 Intake: Oral 438 Other: Voiding Method Diaper Diaper Incontinent Incontinent # Voids 1 # Bowel Movements 0 - Exam -GENERAL: The patient is alert and oriented , confused not in any acute distress. Well developed, well nourished. HEENT: Pupils are round and equally reacting to light. EOMI. No scleral icterus. No conjunctival pallor. Normocephalic, atraumatic. No pharyngeal erythema. No thyromegaly. CARDIOVASCULAR: S1 and S2 present. No murmurs, rubs, or gallops. PULMONARY: Chest is clear to auscultation, no wheezing , no crackles. ABDOMEN: Soft, nontender, nondistended, normoactive bowel sounds. No palpable organomegaly. MUSCULOSKELETAL: No joint swelling or deformity. EXTREMITIES: No cyanosis, clubbing, or pedal edema. NEUROLOGICAL: Gross neurological examination did not reveal any focal deficits. SKIN: No rashes. no petechiae. - Labs CBC & Chem 7: 12/06/22 07:13 12/06/22 07:13 Labs: Microbiology - Last 24 Hours (Table) 12/03/22 18:04 Blood Culture Gram Stain - Final Blood Blood Culture - Final Staph capitis SS capitis 12/03/22 18:24 Blood Culture Gram Stain - Final Blood Blood Culture - Final Staph capitis SS capitis Assessment and Plan Assessment: Acute urinary tract infection secondary to sensitive E. coli positive blood culture with staph epidermidis Metabolic/toxic encephalopathy, improved Acute CHF exacerbation, improved Elevated troponin secondary to above. Acute coronary syndrome ruled out Paroxysmal atrial fibrillation on eliquis Red aortic stenosis Obstructive sleep apnea on CPAP Plan: Continue with ceftriaxone Antibiotics status patient to oral Ceftin for short oral course upon discharge Follow-up repeat blood culture Switch IV Lasix to oral dose Cardiology team signed off Pulmonary input is appreciated Continue with Eliquis 2.5 mg Labs and medication were reviewed.. Continue same treatment. Continue with symptomatic treatment. Resume home medication. Monitor labs and vitals. DVT and GI prophylaxis. Further recommendations as per clinical course of the patient DVT prophylaxis: Eliquis GI Prophylaxis: Pepcid PT/OT: naomi Prognosis is guarded
[2022-12-09] MEDS: CYANOCOBALAMIN 500 MCG TAB PO SCH (09:26)
[2022-12-09] MEDS: RANOLAZINE 500 MG TAB.ER.12H PO SCH ×2 (09:26→20:17)
[2022-12-09] MEDS: FAMOTIDINE 20 MG TAB PO SCH ×2 (09:26→20:17)
[2022-12-09] MEDS: APIXABAN 2.5 MG TABLET PO SCH ×2 (09:26→20:17)
[2022-12-09] MEDS: FUROSEMIDE 40 MG TAB PO SCH ×2 (09:26→17:12)
--- NOTE | 2022-12-09 12:32 | P.PN ---
Subjective Progress Note Date: 12/09/22 Principal diagnosis: E. coli UTI and bacteremia Patient is a 87-year-old male with a past medical history significant for hypertension hyperlipidemia coronary artery disease atrial fibrillation sleep apnea patient presenting the hospital for evaluation of chest pain patient was noticed to be combative and disoriented on arrival of the EMS, patient did have evidence of E. coli urinary tract infection and also have a positive blood culture with Staphylococcus capitis. On today's evaluation that is 12/09/2022, the patient continues to be afebrile , the patient is breathing comfortably on room air and denies any shortness of breath, the patient denies any chest pain or cough, patient denies abdominal pain and no nausea/vomiting or diarrhea Patient did have a white count of 4.1, creatinine 0.7 as of 12/06/2022 Objective - Vital Signs Vital signs: Vital Signs Temp 98.5 F 12/09/22 09:14 Pulse 77 12/09/22 09:14 Resp 18 12/09/22 09:14 BP 102/54 12/09/22 09:14 Pulse Ox 94 L 12/09/22 09:14 FiO2 Intake & Output 12/08/22 12/09/22 12/09/22 18:59 06:59 18:59 Intake Total 438 180 Balance 438 180 Intake: Oral 438 180 Other: Voiding Method Diaper Diaper Diaper Incontinent Incontinent Incontinent # Voids 1 # Bowel Movements 0 - Exam GENERAL DESCRIPTION: An elderly male lying in bed in no distress RESPIRATORY SYSTEM: Unlabored breathing , clear to auscultation anteriorly HEART: S1 S2 regular rate and rhythm , ABDOMEN: Soft , no tenderness EXTREMITIES: No edema feet - Labs CBC & Chem 7: 12/06/22 07:13 12/06/22 07:13 Labs: Microbiology - Last 24 Hours (Table) 12/03/22 18:04 Blood Culture Gram Stain - Final Blood Blood Culture - Final Staph capitis SS capitis 12/03/22 18:24 Blood Culture Gram Stain - Final Blood Blood Culture - Final Staph capitis SS capitis Assessment and Plan (1) Positive blood culture Current Visit: Yes Status: Acute Code(s): R78.81 - BACTEREMIA SNOMED Code(s): 332071236 (2) UTI (urinary tract infection) Current Visit: Yes Status: Acute Code(s): N39.0 - URINARY TRACT INFECTION, SITE NOT SPECIFIED SNOMED Code(s): 09041603 Plan: 1patient with a positive blood culture with coagulase-negative staph most likely representing contamination as the patient has no clinical disease to go along with this patient has been in the hospital for almost a week with initial presentation with chest pain patient chest x-ray did not show any evidence of pneumonia patient currently not have any cellulitis or joint swelling 2-blood culture has been repeated and are currently pending 3-patient also have mental status changes on admission did have positive UA and urine positive for E. coli likely symptomatic E. coli urinary tract infection and will cover the patient on Rocephin Family the bedside questions were answered Dictation was produced using [employer] dictation software. please excuse any grammatical, word or spelling errors. Time with Patient: Less than 30
[2022-12-09] MEDS: THIAMINE 100 MG TAB PO SCH (13:10)
[2022-12-09] MEDS: MULTIVITAMINS, THERA 1 EACH TAB PO SCH (13:10)
[2022-12-09] MEDS: ACETAMINOPHEN TAB 325 MG TAB PO PRN (13:15)
--- NOTE | 2022-12-09 14:59 | P.PN ---
Subjective Progress Note Date: 12/09/22 Principal diagnosis: Acute urinary tract infection and, possible sepsis secondary to E. coli I am seeing this patient in consultation today 12/04/2022 after the patient presented to emergency room yesterday afternoon confused. Patient is a 87-year-old male with past medical history significant for coronary artery disease with multiple previous coronary stents, hypertension, hyperlipidemia, congestive heart failure, A. fib/aflutter anticoagulated on Eliquis, hypothyroidism, obstructive sleep apnea with home CPAP. Patient follows with Dr. Garsia as his primary care provider. Patient is currently confused and a poor historian. Patient presented to the emergency room yesterday afternoon accompanied by his . He was outside smoking a cigar when he started to have chest pain. On arrival to the emergency room, the patient was combative and disoriented. Brain CT showed no acute intracranial process. Patient is currently sitting up in bed, on room air, in no acute distress. SPO2 is 99%. He is pleasantly confused and alert. He is disoriented 3. I am told the patient has some baseline dementia. Patient currently denies any complaints. He believes he is at home. He denies having any chest pain. Urinalysis was taken which showed leukocytosis and many bacteria. Urinary tract infection may be exacerbating his delirium. Patient was started on Rocephin in the emergency room.. CBC on arrival showed a WBC count of 6, hemoglobin 11.4, hematocrit 34.6, platelets 263. BMP on arrival is unremarkable. Normal saline is infusing at 130 ML's per hour. His received a total of about 1-1/2 L normal saline bolus. Lactic acid level not elevated. Troponins 0.078 and 0.075 currently. EKG did not show any acute ischemic changes. NT proBNP elevated at 4130. Chest x-ray on arrival didn't show cardiomegaly, pulmonary vascular congestion, small bilateral pleural effusions. Patient appears clinically stable. On today's evaluation of 12/05/2022, the patient has stable. No chest pain. Still being treated with IV antibiotics for suspected urinary tract infection. He is on room air oxygen. He remains in atrial flutter with controlled rate. His echo cardiac exam shows a preserved LV function. The patient's the white cell count is at 5 with a hemoglobin of 10.7, BUN is at 12 with a creatinine of 0.7. Cultures are still pending including a negative blood culture. Hemodynamically stable. No altered mentation. Clinically stable. On 12/06/2022, the patient is pleasantly confused. Doing well. Hemodynamically stable. Afebrile. He remains on IV Rocephin. He remains active fibrillation with a controlled rate. History of any chest pain. His white cell count of 4.1 with a hemoglobin of 11 and a platelet count of 288. BUN is 11 with a cre atinine of 0.7. No other complaints. Resting comfortably in bed. His mental status was altered secondary to underlying are checked infection. However, he has chronic confusion and cognitive impairment and dementia. Echocardiogram showed mild aortic stenosis, [id number] mitral regurgitation and moderate to severe tricuspid regurgitation. The patient has a preserved LV function with an ejection fraction of 55-60%. Global LV function was within normal limits. 12/07/2022, no new complaints. No confusion or agitation. Remains on IV Rocephin. No respiratory difficulties. Remains on anticoagulation with Eliquis. No change in the medication. The white cell count of 4.1 from [facility]. BUN is 11 with a creatinine of 0.7. No new labs are available from today. 12/08/2022, condition is stable. Continues to have some confusion. No respiratory difficulties. Continues to be on IV Rocephin. Rest of the medications remain unchanged. Remains on room air oxygen. No new labs are available from today. Reevaluated today on 12/09/2022, patient is doing well, does not seem to be in any distress, is at bedside, patient seems to be pleasantly confused, remains on IV Rocephin. Patient is on room air, O2 sat is 94% blood pressure is 102/54, his temp is 98.5. WBC count is 4.1 hemoglobin is 11 basic metabolic profile is normal and renal profile is no Objective - Vital Signs Vital signs: Vital Signs Temp 98.5 F 12/09/22 09:14 Pulse 77 12/09/22 09:14 Resp 18 12/09/22 09:14 BP 102/54 12/09/22 09:14 Pulse Ox 94 L 12/09/22 09:14 FiO2 Intake & Output 12/08/22 12/09/22 12/09/22 18:59 06:59 18:59 Intake Total 438 360 Balance 438 360 Intake: Oral 438 360 Other: Voiding Method Diaper Diaper Diaper Incontinent Incontinent Incontinent # Voids 1 1 # Bowel Movements 0 - Exam Physical Exam: Revealed an 87-year-old white male in no distress on room air Head: Atraumatic, normocephalic. HEENT:[Neck is supple.] [No neck masses.] [No thyromegaly.] [No JVD.] Chest: [Clear throughout, no crackles, no rhonchi, no wheezes.] Cardiac Exam: [Normal S1 and S2, no S3 gallop, no murmur.] Abdomen: [Soft, nontender, no megaly, no rebound, no guarding, normal bowel sounds.] Extremities: [No clubbing, no edema, no cyanosis.] Neurological Exam: [No focal neurologic deficit.] Patient is pleasantly confused, cooperative, Psychiatric: Normal mood, affect, confused mental status. - Labs CBC & Chem 7: 12/06/22 07:13 12/06/22 07:13 Labs: Microbiology - Last 24 Hours (Table) 12/07/22 21:19 Blood Culture - Preliminary Blood 12/03/22 18:04 Blood Culture Gram Stain - Final Blood Blood Culture - Final Staph capitis SS capitis 12/03/22 18:24 Blood Culture Gram Stain - Final Blood Blood Culture - Final Staph capitis SS capitis Assessment and Plan Assessment: Impression: Acute E. coli urinary tract infection and possible sepsis Acute metabolic encephalopathy History of chronic atrial fibrillation Coronary artery disease and previous stent placement Moderate aortic stenosis and mild mitral regurgitation Benign essential hypertension Dyslipidemia Obstructive sleep apnea syndrome, on home CPAP History of hypothyroidism. Recommendation: Continue Rocephin Continue present medications Consider discharging the patient to halfway/rehab on oral antibiotics as pe r ID on the case. Will follow as needed. Updated his on his condition, Time with Patient: Less than 30
[2022-12-09] MEDS: MELATONIN 3 MG TABLET PO SCH (20:16)
[2022-12-09] MEDS: LEVOTHYROXINE 50 MCG TAB PO SCH (20:16)
[2022-12-09] MEDS: FOLIC ACID 1 MG TAB PO SCH (20:17)
[2022-12-09] MEDS: ATORVASTATIN 40 MG TAB PO SCH (20:17)
[2022-12-10] MEDS: SODIUM CHLORIDE 0.9% 1,000 ML IV SCH (02:22)
[2022-12-10 02:34] VITALS: RESP 18
[2022-12-10] MEDS: PANTOPRAZOLE 40 MG TABLET PO SCH (06:07)
[2022-12-10] MEDS: RANOLAZINE 500 MG TAB.ER.12H PO SCH (09:43)
[2022-12-10] MEDS: CYANOCOBALAMIN 500 MCG TAB PO SCH (09:43)
[2022-12-10] MEDS: FUROSEMIDE 40 MG TAB PO SCH (09:43)
[2022-12-10] MEDS: FAMOTIDINE 20 MG TAB PO SCH (09:43)
[2022-12-10] MEDS: APIXABAN 2.5 MG TABLET PO SCH (09:43)
[2022-12-10] MEDS: ACETAMINOPHEN TAB 325 MG TAB PO PRN (11:39)
[2022-12-10] MEDS: THIAMINE 100 MG TAB PO SCH (11:40)
[2022-12-10] MEDS: MULTIVITAMINS, THERA 1 EACH TAB PO SCH (11:40)
[2022-12-10 11:51] VITALS: BP 104/58; PULSE 76; TEMP 98
--- NOTE | 2022-12-10 12:45 | P.PN ---
Subjective Progress Note Date: 12/10/22 Principal diagnosis: E. coli UTI and bacteremia Patient is a 87-year-old male with a past medical history significant for hypertension hyperlipidemia coronary artery disease atrial fibrillation sleep apnea patient presenting the hospital for evaluation of chest pain patient was noticed to be combative and disoriented on arrival of the EMS, patient did have evidence of E. coli urinary tract infection and also have a positive blood culture with Staphylococcus capitis. On today's evaluation that is 12/10/2022, the patient remains to be afebrile , the patient is breathing comfortably on room air without need for supplemental oxygen, the patient denies any chest pain and no significant cough or sputum production, patient denies abdominal pain and no nausea/vomiting or diarrhea Patient did have a white count of 4.1, creatinine 0.7 as of 12/06/2022, no new labs has been done, blood culture done on 12/07/2022 has been negative so far Objective - Vital Signs Vital signs: Vital Signs Temp 98.0 F 12/10/22 11:35 Pulse 76 12/10/22 11:35 Resp 18 12/10/22 11:35 BP 104/58 12/10/22 11:35 Pulse Ox 93 L 12/10/22 11:35 FiO2 Intake & Output 12/09/22 12/10/22 12/10/22 18:59 06:59 18:59 Intake Total 540 Output Total 200 825 Balance 340 -825 Intake: Oral 540 Output: Urine 200 825 Other: Voiding Method Diaper Diaper Diaper Incontinent Incontinent Incontinent External Catheter External Catheter # Voids 1 - Exam GENERAL DESCRIPTION: An elderly male lying in bed in no distress RESPIRATORY SYSTEM: Unlabored breathing , clear to auscultation anteriorly HEART: S1 S2 regular rate and rhythm , ABDOMEN: Soft , no tenderness EXTREMITIES: No edema feet - Labs CBC & Chem 7: 12/06/22 07:13 12/06/22 07:13 Labs: Microbiology - Last 24 Hours (Table) 12/07/22 21:19 Blood Culture - Preliminary Blood Assessment and Plan (1) Positive blood culture Current Visit: Yes Status: Acute Code(s): R78.81 - BACTEREMIA SNOMED Code(s): 634145408 (2) UTI (urinary tract infection) Current Visit: Yes Status: Acute Code(s): N39.0 - URINARY TRACT INFECTION, SITE NOT SPECIFIED SNOMED Code(s): 66147821 Plan: 1patient with a positive blood culture with coagulase-negative staph most likely representing contamination as the patient has no clinical disease to go along with this patient has been in the hospital for almost a week with initial presentation with chest pain patient chest x-ray did not show any evidence of pneumonia patient currently not have any cellulitis or joint swelling 2-blood culture has been repeated and are negative so far 3-patient also have mental status changes on admission did have positive UA and urine positive for E. coli likely symptomatic E. coli urinary tract infection, patient seemed to have shown clinical improvement with Rocephin and consider short course of oral Ceftin on discharge as a positive blood culture is more likely contamination and does not need any further workup Family the bedside questions were answered Dictation was produced using [employer] dictation software. please excuse any grammatical, word or spelling errors. Time with Patient: Less than 30
--- NOTE | 2022-12-10 13:18 | P.DS ---
Providers Date of admission: 12/03/22 18:21 Attending physician: Marycarmen Gusman Consults: 12/03/22 18:19 Consult Physician Routine Consulting Provider: Mike Garsia Consult Reason/Comments: your patient. sepsis Do you want consulting provider notified?: Yes 12/04/22 13:37 Consult Physician Routine Consulting Provider: Mike Almaguer Consult Reason/Comments: mi, chf?? Do you want consulting provider notified?: Yes 12/07/22 21:06 Consult Physician Urgent Consulting Provider: Aguilar Mosqueda Consult Reason/Comments: positive blood culture Do you want consulting provider notified?: Yes Primary care physician: Mike Garsia Hospital Course: Diagnoses: Acute urinary tract infection secondary to sensitive E. coli positive blood culture with staph epidermidis. Contaminated. No need for further workup Metabolic/toxic encephalopathy, improved Acute CHF exacerbation, improved Elevated troponin secondary to above. Acute coronary syndrome ruled out Paroxysmal atrial fibrillation on eliquis Red aortic stenosis Obstructive sleep apnea on CPAP Possible dementia, require further testing as an outpatient Hospital course: This is a pleasant 87 years old male with past medical history of multiple medical problems, who presents because of confusion which is multifactorial thought secondary to acute urinary tract infection with urine culture is growing E. coli, ceftriaxone and also IV Lasix twice daily for CHF exacerbation. His elevated troponin are consistent with his infection and other medical problems rather than acute coronary syndrome. His A. fib is controlled on eliquis 2.5 mg. His beta enzo was off as he was bradycardic before. We switched his IV Lasix and oral dose 40 mg twice daily Patient evaluated and cleared for discharge by all consultants including cardiology pulmonary and infectious disease team. Problems and management plan were discussed with the patient and he verbalized understanding and acceptance Patient was found stable and can be discharged home in guarded prognosis however he needs follow-up as an outpatient. Patient was instructed to follow up with PCP and parts salesperson Dr. coelho within one week and patient agrees Recommend patient follow up with beverage manager Dr. Mckeon in 1-2 weeks as an outpatient Physical exam Gen: patient is a AAOx3, no distress CVS: S1-S2, RRR, no murmur Lungs: B/L CTA, no wheezing Abdomen: soft, no distention, no tenderness, positive bowel sounds Extremity: no leg edema or induration Time spent more than 35 minutes Patient Condition at Discharge: Fair Plan - Discharge Summary Discharge Rx Participant: Yes New Discharge Prescriptions: New cefUROXime axetiL [Ceftin] 500 mg PO BID 5 Days #10 tab Furosemide [Lasix] 40 mg PO BID@0900,1600 tab Melatonin 3 mg PO HS PRN #3 tab PRN Reason: Insomnia Multivitamins, Thera [Multivitamin (formulary)] 1 each PO DAILY@1200 tab Thiamine [Vitamin B-1] 100 mg PO DAILY@1200 tab Continue Levothyroxine Sodium [Synthroid] 50 mcg PO HS Folic Acid 1 mg PO HS Atorvastatin [Lipitor] 40 mg PO HS Acetaminophen Tab [Tylenol] 975 mg PO Q8H Acetaminophen Tab [Tylenol] 650 mg PO Q6HR PRN tab PRN Reason: Mild Pain Or Fever > 100.5 Cyanocobalamin [Vitamin B-12] 1,000 mcg PO DAILY #30 tablet Ranolazine [Ranexa] 500 mg PO BID Apixaban [Eliquis] 2.5 mg PO BID Pantoprazole [Protonix] 40 mg PO AC-BRKFST tab Discontinued Furosemide [Lasix] 20 mg PO DAILY tab Discharge Medication List Levothyroxine Sodium [Synthroid] 50 mcg PO HS 11/09/15 [History] Atorvastatin [Lipitor] 40 mg PO HS 09/26/18 [History] Folic Acid 1 mg PO HS 09/26/18 [History] Acetaminophen Tab [Tylenol] 975 mg PO Q8H 07/23/22 [History] Cyanocobalamin [Vitamin B-12] 1,000 mcg PO DAILY #30 tablet 08/23/22 [Rx] Apixaban [Eliquis] 2.5 mg PO BID 11/03/22 [History] Ranolazine [Ranexa] 500 mg PO BID 11/03/22 [History] Acetaminophen Tab [Tylenol] 650 mg PO Q6HR PRN tab 11/07/22 [Rx] Pantoprazole [Protonix] 40 mg PO AC-BRKFST tab 11/07/22 [Rx] Furosemide [Lasix] 40 mg PO BID@0900,1600 tab 12/10/22 [Rx] Melatonin 3 mg PO HS PRN #3 tab 12/10/22 [Rx] Multivitamins, Thera [Multivitamin (formulary)] 1 each PO DAILY@1200 tab 12/10/22 [Rx] Thiamine [Vitamin B-1] 100 mg PO DAILY@1200 tab 12/10/22 [Rx] cefUROXime axetiL [Ceftin] 500 mg PO BID 5 Days #10 tab 12/10/22 [Rx] Follow up Appointment(s)/Referral(s): Mike Garsia MD [Primary Care Provider] - 1-2 days Residential Home[facility]Health [NON-STAFF] - Activity/Diet/Wound Care/Special Instructions: Heart healthy diet Activity as tolerated Discharge Disposition: TRANSFER TO SNF/ECF
--- NOTE | 2022-12-10 13:30 | P.PN ---
Subjective Progress Note Date: 12/10/22 Principal diagnosis: Acute urinary tract infection and, possible sepsis secondary to E. coli I am seeing this patient in consultation today 12/04/2022 after the patient presented to emergency room yesterday afternoon confused. Patient is a 87-year-old male with past medical history significant for coronary artery disease with multiple previous coronary stents, hypertension, hyperlipidemia, congestive heart failure, A. fib/aflutter anticoagulated on Eliquis, hypothyroidism, obstructive sleep apnea with home CPAP. Patient follows with Dr. Garsia as his primary care provider. Patient is currently confused and a poor historian. Patient presented to the emergency room yesterday afternoon accompanied by his . He was outside smoking a cigar when he started to have chest pain. On arrival to the emergency room, the patient was combative and disoriented. Brain CT showed no acute intracranial process. Patient is currently sitting up in bed, on room air, in no acute distress. SPO2 is 99%. He is pleasantly confused and alert. He is disoriented 3. I am told the patient has some baseline dementia. Patient currently denies any complaints. He believes he is at home. He denies having any chest pain. Urinalysis was taken which showed leukocytosis and many bacteria. Urinary tract infection may be exacerbating his delirium. Patient was started on Rocephin in the emergency room.. CBC on arrival showed a WBC count of 6, hemoglobin 11.4, hematocrit 34.6, platelets 263. BMP on arrival is unremarkable. Normal saline is infusing at 130 ML's per hour. His received a total of about 1-1/2 L normal saline bolus. Lactic acid level not elevated. Troponins 0.078 and 0.075 currently. EKG did not show any acute ischemic changes. NT proBNP elevated at 4130. Chest x-ray on arrival didn't show cardiomegaly, pulmonary vascular congestion, small bilateral pleural effusions. Patient appears clinically stable. On today's evaluation of 12/05/2022, the patient has stable. No chest pain. Still being treated with IV antibiotics for suspected urinary tract infection. He is on room air oxygen. He remains in atrial flutter with controlled rate. His echo cardiac exam shows a preserved LV function. The patient's the white cell count is at 5 with a hemoglobin of 10.7, BUN is at 12 with a creatinine of 0.7. Cultures are still pending including a negative blood culture. Hemodynamically stable. No altered mentation. Clinically stable. On 12/06/2022, the patient is pleasantly confused. Doing well. Hemodynamically stable. Afebrile. He remains on IV Rocephin. He remains active fibrillation with a controlled rate. History of any chest pain. His white cell count of 4.1 with a hemoglobin of 11 and a platelet count of 288. BUN is 11 with a cre atinine of 0.7. No other complaints. Resting comfortably in bed. His mental status was altered secondary to underlying are checked infection. However, he has chronic confusion and cognitive impairment and dementia. Echocardiogram showed mild aortic stenosis, [id number] mitral regurgitation and moderate to severe tricuspid regurgitation. The patient has a preserved LV function with an ejection fraction of 55-60%. Global LV function was within normal limits. 12/07/2022, no new complaints. No confusion or agitation. Remains on IV Rocephin. No respiratory difficulties. Remains on anticoagulation with Eliquis. No change in the medication. The white cell count of 4.1 from [facility]. BUN is 11 with a creatinine of 0.7. No new labs are available from today. 12/08/2022, condition is stable. Continues to have some confusion. No respiratory difficulties. Continues to be on IV Rocephin. Rest of the medications remain unchanged. Remains on room air oxygen. No new labs are available from today. Reevaluated today on 12/09/2022, patient is doing well, does not seem to be in any distress, is at bedside, patient seems to be pleasantly confused, remains on IV Rocephin. Patient is on room air, O2 sat is 94% blood pressure is 102/54, his temp is 98.5. WBC count is 4.1 hemoglobin is 11 basic metabolic profile is normal and renal profile is normal Reevaluated today on 12/10/22, patient is doing well, asymptomatic, very comfortable, the plan is to transfer the patient to snf today, and transition IV antibiotics to oral antibiotics. Pulmonary-saenz the patient is asymptomatic, and not in any form of distress. CBC is relatively normal basic metabolic profile is normal renal profile is normal Objective - Vital Signs Vital signs: Vital Signs Temp 98.0 F 12/10/22 11:35 Pulse 76 10/31/23 11:35 Resp 18 12/10/22 11:35 BP 104/58 12/10/22 11:35 Pulse Ox 93 L 12/10/22 11:35 FiO2 Intake & Output 12/09/22 12/10/22 12/10/22 18:59 06:59 18:59 Intake Total 540 598 Output Total 200 825 Balance 340 -825 598 Intake: Oral 540 598 Output: Urine 200 825 Other: Voiding Method Diaper Diaper Diaper Incontinent Incontinent Incontinent External Catheter External Catheter # Voids 1 - Exam Physical Exam: Revealed an 87-year-old white male in no distress on room air Head: Atraumatic, normocephalic. HEENT:[Neck is supple.] [No neck masses.] [No thyromegaly.] [No JVD.] Chest: [Clear throughout, no crackles, no rhonchi, no wheezes.] Cardiac Exam: [Normal S1 and S2, no S3 gallop, no murmur.] Abdomen: [Soft, nontender, no megaly, no rebound, no guarding, normal bowel sounds.] Extremities: [No clubbing, no edema, no cyanosis.] Neurological Exam: [No focal neurologic deficit.] Patient is pleasantly confused, cooperative, Psychiatric: Normal mood, affect, confused mental status. - Labs CBC & Chem 7: 12/06/22 07:13 12/06/22 07:13 Labs: Microbiology - Last 24 Hours (Table) 12/07/22 21:19 Blood Culture - Preliminary Blood Assessment and Plan Assessment: Impression: Acute E. coli urinary tract infection and possible sepsis Acute metabolic encephalopathy History of chronic atrial fibrillation Coronary artery disease and previous stent placement Moderate aortic stenosis and mild mitral regurgitation Benign essential hypertension Dyslipidemia Obstructive sleep apnea syndrome, on home CPAP History of hypothyroidism. Recommendation: Position to oral antibiotics, possibly Ceftin Continue present medications Will clear for discharge if cleared by infectious disease on the case. Time with Patient: Less than 30
== END 2022-12-10 14:54 | DRG 871 ==
LOC: EC 15:37 → 3SCARD 18:21
PROVIDERS: ADMIT Hospitalist; ATTEND Hospitalist
DX: A41.51 Sepsis due to Escherichia coli [E. coli] (principal); G92.8 Other toxic encephalopathy; I21.A1 Myocardial infarction type 2; I48.20 Chronic atrial fibrillation, unspecified; I48.92 Unspecified atrial flutter; N39.0 Urinary tract infection, site not specified; E03.9 Hypothyroidism, unspecified; E78.5 Hyperlipidemia, unspecified; F03.90 Unspecified dementia, unspecified severity, without behavioral disturbance, psychotic disturbance, mood disturbance, and anxiety; G35 Multiple sclerosis; G47.33 Obstructive sleep apnea (adult) (pediatric); A41.1 Sepsis due to other specified staphylococcus; M19.90 Unspecified osteoarthritis, unspecified site; I08.3 Combined rheumatic disorders of mitral, aortic and tricuspid valves; I11.0 Hypertensive heart disease with heart failure; I25.10 Atherosclerotic heart disease of native coronary artery without angina pectoris; I25.2 Old myocardial infarction; I45.10 Unspecified right bundle-branch block; I50.9 Heart failure, unspecified; R65.20 Severe sepsis without septic shock; Z79.01 Long term (current) use of anticoagulants; Z79.890 Hormone replacement therapy; Z79.899 Other long term (current) drug therapy; Z82.49 Family history of ischemic heart disease and other diseases of the circulatory system; Z87.891 Personal history of nicotine dependence; Z95.5 Presence of coronary angioplasty implant and graft; Z96.653 Presence of artificial knee joint, bilateral; Z96.643 Presence of artificial hip joint, bilateral; Z88.0 Allergy status to penicillin; Z88.1 Allergy status to other antibiotic agents
CPT/HCPCS: 36415; 70450; 71045; 80048; 80053; 80320; 81001; 83605; 83735; 83880; 84484; 85025; 85610; 85730; 87040; 87077; 87086; 87186; 93005; 93306; 94760; 96365; 99285